=== PATIENT | male | born 1950 | race Caucasian/White ===

== ENCOUNTER 2023-04-04 16:35 | Outpatient (OUT) | payer MEDICARE, SELFPAY ==
[2023-04-04 17:08] LABS: Basophils Percent Auto 0.4 % (0.2-2.0); Eosinophils Absolute Auto 0.2 10^3/uL (0.0-0.7); Eosinophils Percent Auto 3.1 % (0.9-7.0); Hematocrit 41.6 % (42.0-54.0); Hemoglobin 14.2 g/dL (14.0-18.0); Immature Granulocytes Abs Auto 0.01 10^3/uL (0.00-0.03); Immature Granulocytes Pct Auto 0.2 % (0.0-0.5); Lymphocytes Absolute Auto 1.3 10^3/uL (1.2-3.8); Lymphocytes Percent Auto 24.2 % (20.5-60.0); Mean Corpuscular HGB Conc 34.1 g/dL (29.9-35.2); Mean Corpuscular Hemoglobin 29.8 pg (25.9-34.0); Mean Corpuscular Volume 87.4 fL (80.0-94.0); Mean Platelet Volume 9.8 fL (9.5-13.5); Monocytes Absolute Auto 0.6 10^3/uL (0.3-0.8); Monocytes Percent Auto 10.4 % (1.7-12.0); Neutrophils Absolute Auto 3.4 10^3/uL (1.4-6.5); Neutrophils Percent Auto 61.7 % (43.0-75.0); Platelet Count 173 10^3/uL (150-450); Red Blood Count 4.76 10^6/uL (4.70-6.10); Red Cell Distribution Width 13.2 % (11.0-15.0); White Blood Count 5.5 10^3/uL (4.0-11.0)
[2023-04-07 17:07] LABS: Immunoglobulin A, Qn, Serum 120 mg/dL (61-437); Immunoglobulin E, Total 83 IU/mL (6-495); Immunoglobulin G, Qn, Serum 867 mg/dL (603-1613); Immunoglobulin M, Qn, Serum 27 mg/dL (15-143)
== END 2023-04-04 16:36 | disposition home or self-care (01) ==
LOC: LAB 16:38
PROVIDERS: PCP Nurse Practitioner
DX: J32.0 Chronic maxillary sinusitis (principal); J30.1 Allergic rhinitis due to pollen; J30.89 Other allergic rhinitis; D80.1 Nonfamilial hypogammaglobulinemia
CPT/HCPCS: 36415; 82784; 82785; 85025; 86317

== ENCOUNTER 2023-11-27 09:07 | Outpatient (OUT) | payer MEDICARE, SELFPAY ==
--- NOTE | 2023-11-27 09:36 | XR_ITS ---
[address] [address] Patient Name: SERGEI NUNEZ MRN: [id number] date: 1950 Sex: M Assigned Patient Location: LAB Current Patient Location: LAB Accession/Order Number: [id number] Exam Date: 11/27/2023 09:41 Report Date: 11/27/2023 10:20 At the request of: AMANDA BIRD Procedure: XR abdomen 1V EXAMINATION: XR abdomen 1V HISTORY: Kidney Stone COMPARISON: 09/09/2022 CT FINDINGS: KIDNEY/URETER - RIGHT: No visible renal or ureteral calcifications. KIDNEY/URETER - LEFT: No visible renal or ureteral calcifications. PELVIS: No visible ureteral calcifications. Any visible calcifications favor phleboliths. BOWEL: No abnormal dilation or deviation. BONES: No acute abnormality. OTHER: Negative. No abnormal gaseous collections. XR/XR abdomen 1V IMPRESSION: No definite urinary tract calculi Electronically authenticated by: JUAN PABLO CHENG Date: 11/27/2023 10:20
[2023-11-28 04:11] LABS: Prostate Specific Ag 3.3 ng/mL (0.0-4.0)
== END 2023-11-27 09:08 | disposition home or self-care (01) ==
LOC: LAB 09:10
PROVIDERS: PCP Nurse Practitioner; Visit Provider Urology
DX: N20.0 Calculus of kidney (principal); R97.20 Elevated prostate specific antigen [PSA]
CPT/HCPCS: 36415; 74018; 84153; 84154

== ENCOUNTER 2024-07-15 16:15 | Outpatient (OUT) | payer MEDICARE, SELFPAY ==
[2024-07-15 16:38] LABS: Bilirubin Urine MODERATE (NEGATIVE); Blood Urine NEGATIVE (NEGATIVE); Clarity Urine CLEAR (CLEAR); Color Urine DK. YELLOW (YELLOW); Glucose Urine UA NEGATIVE (NEGATIVE); Ketones Urine 15 mg/dL (NEGATIVE); Leukocyte Esterase Urine NEGATIVE (NEGATIVE); Nitrite Urine NEGATIVE (NEGATIVE); Protein Urine TRACE mg/dL (NEG/TRACE); Specific Gravity Urine >=1.030 (1.005-1.025); pH Urine 5.5 (5.0-9.0)
[2024-07-15 16:39] LABS: Urine Microscopic Indicated NO
== END 2024-07-15 16:16 | disposition home or self-care (01) ==
PROVIDERS: PCP Nurse Practitioner; Visit Provider Urology
DX: R39.9 Unspecified symptoms and signs involving the genitourinary system (principal)
CPT/HCPCS: 81003

== ENCOUNTER 2024-07-24 12:03 | Outpatient (OUT) | payer MEDICARE, SELFPAY ==
--- OUTSIDE RECORDS SUMMARY | 2024-07-24 12:26 | XMS_ITS | CCD ---
Author Organization [facility] CliniSyin Care Team Providers Care Traffic Rate Computer Name Role Phone Simba Grey Unavailable MD Simba Grey Attending Provider EDITH Talbot Primary Care Provider NATHAN TALBOT Primary Care Physician Juana Handley Unavailable EDITH Handley Attending Provider [phone] MARGE, DR PATEL Admitting Unavailable BIRD, DR PATEL Attending Unavailable ERIN, NATHAN Primary Care Unavailable BIRD, DR PATEL Consulting Unavailable WEST, DR JUAN PABLO Harley Consulting Unavailable BIRD, DR PATEL Admitting Unavailable BIRD, DR PATEL Attending Unavailable TALBOT, NATHAN Primary Care Unavailable BIRD, DR PATEL Consulting Unavailable BIRD, DR PATEL Admitting Unavailable BIRD, DR PATEL Attending Unavailable TALBOT, NATHAN Primary Care Unavailable BIRD, DR PATEL Consulting Unavailable ADILENE TALBOTE Primary Care Unavailable PAY, DR WHITMORE Admitting Unavailable PAY, DR WHITMORE Attending Unavailable PAY, DR WHITMORE Consulting Unavailable SHANTEL, ZAIN RUIZ Consulting Unavailable LUCIA VERDUGO Consulting Unavailable Simba Grey Admitting UnavailSimba Luna Attending Unavailvane e Nathan Talbot Primary Care Unavailable Juana Handley Admitting Unavailable Juana Handley Attending Unavailable Nathan Talbot Primary Care Unavailable Nathan Stein Primary Care Provid er MOJGAN DEVRIES Referring Unavailable NATHAN TALBOT Primary Care Unavailable LUCIA GARCIA Attending Unavailable MOJGAN DEVRIES Referring Unavailable NATHAN TALBOT Primary Care Unavailable KHUSHBU GILL Attending Unavailable KHUSHBU GILL Referring Unavailable TALBOT, NATHAN J Primary Care Unavailable Talbot DEMOND Nathan Unavailable Unallocated MD, Noms Provider Primary Care Provi shameka TALBOT, NATHAN J Attending Unavailable TALBOT, NATHAN J Referring Unavailable TALBOT, NATHAN J Primary Care Unavailable MAIKKHUSHBU Attending Unavailable TALBOT, NATHAN J Referring Unavailable TALBOT, NATHAN J Primary Care Unavailable TALBOT, NATHAN J Attending Unavailable TALBOT, NATHAN J Referring Unavailable TALBOT, NATHAN J Primary Care Unavailable TALBOT, NATHAN J Attending Unavailable TALBOT, NATHAN J Referring Unavailable TALBOT, NATHAN J Primary Care Unavailable TALBOT, NATHAN J Attending Unavailable TALBOT, NATHAN J Referring Unavailable TALBOT, NATHAN J Primary Care Unavailable OMEGA LUIS Attending Unavailable TALBOT, NATHAN J Referring Unavailable TALBOT, NATHAN J Primary Care Unavailable OMEGA LUIS Attending Unavailable TALBOT, NATHAN J Referring Unavailable TALBOT, NATHAN J Primary Care Unavailable MOJGAN DEVRIES Attending Unavailable TALBOT, NATAHN J Referring Unavailable TALBOT, NATHAN J Primary Care Unavailable TALBOT, NATHAN J Attending Unavailable TALBOT, NATHAN J Referring Unavailable TALBOT, NATHAN J Primary Care Unavailable TALBOT, NATHAN J Referring Unavailable TALBOT, NATHAN J Primary Care Unavailable Amanda BIRD Attending Unavailable TALBOT, NATHAN Primary Care Unavailable TALBOT, NATHAN Primary Care Unavailable Amanda BIRD Attending Unavailable TALBOT, NATHAN Primary Care Unavailable Amanad BIRD Attending Unavailable HAMZAH LAZO Attending Unavailable HAMZAH LAZO Attending Unavailable HAMZAH LAZO Attending Unavailable HAMZAH LAZO Attending Unavailable HAMZAH LAZO Attending Unavailable Allergies Allergy Classification Reported Allergen(s) Allergy Type Date of Onset Reaction(s) Facility (20 sources) moxifloxacin; Translations: [moxifloxacin] Drug Allergy 7 Vomiting (disorder), GI Disturbance, GI intolerance [facility] (1 source) moxifloxacin Drug Allergy 3 [facility] Repository (1 source) Amoxicillin / Clavulanate Drug Allergy diarrhea [address] Other (18 sources) Naproxen; Translations: [NAPROXEN] Drug Allergy 7 GI Disturbance, GI intolerance [facility] (5 sources) Perflutren; Translations: [PERFLUTREN LIPID MICROSPHERES] Drug Allergy 4 Other (See Comments) [facility] Medications Current Medications Medication Drug Class(es) Dates Sig (Normalized) Sig (Original) amLODIPine 5 mg oral tablet (16 sources) Dihydropyridine Calcium Channel Johnathan Start: 12-01-2022 take 1 tablet by mouth once daily in the morning amLODIPine (NORVASC) 5 mg tablet Indications: 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 (CMS-HCC) take 1 tablet by mouth every morning 90 tablet 3 12/13/2023 Active amoxicillin 875 mg / clavulanate 125 mg oral tablet (2 sources) Penicillin-class Antibacterial Start: 08-02-2023 End: 08-12-2023 take 1 tablet by mouth once in the morning amoxicillin-pot clavulanate (AUGMENTIN) 875-125 mg per tablet Indications: Acute right otitis media , Acute non-recurrent pansinusitis Take 1 tablet by mouth in the morning and 1 tablet before bedtime. Do all this for 10 days. 20 tablet 0 08/02/2023 08/12/2023 Active aspirin 81 mg delayed release oral tablet (20 sources) Platelet Aggregation Inhibitor, Nonsteroidal Anti-inflammatory Drug Start: 01-27-2023 take 1 mg by mouth once daily aspirin 81 mg Oral EC Tab mg tab(s), Oral, Daily, Refills(s) 0 Start Date: 01/27/23 Status: Ordered Start: 11-07-2017 End: 03-23-2022 take 1 tablet by mouth once daily Aspirin (Aspir-81) 81 mg Tablet,Delayed Release (Dr/Ec) Discontinued 81 MG PO Daily November 07, 2017 12:00am March 23, 2022 12:57pm take 1 tablet by [place] [facility] once daily Aspirin 81 81 MG 1 tablet Orally Once a day Active atorvastatin 80 mg oral tablet (20 sources) HMG-CoA Reductase Inhibitor Start: 07-15-2024 take 1 tablet by mouth once daily in the morning atorvastatin (LIPITOR) 80 mg tablet Indications: Hyperlipidemia, unspecified hyperlipidemia type TAKE 1 TABLET BY MOUTH EVERY MORNING 90 tablet 07/15/2024 Active Start: 07-27-2023 End: 07-15-2024 take 1 tablet by mouth in the morning atorvastatin (Lipitor) 80 MG tablet Take 1 tablet by mouth in the morning. 07/27/2023 Active Start: 06-24-2019 atorvastatin O ral, Daily, Refills(s) 0 Start Date: 06/24/19 Status: Ordered Start: 11-07-2017 take 80 mg by mouth once daily Atorvastatin Active 80 MG PO Daily November 07, 2017 12:00am Atorvastatin Myles cium Active azelastine hydrochloride 0.137 mg/actuat metered dose nasal spray (11 sources) Histamine-1 Receptor Antagonist Start: 03-30-2023 take 1 spray(s) nasal route in the morning azelastine (ASTELIN) 137 mcg (0.1 %) nasal spray Administer 1 spray into each nostril in the morning and 1 spray before bedtime. 03/30/2023 Active azithromycin 250 mg oral tablet (1 source) Macrolide Antimicrobial Start: 10-16-2023 End: 10-20-2023 azithromycin (ZITHROMAX) 250 mg tablet Indications: Acute non-recurrent pansinusitis Take 2 tablets the first day, then 1 tablet daily for 4 days. 6 tablet 0 10/16/2023 10/20/2023 Active carvedilol 12.5 mg oral tablet (20 sources) alpha-Adrenergic Johnathan, beta-Adrenergic Johnathan Start: 05-01-2024 take 1 tablet by mouth in the morning, then take 1 tablet by mouth at bedtime carvediloL (COREG) 12.5 mg tablet Indications: Atherosclerosis of [place] coronary artery of [place] heart without angina pectoris Take 1 tablet (12.5 mg total) by mouth in the morning and 1 tablet (12.5 mg total) before bedtime. 180 tablet 1 05/01/2024 Active Start: 06-28-2023 take 1 tablet by [facility] [facility] every twelve hours carvedilol (Coreg) 12.5 MG tablet Take 1 tablet by mouth every 12 (twelve) hours 06/28/2023 Active Start: 06-28-2023 take 1 tablet by [place] [facility] every twelve hours carvediloL (COREG) 12.5 mg tablet Indications: Atherosclerosis of [place] coronary artery of [place] heart without angina pectoris take 1 tablet by mouth every 12 hours 180 tablet 2 06/28/2023 Active Start: 06-24-2019 carvedilol Ora l, Refills(s) 0 Start Date: 06/24/19 Status: Ordered Start: 11-07-2017 take 12.5 mg by mout h twice daily Carvedilol Active 12.5 MG PO Twice daily November 07, 2017 12:00am Carvedilol Activ e cetirizine hydrochloride 10 mg oral tablet (20 sources) Histamine-1 Receptor Antagonist Start: 03-23-2022 take 1 tablet by mouth once daily Cetirizine (Zyrtec) 10 mg Tablet Active 10 MG PO Daily March 23, 2022 12:00am Start: 06-24-2019 Zyrtec Daily, Refills(s) 0 Start Date: 06/24/19 Status: Ordered take 1 capsule by mo uth in the morning Cetirizine HCl 10 MG capsule Take 10 mg by mouth in the morning. Active chlorhexidine gluconate 1.2 mg/ml mouthwash (4 sources) chlorhexidine (P eridex) 0.12 % solution as directed Mouth/Throat Active famotidine 20 mg oral tablet (17 sources) Histamine-2 Receptor Antagonist Start: 03-20-2023 famotidine (Pepcid) 20 MG tablet Daily 03/20/2023 Active Start: 06-24-2019 Pepcid Refills (s) 0 Start Date: 06/24/19 Status: Ordered Pepcid Active Fiber Adult Gummies 2 GM (2 sources) Fiber Adult Nathaniel ies 2 GM as directed Orally Active FLUoxetine 10 mg oral capsule (11 sources) Serotonin Reuptake Inhibitor Start: 02-14-2024 take 1 capsule by mouth in the morning FLUoxetine (PROzac) 10 mg capsule Indications: Situational depression Take 1 capsule (10 mg total) by mouth in the morning. 90 capsule 1 02/14/2024 Active Start: 05-10-2023 take 1 capsule by mo uth in the morning FLUoxetine (PROzac) 10 mg capsule Indications: Situational depression Take 1 capsule (10 mg total) by mouth in the morning. 90 capsule 1 05/10/2023 Active fluticasone propionate 0.05 mg/actuat metered dose nasal spray (20 sources) Corticosteroid Start: 05-10-2022 take 2 spray(s) nasal route once daily fluticasone propionate (FLONASE) 50 mcg/actuation nasal spray Indications: Allergic rhinitis, unspecified seasonality, unspecified trigger instill 2 sprays into each nostril once daily if needed 16 g 11 05/10/2022 Active Start: 06-24-2019 Flonase Nasal, Daily, Refill(s) 0 Start Date: 06/24/19 Status: Ordered Start: 11-07-2017 Fluticasone Pr opionate Active 1 SPRAY INTRANASAL Daily November 07, 2017 12:00am fluticasone (Prasanth nase Allergy Relief) 50 MCG/ACT nasal spray Nasal Active Flonase 50mcg 1 spray each nostirl QD Active lisinopril 10 mg oral tablet (20 sources) Angiotensin Converting Enzyme Inhibitor Start: 12-21-2022 take 1 tablet by mouth twice daily at bedtime lisinopril 10 MG tablet TAKE 1 TABLET BY MOUTH TWICE A DAY IN THE MORNING AND BEFORE BEDTIME 12/21/2022 Active Start: 06-24-2019 take 5 mg by mouth once daily lisinopril 5 mg, Oral, Daily, Refills(s) 0 Start Date: 06/24/19 Status: Ordered Start: 11-07-2017 take 10 mg by mouth once daily Lisinopril Active 10 MG PO Daily November 07, 2017 12:00am Lisinopril Activ e mesalamine 1000 mg rectal suppository (2 sources) Aminosalicylate Start: 02-15-2023 Canasa 1000 MG 1 suppository at bedtime Rectal Once a day for 10 days PLEASE CHECK ALLERGIES Feb, Active Mesalamine 1000 MG unwrap and _insert 1 suppository rectally at bedtime for 10 days for 10 Active methylPREDNISolone 4 mg oral tablet (13 sources) Corticosteroid Start: 05-27-2022 Medrol 4 MG as directed Orally as directed for 6 days May, Active Start: 08-06-2016 Depo-Medrol 40 mg Jul, 40 mg Nitro 0.4 mg Tab (5 sources) Start: 06-24-2019 Nitro 0.4 mg T ab = 1 tab(s), SubLingual, q5min, PRN Chest pain, # 25 tab(s), Refills(s) 3 Start Date: 06/24/19 Status: Ordered nitroglycerin 0.4 mg sublingual tablet (17 sources) Nitrate Vasodilator Start: 09-22-2023 End: 09-22-2023 nitroglycerin (NITROSTAT) 0.[address] 1 tablet (0.4 mg total) under the tongue every 5 (five) minutes as needed for chest pain. 25 tablet 5 09/22/2023 Active Start: 03-20-2023 take 1 tablet under the tongue every twenty-four hours as needed nitroglycerin (Nitrostat) 0.[address] 0.4 mg under the tongue Daily as needed 03/20/2023 Active Start: 06-24-2019 Nitro 0.4 mg T ab = 1 tab(s), SubLingual, q5min, PRN Chest pain, # 25 tab(s), Refills(s) 3 Start Date: 06/24/19 Status: Ordered Effient (15 sources) P2Y12 Platelet Inhibitor Start: 06-24-2019 Delancey nt Oral, Daily, Refills(s) 0 Start Date: 06/24/19 Status: Ordered Start: 11-07-2017 take 1 tablet by [facility] once daily Prasugrel (Effient) 10 mg Tablet Active 10 MG PO Daily November 07, 2017 12:00am Effient Active tamsulosin hydrochloride 0.4 mg oral capsule (20 sources) alpha-Adrenergic Johnathan Start: 07-10-2023 take 1 capsule by mouth twice daily tamsulosin 0.4 mg Cap 0.4 mg = 1 cap(s), Oral, BID, # 180 cap(s), Refills(s) 3, Pharmacy: [facility] #[id number], 192, cm, 01/27/23 10:46:00 EDT, Height/Length Dosing, 104, kg, 01/27/23 10:46:00 EDT, Weight Dosing Start Date: 07/10/23 Status: Ordered Start: 07-12-2022 take 1 capsule by mo [facility] twice daily tamsulosin 0.4 mg Cap 0.4 mg = 1 cap(s), Oral, BID, # 180 cap(s), Refills(s) 3, Pharmacy: [facility] #[id number], 192, cm, 05/16/22 11:06:00 EDT, Height/Length Dosing, 106, kg, 05/16/22 11:06:00 EDT, Weight Dosing Start Date: 07/12/22 Status: Ordered Start: 07-09-2021 End: 07-04-2022 take 1 capsule by mouth twice daily Flomax 0.4 mg Cap 0.4 mg = 1 cap(s), Oral, BID, X 90 day(s), # 180 cap(s), Refills(s) 3, Pharmacy: [address], 192, cm, 05/03/21 13:47:00 EDT, Height/Length Dosing, 106, kg, 05/03/21 13:47:00 EDT, Weight Dosing Start Date: 07/09/21 Stop Date: 07/04/22 Status: Ordered Start: 11-07-2017 take 0.4 mg by mouth once myke y Tamsulosin Active 0.4 MG PO Daily November 07, 2017 12:00am take 1 capsule by [facility] every twenty-four hours in the morning tamsulosin (Flomax) 0.4 MG 24 hr capsule Take 0.4 mg by mouth in the morning and 0.4 mg in the evening. Active Flomax 0.4mg 1 a fter evening meal Active valACYclovir 1000 mg oral tablet (8 sources) Herpesvirus Nucleoside Analog DNA Polymerase Inhibitor, Herpes Simplex Virus Nucleoside Analog DNA Polymerase Inhibitor, Herpes Zoster Virus Nucleoside Analog DNA Polymerase Inhibitor Start: 08-10-2023 take 1 tablet by mouth three times daily valACYclovir (VALTREX) 1000 mg tablet Indications: Herpes zoster without complication Take 1 tablet (1,000 mg total) by mouth 3 (three) times a day. 21 tablet 0 08/10/2023 Active Completed/Discontinued Medications Medication Drug Class(es) Dates Sig (Normalized) Sig (Original) dicyclomine hydrochloride 20 mg oral tablet (9 sources) Anticholinergic Start: 03-02-2022 take 1 tablet by mouth four times daily as needed Dicyclomine HCl 20 MG 1 tablet Orally Four times a day prn only for 30 day(s) Feb, Not-Taking/PRN docusate sodium 50 mg oral capsule (2 sources) Start: 11-07-2017 End: 03-23-2022 take 1 tablet by mouth once daily Docusate Sodium (Stool Softener) 50 mg Capsule Discontinued 1 TAB PO Daily November 07, 2017 12:00am March 23, 2022 12:57pm Nitro Sublingual 0.4 (9 sources) Nitro Sublingual 0.4 Not-Taking/PRN Nitro Sublingual 0.4 Not-Taking Nitro Sublingual 0.4 Active Psyllium Seed (With Dextrose) (Fiber) Powder (2 sources) Start: 11-07-2017 End: 03-23-2022 take 2 tablets by mouth once daily Psyllium Seed (With Dextrose) (Fiber) Powder Discontinued 2 TAB PO Daily November 07, 2017 12:00am March 23, 2022 12:58pm Triamcinolone (9 sources) Corticosteroid Start: 02-01-2020 Kenalog -40 mg Jan, 40 mg Problems Active Problems Problem Classification Problem Date Documented Da te Episodic/Chronic Abdominal pain (11 sources) Right sided abdominal pain; Translations: [Unspecified abdominal pain] Onset: 03-02-2022 Resolved: 03-02-2022 Episodic Acute myocardial infarction (6 sources) Myocardial infarction 03-01-2019 Chronic Adjustment disorders (1 source) Adjustment disorder with depressed mood; Translations: [Adjustment disorder with depressed mood] Onset: 02-14-2024 Chronic Anxiety disorders (11 sources) Anxiety; Translations: [Other specified anxiety disorders] Onset: 05-10-2023 05-10-2023 Chronic Calculus of urinary tract (19 sources) History of calculus of kidney; Translations: [Personal history of urinary calculi] Onset: 05-16-2022 Episodic Chronic obstructive pulmonary disease and bronchiectasis (13 sources) Bronchiectasis; Translations: [Bronchiectasis, uncomplicated] Onset: 05-18-2023 05-18-2023 Chronic Coronary atherosclerosis and other heart disease (20 sources) Coronary arteriosclerosis; Translations: [Ischemic myocardial dysfunction] Onset: 10-03-2014 03-01-2019 Chronic Disorders of lipid metabolism (12 sources) Hyperlipidemia; Translations: [Hyperlipidemia, unspecified] 12-01-2022 Chronic Diverticulosis and diverticulitis (3 sources) Diverticular disease of colon; Translations: [Diverticulosis of large intestine without perforation or abscess without bleeding] Chronic Esophageal disorders (20 sources) Orellana's esophagus; Translations: [Orellana's esophagus without dysplasia] Onset: 07-11-2013 11-08-2017 Chronic Essential hypertension (7 sources) Hypertensive disorder Onset: 02-14-2024 03-01-2019 Chronic Genitourinary symptoms and ill-defined conditions (6 sources) Post-micturition incontinence 12-23-2019 Chronic Hemorrhoids (1 source) Other hemorrhoids Episodic Hyperplasia of prostate (20 sources) Benign prostatic hypertrophy with outflow obstruction; Translations: [Benign prostatic hyperplasia with lower urinary tract symptoms] Onset: 11-03-2021 Chronic Hypertension with complications and secondary hypertension (12 sources) Benign hypertensive heart disease with congestive cardiac failure; Translations: [Hypertensive heart disease with heart failure] Onset: 07-15-2015 12-01-2022 Chronic Immunizations and screening for infectious disease (1 source) Contact with and (suspected) exposure to unspecified communicable disease Episodic Mycoses (2 sources) Pain in toe; Translations: [Tinea unguium] 05-09-2024 Episodic Other aftercare (1 source) Other long filler cigar roller machine (current) drug therapy; Translations: [OTH [facility] CURRENT DRUG THERAPY] Onset: 09-13-2022 Episodic Other aftercare (1 source) [facility] (current) use of aspirin; Translations: [[facility] CURRENT USE OF ASPIRIN] Onset: 09-13-2022 Episodic Other aftercare (1 source) Patient encounter status; Translations: [Other [facility] (current) drug therapy] 07-15-2024 Episodic Other and unspecified benign neoplasm (9 sources) History of polyp of colon; Translations: [Personal history of colonic polyps] Episodic Other and unspecified benign neoplasm (2 sources) Personal history of colonic polyps Onset: 03-02-2022 Resolved: 03-02-2022 Episodic Other diseases of veins and lymphatics (2 sources) Vascular insufficiency; Translations: [Venous insufficiency (chronic) (peripheral)] 05-09-2024 Episodic Other male genital disorders (11 sources) Male erectile dysfunction, unspecified; Translations: [Erectile dysfunction] Onset: 11-03-2021 Chronic Other male genital disorders (6 sources) H/O: male genital disorder 03-01-2019 Episodic Other male genital disorders (6 sources) Retrograde ejaculation 12-23-2019 Episodic Other non-traumatic joint disorders (1 source) Pain in right knee Episodic Other nutritional; endocrine; and metabolic disorders (6 sources) H/O: endocrine disorder 03-01-2019 Episodic Other screening for suspected conditions (not mental disorders or infectious disease) (12 sources) CT of chest abnormal; Translations: [Abnormal findings on diagnostic imaging of other specified body structures] Onset: 01-30-2023 01-30-2023 Chronic Other screening for suspected conditions (not mental disorders or infectious disease) (19 sources) History of adenomatous polyp of colon; Translations: [Encounter for screening for malignant neoplasm of colon] Onset: 05-09-2022 11-08-2017 Episodic Other upper respiratory disease (6 sources) Seasonal allergy 03-01-2019 Chronic Other upper respiratory disease (12 sources) Allergic rhinitis due to pollen; Translations: [Allergic rhinitis due to pollen] Onset: 12-20-2017 04-29-2019 Chronic Other upper respiratory disease (11 sources) Allergic rhinitis; Translations: [Allergic rhinitis, unspecified] Onset: 03-25-2020 03-25-2020 Chronic Residual codes; unclassified (12 sources) Obstructive sleep apnea syndrome; Translations: [Obstructive sleep apnea (adult) (pediatric)] 10-24-2022 Chronic Residual codes; unclassified (1 source) Obstructive sleep apnea (adult) (pediatric); Translations: [Obstructive sleep apnea (adult) (pediatric)] Onset: 07-21-2021 Chronic Residual codes; unclassified (1 source) Sleep apnea Onset: 10-12-2023 Chronic Residual codes; unclassified (1 source) Localized edema; Translations: [Localized edema] 09-19-2023 Episodic Sprains and strains (1 source) Sprain of unspecified site of right knee, initial encounter Episodic Thyroid disorders (11 sources) Multinodular goiter; Translations: [Nontoxic multinodular goiter] Onset: 01-30-2023 01-30-2023 Chronic Unclassified (6 sources) Drug therapy finding 12-23-2019 Unclassified (3 sources) LOW BACK PAIN, UNSPECIFIED; Translations: [LOW BACK PAIN, UNSPECIFIED] Onset: 09-13-2022 Unclassified (1 source) Hemorrhage of anus and rectum; Translations: [Hemorrhage of anus and rectum] Onset: 03-20-2023 Unclassified (1 source) Pain in right knee; Translations: [Pain in right knee] Onset: 05-27-2022 Unclassified (1 source) Sinus Problem Onset: 10-16-2023 Unclassified (1 source) sinus Onset: 08-02-2023 Past or Other Problems Problem Classification Problem Date Documented Da te Episodic/Chronic Coronary atherosclerosis and other heart disease (12 sources) Bare metal stent in anterior descending branch of left coronary artery; Translations: [Presence of coronary angioplasty implant and graft] Onset: 07-15-2015 12-01-2022 Episodic Genitourinary symptoms and ill-defined conditions (20 sources) Isolated proteinuria; Translations: [Urgent desire to urinate] Onset: 11-15-2018 03-01-2019 Episodic Mood disorders (11 sources) Mood disorders Onset: 08-02-2023 Resolved: 06-06-2024 08-02-2023 Nausea and vomiting (3 sources) Nausea; Translations: [Nausea with vomiting, unspecified] Onset: 11-14-2023 Episodic Noninfectious gastroenteritis (1 source) Noninfective gastroenteritis and colitis, unspecified; Translations: [Noninfective gastroenteritis and colitis, unspecified] Onset: 11-14-2023 Episodic Other gastrointestinal disorders (2 sources) Other fecal abnormalities; Translations: [Other fecal abnormalities] Onset: 03-02-2022 Resolved: 03-02-2022 Episodic Other lower respiratory disease (11 sources) Nodule of lung; Translations: [Solitary pulmonary nodule] Onset: 05-18-2023 Resolved: 10-12-2023 05-18-2023 Episodic Other lower respiratory disease (1 source) Solitary pulmonary nodule; Translations: [Solitary pulmonary nodule] Onset: 05-18-2023 Episodic Other lower respiratory disease (1 source) Cough Onset: 10-10-2023 Episodic Other male genital disorders (11 sources) Adult hydrocele; Translations: [Hydrocele, unspecified] Onset: 05-07-2020 05-07-2020 Episodic Other upper respiratory disease (1 source) Disease of upper respiratory tract, unspecified; Translations: [Disease of upper respiratory tract, unspecified] Onset: 01-02-2024 Episodic Other upper respiratory disease (1 source) Pain in throat Onset: 11-14-2023 Episodic Other upper respiratory infections (5 sources) Acute pansinusitis; Translations: [Acute pansinusitis, unspecified] Onset: 08-02-2023 08-02-2023 Episodic Otitis media and related conditions (2 sources) Acute right otitis media; Translations: [Otitis media, unspecified, right ear] Onset: 08-02-2023 08-02-2023 Episodic Residual codes; unclassified (1 source) Other general symptoms and signs; Translations: [Other general symptoms and signs] Onset: 11-14-2023 Episodic Residual codes; unclassified (1 source) Localized edema; Translations: [Localized edema] Onset: 09-19-2023 Episodic Unclassified (1 source) LOW BACK PAIN, UNSPECIFIED; Translations: [LOW BACK PAIN, UNSPECIFIED] Onset: 09-09-2022 Unclassified (1 source) Cough R05.9 Unclassified (11 sources) Onset: 08-02-2023 Resolved: 02-14-2024 08-02-2023 Viral infection (2 sources) Herpes zoster without complication; Translations: [Zoster without complications] Onset: 08-10-2023 08-10-2023 Episodic Viral infection (1 source) COVID-19 Results Test Name Value Interpretation Reference Range Facility Patient Education 12-04-19 Patient Education Urology Benign Prostatic Hyperplasia Benign prostatic hyperplasia (BPH) is an enlarged prostate gland that is caused by the normal aging process. The prostate may get bigger as a man gets older. The condition is not caused by cancer. The prostate is a walnut-sized gland that is involved in the production of semen. It is located in front of the rectum and below the bladder. The bladder stores urine. The urethra carries stored urine out of the body. An enlarged prostate can press on the urethra. This can make it harder to pass urine. The buildup of urine in the bladder can cause infection. Back pressure and infection may progress to bladder damage and kidney (renal) failure. What are the causes? This condition is part of the normal aging process. However, not all men develop problems from this condition. If the prostate enlarges away from the urethra, urine flow will not be blocked. If it enlarges toward the urethra and compresses it, there will be problems passing urine. What increases the risk? This condition is more likely to develop in men older than 50 years. What are the signs or symptoms? Symptoms of this condition include: ? Getting up often during the night to urinate. ? Needing to urinate frequently during the day. ? Difficulty starting urine flow. ? Decrease in size and strength of your urine stream. ? Leaking (dribbling) after urinating. ? Inability to pass urine. This needs immediate treatment. ? Inability to completely empty your bladder. ? Pain when you pass urine. This is more common if there is also an infection. ? Urinary tract infection (UTI). How is this diagnosed? This condition is diagnosed based on your medical history, a physical exam, and your symptoms. Tests will also be done, such as: ? A post-void bladder scan. This measures any amount of urine that may remain in your bladder after you finish urinating. ? A digital rectal exam. In a rectal exam, your health care provider checks your prostate by putting a lubricated, gloved finger into your rectum to feel the back of your prostate gland. This exam detects the size of your gland and any abnormal lumps or growths. ? An exam of your urine (urinalysis). ? A prostate specific antigen (PSA) screening. This is a blood test used to screen for prostate cancer. ? An ultrasound. This test uses sound waves to electronically produce a picture of your prostate gland. Your health care provider may refer you to a specialist in kidney and prostate diseases (urologist). How is this treated? Once symptoms begin, your health care provider will monitor your condition (active surveillance or watchful waiting). Treatment for this condition will depend on the severity of your condition. Treatment may include: ? Observation and yearly exams. This may be the only treatment needed if your condition and symptoms are mild. ? Medicines to relieve your symptoms, including: ? Medicines to shrink the prostate. ? Medicines to relax the muscle of the prostate. ? Surgery in severe cases. Surgery may include: ? Prostatectomy. In this procedure, the prostate tissue is removed completely through an open incision or with a laparoscope or robotics. ? Transurethral resection of the prostate (TURP). In this procedure, a tool is inserted through the opening at the tip of the penis (urethra). It is used to cut away tissue of the inner core of the prostate. The pieces are removed through the same opening of the penis. This removes the blockage. ? Transurethral incision (TUIP). In this procedure, small cuts are made in the prostate. This lessens the prostate's pressure on the urethra. ? Transurethral microwave thermotherapy (TUMT). This procedure uses microwaves to create heat. The heat destroys and removes a small amount of prostate tissue. ? Transurethral needle ablation (TUNA). This procedure uses radio frequencies to destroy and remove a small amount of prostate tissue. ? Interstitial laser coagulation (ILC). This procedure uses a laser to destroy and remove a small amount of prostate tissue. ? Transurethral electrovaporization (TUVP). This procedure uses electrodes to destroy and remove a small amount of prostate tissue. ? Prostatic urethral lift. This procedure inserts an implant to push the lobes of the prostate away from the urethra. Follow these instructions at home: ? Take cjrj-ltd-[id number] and prescription medicines only as told by your health care provider. ? Monitor your symptoms for any changes. Contact your health care provider with any changes. ? Avoid drinking large amounts of liquid before going to bed or out in public. ? Avoid or reduce how much caffeine or alcohol you drink. ? Give yourself time when you urinate. ? Keep all follow-up visits. This is important. Contact a health care provider if: ? You have unexplained back pain. ? Your symptoms do not get better with treatment. ? You develop side effects from the medicine (more content not included)... Normal [facility] Urology Office/Clinic Noteon 12-04-2023 Urology Office/Clinic Note Chief Complaint F/U with KUB and PSA F&T HPI Staff 1yr KUB & PSA DX: Impotence, BPH, Elevated PSA & Kidney Stone Last seen in our office 01/27/23 by PRW to learn 4P injection *Flomax 0.4 mg BID therapy KUB 11/27/23 @ [facility] 11/27/23 PSA 11/27/23- 3.3 & 30.3 is with him today- Flomax 0.4 mg Still taking, very happy with this Dysuria: _denies Incomplete bladder emptying: denies Hematuria: denies visible blood Frequency: every couple hours Urgency: _denies Nocturia: at least 3x nightly Stream: _denies hesitation, normal stream Leaking: _occasionally Post void dripping: occasionally Wearing pads/ Depends: denies Urge incontinence: denies Stress incontinence: denies Incontinence without Sensory Awareness: _denies Abdominal pain: denies Flank pain: denies Sexual complaints: _denies History of Present Illness Tests reviewed: reviewed UA, KUB, PSA I have reviewed the previous health record information and history for this patient from Dr. Bird. I have reviewed and verified the staff HPI to be accurate for this encounter. Review of Systems PHQ Score Initial Depression Screen Score: 0 SCORE ROS - Provider Constitutional: denies weight loss, denies hot flashes. Eyes: denies eye problems. Gastrointestinal: denies nausea, denies vomiting. Cardiovascular: denies chest pain or angina. Integumentary: no dryness Musculoskeletal: denies musculoskeletal symptoms. ENMT: denies otolaryngeal symptoms. Respiratory: no shortness of breath. Heme/Lymph: denies easy bleeding tendency, denies easy bruising tendency. Psychiatric: no confusion, no anxiety. Genitourinary: See HPI. Physical Exam Vitals & Measurements T: 36.0 ?C(Temporal Artery) HR: 84(Peripheral) BP: 110/76 HT: 76 in HT: 192 cm WT: 104 kg WT: 228.8 lb BMI: 28.21 General Appearance: alert, no distress, well nourished, well developed male. Genitourinary: normal scrotum, normal testes, normal urethra, normal epididymis, normal vas deferens/spermatic cord. Flank Pain: none. Bladder: nonpalpable. Prostate: normal prostate, estimated weight 45 gms, no hard nodule observed. Assessment/Plan 1. Elevated PSA (R97.20: Elevated prostate specific antigen [PSA]) PSA: 04/26/21 - 3.69 11/08/21 - 3.91 05/09/22 - 2.79 11/14/22 - 2.20 11/27/23 - 3.30 & 30.3% KATEY: 45g, benign PSA has increased from prior but has been up almost 4 in the past. Will continue to monitor. -PSA in 1 year 2. BPH with urinary obstruction (N40.1: Benign prostatic hyperplasia with lower urinary tract symptoms) UA today negative for blood and infection. Taking Flomax 0.4 mg bid. Good stream. Feels he empties. Only bothersome sx is nocturia. -Cont Tamsulosin bid -Limit fluids prior to bedtime 3. Nocturia (R35.1: Nocturia) Getting up 3-5x/night (2x). States this is most bothersome. However admits to fluid intake up until bedtime. Recommended pt to start fluid intake earlier in the day and limit fluids at 6pm. Has SURINDER, wears c-pap nightly. States c-pap recently did get adjusted. Discussed he may not be receiving enough pressure to be as effective. -Cont Tamsulosin bid -Adjust c-pap -Limit fluids prior to bedtime 4. Kidney stone (N20.0: Calculus of kidney) Stone analysis 04/26/21 - 100% Ca Ox [place]. KUB 07/15/22 [facility] - No urinary tract calculi. CT AP wo con 09/09/22 [facility] - Subcentimeter left renal calculi. No ureteral calculi. KUB 11/27/23 [facility] - No visible urinary tract calculi. Reviewed imaging. States he has been drinking lemonade. No recent stone episode. 5. Impotence (N52.9: Male erectile dysfunction, unspecified) has difficulty getting and maintaining an erection. Has taken a nitro product within the past year, will not prescribe oral med due to this. Taught ICI 01/27/23. States he has not been using this much due to getting surgery and being worried about given injection to pt. Follow-up With When Contact Information MARGE VARNER, Amanda Alvares, [facility] [address], [place] [address] [phone] Additional Instructions: 1 yr w/ PSA Patient Education Benign Prostatic Hyperplasia I, Amna Sarmiento, personally scribed for Dr. Bird on 12/04/2023 13:11:38. . Documentation recorded by the juanitaibAmna escalona, accurately reflects the services(s) I performed and decisions made by me. Authenticated by Dr. Bird on 12/04/2023 13:13:58. Problem List/Past Medical History Ongoing Anticoagulated Barretts esophagus BPH with urinary obstruction Coronary artery disease Elevated PSA Enlarged prostate with urinary obstruction H/O chronic prostatitis H/O hypogonadism History of kidney stones Hypertension Impotence Isolated proteinuria Kidney stone Myocardial infarct Nocturia Post-void dribbling Retrograde ejaculation Seasonal allergies Urinary urgency Historical No qualifying data Procedure/Surgical History Transrectal biopsy of (more content not included)... Normal [facility] Comment on above: Result Comment: Elec tronically Signed By: Amanda BIRD MD\.br\Date and Time Signed: 12/04/23 13:14 EDT\.br\Electronically Co-Signed By: Amna Sarmiento\.br\Date and Time Co-Signed: 12/04/23 13:11 EDT Lab Reportson 11-28-2023 Lab Reports [id number] 0TIFF Normal [facility] RAD - MISCon 11-28-2023 RAD - MISC [id number] 0TIFF Normal [facility] POCT Influenza A/Influenza B /SARS-COV-2 Ver[facility] 10-10-2023 External Poct Influenza A Antigen Negative [facility] External Poct Influenza B Antigen Negative [facility] SARS-CoV-2 (COVID-19) Ag IA.rapid Ql (Resp) Negative [facility] POCT rapid strep AOrdered By : Rhoda Leung on 10-10-2023 S. pyogenes Ag IA Ql (Unsp spec) Negative Negative [facility] CT CHEST WO CONTon CT CHEST WO CONT CT CHEST WO CONT CLINICAL INFORMATION: Abnormal CT of the chest; Pulmonary nodule Patient states follow-up of pulmonary nodule. TECHNIQUE: CT Chest without intravenous contrast. All CT scans at this facility use dose modulation, iterative reconstruction, and/or weight based dosing when appropriate to reduce radiation dose to as low as reasonably achievable. COMPARISON: 01/25/2023 FINDINGS: Lower neck: Enlarged right lobe thyroid, with nodule that may measure up to 27 mm noted at the inferior aspect. Cardiovascular and mediastinum: No mediastinal mass or adenopathy. Coronary artery stents. Low attenuation consistent with fat at the thinned apex of the lateral ventricle, possible prior infarct.. No pericardial effusion. Lungs and pleura: Multiple nodules that were previously present have largely resolved. Maintenance Equipment Operator images include series 2, image 84 of 139, where a 3 mm nodule remains at the site of a previous 16 mm spiculated mass/nodule. Similar areas of nodules replaced with small scars are noted on series 2 image 35 of 139, in the left upper lobe, and series 2 image 47 of 139, in the posterior right upper lobe adjacent to fissure. Both of the latter 2 areas are marked with [place]. There remains a left lower lobe calcified nodule, seen on series 2 image 90 of 139. Bilaterally, there is posterior/basal basilar pleural-parenchymal scarring, which appears relatively stable. There is no pleural effusion or pneumothorax. Upper abdomen: Limited noncontrast images of the upper abdomen show previous cholecystectomy, without other significant findings. Soft tissues and bones: Bone windowed images show no concerning lesions. Evaluation of extrathoracic soft tissue structures reveals no soft tissue masses. IMPRESSION: * Chest CT showing significant interval improvement or complete resolution of multiple previously noted nodular densities involving both lungs. In some areas the previously present nodules were replaced with scarring, well and at least one area there remains a tiny nodule (left lower lobe). If patient is high risk for lung carcinoma, recommend yearly screening. * Enlarged right lobe of the thyroid containing at least one nodule. Need for further assessment should be determined clinically. Finalized by Jessee Del Valle MD on 09/28/2023 3:03 PM Normal [facility] COVID + FLU Quick Testingon 07-16-2023 SARS-CoV-2 (COVID-19) RNA NANETTE+probe Ql (Unsp spec) Positive [address] Other COVID + FLU Quick Testing Negative [address] Other [facility] 03-20-2023 L -- ---- Specimen: [id number] Received: 03/20/23 Status: ALEIDA Derick Num: [id number] Spec Type: Surgical Subm Dr: Simba Grey MD Tissues: A Colon Biopsy (TRANSVERSE POLYP) Procedures: HE/2, Gross/Micro L4 ---- Age/ Patient Sex Location Account Attending Physician ---- Eliazar Nunez 72/[facility] [id number] Simba Grey MD ---- SPEC NUM: [id number] RECD: 03/20/23 STATUS: ALEIDA LAN NUM: [id number] HERNANDEZ: 03/20/[address] [facility] [address]: Simba Grey MD ENTERED: 03/20/[address] [facility] DR: CYNTHIA TYPE: Surgical DEPT: S ORDERED: HE/2, Gross/Micro L4 ORDERED: HE/2, Gross/Micro L4 Pathological Diagnosis Colon, transverse, polyp, biopsy: - Fragments of hyperplastic polyp(s) Clinical Information Rectal bleeding Gross Description Received in formalin labeled with the patient's name, date of and transverse colon polyp is one vaughn tissue measuring 0.5 x 0.4 x 0.2 cm admixed with fecal material. Entirely submitted in one cassette labeled A1. Microscopic Description Two H E slides reviewed. The microscopic examination confirms the diagnosis. CPT Codes 54948 ---- ---- Specimen: [id number] Received: 03/20/23 Status: ALEIDA Lan Num: [id number] Spec Type: Surgical Subm Dr: Simba Grey MD Tissues: A Colon Biopsy (TRANSVERSE POLYP) Procedures: HE/2, Gross/Micro L4 ---- Patient: Eliazar Nunez [id number] (Continued) ---- Signed (signature on file) Nando Glaser MD 03/22/23 1135 [facility] CBC AUTO DIFFon 09-09-2022 BASO # 0.0 103/ul Normal 0.0-0.1 [facility] Comment on above: Performed By: #### C BC #### [facility] [address] [address] [address] Tyrone Salazar Basophils/100 WBC (Bld) 0.4 % Normal 0.2-2.0 [facility] Comment on above: Performed By: #### C BC #### [facility] [address] [address] [address] Tyrone Salazar EO # 0.2 103/ul Normal 0.0-0.7 [facility] Comment on above: Performed By: #### C BC #### [facility] [address] [place] [address] Dr. Tyrone Salazar Eosinophils/100 WBC (Bld) 2.8 % Normal 0.9-7.0 [facility] Comment on above: Performed By: #### C BC #### [facility] [address] [place] [address] Dr. Tyrone Salazar Erythrocyte distribution width (RBC) [Ratio] 13.1 % Normal 11.0-15.0 [facility] Comment on above: Performed By: #### C BC #### [facility] [address] [place] [address] Dr. Tyrone Salazar Hematocrit (Bld) [Volume fraction] 45.6 % Normal 42.0-54.0 [facility] Comment on above: Performed By: #### C BC #### [facility] [address] [place] [address] Dr. Tyrone Salazar Hemoglobin (Bld) [Mass/Vol] 15.5 g/dL Normal 14.0-18.0 [facility] Comment on above: Performed By: #### C BC #### [facility] [address] [place] [address] Dr. Tyrone Salazar IG # 0.02 10e3/ul Normal 0.00-0.03 [facility] Comment on above: Performed By: #### C BC #### [facility] [address] [place] [address] Dr. Tyrone Salazar IG % 0.4 % Normal 0.0-0.5 [facility] Comment on above: Performed By: #### C BC #### [facility] [address] [place] [address] Dr. Tyrone Salazar LYMPH # 1.3 103/ul Normal 1.2-3.8 [facility] Comment on above: Performed By: #### C BC #### [facility] [address] [place] [address] Dr. Tyrone Salazar Lymphocytes/100 WBC (Bld) 23.5 % Normal 20.5-60.0 [facility] Comment on above: Performed By: #### C BC #### [facility] [address] [place] [address] Dr. Tyrone Salazar MANUAL DIFF REQ NO Normal [facility] Comment on above: Performed By: #### C BC #### [facility] [address] [place] [address] Dr. Tyrone Salazar MCH (RBC) [Entitic mass] 29.8 pg Normal 25.9-34.0 [facility] Comment on above: Performed By: #### C BC #### [facility] [address] [place] [address] Dr. Tyrone Salazar MCHC (RBC) [Mass/Vol] 34.0 g/dL Normal 29.9-35.2 [facility] Comment on above: Performed By: #### C BC #### [facility] [address] [place] [address] Dr. Tyrone Salazar MCV (RBC) [Entitic vol] 87.5 fL Normal 80.0-94.0 [facility] Comment on above: Performed By: #### C BC #### [facility] [address] [place] [address] Dr. Tyrone aSlazar MONO # 0.6 103/ul Normal 0.3-0.8 [facility] Comment on above: Performed By: #### C BC #### [facility] [address] [place] [address] Dr. Tyrone Salazar Monocytes/100 WBC (Bld) 10.2 % Normal 1.7-12.0 [facility] Comment on above: Performed By: #### C BC #### [facility] [address] [place] [address] Dr. Tyrone Salazar NEUT # 3.4 103/ul Normal 1.4-6.5 [facility] Comment on above: Performed By: #### C BC #### [facility] [address] [place] [address] Dr. Tyrone Salazar Neutrophils/100 WBC (Bld) 62.2 % Normal 43.0-75.0 [facility] Comment on above: Performed By: #### C BC #### [facility] [address] [place] [address] Dr. Tyrone Salazar Platelet mean volume (Bld) [Entitic vol] 9.8 fL Normal 9.5-13.5 [facility] Comment on above: Performed By: #### C BC #### [facility] [address] [place] [address] Dr. Tyrone Salazar PLT 166 103/ul Normal 150-450 [facility] Comment on above: Performed By: #### C BC #### [facility] [address] [place] [address] Dr. Tyrone Salazar RBC 5.21 106/ul Normal 4.70-6.10 [facility] Comment on above: Performed By: #### C BC #### [facility] [address] [place] [address] Dr. Tyrone Salazar WBC 5.4 103/ul Normal 4.0-11.0 [facility] Comment on above: Performed By: #### C BC #### [facility] [address] [place] [address] ABD/PELVIS WO CONon 09-09 CT ABD/PELVIS WO CON EXAMINATION: CT ABD/PELVIS WO CON, 09/09/2022 4:48 PM EST HISTORY: Right flank and back pain. COMPARISON: 08/21/2021. 01/03/2011. TECHNIQUE: CT scan of the abdomen and pelvis was performed without IV contrast. CT dose reduction technique was used, including Automated Exposure Control. FINDINGS: Minimal bibasilar atelectasis and pulmonary scarring. Pulmonary granulomatous calcifications. The pleural spaces are clear. Fat within the left ventricular apical myocardial wall is again identified, likely sequela of old prior myocardial infarction. Prior cholecystectomy. Allowing for the lack of intravenous contrast, the liver, spleen, pancreas and the adrenal glands are unremarkable. A 2 mm nonobstructing calculus within the superior left kidney and additional 2 mm nonobstructing calculus within the inferior left kidney. Parapelvic left renal sinus cysts. No ureteral calculi. No enlarged lymph nodes within the abdomen or the pelvis. 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 Normal appendix. Diverticulosis without radiographic evidence of diverticulitis. Prostatic enlargement. Small bilateral fat-containing inguinal hernias. IMPRESSION: 1. Subcentimeter nonobstructing left renal calculi. No ureteral calculi. Parapelvic left renal sinus cysts. 2. Prostatic enlargement. Small bilateral fat-containing inguinal hernias. 3. Diverticulosis without radiographic evidence of diverticulitis. Normal appendix. 4. 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 5. Evidence of old prior left ventricular myocardial infarction. Electronically authenticated by: LUCIA VERDUGO Date: 2022-09-09 18:22 Normal [facility] URINE PROFILEon 3 Bilirubin Ql (U) Negative Normal NEGATIVE [facility] Comment on above: Performed By: #### E RUR #### [facility] [address] [place] [address] Dr. Tyrone Salazar Clarity (U) CLEAR Normal CLEAR [facility] Comment on above: Performed By: #### E RUR #### [facility] [address] [place] [address] Dr. Tyrone Salazar Color (U) YELLOW Normal YELLOW [facility] Comment on above: Performed By: #### E RUR #### [facility] [address] [place] [address] Dr. Tyrone SIERRA A micrscopic examination will be performed if indicated. Normal [facility] Comment on above: Performed By: #### E RUR #### [facility] [address] [place] [address] Dr. Tyrone Salazar Glucose Ql (U) Negative Normal NEGATIVE [facility] Comment on above: Performed By: #### E RUR #### [facility] [address] [place] [address] Dr. Tyrone Salazar Hemoglobin Ql (U) Negative Normal NEGATIVE [facility] Comment on above: Performed By: #### E RUR #### [facility] [address] [place] [address] Dr. Tyrone Salazar Ketones Ql (U) Negative Normal NEGATIVE [facility] Comment on above: Performed By: #### E RUR #### [facility] [address] [place] [address] Dr. Tyrone Salazar LEUKOCYTES Negative Normal NEGATIVE [facility] Comment on above: Performed By: #### E RUR #### [facility] [address] [place] [address] Dr. Tyrone Salazar Nitrite Ql (U) Negative Normal NEGATIVE [facility] Comment on above: Performed By: #### E RUR #### [facility] [address] [place] [address] Dr. Tyrone Salazar pH (U) 6.0 [pH] Normal 5-9 [facility] Comment on above: Performed By: #### E RUR #### [facility] [address] [place] [address] Dr. Tyrone Salazar SPEC GRAVITY 1.025 Normal 1.005-<=1.0 25 [facility] Comment on above: Performed By: #### E RUR #### [facility] [address] [place] [address] Dr. Tyrone Salazar UA PROTEIN Negative Normal NEGATIVE/ TRACE [facility] Comment on above: Performed By: #### E RUR #### [facility] [address] [place] [address] Dr. Tyrone Salazar UR MICRO IND NOT INDICATED Normal [facility] Comment on above: Performed By: #### E RUR #### [facility] [address] [place] [address] Dr. Tyrone Salazar Urobilinogen Qn (U) 0.2 {Tra'U}/dL Normal 0.2 - 1. 0 [facility] Comment on above: Performed By: #### E RUR #### [facility] [address] [place] [address] Dr. Tyrone Salazar PROF 14(COMP METB)on 023 Albumin [Mass/Vol] 3.7 g/dL Normal 3.4-5.0 [place] Comment on above: Performed By: #### C MP #### [facility] [facility] [address] [place] [address] Dr. Tyrone Salazar Albumin/Globulin [Mass ratio] 1.2 {ratio} Normal [facility] Comment on above: Performed By: #### C MP #### [facility] [address] [place] [address] Dr. Tyrone Salazar ALP [Catalytic activity/Vol] 130 U/L Critically high 46-116 [facility] Comment on above: Performed By: #### C MP #### [facility] [address] [place] [address] Dr. Tyrone Salazar ALT [Catalytic activity/Vol] 35 U/L Normal 16-63 [facility] Comment on above: Performed By: #### C MP #### [facility] [address] [place] [address] Dr. Tyrone Salazar Anion gap [Moles/Vol] 8.1 mmol/L Normal [facility] Comment on above: Performed By: #### C MP #### [facility] [address] [place] [address] Dr. Tyrone Salazar AST [Catalytic activity/Vol] 24 U/L Normal 15-37 [facility] Comment on above: Performed By: #### C MP #### [facility] [address] [place] [address] Dr. Tyrone Salazar Bilirubin [Mass/Vol] 2.0 mg/dL Critically high 0.2-1.0 [facility] Comment on above: Performed By: #### C MP #### [facility] [address] [place] [address] Dr. Tyrone Salazar Calcium [Mass/Vol] 8.5 mg/dL Normal 8.5-10.1 [facility] Comment on above: Performed By: #### C MP #### [facility] [address] [place] [address] Dr. Tyrone Salazar Chloride [Moles/Vol] 105 mmol/L Normal 98-107 [facility] Comment on above: Performed By: #### C MP #### [facility] [address] [address] [address] Tyrone Salazar CO2 [Moles/Vol] 31.7 mmol/L Normal 21.0-32.0 [facility] Comment on above: Performed By: #### C MP #### [facility] [address] [address] [address] Tyrone Salazar Creatinine [Mass/Vol] 0.79 mg/dL Normal 0.70-1.30 [facility] Comment on above: Performed By: #### C MP #### [facility] [address] [place] [address] Dr. Tyrone Salazar EGFR-AF PORTUGUESE >60 Normal >=[address] [facility] Comment on above: Performed By: #### C MP #### [facility] [address] [place] [address] Dr. Tyrone Salazar EGFR-NON AF PORTUGUESE >60 Normal >=60 [facility] Comment on above: Performed By: #### C MP #### [facility] [address] [address] [address] Tyrone Salazar Globulin (S) [Mass/Vol] 3.0 g/dL Normal [facility] Comment on above: Performed By: #### C MP #### [facility] [address] [place] [address] Dr. Tyrone Salazar Glucose [Mass/Vol] 98 mg/dL Normal 74-106 [facility] Comment on above: Performed By: #### C MP #### [facility] [address] [place] [address] Dr. Tyrone Salazar Potassium [Moles/Vol] 3.8 mmol/L Normal 3.5-5.1 [facility] Comment on above: Performed By: #### C MP #### [facility] [address] [address] [address] Tyrone Salazar Protein [Mass/Vol] 6.7 g/dL Normal 6.4-8.2 [facility] Comment on above: Performed By: #### C MP #### [facility] [address] [address] [address] Tyrone Salazar Sodium [Moles/Vol] 141 mmol/L Normal 136-145 [place] Comment on above: Performed By: #### C MP #### [facility] [address] [address] [address] Tyrone Salazar Urea nitrogen [Mass/Vol] 16.0 mg/dL Normal 7.0-18.0 [facility] Comment on above: Performed By: #### C MP #### [facility] [address] [address] [address] Tyrone Salazar Urea nitrogen/Creatinine [Mass ratio] 20.3 mg/mg Normal [facility] Comment on above: Performed By: #### C MP #### [facility] [address] [address] [address] Tyrone Salazar XR KUB 1 VIEWon 07-15-2022 XR KUB 1 VIEW EXAMINATION: XR KUB 1 VIEW HISTORY: Kidney stone COMPARISON: No relevant comparison available. FINDINGS: KIDNEY/URETER - RIGHT: No visible renal or ureteral calcifications. KIDNEY/URETER - LEFT: No visible renal or ureteral calcifications. PELVIS: No visible ureteral calcifications. Any visible calcifications favor phleboliths. BOWEL: No abnormal dilation or deviation. BONES: No acute abnormality. OTHER: Negative. No abnormal gaseous collections. IMPRESSION: No definite urinary tract calculi Electronically authenticated by: JUAN PABLO CHENG Date: 2022-07-15 14:41 Normal [facility] XR knee RT 4V*on 05-27-2022 XR knee RT 4V* [facility] [place] [address] [place] [address] XRay Report Signed Patient: Eliazar Nunez MR#: [id number] : 1950 Acct:[id number] Age/Sex: 71 / M ADM Date: 05/27/22 Loc: XDUCLY Room: Type: [facility] Attending Dr: Juana SHARMA Copies to: EDITH Piper Ordering Provider: EDITH Piper Date of Service: 05/27/22 XR/XR knee RT 4V*: Acute pain of right knee RIGHT KNEE - 4 views COMPARISON: Right tib-fib 07/12/2017 CLINICAL DATA: Right knee pain over the patella for the past few days, without injury. AP, lateral and both oblique views were obtained. There is no fracture or dislocation. There is no disproportionate joint space narrowing or prominent hypertrophy. There is a trace amount joint fluid. There is no focal soft tissue swelling. XR/XR knee RT 4V* IMPRESSION: NO ACUTE BONY FINDINGS. Impression dictated by: Jennifer Morgan M.D.05/27/2022 4:25 PM Dictation Location: [place] [address] Transcribed By: [facility] 05/27/221624 Dictated By: Jennifer Morgan MD 05/27/221623 Signed By: 05/27/221624 [facility] XR knee RT 4V* [facility] [employer] Other XR knee RT 4V* [facility] [employer] Other XR knee RT 4V* [address] [place] [address] [employer] Other XR knee RT 4V* [place] [address] No rt [employer] Other XR knee RT 4V* XRay Report [employer] Other XR knee RT 4V* Signed [employer] Other XR knee RT 4V* Patient: Lucho Nunez am MR#: [id number] [address] Other XR knee RT 4V* 751 [employer] Other XR knee RT 4V* : 1950 Acct:[id number] [address] Other XR knee RT 4V* Age/Sex: 71 / M ADM Date: 05/27/[address] Other XR knee RT 4V* Loc: XDUCLY Room: Type: REG CLI [address] Other XR knee RT 4V* Attending Dr: Juana SHARMA [address] Other XR knee RT 4V* Copies to: EDITH Piper [address] Other XR knee RT 4V* Ordering Provider: EDITH Piper [address] Other XR knee RT 4V* Date of Service: 05/27/[address] Other XR knee RT 4V* XR/XR knee RT 4V*: Acute pain of right knee [address] Other XR knee RT 4V* RIGHT KNEE - [address] Other XR knee RT 4V* COMPARISON: Right tib-fib 07/12/[address] Other XR knee RT 4V* CLINICAL DATA: Right knee pain over the patella for the past few days, without injury. [address] Other XR knee RT 4V* AP, lateral and both oblique views were obtained. There is no fracture or dislocation. There is [address] Other XR knee RT 4V* no disproportionate joint space narrowing or prominent hypertrophy. There is a trace amount joint [address] Other XR knee RT 4V* fluid. There is no focal soft tissue swelling. [address] Other XR knee RT 4V* XR/XR knee RT 4V* [address] Other XR knee RT 4V* IMPRESSION: [facility] [employer] Other XR knee RT 4V* NO ACUTE BONY FINDINGS. [address] Other XR knee RT 4V* Impression dictated by: Jennifer Morgan M.D.05/27/2022 4:[address] Other XR knee RT 4V* Dictation Location: RADIO--[address] Other XR knee RT 4V* Transcribed By: PWS 05/27/[address] Other XR knee RT 4V* Dictated By: Jennifer Morgan MD 05/27/[address] Other XR knee RT 4V* Signed By: [employer] Other XR knee RT 4V* 05/27/22 [address] [employer] Other Albumin [Mass/volume] in Ser um or PlasmaOrdered By: Simba Grey on 03-21-2022 Albumin [Mass/Vol] 3.4 g/dL 3.2-5.5 [facility] Basophils Auto (Bld) [#/Vol] Ordered By: Simba Grey on 03-21-2022 Basophils (Bld) [#/Vol] 0.0 10*3/uL 0.0-0.2 [facility] Basophils/100 WBC Auto (Bld) Ordered By: Simba Grey on 03-21-2022 Basophils/100 WBC (Bld) 0.5 % . [facility] Blood hemoglobin measurement (mass/volume)Ordered By: Simba Grey on 03-21-2022 Hemoglobin (Bld) [Mass/Vol] 14.7 g/dL 13.0-17.0 [facility] Blood leukocytes automated c ount (number/volume)Ordered By: Simba Grey on 03-21-2022 WBC (Bld) [#/Vol] 4.9 10*3/uL 4.5-11.0 [facility] C reactive protein [Mass/vol ume] in Serum or PlasmaOrdered By: Simba Grey on 03-21-2022 CRP [Mass/Vol] 1.4 mg/dL 0.0-1.0 [facility] COVID-19 SOFIAOrdered By: Celia Grey on 03-21-2022 SARS-CoV+SARS-CoV-2 (COVID-19) Ag IA.rapid Ql (Resp) Negative Negative [facility] Comment on above: This is a duplicate Suze SARS Antigen (CHASTITY) result to be used for statistical tracking purpose only. Clostridioides difficile tox in B tcdB gene [Presence] in Stool by NANETTE with probe deteOrdered By: Simba Grey on 03-21-2022 C. difficile toxin B tcdB gene NANETTE+probe Ql (Stl) Negative Negative [facility] Comment on above: Testing performed by RT-PCR Creatinine and Glomerular fi ltration rate.predicted panel (S/P/Bld)Ordered By: Simba Grey on 03-21-2022 Creatinine [Mass/Vol] 0.93 mg/dL 0.64-1.[address] [facility] Eosinophils Auto (Bld) [#/Vo l]Ordered By: Simba Grey on 03-21-2022 Eosinophils (Bld) [#/Vol] 0.1 10*3/uL 0.0-0.45 [facility] Eosinophils/100 WBC Auto (Bl d)Ordered By: Simba Grey on 03-21-2022 Eosinophils/100 WBC (Bld) 2.8 % . [facility] Erythrocyte distribution wid th Auto (RBC) [Ratio]Ordered By: Simba Grey on 03-21-2022 Erythrocyte distribution width (RBC) [Ratio] 14.3 % 12.0-14.8 [facility] Erythrocyte sedimentation ra te by Photometric methodOrdered By: iSmba Grey on 03-21-2022 ESR Photometric method (Bld) [Velocity] 3 mm/hr 0-19 [facility] Estimated glomerular filtrat ion rate (GFR) non- AmericanOrdered By: Simba Grey on 03-21-2022 GFR/1.73 sq M.predicted among non-blacks MDRD (S/P/Bld) [Vol rate/Area] > 60 mL/Min [facility] Globulin Calc (S) [Mass/Vol] Ordered By: Simba Grey on 03-21-2022 Globulin (S) [Mass/Vol] 2.4 g/dL [facility] Hematocrit Auto (Bld) [Volum e fraction]Ordered By: Simba Grey on 03-21-2022 Hematocrit (Bld) [Volume fraction] 43.2 % 38.8-50.0 [facility] Laboratory - Hematology and Cell countsOrdered By: Simba Grey on 03-21-2022 Nucleated RBC/100 WBC (Bld) [Ratio] 0.1 % 0-0.5 [facility] Lymphocytes Auto (Bld) [#/Vo l]Ordered By: Simba Grey on 03-21-2022 Lymphocytes (Bld) [#/Vol] 1.1 10*3/uL 1.00-4.8 [facility] Lymphocytes/100 WBC Auto (Bl d)Ordered By: Simba Grey on 03-21-2022 Lymphocytes/100 WBC (Bld) 22.1 % . [facility] MCH Auto (RBC) [Entitic mass ]Ordered By: Simba Grey on 03-21-2022 MCH (RBC) [Entitic mass] 29.5 pg 27.5-35.2 [facility] MCHC Auto (RBC) [Mass/Vol]Or dered By: Simba Grey on 03-21-2022 MCHC (RBC) [Mass/Vol] 34.0 g/dL 32.5-35.[address] [facility] MCV Auto (RBC) [Entitic vol] Ordered By: Simba Grey on 03-21-2022 MCV (RBC) [Entitic vol] 86.7 fL 83.5-101 [facility] Monocytes Auto (Bld) [#/Vol] Ordered By: Simba Grey on 03-21-2022 Monocytes (Bld) [#/Vol] 0.5 10*3/uL 0.0-0.8 [facility] Monocytes/100 WBC Auto (Bld) Ordered By: Simba Grey on 03-21-2022 Monocytes/100 WBC (Bld) 10.3 % . [facility] Neutrophils Auto (Bld) [#/Vo l]Ordered By: Simba Grey on 03-21-2022 Neutrophils (Bld) [#/Vol] 3.2 10*3/uL 1.8-7.7 [facility] Neutrophils/100 WBC Auto (Bl d)Ordered By: Simba Grey on 03-21-2022 Neutrophils/100 WBC (Bld) 64.3 % . [facility] No Panel InformationOrdered By: Simba Grey on 03-21-2022 Estimated GFR () > 60 mL/Min [facility] Comment on above: GFR estimated refere nce range: According to KDOQI guidelines, <60 ml/min/1.73m2 is sufficient to diagnose a patient with chronic kidney disease. Pharmacy Creatinine Clearance (Chem N/A [facility] SARS Antigen (LFIA) [facility] Platelet mean volume Auto (B ld) [Entitic vol]Ordered By: Simba Grey on 03-21-2022 Platelet mean volume (Bld) [Entitic vol] 8.4 fL 6.6-10.1 [facility] Platelets Auto (Bld) [#/Vol] Ordered By: Simba Grey on 03-21-2022 Platelets (Bld) [#/Vol] 156 10*3/uL 150-450 [facility] Protein [Mass/volume] in Ser um or PlasmaOrdered By: iSmba Grey on 03-21-2022 Protein [Mass/Vol] 5.8 g/dL 6.1-7.9 [facility] RBC Auto (Bld) [#/Vol]Ordere d By: Simba Grey on 03-21-2022 RBC (Bld) [#/Vol] 4.98 10*6/uL 3.90-5.60 [facility] Serum or plasma alanine brown otransferase measurement without P-5'-P (enzymatic activiOrdered By: Simba Grey on 03-21-2022 ALT No additional P-5'-P [Catalytic activity/Vol] 21 U/L 10-60 [facility] Serum or plasma albumin/glob ulin mass ratioOrdered By: Simba Grey on 03-21-2022 Albumin/Globulin [Mass ratio] 1.4 {ratio} [facility] Serum or plasma alkaline adriane sphatase measurement (enzymatic activity/volume)Ordered By: Simba Grey on 03-21-2022 ALP [Catalytic activity/Vol] 110 U/L 32-92 [facility] Serum or plasma amylase colby urement (enzymatic activity/volume)Ordered By: Simba Grey on 03-21-2022 Amylase [Catalytic activity/Vol] 69 U/L 28-100 [facility] Serum or plasma aspartate am inotransferase measurement (enzymatic activity/volume)Ordered By: Simba Grey on 03-21-2022 AST [Catalytic activity/Vol] 21 U/L 10-42 [facility] Serum or plasma calcium colby urement (mass/volume)Ordered By: Simba Grey on 03-21-2022 Calcium [Mass/Vol] 8.8 mg/dL 8.2-10.2 [facility] Serum or plasma chloride alicia surement (moles/volume)Ordered By: Simba Grey on 03-21-2022 Chloride [Moles/Vol] 103 mmol/L 95-114 [facility] Serum or plasma glucose colby urement (mass/volume)Ordered By: Simba Grey on 03-21-2022 Glucose [Mass/Vol] 118 mg/dL 70-100 [facility] Comment on above: ADA recommended refe rence range Random Glucose Reference Range is dependent on time and content of last meal. Glucose of more than 200 mg/dL in a nonstressed, ambulatory subject supports the diagnosis of Diabetes Mellitus. ADA recommended refe rence rangeRandom Glucose Reference Range is dependent on time and content of last meal. Glucose of more than 200 mg/dL in a nonstressed, ambulatory subject supports the diagnosis of Diabetes Mellitus. Serum or plasma potassium me asurement (moles/volume)Ordered By: Simba Grey on 03-21-2022 Potassium [Moles/Vol] 4.1 mmol/L 3.5-5.[address] [facility] Serum or plasma sodium measu rement (moles/volume)Ordered By: Simba Grey on 03-21-2022 Sodium [Moles/Vol] 137 mmol/L 136-146 [facility] Serum or plasma total biliru bin measurement (mass/volume)Ordered By: Simba Grey on 03-21-2022 Bilirubin [Mass/Vol] 1.7 mg/dL 0.3-1.2 [facility] Comment on above: Samples from patient s who have taken Naproxen have shown spurious elevation in Total Bilirubin levels. A metabolite of Naproxen, O-desmethylnaproxen, has been shown to interfere with the Ethan-Vicki method for measuring Total Bilirubin. Serum or plasma total carbon dioxide measurement (moles/volume)Ordered By: Simba Grey on 03-21-2022 CO2 [Moles/Vol] 28.9 mmol/L 22.0-30.0 [facility] Serum or plasma urea nitroge n measurement (mass/volume)Ordered By: Simba Grey on 03-21-2022 Urea nitrogen [Mass/Vol] 16 mg/dL 04-29 [facility] Coding Summaryon 09-15-2021 Coding Summary HTMLBase 64 BynzzibuSCf6xMd+PGhlYW Q+PK1WTOZjY10gbYKvyH2B I3gUCO9JOMSTCIGVMX8DUK 0bdAR8QBryH0WbbdVy RtseyTLiLI41IMd9CSR5mH adWMcriX8ewZFvE9w5SjZv II82fA98CQcqSSNhUxY7Ix ZpbjsgbWFy K2fhWbTavXWiAet+PHRhYm xlIHdpZHRoPScxMDAlJyBz aKwfOE9qDe4kNFJaMIKmvH xhcHNlOiBj o6snEMLxXMztYP6qhCihM6 MnvMA8LUJqf4l7Rh34sZT+ RSVsCOK5eJmjZQqxm803St Nyr2xaLBY8 yUMiNKebWSN8Z54kl8U8AG WfIEVfUDP8nPS1bX3vvBpr vcaiO2IhwYIyHdA4MUI5sO TvkC2bgLaf kuqpqJ0kOqa+J55NFU4XVB BGQP1FMpn0R6QrYakrzJF+ XM85INSsFE20rMTdsNHpv4 azoYb9VlPu IXXnQBQ6nKfsVLzzq1MhIP EbA84yjFRgh1A0QHDjrJhf oHDgNwUciEO2xV8xUJfihe erk5hzxupf Cltjv4fpvl19hG42N61gXD fiYESnQXM8OCLxUNQtaRtx ce6orL0lOn7+OBeht9bjj8 pvkNm3ZzFq DDIkxzQcqSpmSLK0l9UwUu 81M2MbtQpdq3BdZiu5ge81 sTDhf9S3gVC1QIkmYGRxrF 1oCEuyXpR2 QRAfRrNliI95vJRcTVupWt 8vtDvbyRntFK9xOHFavngg LZNlsC3nZWBxtZDpsQteHB 4wNTBpbjtm e585MpEuOKA0URZhqTMwT7 BriR3xUgYiEKRmWKOiC4Dw mNZeMFezZ550GXsnXlG1PR QypeQsX9Mw WNCwqBqwNrV8p4T3Mv4Rt5 NglrznEVF8SYdrGFSyPmD2 UmLaOfB8K1NcNqo0NFWigX dhDB2tX8Bb OBRianbmwhlrfNM8WTUsMU ZjxB19oRAnAYdnJm9ce7O9 g126DDSpCSFxcS50Sf9haH ogMTBwdCBU iG6tpeciw0tyabnnUyBaEJ XbXEs1CNk4PJRwrLgsNwBr BSN3LnC8GRM9jLBplD8mqN ixsnvtjF4w Oyc+N65wsJ4pUGO4RPK0xl maICQuclChGK68GF36Z9Vc PjwvdGFibGU+PGRpdiBzdH qcBW2lHnWm h9hwn8LgPNzwZ9YxGKXcCV xcLsj8AVHcZKM6fPF9uM5n NKGvOJxjv6Z6bMB5R5Qydu Ssbm1fz5qx JZRtGSrpB64knMOgt7E2VI KpjWP8WLYqyFovCsUfqF87 Oyc+LTKebGefv9JfLvqjw8 qah6wryNz8 ZeUfEQObiaNurMxqCSB3k6 XrQw15T01dUCmtTBQhLGAx AQEvWRNiuRqxxh6leY4eIp 8+PGNvbCB3 sKL1aE3eHBMtBmG5OGodL6 45JxMlaIUkQophl2vpq2ye dCw1NvGfFPLwnqBfrMyeEK W4s1RzEg06 Q03nULzdKOVyVTQrGBXeEU InhYleww6uoD9yWw5+PC9j x9whti74kX50fZS+PHRkIH K7uHohGWok SXIgxN3iBRmbDiI7YBSjEo IdbP23qAOoVUabCd7bjUdy zCetQO9jYEOjgjixk344Tf Nuj2miXWVg cIJyANzjGWE0A24rj0I9PQ LgZYZqQUY0eSE7qB1tbXrf bjogbGVmdDsgdmVydGljYW ypHHmjM649 IHRvcDsnPlBhdGllbnQgTm DoCZj4W8OrRtt0MIRbfBar BS0qeEFyZHurHs9ifAudaI ziMF9vEISy xxlcl776AuQeo6akUGVkqI LvGXhiRVY4J20og3E5ZXMq BZJaBKT2gUY1tJ5owEqlsm ogbGVmdDsg gdSehGpkIEwbFWomN262VJ RvcDsnPkJpcnRoIERhdGU6 NY73YR52rRXrg9R7qIW9M6 BhZGRpbmct ovvakEN6LWSaLXNvzJ63Vq 1taUvsMr5mWHYtYJF1EMMo vTCnQ6GglC7zUjXdKVTwGH DaO9HqjAAu FYklW101SUegIeX3HRCxej XeD9TgLAGjoDcxDrC1z9H4 Oq3LI1W8MJ82WK50kAExx8 M8qZB0G5Gn LOLevrxwucmujKD7BXZpSK AibK22Sq5osGrzXl7nKBKx DEL9RLRmlDTzE0YmcB3oYb AjMDAwMDAw B8WxcKAxCAhuX137WXjpSy D5DPQnxtZyG4OwYXIxwZhq XbB8q4V1Be2OQYf5JX23FX 24wHUlt1V1 yWO8J4UiPPGznlxvcajvaD M1EMQkIWJhdY30Nn2ugNvk Ea6eBZJeHHD8RBCzaKUeI5 EswW1eSaOa ZIMaBBRmQ2RtvYLpQQfqQ2 52HOgqAlY4NTOjawCwM8Gk EBMgcRimBkM8e6G5Cy5DKT IwSJ23TVO3 hAB8FW30HQ65F9VwJwzxoT FibGU+PHRhYmxlIHdpZHRo AAifPDQzRhHasPibST1sQi 9yZGVyLWNv vYykaDRvUgAci7kwJEXrRI qxZG3bkKycK9LqtXS1MHRi c8m1Lk65Y56zM2BdjWD+PG LghPY8gQB4 lY2mYqVlIjN9CIjcZ137Gn HquAEoXasjo2cdu3daoMy8 JpL4QEFhcrOjqDqmAUU6i4 UnJw89R35b IHdpZHRoPSIxNSUiIHZhbG agvx5loR9wVv5+PGNvbCB3 xWA5nL0fKhRuWxM9TBjwA3 49InRvcCIv Huhwf9kmq9szrJl2UwNhJH CdklLumYvfPMY7u4ZmSp28 D9PskUpzw2AhBsx7dg18oI Cti6O1sUQ3 M9FgTUFpiqjupKKazYmpBS 0oAGHsgvnsPSRtiU6aSAQr P4w1ZdHrYiJ7STfzO6Feyt U0HUKyvNTd RJjvMXY6X58hq3A2VXAvIG QdTEQ3oTL0iE5wqBxczkwd bGVmdDsgdmVydGljYWwtYW weT010GTSk iPopXLJdqZ1wYEFbrZKwbQ oqUX2jXPEmarxpBpqJRN4L MFLWYJwFQCLUAUB4Q4TrNa o9BFKfvJzz IB3otJWoOWwrHi5txPlyzR pnWE3jCJNikrsaTKRmoM9p BLMhzKReyPiiDQ9lIASzzf cum757QlTs RKB2WNRdoCPvK6MqwV0nQt XnRTKlJYEuB0DzeVEaIVwp Q997BOnvLdE3HUJumoTiQ9 FsLWFsaWdu WjG5q7H7Oy6tZX2sII3zCE AxDW98TJ87gAMwr4R3xIN2 Y0HePSIkhwacxizslYZ8EY CqWFQktM27 yRHySWmjRr0kp1J6j614UN OkQENqxX40On5mtBgzURKh wCQBzX1dshefs8zgisbiYd AwMDAwMDt0 BLv7VKFmpTfdHvRvHAQ3Yx K3ZHL6yGMhsU7tlQnorpiz aN1uGst+XqMwWBZjssC9U0 ZnOqt3VLGj xCbtEZ7uwWJeDWpbHr3jkS awoZsaEV1aQEPbyexnFJIn rL1eCRRrrUJndZldWQ5kPV Zmyozmq201 FqFvBXI9PEXovUKhH9TjtH 2kLdHsLSWhRQJhF1FvmVKg ZBktF698ZHaqYlZ6SPGnro EfH1UrTZCb jYpiAgF9b7O1Xw0KCTxJKF 19GR08xBBik6I1vPV3K7Aa MBJmrvtamneuiLQ7KDCeZW MzdQ10qEXw NPzqIh3lj5Z8o854XHNfTA FcfA29Uw3dtZcyWCYilSCT oD6drgcxr1zdipunMuYnZO IlIFz1DHg4 TFRdmQwnAkEkHIT0PhF8VR U5lXWqjX8foFhctkeorQ5x Oyc+Z2Y4Z8HiXdipxLZ+PC 59RHZbDL67 yGAveHOiv5swcPb1MhVwIQ JtCUY9cGzkYUoad5CdBVZe K42caPNpb9V5DPNqnFwknN NlOyBlbXB0 sM4bOBnmcrvse0jrugboJn rrb9jdtd53xW79I24vHTiz ZHRoPSIzMCUiIHZhbGlnbj 8klX5bDl4+ GGLlwAU0mXM6mQ3fLmYeFg Z9ZUzgM067XvHziRDbVjhu n1qvh9ntgBw5GeAxRVYwjl FsaWduPSJ0 z1CsFe60L25jYGznTOTuEY HdURMdOKIbzJjett2ltS8b Ii8+QQ9yg2fyii43wK25lL I+PHRkIHN0 iDgbIOkkIQCzzN1nFJbvRa M5FHLePrUmeF14cWRuCXqu Ir8jqGlpvSncFB7kKGCfcd tfx232OjCk r0qoOXRqmZHmMYrlEKZ7Q6 3uu5F0ADKzFKJkSTC4yUF4 mZ9ztXgsieylzEAlpMmwmy VydGljYWwt NWflH196CQMhiQwdKvQrmB UdI1opsfOFKN1cKsiedHI+ OVFhLAQ7dFpzLAryASHwfW 5vTZKhJ0b6 WjWjRbY3DLftK7HystI9AJ FnpHUhCDRcqXDXiW3fnriu l0emvkopWhQhRDSuCJk8FL d4EIApaGyn WmHbRWL1WkX0UKD0xHUzfY 2lmHhntychzT5dFfi+RklO OjwvdGQ+CBFdCMI2gLlcJV ynQNObrT7h WUGkA1q5ApOkZsG3YThgH3 ZdbgQ1PHBocKNyTHBbaRLI mQ1vehfnn0jhoehaAkUbQX CgOUr0ISi4 RNXlvKwySdYvBBY8GxZ3YN A1sBWenX7lpNvredqxoO5v Oyc+TVJOOjwvdGQ+PHRkIH L3jGigRCfa EQTfzN1jJPIhV3p5HiYaRp W8AAwsJ0TsyxI6IAAtgTOe YUIaxASNlC1xdbogs4ngzx ogIzAwMDAw LCn2UHk4JZVljJqkEqSiFJ Z0VzE1OTX6nGLysP6ooAwm nzxdzS3vJtg+CEN4FDS6VI 47AF54E7Ry PjwvdGFibGU+PHRhYmxlIH dpZHRoPScxMDAlJyBzdHls TJ2dCr6mULDiYXEvoGmytA SrFuVxr0vz YXB (more content not included)... Normal [facility] Provider Orderson 09-15-2021 Provider Orders [id number]#1.0 0OTGTIFF Normal [facility] .Auto Diff 109-14-2021 Auto [place] % 11 % Normal 12 [facility] Comment on above: Performed By: #### 1 [id number], [id number] #### [facility] (DEFAULT) [address] [place] [address] Baso Abs# 0.0 x10 Normal 0.0-0.2 [facility] Comment on above: Performed By: #### 1 [id number], [id number] #### [facility] (DEFAULT) [address] [place] [address] Basophils/100 WBC (Bld) 0.4 % Normal 0.2-2.0 [facility] Comment on above: Performed By: #### 1 [id number], [id number] #### [facility] (DEFAULT) [address] [place] [address] Eos Abs# 0.2 x10 Normal 0.0-0.4 [facility] Comment on above: Performed By: #### 1 [id number] #### [facility] (DEFAULT) [address] [place] [address] Eosinophils/100 WBC (Bld) 3.6 % Normal 0.9-4.0 [facility] Comment on above: Performed By: #### 1 [id number], [id number] #### [facility] (DEFAULT) [address] [place] [address] Lymph Abs# 1.4 x10 Normal 1.3-2.9 [facility] Comment on above: Performed By: #### 1 [id number], [id number] #### [facility] (DEFAULT) [address] [place] [address] 06051 Lymphocytes/100 WBC (Bld) 29 % Normal 14-48 [facility] Comment on above: Performed By: #### 1 [id number], [id number] #### [facility] (DEFAULT) [address] [place] [address] [place] Abs# 0.5 x10 Normal 0.0-0.8 [facility] Comment on above: Performed By: #### 1 [id number], [id number] #### [facility] (DEFAULT) [address] [place] [address] Neut Abs# 2.8 x10 Normal 1.5-9.2 [facility] Comment on above: Performed By: #### 1 [id number], [id number] #### [facility] (DEFAULT) [address] [place] [address] Neutrophils/100 WBC (Bld) 56 % Normal 44-88 [facility] Comment on above: Performed By: #### 1 [id number], [id number] #### [facility] (DEFAULT) [address] [place] [address] CBC w/ Auto Diffon 2 Erythrocyte distribution width (RBC) [Ratio] 13.8 % Normal 11.5-15.0 [facility] Comment on above: Performed By: #### 1 [id number], [id number] #### [facility] (DEFAULT) [address] [place] [address] Hematocrit (Bld) [Volume fraction] 44.5 % Normal 34.8-51.9 [facility] Comment on above: Performed By: #### 1 [id number], [id number] #### [facility] (DEFAULT) [address] [place] [address] Hemoglobin (Bld) [Mass/Vol] 14.6 g/dL Normal 11.8-17.7 [facility] Comment on above: Performed By: #### 1 [id number], [id number] #### [facility] (DEFAULT) [address] [place] [address] Instr WBC 5.0 x10 Invalid Interpretation Code [facility] Comment on above: Performed By: #### 1 [id number] #### [facility] (DEFAULT) [address] [place] [address] Man Diff? Auto Normal [facility] Comment on above: Performed By: #### 1 [id number] #### [facility] (DEFAULT) [address] [place] [address] MCH (RBC) [Entitic mass] 29 pg Normal 24-34 [facility] Comment on above: Performed By: #### 1 [id number] #### [facility] (DEFAULT) [address] [place] [address] MCHC (RBC) [Mass/Vol] 33 g/dL Normal 26-37 [facility] Comment on above: Performed By: #### 1 [id number] #### [facility] (DEFAULT) [address] [place] [address] MCV (RBC) [Entitic vol] 88 fL Normal 81-100 [facility] Comment on above: Performed By: #### 1 [id number], [id number] #### [facility] (DEFAULT) [address] [place] [address] Platelet 171 x10 Normal 138-427 [facility] Comment on above: Performed By: #### 1 [id number] #### [facility] (DEFAULT) [address] [place] [id number] Platelet mean volume (Bld) [Entitic vol] 9.7 fL Normal 6.3-10.2 [facility] Comment on above: Performed By: #### 1 [id number], [id number] #### [facility] (DEFAULT) [address] [place] [address] RBC 5.04 x10 Normal 3.70-5.30 [facility] Comment on above: Performed By: #### 1 [id number] #### [facility] (DEFAULT) [address] [place] [address] WBC 5.0 x10 Normal 3.5-10.5 [facility] Comment on above: Performed By: #### 1 [id number] #### [facility] (DEFAULT) [address] [place] [address] Vital Signs Date Time Vital Sign Value Performing Clinician Facility 07-18-2024 13:46-0500 Body height 190.5 cm Hamzah Lazo DPM Work Phone: [facility] 07-18-2024 13:46-0500 Body mass index (BMI) [Ratio] 29.37 kg/m2 Hamzah Lazo DPM Work Phone: [facility] 07-18-2024 13:46-0500 Body weight 106.59 kg aHmzah Lazo DPM Work Phone: [facility] 07-18-2024 13:46-0500 Respiratory rate 16 /min Hamzah Lazo DPM Work Phone: [facility] 06-06-2024 10:30-0400 Body height 190.5 cm Nathan Talbot APRN-PC MAINTENANCE TECHNICIAN Work Phone: [facility] 06-06-2024 10:30-0400 Body mass index (BMI) [Ratio] 29.12 kg/m2 Nathan Talbot THERMOCOUPLE TESTER-PC MAINTENANCE TECHNICIAN Work Phone: [facility] 06-06-2024 10:30-0400 Body weight 105.69 kg Nathan Talbot THERMOCOUPLE TESTER-PC MAINTENANCE TECHNICIAN Work Phone: [facility] 06-06-2024 10:30-0400 Diastolic blood pressure 62 mm[Hg] Nathan Talbot THERMOCOUPLE TESTER-PC MAINTENANCE TECHNICIAN Work Phone: [facility] 06-06-2024 10:30-0400 Systolic blood pressure 110 mm[Hg] Nathan Talbot THERMOCOUPLE TESTER-PC MAINTENANCE TECHNICIAN Work Phone: [facility] 05-09-2024 16:30-0400 Body height 190.5 cm Hamzah Lazo DPM Work Phone: [facility] 05-09-2024 16:30-0400 Body mass index (BMI) [Ratio] 29.37 kg/m2 Hamzah Lazo DPM Work Phone: [facility] 05-09-2024 16:30-0400 Body weight 106.59 kg Hamzah Lazo DPM Work Phone: [facility] 05-09-2024 16:30-0400 Diastolic blood pressure 80 mm[Hg] Hamzah Lazo DPM Work Phone: [facility] 05-09-2024 16:30-0400 Heart rate 75 /min Hamzah Lazo DPM Work Phone: [facility] 05-09-2024 16:30-0400 Respiratory rate 18 /min Hamzah Lazo DPM Work Phone: [facility] 05-09-2024 16:30-0400 Systolic blood pressure 128 mm[Hg] Hamzah Lazo DPM Work Phone: [facility] 12-04-2023 11:50-0400 Blood Pressure Location Amanda BIRD [facility] 12-04-2023 11:50-0400 Body temperature 96.8 [degF] Amanda BIRD [facility] 12-04-2023 11:50-0400 Diastolic blood pressure 76 mm[Hg] Amanda BIRD [facility] 12-04-2023 11:50-0400 Heart rate 84 /min Amanda BIRD [facility] 12-04-2023 11:50-0400 Systolic blood pressure 110 mm[Hg] Amanda BIRD [facility] 10-16-2023 14:30-0400 Body height 190.5 cm Nahtan Talbot THERMOCOUPLE TESTER-PC MAINTENANCE TECHNICIAN Work Phone: [facility] 10-16-2023 14:30-0400 Body mass index (BMI) [Ratio] 30 kg/m2 Nathan Talbot THERMOCOUPLE TESTER-PC MAINTENANCE TECHNICIAN Work Phone: [facility] 10-16-2023 14:30-0400 Body temperature 97.7 [degF] Nathan Thomasillo THERMOCOUPLE TESTER-PC MAINTENANCE TECHNICIAN Work Phone: [facility] 10-16-2023 14:30-0400 Body weight 108.86 kg Nathan Talbot THERMOCOUPLE TESTER-PC MAINTENANCE TECHNICIAN Work Phone: [facility] 10-16-2023 14:30-0400 Diastolic blood pressure 60 mm[Hg] Nathan Talbot THERMOCOUPLE TESTER-PC MAINTENANCE TECHNICIAN Work Phone: [facility] 10-16-2023 14:30-0400 Heart rate 52 /min Nathan Talbot THERMOCOUPLE TESTER-PC MAINTENANCE TECHNICIAN Work Phone: [facility] 10-16-2023 14:30-0400 SaO2% (BldA) [Mass fraction] 96 % Nathan Talbot THERMOCOUPLE TESTER-PC MAINTENANCE TECHNICIAN Work Phone: [facility] 10-16-2023 14:30-0400 Systolic blood pressure 110 mm[Hg] Nathan Talbot THERMOCOUPLE TESTER-PC MAINTENANCE TECHNICIAN Work Phone: [facility] 10-12-2023 09:22-0500 Body height 190.5 cm Khushbu Gill DO Work Phone: [facility] 10-12-2023 09:22-0500 Body mass index (BMI) [Ratio] 29.69 kg/m2 Khushbu Gill DO Work Phone: [facility] [employer] 10-12-2023 09:22-0500 Body weight 107.73 kg Khushbu Gill DO Work Phone: [facility] 10-12-2023 09:22-0500 Diastolic blood pressure 59 mm[Hg] Khushbu Gill DO Work Phone: [facility] 10-12-2023 09:22-0500 Heart rate 50 /min Khushbu Gill DO Work Phone: [facility] 10-12-2023 09:22-0500 SaO2% (BldA) [Mass fraction] 95 % Khushbu Gill DO Work Phone: [facility] 10-12-2023 09:22-0500 Systolic blood pressure 110 mm[Hg] Khushbu Gill DO Work Phone: [facility] 10-10-2023 14:46-0500 Body height 190.5 cm Nathan Talbot THERMOCOUPLE TESTER-PC MAINTENANCE TECHNICIAN Work Phone: [facility] 10-10-2023 14:46-0500 Body mass index (BMI) [Ratio] 30 kg/m2 Nathan Talbot THERMOCOUPLE TESTER-PC MAINTENANCE TECHNICIAN Work Phone: [facility] 10-10-2023 14:46-0500 Body temperature 98.01 [degF] Nathan Talbot THERMOCOUPLE TESTER-PC MAINTENANCE TECHNICIAN Work Phone: [facility] 10-10-2023 14:46-0500 Body weight 108.86 kg Nathan Talbot THERMOCOUPLE TESTER-PC MAINTENANCE TECHNICIAN Work Phone: [facility] 10-10-2023 14:46-0500 Diastolic blood pressure 56 mm[Hg] Nathan Talbot THERMOCOUPLE TESTER-PC MAINTENANCE TECHNICIAN Work Phone: [facility] 10-10-2023 14:46-0500 Heart rate 53 /min Nathan Talbot THERMOCOUPLE TESTER-PC MAINTENANCE TECHNICIAN Work Phone: [facility] 10-10-2023 14:46-0500 SaO2% (BldA) [Mass fraction] 97 % Nathan Talbot APRN-PC MAINTENANCE TECHNICIAN Work Phone: [facility] 10-10-2023 14:46-0500 Systolic blood pressure 112 mm[Hg] Nathan Talbot APRN-PC MAINTENANCE TECHNICIAN Work Phone: [facility] 09-19-2023 11:32-0500 Body height 190.5 cm Mojgan Devries THERMOCOUPLE TESTER-WATER TREATMENT PLANT OPERATOR Work Phone: [facility] 09-19-2023 11:32-0500 Body mass index (BMI) [Ratio] 30.12 kg/m2 Mojgan Devries APRN-WATER TREATMENT PLANT OPERATOR Work Phone: [facility] 09-19-2023 11:32-0500 Body temperature 97.2 [degF] Mojgan Devries APRN-WATER TREATMENT PLANT OPERATOR Work Phone: [facility] 09-19-2023 11:32-0500 Body weight 109.32 kg Mojgan Devries APRN-WATER TREATMENT PLANT OPERATOR Work Phone: [facility] 09-19-2023 11:32-0500 Diastolic blood pressure 50 mm[Hg] Mojgan Devries APRN-WATER TREATMENT PLANT OPERATOR Work Phone: [facility] 09-19-2023 11:32-0500 Heart rate 51 /min Mojgan Devries APRN-WATER TREATMENT PLANT OPERATOR Work Phone: [facility] 09-19-2023 11:32-0500 SaO2% (BldA) [Mass fraction] 97 % Mojgan Devries APRN-WATER TREATMENT PLANT OPERATOR Work Phone: [facility] 09-19-2023 11:32-0500 Systolic blood pressure 110 mm[Hg] Mojgan Devries APRN-WATER TREATMENT PLANT OPERATOR Work Phone: [facility] 08-10-2023 16:45-0500 Body height 190.5 cm Omega Furlong DO Work Phone: [facility] 08-10-2023 16:45-0500 Body mass index (BMI) [Ratio] 29.54 kg/m2 Omega Furlong DO Work Phone: [facility] 08-10-2023 16:45-0500 Body temperature 97.7 [degF] Omega Furlong DO Work Phone: [facility] 08-10-2023 16:45-0500 Body weight 107.19 kg Omega Furlong DO Work Phone: [facility] [employer] 08-10-2023 16:45-0500 Diastolic blood pressure 60 mm[Hg] Omega Furlong DO Work Phone: [facility] 08-10-2023 16:45-0500 Heart rate 62 /min Omega Branchlong DO Work Phone: [facility] 08-10-2023 16:45-0500 SaO2% (BldA) [Mass fraction] 100 % Omega Branchlong DO Work Phone: [facility] [employer] 08-10-2023 16:45-0500 Systolic blood pressure 118 mm[Hg] Omega Branchlong DO Work Phone: [facility] 08-02-2023 16:46-0500 Body height 190.5 cm Nathan Talbotmaria fernanda DE LA O-PC MAINTENANCE TECHNICIAN Work Phone: [facility] 08-02-2023 16:46-0500 Body mass index (BMI) [Ratio] 29.85 kg/m2 Nathanchela Talbot APRN-PC MAINTENANCE TECHNICIAN Work Phone: [facility] 08-02-2023 16:46-0500 Body temperature 97.3 [degF] Nathan Talbot APRN-PC MAINTENANCE TECHNICIAN Work Phone: [facility] 08-02-2023 16:46-0500 Body weight 108.32 kg Nathan SEPULVEDA Work Phone: [employer] 08-02-2023 16:46-0500 Diastolic blood pressure 58 mm[Hg] Nathan Talbot APRN-THEA Work Phone: [employer] 08-02-2023 16:46-0500 Heart rate 58 /min Nathan Talbot APRN-THEA Work Phone: [employer] 08-02-2023 16:46-0500 SaO2% (BldA) [Mass fraction] 97 % Nathan Talbot APRN-THEA Work Phone: [employer] 08-02-2023 16:46-0500 Systolic blood pressure 110 mm[Hg] Nathan Talbot APRN-THEA Work Phone: [employer] 07-16-2023 13:00-0500 Body height 185.42 cm Juana Emmanuelle Other [address] Other 07-16-2023 13:00-0500 Body mass index (BMI) [Ratio] 31.24 kg/m2 Juana Handley Other [address] Other 07-16-2023 13:00-0500 Body temperature 98.4 [degF] Juana Handley Other [address] Other 07-16-2023 13:00-0500 Body weight 107.41 kg Juana Emmanuelle Other [address] Other 07-16-2023 13:00-0500 Diastolic blood pressure 60 mm[Hg] Juana Handley Other [address] Other 07-16-2023 13:00-0500 SaO2% (BldA) [Mass fraction] 96 % Juana Handley Other [address] Other 07-16-2023 13:00-0500 Systolic blood pressure 117 mm[Hg] Juana Handley Other [address] Other 05-10-2023 09:30-0400 Body height 185.42 cm Simba Grey Other [address] Other 05-10-2023 09:30-0400 Body mass index (BMI) [Ratio] 30.61 kg/m2 Simba Grey Other [address] Other 05-10-2023 09:30-0400 Body weight 105.24 kg Simba Grey Other [address] Other 05-10-2023 09:30-0400 Diastolic blood pressure 65 mm[Hg] Simba Grey Other [address] Other 05-10-2023 09:30-0400 Systolic blood pressure 104 mm[Hg] Simba Grey Other [address] Other 01-27-2023 10:44-0400 Blood Pressure Location Amanda BIRD [facility] 01-27-2023 10:44-0400 Diastolic blood pressure 68 mm[Hg] Amanda BIRD [facility] 01-27-2023 10:44-0400 Heart rate 72 /min Amanda BIRD [facility] 01-27-2023 10:44-0400 Respiratory rate 16 /min Amanda BIRD [facility] 01-27-2023 10:44-0400 Systolic blood pressure 116 mm[Hg] Amanda BIRD [facility] 11-14-2022 11:00-0400 Blood Pressure Location Amanda BIRD [facility] 11-14-2022 11:00-0400 Diastolic blood pressure 69 mm[Hg] Amanda BIRD [facility] 11-14-2022 11:00-0400 Heart rate 58 /min Amanda BIRD [facility] 11-14-2022 11:00-0400 Respiratory rate 16 /min Amanda BIRD [facility] 11-14-2022 11:00-0400 Systolic blood pressure 129 mm[Hg] Amanda BIRD [facility] 05-27-2022 16:35-0400 Body height 185.42 cm Juana Handley Other [address] Other 05-27-2022 16:35-0400 Body mass index (BMI) [Ratio] 31.42 kg/m2 Juana Handley Other [address] Other 05-27-2022 16:35-0400 Body temperature 98.1 [degF] Juana Handley Other [address] Other 05-27-2022 16:35-0400 Body weight 108.05 kg Juana Handley Other [address] Other 05-27-2022 16:35-0400 Diastolic blood pressure 68 mm[Hg] Juana Handley Other [facility] [employer] Other 05-27-2022 16:35-0400 Respiratory rate 18 /min Juana Handley Other [address] Other 05-27-2022 16:35-0400 SaO2% (BldA) [Mass fraction] 96 % Juana Handley Other [facility] [employer] Other 05-27-2022 16:35-0400 Systolic blood pressure 119 mm[Hg] Juana Handley Other [facility] [employer] Other 05-16-2022 11:05-0400 Blood Pressure Location Amanda BIRD [facility] 05-16-2022 11:05-0400 Diastolic blood pressure 73 mm[Hg] Amanda BIRD [facility] 05-16-2022 11:05-0400 Heart rate 52 /min Aamnda BIRD [facility] 05-16-2022 11:05-0400 Respiratory rate 16 /min Amanda BIRD [facility] 05-16-2022 11:05-0400 Systolic blood pressure 127 mm[Hg] Amanda BIRD [facility] 03-23-2022 15:26-0400 Diastolic blood pressure 71 mm[Hg] MD Simba Grey Work Phone: [facility] 03-23-2022 15:26-0400 Heart rate 55 /min MD Simba Grey Work Phone: [facility] 03-23-2022 15:26-0400 Respiratory rate 16 /min MD Simba Grey Work Phone: [facility] 03-23-2022 15:26-0400 SaO2% (BldA) [Mass fraction] 98 % MD Simba Grey Work Phone: [facility] 03-23-2022 15:26-0400 Systolic blood pressure 142 mm[Hg] MD Simba Grey Work Phone: [facility] 03-23-2022 13:01-0400 Body height 190.5 cm MD Simba Grey Work Phone: [facility] 03-23-2022 13:01-0400 Body temperature 97.5 [degF] MD Simba Grey Work Phone: [facility] 03-23-2022 13:01-0400 Body weight 102.05 kg MD Simba Grey Work Phone: [facility] 03-02-2022 11:45-0400 Body height 185.42 cm Simba Grey Other [facility] [employer] Other 03-02-2022 11:45-0400 Body mass index (BMI) [Ratio] 30.34 kg/m2 Simba Grey Other [address] Other 03-02-2022 11:45-0400 Body weight 104.33 kg Simba Grey Other [address] Other Encounters Encounter Date Encounter Type Care Provider Facility Start: 01-06-2025 ambulatory NATHAN TALBOT Facili ty:[facility] Start: 07-29-2024 ambulatory Amanda BIRD Facili ty:[facility] Start: 07-18-2024 End: 07-18-2024 Bamboo flowsheet Hamzah Lazo DPM Work Phone: [facility] Start: 07-18-2024 End: 07-18-2024 Bamboo flowsheet Hamzah Lazo DPM Work Phone: [facility] Start: 07-18-2024 End: 07-18-2024 ambulatory HAMZAH LAZO Not Available Start: 07-18-2024 End: 07-18-2024 Patient encounter procedure Hamzah Lazo DPM Work Phone: [facility] Comment on above: Pain due to onychomy cosis of toenails of both feet (Primary Dx); Venous insufficiency Start: 07-14-2024 End: 07-15-2024 Refill Henri Rica Carrasquillo THERMOCOUPLE TESTER-PC MAINTENANCE TECHNICIAN Work Phone: [facility] Comment on above: Med Refill Start: 06-06-2024 End: 06-06-2024 ambulatory [facility] Start: 06-06-2024 End: 06-06-2024 Patient encounter procedure [facility] THERMOCOUPLE TESTER-PC MAINTENANCE TECHNICIAN Work Phone: [facility] - Family Medicine Comment on above: Medicare annual well ness visit, subsequent (Primary Dx) Start: 05-09-2024 End: 05-09-2024 Patient encounter procedure Hamzah Lazo DPM Work Phone: [facility] Comment on above: Pain due to onychomy cosis of toenails of both feet (Primary Dx); Venous insufficiency Start: 05-09-2024 End: 05-09-2024 ambulatory HAMZAH LAZO Not Available Start: 05-09-2024 End: 05-09-2024 Bamboo flowsheet Hamzah Lazo DPM Work Phone: [facility] Start: 05-09-2024 End: 05-09-2024 Bamboo flowsheet Hamzah Lazo DPM Work Phone: [facility] Start: 02-22-2024 End: 02-22-2024 ambulatory HAMZAH LAZO Not Available Start: 02-14-2024 End: 02-14-2024 ambulatory [facility] Start: 01-02-2024 End: 01-02-2024 ambulatory OMEGA LUIS [facility] Start: 12-07-2023 End: 12-07-2023 ambulatory HAMZAH LAZO Not Available Start: 12-04-2023 End: 12-04-2023 ambulatory [facility] Facility:[facility] Start: 12-04-2023 End: 12-04-2023 Patient encounter procedure Amanda Alvares MARGE [facility] Start: 11-20-2023 End: 11-20-2023 ambulatory LUCIA [facility] Start: 11-14-2023 End: 11-14-2023 ambulatory [facility] Start: 10-25-2023 Telephone encounter [facility] Start: 10-17-2023 End: 10-18-2023 ambulatory MOJGAN CHEEK [facility] Start: 10-16-2023 End: 10-16-2023 Office outpatient visit 15 minutes Nathan Talbot THERMOCOUPLE TESTER-PC MAINTENANCE TECHNICIAN Work Phone: [facility] - [facility] Comment on above: Acute non-recurrent pansinusitis (Primary Dx) Start: 10-16-2023 End: 10-16-2023 ambulatory [facility] Start: 10-12-2023 End: 10-12-2023 Office outpatient visit 10 minutes Khushbu Gill DO Work Phone: [facility] Comment on above: Obstructive sleep ap medina (Primary Dx); Bronchiectasis without complication ([facility] Start: 10-12-2023 End: 10-12-2023 ambulatory KHUSHBU GILL [facility] Start: 10-10-2023 End: 10-10-2023 Office outpatient visit 15 minutes Nathan Talbot THERMOCOUPLE TESTER-PC MAINTENANCE TECHNICIAN Work Phone: [facility] - [facility] Comment on above: Allergic rhinitis du e to pollen, unspecified seasonality (Primary Dx); Sore throat Start: 10-10-2023 End: 10-10-2023 ambulatory [facility] Start: 09-28-2023 End: 09-28-2023 ambulatory HAMZAH LAZO Not Available Start: 09-28-2023 End: 09-29-2023 ambulatory KHUSHBU GILL [facility] Start: 09-22-2023 Refill Juana Nguyen RN [facility] Comment on above: Med Refill Start: 09-20-2023 Telephone encounter Leopoldo Montaño MD Work Phone: [facility] Start: 09-19-2023 End: 09-19-2023 ambulatory MOJGAN CHEEK [facility] Start: 09-19-2023 End: 09-19-2023 Office outpatient visit 25 minutes Radha [facility] THERMOCOUPLE TESTER-WATER TREATMENT PLANT OPERATOR Work Phone: [facility] - [facility] Medicine Comment on above: Localized edema (Inga mojgan Dx); Ischemic myocardial dysfunction Start: 08-10-2023 End: 08-10-2023 ambulatory [facility] Start: 08-10-2023 End: 08-10-2023 Office outpatient visit 15 minutes [facility] DO Work Phone: [facility] - [facility] Comment on above: Herpes zoster withou t complication (Primary Dx) Start: 08-02-2023 End: 08-02-2023 [facility] THERMOCOUPLE TESTER-PC MAINTENANCE TECHNICIAN Work Phone: [facility] - [facility] Comment on above: Acute right otitis m edia (Primary Dx); Acute non-recurrent pansinusitis Start: 08-02-2023 End: 08-02-2023 ambulatory [facility] Start: 07-16-2023 End: 07-16-2023 ambulatory Juana Handley Other [address] Other Start: 07-16-2023 Office outpatient vi sit 15 minutes Juana Handley [facility] Start: 05-10-2023 End: 05-10-2023 ambulatory Simba Grey Other [address] Other Start: 05-10-2023 Office outpatient vi sit 15 minutes Simba Grey [facility] Start: 03-20-2023 End: 03-20-2023 ambulatory Simba Grey Facility:[facility] Start: 03-06-2023 End: 03-06-2023 ambulatory Simba Grey Other [address] Other Start: 03-06-2023 Telephone encounter Simba angel [facility] Start: 02-15-2023 End: 02-15-2023 ambulatory Simba Grey Other [address] Other Start: 02-15-2023 Telephone encounter Simba angel [facility] Start: 01-27-2023 End: 01-27-2023 Patient encounter procedure Amanda BIRD [facility] Start: 11-14-2022 End: 11-14-2022 Patient encounter procedure Amanda BIRD [facility] Start: 10-05-2022 End: 11-08-2022 Pre-admission assessment Stephanie Singleton [facility] Start: 09-09-2022 End: 09-09-2022 ambulatory NATAHN TALBOT Facility:[facility] Start: 07-15-2022 End: 07-16-[address] AMANDA BIRD Facility:[facility] Start: 05-27-2022 End: 05-27-2022 Patient encounter procedure PAPERBOARD BOXES ESTIMATOR-Ronald Talbot Work Phone: [facility] Start: 05-27-2022 End: 05-27-2022 ambulatory EDITH Talbot Work Phone: [address] Other Start: 05-27-2022 Office outpatient vi sit 15 minutes Juana Handley [facility] Start: 05-16-2022 End: 05-16-2022 Patient encounter procedure Amanda BIRD [facility] Start: 05-09-2022 End: 05-10-[address] AMANDA BIRD Facility:[facility] Start: 04-20-2022 End: 04-20-2022 ambulatory Simba Grey Other [address] Other Start: 04-20-2022 Telephone encounter Simba angel [facility] Start: 03-23-2022 End: 03-23-2022 Admission to same day surgery center MD Simba Grey Work Phone: [facility] Start: 03-21-2022 End: 03-21-2022 Patient encounter procedure MD Simba Grey Work Phone: [facility] Start: 03-14-2022 End: 03-14-2022 ambulatory Simba Grey Other [address] Other Start: 03-14-2022 Telephone encounter Simba angel [facility] Start: 03-02-2022 End: 03-02-2022 ambulatory Simba Grey Other [address] Other Start: 03-02-2022 Office outpatient vi sit 25 minutes Simba Grey [facility] Start: 03-01-2022 End: 03-01-2022 ambulatory Simba Grey Other [address] Other Start: 03-01-2022 Telephone encounter Simba Alvarado ck [facility] Start: 10-28-2021 End: 10-29-[address] AMANDA BIRD Facility: Start: 03-25-2020 Patient encounter procedure Nathan Talbot THERMOCOUPLE TESTER-PC MAINTENANCE TECHNICIAN [facility] Procedures Date Procedure Procedure Detail Performing Clinician Start: 06-06-2024 Adult depression scr eening assessment Nathan Talbot THERMOCOUPLE TESTER-PC MAINTENANCE TECHNICIAN Work Phone: Start: 11-20-2023 Follow-up visit Follow-up LUCIA GARCIA Start: 10-16-2023 Adult depression scr eening assessment Nathan Talbot APRN-PC MAINTENANCE TECHNICIAN Work Phone: Start: 10-12-2023 Follow-up visit Follow-up KHUSHBU GILL Start: 10-10-2023 POCT INFLUENZA A/INF LUENZA B/SARS-COV-2 VERITOR Nathan Talbot THERMOCOUPLE TESTER-PC MAINTENANCE TECHNICIAN Work Phone: Start: 10-10-2023 Iaadiadoo streptococ cus group a Nathan Talbot THERMOCOUPLE TESTER-PC MAINTENANCE TECHNICIAN Work Phone: Start: 10-10-2023 Adult depression scr eening assessment Nathan Talbot THERMOCOUPLE TESTER-PC MAINTENANCE TECHNICIAN Work Phone: Start: 09-19-2023 Adult depression scr eening assessment Mojgan Devries THERMOCOUPLE TESTER-WATER TREATMENT PLANT OPERATOR Work Phone: Start: 08-10-2023 Adult depression scr eening assessment Omega Branchtigre DO Work Phone: Start: 08-02-2023 Adult depression scr eening assessment Nathan Thomasillo THERMOCOUPLE TESTER-PC MAINTENANCE TECHNICIAN Work Phone: Start: 05-27-2022 X-ray of right knee PAPERBOARD BOXES ESTIMATOR- C Nathan Thomasillo Work Phone: Start: 05-09-[address] GUILLE BIRD Comment on above: Performed By: #### P SAD #### [facility] [address] [address] [address] Tyrone Salazar Start: 03-23-2022 End: 03-23-2022 Colonoscopy PAPERBOARD BOXES ESTIMATOR-C Nathan pedro Work Phone: Start: 03-23-2022 Diagnostic endoscopi c examination on colon MD Simba Grey Work Phone: Start: 10-28-[address] GUILLE BIRD Comment on above: Performed By: #### P SAD #### [facility] [address] [address] [address] Tyrone Salazar Start: 04-03-2007 Transrectal biopsy o f prostate using ultrasound guidance Amanda BIRD Blepharoplasty Amanda RICO S Colonoscopy Amanda BIRD Colonoscopy Amanda BIRD Placement of stent i n cardiac conduit Amanda BIRD Procedure on eye Amanda ZAVALETA SARS Antigen (LFIA) MD Philomena Grey Work Phone: Stool culture for bacteria Ayaka Grey Work Phone: Tonsillectomy Amanda BIRD varicocelectomy Amanda CARPENTER RS Plan of Treatment Date Care Activity Detail Author Start: 03-23-2027 Screening for malignant neoplasm of colon Colonoscopy [facility] Start: 06-12-2025 End: 06-12-2025 Patient encounter procedure 06/12/2025 9:20 AM EST [facility] [address] [place] [phone] [facility] Start: 06-06-2025 Adult BMI Screening Adult BMI Screening [facility] Start: 06-06-2025 Depression Screening Depression Screening [facility] Start: 06-06-2025 Fall Risk Screening Fall Risk Screening [facility] Start: 06-06-2025 Medicare Annual Wellness (AWV) Medicare Annual Wellness (AWV) [facility] Start: 06-06-2025 Medicare Annual Wellness Visit Medicare Annual Wellness Visit [facility] Start: 02-13-2025 Adult BMI Follow Up Plan Adult BMI Follow Up Plan [facility] Start: 02-13-2025 Tobacco Screening Tobacco Screening [facility] Start: 10-15-2024 Adult BMI Follow Up Plan Adult BMI Follow Up Plan [facility] Start: 10-15-2024 Adult BMI Screening Adult BMI Screening [facility] Start: 10-15-2024 Depression Screening Depression Screening [facility] Start: 10-15-2024 Fall Risk Screening Fall Risk Screening [facility] Start: 10-15-2024 Tobacco Screening Tobacco Screening [facility] Start: 10-09-2024 Adult BMI Follow Up Plan Adult BMI Follow Up Plan [facility] Start: 10-09-2024 Adult BMI Screening Adult BMI Screening [facility] Start: 10-09-2024 Depression Screening Depression Screening [facility] Start: 10-09-2024 Fall Risk Screening Fall Risk Screening [facility] Start: 10-09-2024 Tobacco Screening Tobacco Screening [facility] Start: 09-26-2024 End: 09-26-2024 Patient encounter procedure 09/26/2024 4:20 PM EST Procedure Visit [facility] [address] [facility] [address] [place] [phone] Hamzah Lazo, DPAyaka [address] [facility] [address] [place] [address] [facility] Start: 09-19-2024 Adult BMI Screening Adult BMI Screening [facility] Start: 09-19-2024 Depression Screening Depression Screening [facility] Start: 09-19-2024 Fall Risk Screening Fall Risk Screening [facility] Start: 09-19-2024 Tobacco Screening Tobacco Screening [facility] Start: 08-14-2024 End: 08-14-2024 Patient encounter procedure 08/14/2024 9:30 AM EST Office Visit [facility] [address] [facility] [place] [address] Cynthia Johnson, AUD [address] [facility] [place] [address] [facility] Start: 08-10-2024 Adult BMI Screening Adult BMI Screening [facility] Start: 08-10-2024 Depression Screening Depression Screening [facility] Start: 08-10-2024 Fall Risk Screening Fall Risk Screening [facility] Start: 08-10-2024 Tobacco Screening Tobacco Screening [facility] Start: 08-02-2024 Adult BMI Follow Up Plan Adult BMI Follow Up Plan [facility] Start: 08-02-2024 Adult BMI Screening Adult BMI Screening [facility] Start: 08-02-2024 Depression Screening Depression Screening [facility] Start: 08-02-2024 Fall Risk Screening Fall Risk Screening [facility] Start: 08-02-2024 Tobacco Screening Tobacco Screening [facility] Start: 07-18-2024 End: 07-18-2024 Patient encounter procedure 07/18/2024 4:30 PM EST Procedure Visit [facility] [address] [facility] [address] [place] [phone] Hamzah Lazo DPM [address] [address] [facility] Start: 07-18-2024 Adult BMI Follow Up Plan Adult BMI Follow Up Plan [facility] Start: 05-09-2024 End: 05-09-2024 Patient encounter procedure 05/09/2024 4:30 PM EDT Procedure Visit [facility] [address] [facility] [address] [place] [phone] Hamzah Lazo DPM [address] [address] Onychomycosis (Primary Dx); Toe pain, bilateral; Venous insufficiency [facility] Comment on above: Onychomycosis (Primary Dx); Toe pain, bilateral; Venous insufficiency Start: 04-07-2024 Influenza vaccination Influenza Vaccine (#1) [facility] Start: 04-03-2024 Medicare Annual Wellness Visit Medicare Annual Wellness Visit [facility] Start: 11-09-2023 End: 11-09-2023 Patient encounter procedure 11/09/2023 1:00 PM EDT Office Visit [facility] Internal Medicine - Family Medicine [address] [place] [phone] Nathan Talbot, THERMOCOUPLE TESTER-PC MAINTENANCE TECHNICIAN [address] [place] [address] [facility] Internal Medicine - Family Medicine Start: 10-26-2023 End: 10-26-2023 Patient encounter procedure 10/26/2023 1:00 PM EDT Office Visit [facility] Cardiology [address] [place] [phone] Leopoldo Montaño MD [address] [place] [phone] Corbin Castro MD [address] [place] [address] [facility] Start: 10-24-2023 End: 10-24-2023 Patient encounter procedure 10/24/2023 3:00 PM EDT Appointment [facility] - Cardiovascular [address] [place] [address] [facility] Start: 10-17-2023 End: 10-17-2023 Patient encounter procedure 10/17/2023 2:30 PM EDT Appointment [facility] CardioVascular [address] [place] [phone] [facility] Start: 10-12-2023 End: 10-12-2023 Patient encounter procedure 10/12/2023 9:30 AM EST Office Visit [facility] [address] [place] [address] Khushbu Gill, DO [address] [address] [facility] Start: 09-28-2023 End: 09-28-2023 Patient encounter procedure 09/28/2023 10:00 AM EST Appointment [facility] - CT Imaging [address] [place] [phone] Khushbu Gill, DO [address] [address] [facility] Start: 09-19-2023 End: 09-19-2024 Echo complete W/O contrast Echo complete W/O contrast Echocardiography Routine Ischemic myocardial dysfunction Expected: 09/19/2023, Expires: 09/19/2024 [facility] Work Phone: Comment on above: Expected: 09/19/2023, Expires: Start: 08-21-2023 End: 08-21-2023 Patient encounter procedure 08/21/2023 8:30 AM EST Appointment [facility] [address] [place] [address] Khushbu Gill, DO [address] [address] [facility] Start: 03-23-2022 [facility] Start: 05-15-2019 Administration of varicella zoster vaccine Zoster (Shingles) Vaccine (3 of 3) [facility] Start: 1970 DTaP,Tdap and Td Vaccines (1 - Tdap) DTaP,Tdap and Td Vaccines (1 - Tdap) [facility] Start: 1950 Screening for malignant neoplasm of colon [facility] End: 07-15-2025 Basic metabolic 2000 panel - Serum or Plasma Basic Metabolic Panel Lab Routine Medication management 1 Occurrences starting 07/15/2024 until 07/15/2025 [facility] Work Phone: Comment on above: 1 Occurrences starting 07/15/2024 until 07/15/2025 End: 07-15-2025 Lipid panel Lipid panel Lab Routine Medication management 1 Occurrences starting 07/15/2024 until 07/15/2025 [facility] Comment on above: 1 Occurrences starting 07/15/2024 until 07/15/2025 Patient Education Colon Polyps [facility] Work Phone: Immunizations Immunization Date Immunization Notes Care Provider Mikael al 05-15-2024 influenza, high dose seasonal, preservative-free Nathan Talbot THERMOCOUPLE TESTER-PC MAINTENANCE TECHNICIAN Work Phone: [facility] 04-09-2024 tuberculin skin test ; purified protein derivative solution, intradermal Nathan Talbot THERMOCOUPLE TESTER-PC MAINTENANCE TECHNICIAN Work Phone: [facility] 05-26-2023 RSV, recombinant, protein subunit RSVpreF, adjuvant reconstituted, 0.5 mL, PF Nathan Talbot THERMOCOUPLE TESTER-PC MAINTENANCE TECHNICIAN Work Phone: [facility] 05-10-2023 Influenza Vaccine, Quadrivalent, Adjuvanted Nathan Talbot THERMOCOUPLE TESTER-PC MAINTENANCE TECHNICIAN Work Phone: [facility] 05-10-2023 influenza virus vacc ine, unspecified formulation Hamzah Lazo DPM Work Phone: [facility] 07-13-2022 Covid-19, Mrna, Lnp- s, Bivalent, Pf, 30mcg/0.3 ml Nathan Talbot THERMOCOUPLE TESTER-PC MAINTENANCE TECHNICIAN Work Phone: [facility] 06-09-2022 Influenza, High-dose , Quadrivalent Nathan Talbot THERMOCOUPLE TESTER-PC MAINTENANCE TECHNICIAN Work Phone: [facility] 02-22-2022 COVID-19 mRNA, Combren stevenson (Pfizer) MD Simba Grey Work Phone: [facility] 02-22-2022 Covid-19, Mrna, Lnp- s, Pf, 30 Mcg/0.3 Ml Dose, Matt-sucrose Nathan Talbot THERMOCOUPLE TESTER-PC MAINTENANCE TECHNICIAN Work Phone: [facility] 06-12-2021 Influenza Vaccine, Quadrivalent, Adjuvanted Nathan Talbot THERMOCOUPLE TESTER-PC MAINTENANCE TECHNICIAN Work Phone: [facility] 06-12-2021 Influenza, High-dose , Quadrivalent Nathan Talbot THERMOCOUPLE TESTER-PC MAINTENANCE TECHNICIAN Work Phone: [facility] 05-12-2021 COVID-19 mRNA, Combren stevenson (Pfizer) MD Simba Grey Work Phone: [facility] 10-09-2020 COVID-19 mRNA, Ashly stevenson (Pfizer) MD Simba Grey Work Phone: [facility] 10-05-2020 SARS-CoV-2 (COVID-19 ) mRNA BNT-162b2 vax Amanda BIRD [facility] 09-18-2020 COVID-19 mRNA, Comir elva (Pfizer) MD Simba Grey Work Phone: [facility] 06-03-2020 Influenza Vaccine, Quadrivalent, Adjuvanted Nathan Talbot THERMOCOUPLE TESTER-PC MAINTENANCE TECHNICIAN Work Phone: [facility] 06-04-2019 Seasonal trivalent influenza vaccine, adjuvanted, preservative free Nathan Talbot THERMOCOUPLE TESTER-PC MAINTENANCE TECHNICIAN Work Phone: [facility] 03-20-2019 zoster vaccine recombinant Nathan Talbot THERMOCOUPLE TESTER-PC MAINTENANCE TECHNICIAN Work Phone: [facility] 03-20-2019 zoster vaccine, live Nathan Talbot THERMOCOUPLE TESTER-PC MAINTENANCE TECHNICIAN Work Phone: [facility] 03-20-2019 zoster vaccine, unspecified formulation Nathan Talbot THERMOCOUPLE TESTER-PC MAINTENANCE TECHNICIAN Work Phone: [facility] 11-02-2018 zoster vaccine recombinant Nathan Talbot THERMOCOUPLE TESTER-PC MAINTENANCE TECHNICIAN Work Phone: [facility] 11-02-2018 zoster vaccine, live Nathan Talbot THERMOCOUPLE TESTER-PC MAINTENANCE TECHNICIAN Work Phone: [facility] 05-13-2018 influenza virus vacc ine, unspecified formulation Nathan Talbot THERMOCOUPLE TESTER-PC MAINTENANCE TECHNICIAN Work Phone: [facility] 05-13-2018 pneumococcal polysaccharide vaccine, 23 valent Nathan Talbot THERMOCOUPLE TESTER-PC MAINTENANCE TECHNICIAN Work Phone: [facility] 05-13-2018 Seasonal trivalent influenza vaccine, adjuvanted, preservative free Nathan Talbot THERMOCOUPLE TESTER-PC MAINTENANCE TECHNICIAN Work Phone: [facility] 04-24-2017 influenza virus vacc ine, unspecified formulation Nathan Talbot THERMOCOUPLE TESTER-PC MAINTENANCE TECHNICIAN Work Phone: [facility] 04-24-2017 influenza, high dose seasonal, preservative-free Nathan Talbot THERMOCOUPLE TESTER-PC MAINTENANCE TECHNICIAN Work Phone: [facility] 06-02-2016 influenza virus vacc ine, unspecified formulation Nathan Talbot THERMOCOUPLE TESTER-PC MAINTENANCE TECHNICIAN Work Phone: [facility] 06-02-2016 influenza, injectabl e, quadrivalent, preservative free Nathan Talbot THERMOCOUPLE TESTER-PC MAINTENANCE TECHNICIAN Work Phone: [facility] 07-06-2015 influenza, seasonal, injectable, preservative free Nathan Talbot THERMOCOUPLE TESTER-PC MAINTENANCE TECHNICIAN Work Phone: [facility] 07-06-2015 pneumococcal conjuga te vaccine, 13 valent Nathan Talbot THERMOCOUPLE TESTER-PC MAINTENANCE TECHNICIAN Work Phone: [facility] 08-25-2014 influenza, seasonal, injectable, preservative free Nathan Talbot THERMOCOUPLE TESTER-PC MAINTENANCE TECHNICIAN Work Phone: [facility] 06-11-2007 influenza virus vacc ine, whole virus Nathan Talbot THERMOCOUPLE TESTER-PC MAINTENANCE TECHNICIAN Work Phone: [facility] Payers Date Payer Category Payer Medicaid [employer] MED[employer]ARE A DVANTAGE [id number] 2022 Self-pay [id number] 2021 Medicare [id number] 2021 Medicare HMO [employer] MED[employer]ARE [id number] 1959 Medicare [id number] 2.16.840.1.908691.19 1951 Unknown [id number] 2.16.840.1.034812.3.579.2.593 1951 Unknown [id number] 2.16.840.1.739541.3.579.2.593 1951 Unknown [id number] 2.16.840.1.055915.3.579.2.593 1951 Unknown [id number] 2.16.840.1.883649.3.579.2.593 1951 Unknown [id number] 2.16.840.1.316784.3.579.2.128 1951 Unknown [id number] 2.16.840.1.686003.3.579.2.128 1951 Unknown [id number] 2.16.840.1.027711.3.579.2.1285 1951 Unknown [id number] 2.16.840.1.831524.3.579.2.1285 1951 Unknown [id number] 2.16.840.1.414415.3.579.2.1285 1951 Unknown [id number] 2.16.840.1.733539.3.579.2.1285 1951 Unknown [id number] 2.16.840.1.503111.3.579.2.1285 1951 Unknown [id number] 2.16.840.1.642515.3.579.2.1285 1951 Unknown [id number] 2.16.840.1.553069.3.579.2.1285 1951 Unknown [id number] 2.16.840.1.562771.3.579.2.1285 1951 Unknown [id number] 2.16.840.1.655142.3.579.2.1285 1951 Unknown [id number] 2.16.840.1.399857.3.579.2.1285 1951 Unknown [id number] 2.16.840.1.637645.3.579.2.1285 1951 Unknown [id number] 2.16.840.1.480752.3.579.2.727 1951 Unknown [id number] 2.16.840.1.795960.3.579.2.727 1951 Unknown [id number] 2.16.840.1.081032.3.579.2.727 1951 Unknown [id number] 2.16.840.1.249068.3.579.2.1259 1951 Unknown [id number] 2.16.840.1.972193.3.579.2.1259 1951 Unknown [id number] 2.16.840.1.803914.3.579.2.1259 1951 Unknown [id number] 2.16.840.1.334287.3.579.2.1259 1951 Unknown [id number] 2.16.840.1.856959.3.579.2.1259 Unknown [id number] Unknown [id number] 2.16.840.1.040972.3.579.2.531 Unknown [id number] 2.16.840.1.136362.3.579.2.531 Social History Date Type Detail Facility Unknown if ever smoked [address] Other Start: 08-02-2021 End: 05-09-2024 Sex Assigned At [address] Other Start: 03-23-2022 End: 09-28-2023 Tobacco smoking status NHIS Never smoked tobacco (finding) [facility] Start: 1950 Sex Assigned At Male [facility] Start: 12-08-2021 End: 09-28-2023 Tobacco use and exposure Smokeless tobacco non-user [facility] Start: 08-02-2023 End: 02-14-2024 Alcohol intake Current drinker of alcohol (finding) [facility] Start: 08-02-2021 End: 05-09-2024 History of Social function [facility] Do you belong to any clubs or organizations such as confucianism groups, unions, fraternal or athletic groups, or school groups? Yes [facility] Are you now , , , , never or living with a partner? [facility] How often to you hav e a drink containing alcohol? 2-4 times a month [facility] How many standard dr inks containing alcohol do you have on a typical day? 1 or 2 [facility] How often do you hav e 6 or more drinks on 1 occasion? Never [facility] How hard is it for y ou to pay for the very basics like food, housing, medical care, and heating Hard [facility] Adolescent depressio n screening assessment 0 [facility] Do you feel stress - tense, restless, nervous, or anxious, or unable to sleep at night because your mind is troubled all the time - these days [OSQ] Rather much [facility] Start: 08-02-2021 Education 18 [facility] Start: 09-07-2020 Alcohol Comment occasional [facility] Start: 1950 Sex Assigned At Not on file [facility] Start: 02-22-2024 End: 07-18-2024 Alcoholic beverage intake Lifetime non-drinker (finding) [facility] Has the [employer], or [employer] threatened to shut off services in your home in past 12Mo No [facility] Do you feel stress - tense, restless, nervous, or anxious, or unable to sleep at night because your mind is troubled all the time - these days [OSQ] Not at all [facility] Start: 03-12-2015 Sex Male (finding) [facility] Goals Date Patient Goal Desired Activity /State Functional Status Date Assessment Result Facility 12-04-2023 Functional Status N/A [facility] 01-27-2023 Functional Status N/A [facility] 11-14-2022 Functional Status N/A [facility] 05-16-2022 Functional Status N/A [facility] Clinical Notes 03-02-2022 to 07-14-2024 Telephone Encounter - Rae Holman RN - 07/14/2024 7:13 PM ESTTelephone Encounter - Rae Holman RN - 07/14/2024 7:13 PM Mariia Talbot APRN-PC MAINTENANCE TECHNICIAN - 06/06/2024 10:20 AM EDT Note Date & Type Note Facility 07-14-2024 Miscellaneous Notes OV 11/20/2023 Lipid panel 05/18/2023 Letter to be sent to patient's home. All labs ordered for med management. documented in this encounter [facility] 07-14-2024 Telephone encounter Note OV 11/20/2023 Lipid panel 05/18/2023 Letter to be sent to patient's home. All labs [facility] med management. [email or web address] 06-06-2024 History of Present illness Narrative Subjective SUBJECTIVE: Patient ID: Eliazar Nunez is a 73 y.o. male who presents for a Medicare Annual Wellness exam. HPI The following portions of the patient's history were reviewed and updated as appropriate: allergies, current medications, past family history, past medical history, past social history, past surgical history and problem list. 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 : Lifestyle Assessment Do you smoke or use smokeless tobacco?: No If you smoke or use smokeless tobacco, are you ready to quit?: NA Are you exposed to secondhand smoke?: No On average, how many drinks of alcohol do you consume in a week?: None Do you exercise for 30 or more minutes on average at least 3 days a week?: Always Do you have any tooth, denture, or oral problems?: No Do you snore or has anyone told you that you snore?: (!) Yes Do you try to eat a balanced diet?: Yes Do you experience leakage of urine, also known as urinary incontinence?: Never Do you have difficulty performing any of these activities? (check all that apply): None Do you have difficulty performing any of these activities? (check all that apply): None Fall Risk Fall Risk Assessment Completed?: Yes Have you fallen in the past year?: No Are you worried about falling?: No Do you feel unsteady when standing or walking?: No Risk Stratification: Low Risk Depression Screening Little interest or pleasure in doing things: Not at all Feeling down, depressed, or hopeless: Not at all Trouble falling or staying asleep, or sleeping too much: Not at all Feeling tired or having little energy: Not at all Poor appetite or overeating: Not at all Feeling bad about yourself - or that you are a failure or have let yourself or your family down: Not at all Trouble concentrating on things, such as reading the newspaper or watching television: Not at all Moving or speaking so slowly that other people could have noticed. Or the opposite - being so fidgety or restless that you have been moving around a lot more than usual: Not at all Thoughts that you would be better off , or of hurting yourself in some way: Not at all PEG Scale Safety Assessment Do you have throw rugs on the floor?: No Do you feel safe at your home?: Yes Do you feel unsteady when walking?: No Are you having difficulty with driving?: No Do you have trouble seeing?: No What assistive device do you use? (check all that apply): None Hearing Assessment Do you strain or struggle to hear/understand conversations?: (!) Yes Do you have trouble hearing the television or radio when others do not?: (!) Yes Does your family ever voice concerns about your hearing?: (!) Yes Do you wear hearing aid/s?: No Personal Health During the past 4 weeks, how would you rate your overall health?: Good Do you understand how to take all of your medications?: Yes How confident are you that you can control and manage most of your health problems?: Very confident In the past 12 months, how many times have you been hospitalized?: None End of Life Planning Do you have a living will?: (!) No Do you have a durable power of senior trial attorney?: (!) No Cognitive Screening Do you have trouble remembering or recalling facts or events?: No Do family members or caregivers report that you have difficulty remembering things?: No Clock Drawing Test: REVIEW OF SYSTEMS: Review of Systems Objective PHYSICAL EXAMINATION: Vitals: 06/06/24 1030 BP: 110/62 BP Site: Left Arm Weight: 105.7 kg (233 lb) Height: 190.5 cm (6' 3 ) Physical Exam Assessment/Plan ASSESSMENT/PLAN Eliazar was seen today for maw. Diagnoses and all orders for this visit: Medicare annual wellness visit, subsequent Return in about 1 year (around 06/06/2025). COCO Braun 06/06/24 1237 documented in this encounter [facility] 05-09-2024 History of Present illness Narrative Patient: Eliazar Nunez : 1950 PCP: No primary care provider on file. SUBJECTIVE This is a 73 y.o. male that presents today with a CC of elongated, thick nails. Pt states nails have been elongated and thick for many years and cause pain with ambulation in shoegear. Pt has tried previous treatment with minimal relief. Pt presents today for nail care and treatment. Patient has positive history of venous stasis bilateral lower extremities. Allergies: Allergies Allergen Reactions Moxifloxacin GI intolerance Naproxen GI intolerance Past Medical History: Past Medical History: Diagnosis Date Allergic rhinitis Orellana esophagus BPH with urinary obstruction CAD (coronary artery disease) ([facility]) CHF (congestive heart failure) ([facility]) COVID-19 07/2021 History of heart attack ([facility]) 09/10/2014 HLD (hyperlipidemia) ([facility]) HTN (hypertension) ([facility]) Hx of fall 01/2018 Kidney stones [place] (myocardial infarction) ([facility]) SURINDER (obstructive sleep apnea) Shingles Sleep apnea Medications: Current Outpatient Medications: amLODIPine (Norvasc) 5 MG tablet, Take 5 mg by mouth in the morning., Disp: , Rfl: aspirin 81 MG EC tablet, Take 81 mg by mouth in the morning., Disp: , Rfl: atorvastatin (Lipitor) 80 MG tablet, Take 1 tablet by mouth in the morning., Disp: , Rfl: carvedilol (Coreg) 12.5 MG tablet, Take 1 tablet by mouth every 12 (twelve) hours, Disp: , Rfl: Cetirizine HCl 10 MG capsule, Take 10 mg by mouth in the morning., Disp: , Rfl: chlorhexidine (Peridex) 0.12 % solution, as directed Mouth/Throat, Disp: , Rfl: famotidine (Pepcid) 20 MG tablet, Daily, Disp: , Rfl: fluticasone (Flonase Allergy Relief) 50 MCG/ACT nasal spray, Nasal, Disp: , Rfl: lisinopril 10 MG tablet, TAKE 1 TABLET BY MOUTH TWICE A DAY IN THE MORNING AND BEFORE BEDTIME, Disp: , Rfl: nitroglycerin (Nitrostat) 0.4 MG SL tablet, Place 0.4 mg under the tongue Daily as needed, Disp: , Rfl: tamsulosin (Flomax) 0.4 MG 24 hr capsule, Take 0.4 mg by mouth in the morning and 0.4 mg in the evening., Disp: , Rfl: Social History: Social History Socioeconomic History Marital status: Spouse name: Not on file Number of children: Not on file Years of education: Not on file Highest education level: Not on file Occupational History Not on file Tobacco Use Smoking status: Never Smokeless tobacco: Never Vaping Use Vaping status: Never Used Substance and Sexual Activity Alcohol use: Never Drug use: Never Sexual activity: Defer Other Topics Concern Not on file Social History Narrative Not on file Social Determinants of Health Financial Resource Strain: High Risk (07/18/2023) Received from [employer], [facility] Overall Financial Resource Strain (CARDIA) Difficulty of Paying Living Expenses: Hard Food Insecurity: No Food Insecurity (02/14/2024) Received from [employer] [facility] [employer] Hunger Screening Within the past 12 months we worried whether our food would run out before we got money to buy more.: Never True Within the past 12 months the food we bought just didn't last and we didn't have money to get more.: Never True Transportation Needs: No Transportation Needs (07/18/2023) Received from [facility], [facility] PRAPARE - Transportation Lack of Transportation (Medical): No Lack of Transportation (Non-Medical): No Physical Activity: Sufficiently Active (08/02/2021) [facility] Vital Sign Days of Exercise per Week: 5 days Minutes of Exercise per Session: 40 min Stress: Stress Concern Present (08/02/2021) Received from [employer] [place] [facility] [employer] [facility] - Occupational Stress Questionnaire Feeling of Stress : Rather much Social Connections: Socially Integrated (08/02/2021) [facility] Social Connection and Isolation Panel [NHANES] Frequency of Communication with Friends and Family: More than three times a week Frequency of Social Gatherings with Friends and Family: More than three times a week Attends Yazidi Services: More than 4 times per year Active Member of Clubs or Organizations: Yes Attends Club or Organization Meetings: More than 4 times per year Marital Status: Intimate Partner Violence: Not on file Housing Stability: Low Risk (07/18/2023) [facility] Instability Are you worried or concerned that in the next two months you may not have stable housing that you own, rent or stay in as a part of a household?: No ROS: General: denies fever, chills, fatigue, malaise OBJECTIVE LE EXAM: DERM: Elongated thick yellow crumbly nails digits 1 through 10. Positive hair growth b/l feet. Plus one pitting edema to bilateral ankles VASC: Positive palpable pedal pulses bilaterally NEURO: Gross sensation intact to bilateral feet ORTHO: Positive pain on palpation to nails 1 through 10 ASSESSMENT 1. Onychomycosis 2. Toe pain, bilateral 3. Venous insufficiency PLAN Discussed proper foot care with patient today. Debride nails in length and thickness digits 1 through 10 Hamzah Lazo DPM documented in this encounter [facility] 12-04-2023 Hospital Discharge instructions Patient Education 12/04/2023 12:58:16 Benign Prostatic Hyperplasia Benign Prostatic Hyperplasia Benign prostatic hyperplasia (BPH) is an enlarged prostate gland that is caused by the normal aging process. The prostate may get bigger as a man gets older. The condition is not caused by cancer. The prostate is a walnut-sized gland that is involved in the production of semen. It is located in front of the rectum and below the bladder. The bladder stores urine. The urethra carries stored urine out of the body. An enlarged prostate can press on the urethra. This can make it harder to pass urine. The buildup of urine in the bladder can cause infection. Back pressure and infection may progress to bladder damage and kidney (renal) failure. What are the causes? This condition is part of the normal aging process. However, not all men develop problems from this condition. If the prostate enlarges away from the urethra, urine flow will not be blocked. If it enlarges toward the urethra and compresses it, there will be problems passing urine. What increases the risk? This condition is more likely to develop in men older than 50 years. What are the signs or symptoms? Symptoms of this condition include: Getting up often during the night to urinate. Needing to urinate frequently during the day. Difficulty starting urine flow. Decrease in size and strength of your urine stream. Leaking (dribbling) after urinating. Inability to pass urine. This needs immediate treatment. Inability to completely empty your bladder. Pain when you pass urine. This is more common if there is also an infection. Urinary tract infection (UTI). How is this diagnosed? This condition is diagnosed based on your medical history, a physical exam, and your symptoms. Tests will also be done, such as: A post-void bladder scan. This measures any amount of urine that may remain in your bladder after you finish urinating. A digital rectal exam. In a rectal exam, your health care provider checks your prostate by putting a lubricated, gloved finger into your rectum to feel the back of your prostate gland. This exam detects the size of your gland and any abnormal lumps or growths. An exam of your urine (urinalysis). A prostate specific antigen (PSA) screening. This is a blood test used to screen for prostate cancer. An ultrasound. This test uses sound waves to electronically produce a picture of your prostate gland. Your health care provider may refer you to a specialist in kidney and prostate diseases (urologist). How is this treated? Once symptoms begin, your health care provider will monitor your condition (active surveillance or watchful waiting). Treatment for this condition will depend on the severity of your condition. Treatment may include: Observation and yearly exams. This may be the only treatment needed if your condition and symptoms are mild. Medicines to relieve your symptoms, including: ?Medicines to shrink the prostate. ?Medicines to relax the muscle of the prostate. Surgery in severe cases. Surgery may include: ?Prostatectomy. In this procedure, the prostate tissue is removed completely through an open incision or with a laparoscope or robotics. ?Transurethral resection of the prostate (TURP). In this procedure, a tool is inserted through the opening at the tip of the penis (urethra). It is used to cut away tissue of the inner core of the prostate. The pieces are removed through the same opening of the penis. This removes the blockage. ?Transurethral incision (TUIP). In this procedure, small cuts are made in the prostate. This lessens the prostate's pressure on the urethra. ?Transurethral microwave thermotherapy (TUMT). This procedure uses microwaves to create heat. The heat destroys and removes a small amount of prostate tissue. ?Transurethral needle ablation (TUNA). This procedure uses radio frequencies to destroy and remove a small amount of prostate tissue. ?Interstitial laser coagulation (ILC). This procedure uses a laser to destroy and remove a small amount of prostate tissue. ?Transurethral electrovaporization (TUVP). This procedure uses electrodes to destroy and remove a small amount of prostate tissue. ?Prostatic urethral lift. This procedure inserts an implant to push the lobes of the prostate away from the urethra. Follow these instructions at home: Take [id number]-[id number] and prescription medicines only as told by your health care provider. Monitor your symptoms for any changes. Contact your health care provider with any changes. Avoid drinking large amounts of liquid before going to bed or out in public. Avoid or reduce how much caffeine or alcohol you drink. Give yourself time when you urinate. Keep all follow-up visits. This is important. Contact a health care provider if: You have unexplained back pain. Your symptoms do not get better with treatment. You develop side effects from the medicine you are taking. Your urine becomes very dark or has a bad smell. Your lower abdomen becomes distended and you have trouble passing urine. Get help right away if: You have a fever or chills. You suddenly cannot urinate. You feel light-headed or very dizzy, or you faint. There are large amounts of blood or clots in your urine. Your urinary problems become hard to manage. You develop moderate to severe low back or flank pain. The flank is the side of your body between the ribs and the hip. These symptoms may be an emergency. Get help right away. Call 911. Do not wait to see if the symptoms will go away. Do not drive yourself to the hospital. Summary Benign prostatic hyperplasia (BPH) is an enlarged prostate that is caused by the normal aging process. It is not caused by cancer. An enlarged prostate can press on the urethra. This can make it hard to pass urine. This condition is more likely to develop in men older than 50 years. Get help right away if you suddenly cannot urinate. This information is not intended to replace advice given to you by your health care provider. Make sure you discuss any questions you have with your health care provider. Document Revised: 02/09/2022 Document Reviewed: 02/09/2022 [employer] Patient Education 2022 [employer]. Follow Up Care 09/06/2023 13:17:16 With:MARGE VARNER, Amanda Alvares, URL Address: [facility] [address] , [place] [address] [phone] When: Unknown Comments:1 yr w/ BERT [facility] 10-25-2023 Miscellaneous Notes Left message for patient to remind them to bring their most current medication list with them to their appointment. documented in this encounter [facility] 10-25-2023 Telephone encounter Note Left message for patient to remind them to bring their most current medication list with them to their appointment. [facility] 10-16-2023 History of Present illness Narrative Images from the original note were not included. [address] [place] [id number] SUBJECTIVE: Patient ID: Eliazar Nunez is a 73 y.o. male. Chief Complaint Patient presents with Sinus Problem Stuffy, no fever or sore throat. Sinus Problem This is a new problem. The current episode started 1 to 4 weeks ago. The problem is unchanged. There has been no fever. His pain is at a severity of 5/10. The pain is moderate. Associated symptoms include congestion, coughing, headaches, a hoarse voice, sinus pressure and a sore throat. Pertinent negatives include no chills or shortness of breath. Past treatments include nasal decongestants. The following portions of the patient's history were reviewed and updated as appropriate: allergies, current medications, past family history, past medical history, past social history, past surgical history and problem list. 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 BPH (benign prostatic hyperplasia) Episodic lightheadedness 08/22/2017 Gastritis 11/15/2018 Pepcid ( pt on asa for CAD) Heart attack ([facility]) 09/10/2014 maker Hyperlipidemia Medication controlled Hypertension Hypertensive heart disease with heart failure ([facility]) Ischemic cardiomyopathy Kidney stones Obstructive sleep apnea BiPAP setting at 2 Presence of coronary angioplasty implant and graft Prostatitis Puckering of macula, left eye Tinea corporis 10/02/2017 Immunization History Administered Date(s) Administered COVID-19, mRNA, LNP-S, PF, 30mcg/0.3mL Dose 09/18/2020, 10/09/2020, 05/12/2021 Covid-19, Mrna, Lnp-s, Bivalent, Pf, 30mcg/0.3 ml 07/13/2022 Covid-19, Mrna, Lnp-s, Pf, 30 Mcg/0.3 Ml Dose, Matt-sucrose 02/22/2022 Covid-19,mrna, Lnp-s, Pf, 50mcg/0.5ml 12+ 07/10/2023 Influenza (IM) Preservative Free 08/25/2014, 07/06/2015 Influenza High Dose Preservative Free IM 04/24/2017 Influenza Vaccine, Quadrivalent, Adjuvanted 06/03/2020, 06/12/2021, 05/10/2023 Influenza Whole 06/11/2007 Influenza, High-dose, Quadrivalent 06/12/2021, 06/09/2022 Influenza, Injectable, quadrivalent (PF) 06/02/2016 Influenza, Trivalent, Adjuvanted 05/13/2018, 06/04/2019 Influenza, Unspecified 06/02/2016, 04/24/2017, 05/13/2018 Pneumococcal Conjugate 13-Valent 07/06/2015 Pneumococcal Polysaccharide 05/13/2018 RSV, recombinant, protein subunit RSVpreF, adjuvant reconstituted, 0.5 mL, PF 05/26/2023 Zoster Live 11/02/2018, 03/20/2019 Zoster Vaccine Recombinant 11/02/2018, 03/20/2019 REVIEW OF SYSTEMS: Review of Systems Constitutional: Negative for chills, fatigue and fever. HENT: Positive for congestion, hoarse voice, sinus pressure and sore throat. Negative for hearing loss and trouble swallowing. Eyes: Negative for pain and visual disturbance. Respiratory: Positive for cough. Negative for chest tightness and shortness of breath. Cardiovascular: Negative for chest pain, palpitations and leg swelling. Gastrointestinal: Negative for blood in stool. Endocrine: Negative for polydipsia, polyphagia and polyuria. Genitourinary: Negative for difficulty urinating, dysuria, flank pain, hematuria, scrotal swelling and testicular pain. Musculoskeletal: Negative. Skin: Negative. Allergic/Immunologic: Negative. Neurological: Positive for headaches. Negative for seizures and syncope. Hematological: Does not bruise/bleed easily. Psychiatric/Behavioral: Negative. PHYSICAL EXAMINATION: Vitals: 10/16/23 1430 BP: 110/60 BP Site: Left Arm BP Postition: Sitting Pulse: 52 Temp: 36.5 C (97.7 F) TempSrc: Oral SpO2: 96% Weight: 108.9 kg (240 lb) Height: 190.5 cm (6' 3 ) Patient noted to have elevated BMI and the following intervention(s) were applied: encouragement to exercise. Physical Exam Vitals and nursing note reviewed. Constitutional: General: He is not in acute distress. Appearance: He is well-developed. HENT: Head: Normocephalic and atraumatic. Right Ear: Tympanic membrane and external ear normal. Left Ear: Tympanic membrane and external ear normal. Nose: Nose normal. Mouth/Throat: Mouth: Mucous membranes are moist. Pharynx: No oropharyngeal exudate. Eyes: General: No scleral icterus. Right eye: No discharge. Left eye: No discharge. Conjunctiva/sclera: Conjunctivae normal. Pupils: Pupils are equal, round, and reactive to light. Neck: Vascular: No JVD. Cardiovascular: Rate and Rhythm: Normal rate and regular rhythm. Heart sounds: Normal heart sounds. No murmur heard. No friction rub. No gallop. Pulmonary: Effort: Pulmonary effort is normal. No respiratory distress. Breath sounds: Normal breath sounds. Chest: Chest wall: No tenderness. Abdominal: General: Bowel sounds are normal. There is no distension. Palpations: Abdomen is soft. There is no mass. Tenderness: There is no abdominal tenderness. There is no guarding or rebound. Hernia: No hernia is present. Musculoskeletal: General: No tenderness. Normal range of motion. Cervical back: Normal range of motion and neck supple. Lymphadenopathy: Cervical: No cervical adenopathy. Skin: General: Skin is warm and dry. Capillary Refill: Capillary refill takes less than 2 seconds. Findings: No rash. Neurological: Mental Status: He is alert and oriented to person, place, and time. Deep Tendon Reflexes: Reflexes are normal and symmetric. Psychiatric: Mood and Affect: Mood normal. Behavior: Behavior normal. Thought Content: Thought content normal. Judgment: Judgment normal. ASSESSMENT/PLAN: Eliazar was seen today for sinus problem. Diagnoses and all orders for this visit: Acute non-recurrent pansinusitis - azithromycin (ZITHROMAX) 250 mg tablet; Take 2 tablets the first day, then 1 tablet daily for 4 days. Cool mist humidification for congestion, warm salt water gargles as needed for sore throat. 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 ALL QUESTIONS ANSWERED Total time spent was 25 minutes: Preparing to see the patient (e.g., review of tests) Obtaining and/or reviewing separately obtained history Performing a medically appropriate examination and/or evaluation Counseling and educating the patient/family/caregiver Ordering medications, tests, or procedures Follow-up: Next scheduled Sooner if no improvement COCO Braun 10/16/23 1602 documented in this encounter [facility] 10-12-2023 History of Present illness Narrative Images from the original note were not included. Images from the original note were not included. [facility] Progress Note Patient - Eliazar Nunez Age - 73 y.o. - 1950 ASSESSMENT Pulmonary nodular opacities bilaterally likely infectious etiology. Resolved History of frequent URI Allergic rhinitis SURINDER on BIPAP therapy Thyroid nodule, known with previous biopsy PLAN Will refill BiPAP supplies as needed. Ongoing excellent adherence advised Discussed results of repeat CT scan of the chest and resolution of nodular opacities. No further imaging indicated Ongoing follow-up with his other physicians for thyroid lesion. Patient states he has another ultrasound scheduled for the summer [facility] Return to clinic in 1 year or earlier if needed SUBJECTIVE Mr. Nunez presents for follow-up of his pulmonary nodular opacities and obstructive sleep apnea. He is here after follow-up repeat CT scan of the chest. He has had a cold in the last several days. Reports that he saw PCP and had swab which was negative for influenza and has had negative COVID swab. Overall he feels that he is improving. He has no complaints or concerns today. No shortness of breath, cough, wheeze. No other respiratory illnesses since last office visit. 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 He has no issues with his current PAP device. He is sleeping well on it every night. Since switching to the nasal pillow mask both he and his feel that he is getting better quality of sleep and waking up feeling refreshed. Download is reviewed today in office and demonstrates excellent adherence and well controlled AHI less than 3. VITALS BP 110/59 Pulse 50 Ht 190.5 cm (6' 3 ) Wt 107.7 kg (237 lb 8 oz) SpO2 95% BMI 29.69 kg/m Exam General: Alert, oriented, no acute distress, nontoxic Chest: Clear to auscultation bilaterally without any crackles, wheezes, rhonchi. Normal AP diameter. CV: Regular rate regular rhythm Extremities: No edema, erythema, distal cyanosis, clubbing Integumentary: Warm and dry. No rash or lesion Neuro: No lateralizing deficits. No tremors Meds Medications Reviewed. Lab Results PFT Results Radiology CT chest 09/28/2023 CLINICAL INFORMATION: Abnormal CT of the chest; Pulmonary nodule Patient states follow-up of pulmonary nodule. TECHNIQUE: CT Chest without intravenous contrast. All CT scans at this facility use dose modulation, iterative reconstruction, and/or weight based dosing when appropriate to reduce radiation dose to as low as reasonably achievable. COMPARISON: 01/25/2023 FINDINGS: Lower neck: Enlarged right lobe thyroid, with nodule that may measure up to 27 mm noted at the inferior aspect. Cardiovascular and mediastinum: No mediastinal mass or adenopathy. Coronary artery stents. Low attenuation consistent with fat at the thinned apex of the lateral ventricle, possible prior infarct.. No pericardial effusion. Lungs and pleura: Multiple nodules that were previously present have largely resolved. Maintenance Equipment Operator images include series 2, image 84 of 139, where a 3 mm nodule remains at the site of a previous 16 mm spiculated mass/nodule. Similar areas of nodules replaced with small scars are noted on series 2 image 35 of 139, in the left upper lobe, and series 2 image 47 of 139, in the posterior right upper lobe adjacent to fissure. Both of the latter 2 areas are marked with [place]. There remains a left lower lobe calcified nodule, seen on series 2 image 90 of 139. Bilaterally, there is posterior/basal basilar pleural-parenchymal scarring, which appears relatively stable. There is no pleural effusion or pneumothorax. Upper abdomen: Limited noncontrast images of the upper abdomen show previous cholecystectomy, without other significant findings. Soft tissues and bones: Bone windowed images show no concerning lesions. Evaluation of extrathoracic soft tissue structures reveals no soft tissue masses. IMPRESSION: * Chest CT showing significant interval improvement or complete resolution of multiple previously noted nodular densities involving both lungs. In some areas the previously present nodules were replaced with scarring, well and at least one area there remains a tiny nodule (left lower lobe). If patient is high risk for lung carcinoma, recommend yearly screening. * Enlarged right lobe of the thyroid containing at least one nodule. Need for further assessment should be determined clinically. Dr. Khushbu Gill DO. [facility] Office: [phone] documented in this encounter [facility] 10-10-2023 History of Present illness Narrative Images from the original note were not included. [address] [place] [id number] SUBJECTIVE: Patient ID: Eliazar Nunez is a 73 y.o. male. Chief Complaint Patient presents with Cough Sore throat.fever 1 week States he has been experiencing runny nose, low grade fever of 100 oral once last night, and sore throat. 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 States 11 children was absent from one class, one day this week. He is concerned he may have strep? Did home COVID -19 testing, which was negative. States he was seen by crystalizer operator this past year, is allergic to grasses. URI This is a new problem. The current episode started in the past 7 days. The problem has been waxing and waning. Maximum temperature: 100 oral last night. Associated symptoms include congestion, coughing, rhinorrhea, a sore throat and swollen glands. Pertinent negatives include no chest pain, dysuria or headaches. Treatments tried: Zyrtec, Flonase, Astelin. The treatment provided mild relief. The following portions of the patient's history were reviewed and updated as appropriate: allergies, current medications, past family history, past medical history, past social history, past surgical history and problem list. 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 BPH (benign prostatic hyperplasia) Episodic lightheadedness 08/22/2017 Gastritis 11/15/2018 Pepcid ( pt on asa for CAD) Heart attack ([facility]) 09/10/2014 maker Hyperlipidemia Medication controlled Hypertension Hypertensive heart disease with heart failure ([facility]) Ischemic cardiomyopathy Kidney stones Obstructive sleep apnea BiPAP setting at 2 Presence of coronary angioplasty implant and graft Prostatitis Puckering of macula, left eye Tinea corporis 10/02/2017 Immunization History Administered Date(s) Administered COVID-19, mRNA, LNP-S, PF, 30mcg/0.3mL Dose 09/18/2020, 10/09/2020, 05/12/2021 Covid-19, Mrna, Lnp-s, Bivalent, Pf, 30mcg/0.3 ml 07/13/2022 Covid-19, Mrna, Lnp-s, Pf, 30 Mcg/0.3 Ml Dose, Matt-sucrose 02/22/2022 Covid-19,mrna, Lnp-s, Pf, 50mcg/0.5ml 12+ 07/10/2023 Influenza (IM) Preservative Free 08/25/2014, 07/06/2015 Influenza High Dose Preservative Free IM 04/24/2017 Influenza Vaccine, Quadrivalent, Adjuvanted 06/03/2020, 06/12/2021, 05/10/2023 Influenza Whole 06/11/2007 Influenza, High-dose, Quadrivalent 06/12/2021, 06/09/2022 Influenza, Injectable, quadrivalent (PF) 06/02/2016 Influenza, Trivalent, Adjuvanted 05/13/2018, 06/04/2019 Influenza, Unspecified 06/02/2016, 04/24/2017, 05/13/2018 Pneumococcal Conjugate 13-Valent 07/06/2015 Pneumococcal Polysaccharide 05/13/2018 RSV, recombinant, protein subunit RSVpreF, adjuvant reconstituted, 0.5 mL, PF 05/26/2023 Zoster Live 11/02/2018, 03/20/2019 Zoster Vaccine Recombinant 11/02/2018, 03/20/2019 REVIEW OF SYSTEMS: Review of Systems Constitutional: Negative for chills, fatigue and fever. HENT: Positive for congestion, postnasal drip, rhinorrhea and sore throat. Negative for hearing loss and trouble swallowing. Eyes: Negative for pain and visual disturbance. Respiratory: Positive for cough. Negative for chest tightness and shortness of breath. Cardiovascular: Negative for chest pain, palpitations and leg swelling. Gastrointestinal: Negative for blood in stool. Endocrine: Negative for polydipsia, polyphagia and polyuria. Genitourinary: Negative for difficulty urinating, dysuria, flank pain, hematuria, scrotal swelling and testicular pain. Musculoskeletal: Negative. Skin: Negative. Allergic/Immunologic: Negative. Neurological: Negative for seizures, syncope and headaches. Hematological: Does not bruise/bleed easily. Psychiatric/Behavioral: Negative. PHYSICAL EXAMINATION: Vitals: 10/10/23 1446 BP: 112/56 BP Site: Right Arm BP Postition: Sitting Pulse: 53 Temp: 36.7 C (98 F) TempSrc: Oral SpO2: 97% Weight: 108.9 kg (240 lb) Height: 190.5 cm (6' 3 ) Patient noted to have elevated BMI and the following intervention(s) were applied: encouragement to exercise. Physical Exam Vitals and nursing note reviewed. Constitutional: General: He is not in acute distress. Appearance: He is well-developed. HENT: Head: Normocephalic and atraumatic. Right Ear: Tympanic membrane and external ear normal. Left Ear: Tympanic membrane and external ear normal. Nose: Rhinorrhea present. Mouth/Throat: Mouth: Mucous membranes are moist. Pharynx: No oropharyngeal exudate. Comments: Mild erythema. Clear post nasal drainage. Eyes: General: No scleral icterus. Right eye: No discharge. Left eye: No discharge. Conjunctiva/sclera: Conjunctivae normal. Pupils: Pupils are equal, round, and reactive to light. Neck: Vascular: No JVD. Cardiovascular: Rate and Rhythm: Normal rate and regular rhythm. Heart sounds: Normal heart sounds. No murmur heard. No friction rub. No gallop. Pulmonary: Effort: Pulmonary effort is normal. No respiratory distress. Breath sounds: Normal breath sounds. Chest: Chest wall: No tenderness. Abdominal: General: Bowel sounds are normal. There is no distension. Palpations: Abdomen is soft. There is no mass. Tenderness: There is no abdominal tenderness. There is no guarding or rebound. Hernia: No hernia is present. Musculoskeletal: General: No tenderness. Normal range of motion. Cervical back: Normal range of motion and neck supple. Lymphadenopathy: Cervical: No cervical adenopathy. Skin: General: Skin is warm and dry. Capillary Refill: Capillary refill takes less than 2 seconds. Findings: No rash. Neurological: Mental Status: He is alert and oriented to person, place, and time. Deep Tendon Reflexes: Reflexes are normal and symmetric. Psychiatric: Mood and Affect: Mood normal. Behavior: Behavior normal. Thought Content: Thought content normal. Judgment: Judgment normal. ASSESSMENT/PLAN: Eliazar was seen today for cough. Diagnoses and all orders for this visit: Allergic rhinitis due to pollen, unspecified seasonality Sore throat - POCT rapid strep A - POCT Influenza A/Influenza B/SARS-COV-2 Veritor POCT Rapid / Influenza / COVID-19 testing is negative today Has been evaluated by crystalizer operator, Dr. Perez, [facility] March 2023. Has allergy response to grasses. Encourage him to continue Zrytec 10 mg oral daily and Astelin as directed. May need to switch from Zyrtec to [place] when grass pollen increases. He is agreeable with plan of care If symptoms worsen, I have encouraged him to call the office. ALL QUESTIONS ANSWERED Total time spent was 25 minutes: Preparing to see the patient (e.g., review of tests) Obtaining and/or reviewing separately obtained history Performing a medically appropriate examination and/or evaluation Counseling and educating the patient/family/caregiver Ordering medications, tests, or procedures Follow-up: Next scheduled Sooner if needed COC[facility] Braun 10/10/23 1536 documented in this encounter [facility] 09-20-2023 Miscellaneous Notes This is notification that we received referral from: Mojgan Devries Dx: edema, Ischemic myocardial dysfunction [I25.5] Not new l/s: MBE 11/2022 Please schedule f/u documented in this encounter [facility] 09-20-2023 Telephone encounter Note This is notification that we received referral from: Mojgan Devries Dx: edema, Ischemic myocardial dysfunction [I25.5] Not new l/s: MBE 11/2022 Please schedule f/u [facility] 09-19-2023 History of Present illness Narrative Subjective Patient ID: Eliazar Nunez is a 73 y.o. male. 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 He denies any decrease in exercise tolerance in fact on the day he teaches he often climbs two to three flights of stairs and only gets tired when he gets to the third flight The edema does subside over night He does occasional heart burn he treats with tums but otherwise has been feeling good otherwise He has not seen the ergonomic specialist in some years and has not had an echo in years The following portions of the patient's history were reviewed and updated as appropriate: allergies, current medications, past family history, past medical history, past social history, past surgical history, problem list, and medication reconciliation was completed including current medication and post discharge medication. Review of Systems Constitutional: Negative. HENT: Negative. Respiratory: Negative. Cardiovascular: Positive for leg swelling. Negative for chest pain and palpitations. Gastrointestinal: Positive for abdominal pain. Endocrine: Negative. Genitourinary: Negative. Musculoskeletal: Negative. Skin: Negative. Allergic/Immunologic: Negative. Neurological: Negative. Hematological: Negative. Psychiatric/Behavioral: Negative. Objective Physical Exam Vitals and nursing note reviewed. Exam conducted with a heel burnisher present (). HENT: Head: Normocephalic. Neck: Vascular: No carotid bruit. Cardiovascular: Rate and Rhythm: Normal rate and regular rhythm. Pulses: Normal pulses. Heart sounds: Normal heart sounds. No murmur heard. Pulmonary: Effort: Pulmonary effort is normal. Breath sounds: Normal breath sounds. Musculoskeletal: Right lower leg: Edema present. Left lower leg: Edema present. Comments: 1+ pretibial edema bilateral Lymphadenopathy: Cervical: No cervical adenopathy. Skin: Capillary Refill: Capillary refill takes less than 2 seconds. Neurological: Mental Status: He is alert. Psychiatric: Mood and Affect: Mood normal. Behavior: Behavior normal. Thought Content: Thought content normal. Judgment: Judgment normal. Assessment/Plan Eliazar was seen today for edema in legs. Diagnoses and all orders for this visit: Localized edema Ischemic myocardial dysfunction - Echo complete W/O contrast; Future - [facility] - [place], [place]; Future Will have him change his amlodipine from am to pm Reviewed his labs from May which were all good Will set up an echocardiogram for him and also set up a cardiology visit for him due to his history of failure and ischemic heart disease JONATHAN Ortiz 09/19/23 1225 documented in this encounter [facility] 08-10-2023 History of Present illness Narrative Subjective Patient ID: Eliazar Nunez is a 73 y.o. male. Brant presents for rash on the right side of his nose. It started a couple days ago. He was seen last week for right ear pain. He was put on augmentin. He is still having pain on just the right side of his face. He now has a rash and wonders if it is due to augmentin. The following portions of the patient's history were reviewed and updated as appropriate: allergies, current medications, past family history, past medical history, past social history, past surgical history, problem list, and medication reconciliation was completed including current medication and post discharge medication. Review of Systems Objective Physical Exam Vitals reviewed. HENT: Head: Normocephalic. Right Ear: Tympanic membrane, ear canal and external ear normal. Nose: Nose normal. Eyes: General: No scleral icterus. Extraocular Movements: Extraocular movements intact. Conjunctiva/sclera: Conjunctivae normal. Skin: Findings: Rash present. Rash is papular and vesicular. Comments: 5-6 red papules on right side of nose and cheek. Several are vesicular. Neurological: Mental Status: He is alert. Cranial Nerves: Cranial nerves 2-12 are intact. Gait: Gait is intact. Psychiatric: Attention and Perception: Attention normal. Mood and Affect: Mood normal. Speech: Speech normal. Behavior: Behavior normal. Behavior is cooperative. Thought Content: Thought content normal. Assessment/Plan Eliazar was seen today for rash. Diagnoses and all orders for this visit: Herpes zoster without complication - valACYclovir (VALTREX) 1000 mg tablet; Take 1 tablet (1,000 mg total) by mouth 3 (three) times a day. It appears the rash is shingles even though he has been vaccinated. He is having pain in that dermatome. It is important to treat to prevent post-herpetic neuralgia. He can finish augmentin as it doesn't appear to be due to the antibiotic. His lesions are contagious to others who have not been vaccinated against varicella so should stay home from work right now. documented in this encounter [facility] 08-02-2023 History of Present illness Narrative Images from the original note were not included. [address] [place] [id number] SUBJECTIVE: Patient ID: Eliazar Nunez is a 73 y.o. male. Chief Complaint Patient presents with sinus Covid pos 07/15 States yesterday his right ear started to hurt. Additionally, increased congestion with pain above right eyebrow and side of his face. Had COVID-19 on 07/15/23. States he recovered from COVID before ear pain started. Alleviating methods tried- using environmental studies department chair over right ear. Sinus Problem This is a new problem. The current episode started yesterday. The problem has been rapidly worsening since onset. There has been no fever. The pain is moderate. Associated symptoms include congestion, ear pain, headaches, a hoarse voice and sinus pressure. Pertinent negatives include no chills, coughing or shortness of breath. 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 The treatment provided no relief. The following portions of the patient's history were reviewed and updated as appropriate: allergies, current medications, past family history, past medical history, past social history, past surgical history and problem list. 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 BPH (benign prostatic hyperplasia) Episodic lightheadedness 08/22/2017 Gastritis 11/15/2018 Pepcid ( pt on asa for CAD) Heart attack ([facility]) 09/10/2014 maker Hyperlipidemia Medication controlled Hypertension Hypertensive heart disease with heart failure ([facility]) Ischemic cardiomyopathy Kidney stones Obstructive sleep apnea BiPAP setting at 2 Presence of coronary angioplasty implant and graft Prostatitis Puckering of macula, left eye Tinea corporis 10/02/2017 Immunization History Administered Date(s) Administered COVID-19, mRNA, LNP-S, PF, 30mcg/0.3mL Dose 09/18/2020, 10/09/2020, 05/12/2021 Covid-19, Mrna, Lnp-s, Bivalent, Pf, 30mcg/0.3 ml 07/13/2022 Covid-19, Mrna, Lnp-s, Pf, 30 Mcg/0.3 Ml Dose, Matt-sucrose 02/22/2022 Covid-19,mrna, Lnp-s, Pf, 50mcg/0.5ml 12+ 07/10/2023 Influenza (IM) Preservative Free 08/25/2014, 07/06/2015 Influenza High Dose Preservative Free IM 04/24/2017 Influenza Vaccine, Quadrivalent, Adjuvanted 06/03/2020, 06/12/2021, 05/10/2023 Influenza Whole 06/11/2007 Influenza, High-dose, Quadrivalent 06/12/2021, 06/09/2022 Influenza, Injectable, quadrivalent (PF) 06/02/2016 Influenza, Trivalent, Adjuvanted 05/13/2018, 06/04/2019 Influenza, Unspecified 06/02/2016, 04/24/2017, 05/13/2018 Pneumococcal Conjugate 13-Valent 07/06/2015 Pneumococcal Polysaccharide 05/13/2018 RSV, recombinant, protein subunit RSVpreF, adjuvant reconstituted, 0.5 mL, PF 05/26/2023 Zoster Live 11/02/2018, 03/20/2019 Zoster Vaccine Recombinant 11/02/2018, 03/20/2019 REVIEW OF SYSTEMS: Review of Systems Constitutional: Negative for chills, fatigue and fever. HENT: Positive for congestion, ear pain, hoarse voice, postnasal drip, sinus pressure and voice change. Negative for hearing loss and trouble swallowing. Eyes: Negative for pain and visual disturbance. Respiratory: Negative for cough, chest tightness and shortness of breath. Cardiovascular: Negative for chest pain, palpitations and leg swelling. Gastrointestinal: Negative for blood in stool. Endocrine: Negative for polydipsia, polyphagia and polyuria. Genitourinary: Negative for difficulty urinating, dysuria, flank pain, hematuria, scrotal swelling and testicular pain. Musculoskeletal: Negative. Skin: Negative. Allergic/Immunologic: Negative. Neurological: Positive for headaches. Negative for seizures and syncope. Hematological: Does not bruise/bleed easily. Psychiatric/Behavioral: Negative. PHYSICAL EXAMINATION: Vitals: 08/02/23 1646 BP: 110/58 BP Site: Left Arm BP Postition: Sitting Pulse: 58 Temp: 36.3 C (97.3 F) TempSrc: Temporal SpO2: 97% Weight: 108.3 kg (238 lb 12.8 oz) Height: 190.5 cm (6' 3 ) Patient noted to have elevated BMI and the following intervention(s) were applied: encouragement to exercise. Physical Exam Vitals and nursing note reviewed. Constitutional: General: He is not in acute distress. Appearance: He is well-developed. HENT: Head: Normocephalic and atraumatic. Right Ear: External ear normal. Tenderness present. Tympanic membrane is erythematous and bulging. Left Ear: Tympanic membrane and external ear normal. Nose: Nasal tenderness and congestion present. Right Turbinates: Swollen. Left Turbinates: Swollen. Right Sinus: Maxillary sinus tenderness and frontal sinus tenderness present. Mouth/Throat: Mouth: Mucous membranes are moist. Pharynx: No oropharyngeal exudate. Comments: Erythema. Post nasal drainage. Eyes: General: No scleral icterus. Right eye: No discharge. Left eye: No discharge. Conjunctiva/sclera: Conjunctivae normal. Pupils: Pupils are equal, round, and reactive to light. Neck: Vascular: No JVD. Cardiovascular: Rate and Rhythm: Normal rate and regular rhythm. Heart sounds: Normal heart sounds. No murmur heard. No friction rub. No gallop. Pulmonary: Effort: Pulmonary effort is normal. No respiratory distress. Breath sounds: Normal breath sounds. Chest: Chest wall: No tenderness. Abdominal: General: Bowel sounds are normal. There is no distension. Palpations: Abdomen is soft. There is no mass. Tenderness: There is no abdominal tenderness. There is no guarding or rebound. Hernia: No hernia is present. Musculoskeletal: General: No tenderness. Normal range of motion. Cervical back: Normal range of motion and neck supple. Lymphadenopathy: Cervical: No cervical adenopathy. Skin: General: Skin is warm and dry. Capillary Refill: Capillary refill takes less than 2 seconds. Findings: No rash. Neurological: Mental Status: He is alert and oriented to person, place, and time. Deep Tendon Reflexes: Reflexes are normal and symmetric. Psychiatric: Mood and Affect: Mood normal. Behavior: Behavior normal. Thought Content: Thought content normal. Judgment: Judgment normal. ASSESSMENT/PLAN: Eliazar was seen today for sinus. Diagnoses and all orders for this visit: Acute right otitis media - amoxicillin-pot clavulanate (AUGMENTIN) 875-125 mg per tablet; Take 1 tablet by mouth in the morning and 1 tablet before bedtime. Do all this for 10 days. Acute non-recurrent pansinusitis - amoxicillin-pot clavulanate (AUGMENTIN) 875-125 mg per tablet; Take 1 tablet by mouth in the morning and 1 tablet before bedtime. Do all this for 10 days. Cool mist humidification for congestion, warm salt water gargles as needed for sore throat. 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 Start Augmentin as directed. ALL QUESTIONS ANSWERED Total time spent was 25 minutes: Preparing to see the patient (e.g., review of tests) Obtaining and/or reviewing separately obtained history Performing a medically appropriate examination and/or evaluation Counseling and educating the patient/family/caregiver Ordering medications, tests, or procedures Follow-up: Next scheduled Sooner if no improvement COCO Braun 08/02/23 1709 documented in this encounter [facility] 07-16-2023 Evaluation note Encounter Date Diagnosis Assessment Notes Jul, Communicable disease contact (ICD-10 - Z20.9) Jul, COVID-19 (ICD-10 - U07.1) Discharge Instructions for COVID-19 (Suspected or Confirmed ) material was printed Drink plenty fluids, get plenty of rest. Continue home medications as prescribed. Take Tylenol or Motrin as needed for aches pains or fevers. Follow-up with your family physician if no improvement in 2 to 3 days. You must quarantine for 5 days after the onset of your symptoms of COVID. Jul, Cough (ICD-10 - R05.9) [facility] Other 10-04-2023 Evaluation note* Encounter Date Diagnosis Assessment Notes Treatment Notes Treatment Clinical Notes May, Sigmoid diverticulosis (ICD-10 - K57.30) May, Internal hemorrhoids (ICD-10 - K64.8) PATIENT DENIES ANY BLEEDING AT THIS TIME. PATIENT TO CONTINUE ON THE FIBER GUMMIES. PATIENT ADVISED TO USE WET WIPES TO CLEAN AFTER BOWEL MOVEMENTS. May, History of colon polyps (ICD-10 - Z86.010) REPEAT COLONOSCOPY IN [address] [facility] Other 06-23-2023 Hospital Discharge instructions Patient Education 01/27/2023 11:25:31 Benign Prostatic Hyperplasia Benign Prostatic Hyperplasia Benign prostatic hyperplasia (BPH) is an enlarged prostate gland that is caused by the normal agingprocess. The prostate may get bigger as a man gets older. The condition is not caused by cancer. The prostate is a walnut-sized gland that is involved in the production of semen. It is located in front of the rectum and below the bladder. The bladder stores urine. The urethra carries stored urine ou t of the body. An enlarged prostate can press on the urethra. This can make it harder to pass urine. The buildup of urine in the bladder can cause infection. Back pressure and infection may progress to bladder damage and kidney (renal) failure. What are the causes? This condition is part of the normal aging process. However, not all men develop problems from thiscondition. If the prostate enlarges away from the urethra, urine flow will not be blocked. If it enlarges toward the urethra and compresses it, there will be problems passing urine. What increases the risk? This condition is more likely to develop in men older than 50 years. What are the signs or symptoms? Symptoms of this condition include: Getting up often during the night to urinate. Needing to urinate frequently during the day. Difficulty starting urine flow. Decrease in size and strength of your urine stream. Leaking (dribbling) after urinating. Inability to pass urine. This needs immediate treatment. Inability to completely empty your bladder. Pain when you pass urine. This is more common if there is also an infection. Urinary tract infection (UTI). How is this diagnosed? This condition is diagnosed based on your medical history, a physical exam, and your symptoms. Tests will also be done, such as: A post-void bladder scan. This measures any amount of urine that may remain in your bladder after you finish urinating. A digital rectal exam. In a rectal exam, your health care provider checks your prostate by putting a lubricated, gloved finger into your rectum to feel the back of your prostate gland. This exam detects the size of your gland and any abnormal lumps or growths. An exam of your urine (urinalysis). A prostate specific antigen (PSA) screening. This is a blood test used to screen for prostate cancer. An ultrasound. This test uses sound waves to electronically produce a picture of your prostate gland. Your health care provider may refer you to a specialist in kidney and prostate diseases (urologist). How is this treated? Once symptoms begin, your health care provider will monitor your condition (active surveillance or watchful waiting). Treatment for this condition will depend on the severity of your condition. Treatment may include: Observation and yearly exams. This may be the only treatment needed if your condition and symptoms are mild. Medicines to relieve your symptoms, including: ?Medicines to shrink the prostate. ?Medicines to relax the muscle of the prostate. Surgery in severe cases. Surgery may include: ?Prostatectomy. In this procedure, the prostate tissue is removed completely through an open incision or with a laparoscope or robotics. ?Transurethral resection of the prostate (TURP). In this procedure, a tool is inserted through the opening at the tip of the penis (urethra). It is used to cut away tissue of the inner core of the prostate. The pieces are removed through the same opening of the penis. This removes the blockage. ?Transurethral incision (TUIP). In this procedure, small cuts are made in the prostate. This lessens the prostate's pressure on the urethra. ?Transurethral microwave thermotherapy (TUMT). This procedure uses microwaves to create heat. The heat destroys and removes a small amount of prostate tissue. ?Transurethral needle ablation (TUNA). This procedure uses radio frequencies to destroy and remove a small amount of prostate tissue. ?Interstitial laser coagulation (ILC). This procedure uses a laser to destroy and remove a small amount of prostate tissue. ?Transurethral electrovaporization (TUVP). This procedure uses electrodes to destroy and remove a small amount of prostate tissue. ?Prostatic urethral lift. This procedure inserts an implant to push the lobes of the prostate away from the urethra. Follow these instructions at home: Take inrg-nfa-rcmzfud and prescription medicines only as told by your health care provider. Monitor your symptoms for any changes. Contact your health care provider with any changes. Avoid drinking large amounts of liquid before going to bed or out in public. Avoid or reduce how much caffeine or alcohol you drink. Give yourself time when you urinate. Keep all follow-up visits. This is important. Contact a health care provider if: You have unexplained back pain. Your symptoms do not get better with treatment. You develop side effects from the medicine you are taking. Your urine becomes very dark or has a bad smell. Your lower abdomen becomes distended and you have trouble passing urine. Get help right away if: You have a fever or chills. You suddenly cannot urinate. You feel light-headed or very dizzy, or you faint. There are large amounts of blood or clots in your urine. Your urinary problems become hard to manage. You develop moderate to severe low back or flank pain. The flank is the side of your body between the ribs and the hip. These symptoms may be an emergency. Get help right away. Call 911. Do not wait to see if the symptoms will go away. Do not drive yourself to the hospital. Summary Benign prostatic hyperplasia (BPH) is an enlarged prostate that is caused by the normal aging process. It is not caused by cancer. An enlarged prostate can press on the urethra. This can make it hard to pass urine. This condition is more likely to develop in men older than 50 years. Get help right away if you suddenly cannot urinate. This information is not intended to replace advice given to you by your health care provider. Make sure you discuss any questions you have with your health care provider. Document Revised: 02/09/2022 Document Reviewed: 02/09/2022 [employer] Patient Education 2022 [employer]. Follow Up Care 01/26/2023 15:51:37 With:MARGE VARNER, Amanda Alvares, URL Address: [facility] [address], [place] [address]- [phone] When: Unknown Comments:pt on schedule [facility] Hospital Discharge instructions Patient Education 11/14/2022 11:59:43 Erectile Dysfunction Erectile Dysfunction Erectile dysfunction (ED) is the inability to get or keep an erection in order to have sexual intercourse. Erectile dysfunction may include: Inability to get an erection. Lack of enough hardness of the erection to allow penetration. Loss of the erection before sex is finished. What are the causes? This condition may be caused by: Certain medicines, such as: ?Pain relievers. ?Antihistamines. ?Antidepressants. ?Blood pressure medicines. ?Water pills (diuretics). ?Ulcer medicines. ?Muscle relaxants. ?Drugs. Excessive drinking. Psychological causes, such as: ?Anxiety. ?Depression. ?Sadness. ?Exhaustion. ?Performance fear. ?Stress. Physical causes, such as: ?Artery problems. This may include diabetes, smoking, liver disease, or atherosclerosis. ?High blood pressure. ?Hormonal problems, such as low testosterone. ?Obesity. ?Nerve problems. This may include back or pelvic injuries, diabetes mellitus, multiple sclerosis, or Parkinson disease. What are the signs or symptoms? Symptoms of this condition include: Inability to get an erection. Lack of enough hardness of the erection to allow penetration. Loss of the erection before sex is finished. Normal erections at some times, but with frequent unsatisfactory episodes. Low sexual satisfaction in either partner due to erection problems. A curved penis occurring with erection. The curve may cause pain or the penis may be too curved to allow for intercourse. Never having nighttime erections. How is this diagnosed? This condition is often diagnosed by: Performing a physical exam to find other diseases or specific problems with the penis. Asking you detailed questions about the problem. Performing blood tests to check for diabetes mellitus or to measure hormone levels. Performing other tests to check for underlying health conditions. Performing an ultrasound exam to check for scarring. Performing a test to check blood flow to the penis. Doing a sleep study at home to measure nighttime erections. How is this treated? This condition may be treated by: Medicine taken by mouth to help you achieve an erection (oral medicine). Hormone replacement therapy to replace low testosterone levels. Medicine that is injected into the penis. Your health care provider may instruct you how to give yourself these injections at home. Vacuum pump. This is a pump with a ring on it. The pump and ring are placed on the penis and used to create pressure that helps the penis become erect. Penile implant surgery. In this procedure, you may receive: ?An inflatable implant. This consists of cylinders, a pump, and a reservoir. The cylinders can be inflated with a fluid that helps to create an erection, and they can be deflated after intercourse. ?A semi-rigid implant. This consists of two silicone rubber rods. The rods provide some rigidity. They are also flexible, so the penis can both curve downward in its normal position and become straight for sexual intercourse. Blood vessel surgery, to improve blood flow to the penis. During this procedure, a blood vessel from a different part of the body is placed into the penis to allow blood to flow around (bypass) damaged or blocked blood vessels. Lifestyle changes, such as exercising more, losing weight, and quitting smoking. Follow these instructions at home: Medicines Take ygqk-qil-itypkno and prescription medicines only as told by your health care provider. Do not increase the dosage without first discussing it with your health care provider. If you are using self-injections, perform injections as directed by your health care provider. Makesure to avoid any veins that are on the surface of the penis. After giving an injection, apply pressure to the injection site for 5 minutes. General instructions Exercise regularly, as directed by your health care provider. Work with your health care provider to lose weight, if needed. Do not use any products that contain nicotine or tobacco, such as cigarettes and e-cigarettes. If you need help quitting, ask your health care provider. Before using a vacuum pump, read the instructions that come with the pump and discuss any questionswith your health care provider. Keep all follow-up visits as told by your health care provider. This is important. Contact a health care provider if: You feel nauseous. You vomit. Get help right away if: You are taking oral or injectable medicines and you have an erection that lasts longer than 4 hours. If your health care provider is unavailable, go to the nearest emergency room for evaluation. An erection that lasts much longer than 4 hours can result in permanent damage to your penis. You have severe pain in your groin or abdomen. You develop redness or severe swelling of your penis. You have redness spreading up into your groin or lower abdomen. You are unable to urinate. You experience chest pain or a rapid heart beat (palpitations) after taking oral medicines. Summary Erectile dysfunction (ED) is the inability to get or keep an erection during sexual intercourse. This problem can usually be treated successfully. This condition is diagnosed based on a physical exam, your symptoms, and tests to determine the cause. Treatment varies depending on the cause, and may include medicines, hormone therapy, surgery, orvacuum pump. You may need follow-up visits to make sure that you are using your medicines or devices correctly. Get help right away if you are taking or injecting medicines and you have an erection that lasts longer than 4 hours. This information is not intended to replace advice given to you by your health care provider. Make sure you discuss any questions you have with your health care provider. Document Released: 07/21/2001 Document Revised: 07/06/2018 Document Reviewed: 08/09/2017 [employer] Patient Education 2020 [employer]. Follow Up Care 05/16/2022 12:07:44 With:MARGE VARNER, Amanda Alvares, URL Address: [facility] [address], [place] [address]- When: Unknown [facility] 10-21-2022 Evaluation note* Encounter Date Diagnosis Assessment Notes Treatment Notes Treatment Clinical Notes May, Acute pain of right knee (ICD-10 - M25.561) Knee sprain material was printed Wear the John wrap for comfort and compression. Take the Medrol Dosepak as prescribed until gone. Take Tylenol as needed for pain. Ice and elevate your knee 2-3 times a day. Follow-up with your orthopedic surgeon for further evaluation, call tomorrow for an appointment to be seen as soon as possible. May, Sprain of right knee, unspecified ligament, initial encounter (ICD-10 - S83.91XA) [facility] Other 10-10-2022 Hospital Discharge instructions Patient Education 05/16/2022 11:49:57 Prostate Cancer Screening Prostate Cancer Screening The prostate is a walnut-sized gland that is located below the bladder and in front of the rectum in males. The function of the prostate (prostate gland) is to add fluid to semen during ejaculation. Prostate cancer is the second most common type of cancer in men. A screening test for cancer is a test that is done before cancer symptoms start. Screening can helpto identify cancer at an early stage, when the cancer can be treated more easily. The recommended prostate cancer screening test is a blood test called the prostate-specific antigen (PSA) test. PSA is a protein that is made in the prostate. As you age, your prostate naturally produces more PSA. Abnormally high PSA levels may be caused by: Prostate cancer. An enlarged prostate that is not caused by cancer (benign prostatic hyperplasia, BPH). This condition is very common in older men. A prostate gland infection (prostatitis). Medicines to assist with hair growth, such as finasteride. Depending on the PSA results, you may need more tests, such as: A physical exam to check the size of your prostate gland. Blood and imaging tests. A procedure to remove tissue samples from your prostate gland for testing (biopsy). Who should have screening? Screening recommendations vary based on age. If you are younger than age 40, screening is not recommended. If you are age 40 54 and you have no risk factors, screening is not recommended. If you are younger than age 55, ask your health care provider if you need screening if you have oneof these risk factors: ?Being of -[place] descent. ?Having a family history of prostate cancer. If you are age 55 69, talk with your health care provider about your need for screening and how often screening should be done. If you are older than age 70, screening is not recommended. This is because the risks that screening can cause are greater than the benefits that it may provide (risks outweigh the benefits). If you are at high risk for prostate cancer, your health care provider may recommend that you have screenings more often or start screening at a younger age. You may be at high risk if you: Are older than age 55. Are -[place]. Have a father, brother, or uncle who has been diagnosed with prostate cancer. The risk may be higher if your family member's cancer occurred at an early age. What are the benefits of screening? There is a small chance that screening may lower your risk of dying from prostate cancer. The chance is small because prostate cancer is typically a slow-growing cancer, and most men with prostate cancer from a different cause. What are the risks of screening? The main risk of prostate cancer screening is diagnosing and treating prostate cancer that would never have caused any symptoms or problems (overdiagnosis and overtreatment). PSA screening cannot tell you if your PSA is high due to cancer or a different cause. A prostate biopsy is the only procedure to diagnose prostate cancer. Even the results of a biopsy may not tell you if your cancer needs moe treated. Slow-growing prostate cancer may not need any treatment other than monitoring, so diagnosing and treating it may cause unnecessary stress or other side effects. A prostate biopsy may also cause: Infection or fever. A false negative. This is a result that shows that you do not have prostate cancer when you actually do have prostate cancer. Questions to ask your health care provider When should I start prostate cancer screening? What is my risk for prostate cancer? How often do I need screening? What type of screening tests do I need? How do I get my test results? What do my results mean? Do I need treatment? Contact a health care provider if: You have difficulty urinating. You have pain when you urinate or ejaculate. You have blood in your urine or semen. You have pain in your back or in the area of your prostate. You have trouble getting or maintaining an erection (erectile dysfunction, ED). Summary Prostate cancer is a common type of cancer in men. The prostate (prostate gland) is located below the bladder and in front of the rectum. This gland adds fluid to semen during ejaculation. Prostate cancer screening may identify cancer at an early stage, when the cancer can be treated more easily. The prostate-specific antigen (PSA) test is the recommended screening test for prostate cancer. Discuss the risks and benefits of prostate cancer screening with your health care provider. If you are age 70 or older, screening is likely to lead to more risks than benefits (risks outweigh the benefits). This information is not intended to replace advice given to you by your health care provider. Make sure you discuss any questions you have with your health care provider. Document Released: 05/04/2018 Document Revised: 07/06/2018 Document Reviewed: 05/04/2018 [employer] Patient Education 2019 [employer] Follow Up Care 11/08/2021 12:06:59 With:MARGE VARNER, Amanda Alvares, URL Address: [facility] [address], [place] [address]- [phone] When:11/14/2022 [facility]* Encounter Date Diagnosis Assessment Notes Treatment Notes Treatment Clinical Notes Feb, Right sided abdominal pain (ICD-10 - R10.9) Feb, Loose stools (ICD-10 - R19.5) PT GIVEN LOW FODMAP DIET HANDOUT PT TO START [employer] [facility] DAILY Feb, History of colon polyps (ICD-10 - Z86.010) [place] [employer] Other Evaluation + Plan note Future Appointments Appointment Date:11/14/2022 10:45:00 AM Scheduled Provider:Amanda BIRD MD Location:[facility] Appointment Type:URO Office Visit Diagnostic Tests Pending * PSA Total 05/16/22 [facility] evaluation + Plan note Future Appointments Appointment Date:11/14/2022 10:45:00 AM Scheduled Provider:Amanda BIRD MD Location:[facility] Appointment Type:[facility]O [facility] Future Appointments Appointment Date:12/26/2022 03:00:00 PM Scheduled Provider:Amanda BIRD MD Location:[facility] Appointment Type:URO Office Visit [facility] evaluation + Plan note Future Appointments Appointment Date:01/06/2025 09:45:00 AM Scheduled Provider:Amanda [facility]IRD MD [facility] Type:[facility]O Office Visit Diagnostic Tests Pending * PSA Total 12/04/23 [facility] evaluation noteNo InformationNort [employer] Other Evaluation note* Diagnosis Onset Date Resolution Status Encounter for colonoscopy du e to history of adenomatous colonic polyps acute [facility] Work Phone: Evaluation note* Diagnosis Acute right otitis media- Primary Acute non-recurrent pansinusitis [facility] Diagnosis Herpes zoster without complication- Primary [facility]* Diagnosis Localized edema- Primary Edema Ischemic myocardial dysfunction documented in this encounter [facility]* Diagnosis Allergic rhinitis due to pollen, unspecified seasonality- Primary Sore throat Acute pharyngitis documented in this encounter [facility]* Diagnosis Obstructive sleep apnea- Primary Obstructive sleep apnea (adult) (pediatric) Bronchiectasis without complication ([facility]) documented in this encounter [facility]* Diagnosis Acute non-recurrent pansinusitis- Primary documented in this encounter [facility]* Diagnosis Pain due to onychomycosis of toenails of both feet- Primary Venous insufficiency Unspecified venous (peripheral) insufficiency [facility]* Diagnosis Medicare annual wellness visit, subsequent- Primary documented in this encounter [facility]* Diagnosis Medication management- Primary Hyperlipidemia, unspecified hyperlipidemia type documented in this encounter [facility]* Diagnosis Pain due to onychomycosis of toenails of both feet- Primary Venous insufficiency Unspecified venous (peripheral) insufficiency [facility] - [facility]orted* Type Description Date Medical History sleep apnea Medical History chronic sinusitis Medical History Esophageal reflux Medical History BPH Medical History hypertension Surgical History colonoscopy Surgical History tonsillectomy Surgical History heart stent Hospitalization History vein stripping Hospitalization History heart attack [facility] Other History general Narrative - Reported* Type Description Date Medical History sleep apnea Medical History chronic sinusitis Medical History Esophageal reflux Medical History BPH Medical History hypertension Surgical History colonoscopy Surgical History tonsillectomy Surgical History heart stent Surgical History gall bladder 2019 Hospitalization History vein stripping Hospitalization History heart attack [facility] Other History of Present illness Narrative* Hamzah Lazo DPM - 07/18/2024 4:30 PM EST Patient: Eliazar Nunez : 1950 PCP: [facility] Provider MD Oscar SUBJECTIVE This is a 74 y.o. male that presents today with a CC of elongated, thick nails. Pt states nails have been elongated and thick for many years and cause pain with ambulation in shoegear. Pt has tried previous treatment with minimal relief. Pt presents today for nail care and treatment. Patient has positive history of venous stasis bilateral lower extremities. Allergies: Allergies Allergen Reactions Moxifloxacin GI intolerance Naproxen GI intolerance Past Medical History: Past Medical History: Diagnosis Date Allergic rhinitis Orellana esophagus BPH with urinary obstruction CAD (coronary artery disease) ([facility]) CHF (congestive heart failure) ([facility]) COVID-19 07/2021 History of heart attack ([facility]) 09/10/2014 HLD (hyperlipidemia) ([facility]) HTN (hypertension) ([facility]) Hx of fall 01/2018 Kidney stones [place] (myocardial infarction) ([facility]) SURINDER (obstructive sleep apnea) Shingles Sleep apnea Medications: Current Outpatient Medications: amLODIPine (Norvasc) 5 MG tablet, Take 5 mg by mouth in the morning., Disp: , Rfl: aspirin 81 MG EC tablet, Take 81 mg by mouth in the morning., Disp: , Rfl: atorvastatin (Lipitor) 80 MG tablet, Take 1 tablet by mouth in the morning., Disp: , Rfl: carvedilol (Coreg) 12.5 MG tablet, Take 1 tablet by mouth every 12 (twelve) hours, Disp: , Rfl: Cetirizine HCl 10 MG capsule, Take 10 mg by mouth in the morning., Disp: , Rfl: chlorhexidine (Peridex) 0.12 % solution, as directed Mouth/Throat, Disp: , Rfl: famotidine (Pepcid) 20 MG tablet, Daily, Disp: , Rfl: fluticasone (Flonase Allergy Relief) 50 MCG/ACT nasal spray, Nasal, Disp: , Rfl: lisinopril 10 MG tablet, TAKE 1 TABLET BY MOUTH TWICE A DAY IN THE MORNING AND BEFORE BEDTIME, Disp: , Rfl: nitroglycerin (Nitrostat) 0.4 MG SL tablet, Place 0.4 mg under the tongue Daily as needed, Disp: , Rfl: tamsulosin (Flomax) 0.4 MG 24 hr capsule, Take 0.4 mg by mouth in the morning and 0.4 mg in the evening., Disp: , Rfl: Social History: Social History Socioeconomic History Marital status: Spouse name: Not on file Number of children: Not on file Years of education: Not on file Highest education level: Not on file Occupational History Not on file Tobacco Use Smoking status: Never Smokeless tobacco: Never Vaping Use Vaping status: Never Used Substance and Sexual Activity Alcohol use: Never Drug use: Never Sexual activity: Defer Other Topics Concern Not on file Social History Narrative Not on file Social Drivers of Health Financial Resource Strain: High Risk (06/06/2024) Received from [employer] Overall Financial Resource Strain (CARDIA) Difficulty of Paying Living Expenses: Hard Food Insecurity: No Food Insecurity (06/06/2024) Received from [facility] Hunger Screening Within the past 12 months we worried whether our food would run out before we got money to buy more.: Never True Within the past 12 months the food we bought just didn't last and we didn't have money to get more.: Never True Transportation Needs: No Transportation Needs (07/18/2023) Received from [facility], [facility] PRAPARE - Transportation Lack of Transportation (Medical): No Lack of Transportation (Non-Medical): No Physical Activity: Sufficiently Active (08/02/2021) Received from [facility], [facility] Exercise Vital Sign Days of Exercise per Week: 5 days Minutes of Exercise per Session: 40 min Stress: No Stress Concern Present (06/06/2024) Received from [facility] [employer] [place] [employer] - Occupational Stress Questionnaire Feeling of Stress : Not at all Social Connections: Socially Integrated (08/02/2021) Received from [facility], [facility] Social Connection and Isolation Panel [NHANES] Frequency of Communication with Friends and Family: More than three times a week Frequency of Social Gatherings with Friends and Family: More than three times a week Attends Yazidi Services: More than 4 times per year Active Member of Clubs or Organizations: Yes Attends Club or Organization Meetings: More than 4 times per year Marital Status: Intimate Partner Violence: Not on file Housing Stability: Low Risk (07/18/2023) [facility] Are you worried or concerned that in the next two months you may not have stable housing that you own, rent or stay in as a part of a household?: No ROS: General: denies fever, chills, fatigue, malaise OBJECTIVE LE EXAM: DERM: Elongated thick yellow crumbly nails digits 1 through 10. Positive hair growth b/l feet. Plusone pitting edema to bilateral ankles VASC: Positive palpable pedal pulses bilaterally NEURO: Gross sensation intact to bilateral feet ORTHO: Positive pain on palpation to nails 1 through 10 ASSESSMENT 1. Pain due to onychomycosis of toenails of both feet 2. Venous insufficiency PLAN Discussed proper foot care with patient today. Debride nails in length and thickness digits 1 through 10 Hamzah Lazo DPM documented [facility] Narrative No data available for this section [facility] Hospital Discharge instructions No data available for this section [facility] Attachments The following attachments cannot be sent through Care Everywhere. * Sinusitis in adults (Sudanese) * Ear Infection ED (Sudanese) [facility] SystemInstructionsNot on file documented in this encounterFire[facility] SystemInstructionsNot on file documented in this encounterFirelands [facility] SystemInstructionsNot on file documented in this encounterFirelands [facility] SystemInstructions* Attachments The following attachments cannot be sent through Care Everywhere. * Sore throat in adults (Sudanese) documented in [facility]Fire[facility] SystemInstructionsNot on file documented in this encounterFire[facility] SystemInstructions* Attachments The following attachments cannot be sent through Care Everywhere. * Sinusitis Discharge Instructions, Adult (Sudanese) documented in this encounterFirelands [facility] SystemInstructionsNot on file documented in this encounterFirelands [facility] SystemInstructionsNot on file documented in this encounterFirelands Regional Medical Center SystemProgress note No data available for this section [facility] reason for referral (narrative)* Consultation (Routine) - Pending Review Specialty Diagnoses / Procedures Referred By Fam vivar Referred To Contact Cardiology Diagnoses Ischemic myocardial dysfunction Mojgan Devries APRN-FNP [address] [place] [address] [facility] [address] [place] [address] Referral ID Status Reason Start Date Expiration Date Visits Requested Visits Authorized [id number] Pending Review Specialty Services Required 09/19/2023 09/18/2024 1 1 * Cardiology (Routine) - Pending Review Specialty Diagnoses / Procedures Referred By Fam vivar Referred To Contact Diagnoses Ischemic myocardial dysfunction Procedures Echo complete W/O contrast Mojgan Devries APRN-FNP [address] [place] [address] Referral ID Status Reason Start Date Expiration Date V isits Requested Visits Authorized [id number] Pending Review 09/19/2023 09/18/2024 1 1 [facility] Summary Purpose Family History No Family History Records Found Relationship Condition Age at Onset Recorded Date/T stepan Not Specified Dementia Unknown Malignant neoplasm Unknown Cerebrovascular accident (CVA) Unknown Advance Directives No Advanced Directives Records Found Advance Directive Response Recorded Date/ Time Advance Directives No July 12:59pm Chief Complaint and Reason for Visit Chief Complaint Right Sided Abdomina l Pain, Loose Stools, Hx of Co Right Sided Abdominal Pain, Loose Stools, Hx of Co Reason for Visit Encounter for colono scopy due to history of adenomatous colonic polyps Additional Source Comments (unrecognized sect ion and content) No Status Records FoundNo Status Records FoundNo Status Records FoundNo Status Records FoundNo Status Records FoundNo Status Records FoundNo Status Records FoundNo Status Records Found INFORMATION SOURCE (unrecogn ized section and content) DATE CREATED AUTHOR 09/16/2021 [facility] DATE CREATED AUTHOR AUTHOR'S ORGANIZ ATION 09/13/2022 [facility] DATE CREATED AUTHOR AUTHOR'S ORGANIZ ATION 03/23/2023 [facility] DATE CREATED AUTHOR AUTHOR'S ORGANIZ ATION 10/18/2023 [facility] DATE CREATED AUTHOR AUTHOR'S ORGANIZ ATION 11/20/20[facility] DATE CREATED AUTHOR AUTHOR'S ORGANIZ ATION 06/08/2024 [facility] DATE CREATED AUTHOR AUTHOR'S ORGANIZ ATION 07/20/2024 [facility] DATE CREATED AUTHOR AUTHOR'S ORGANIZ ATION 07/21/2024 [facility] EPIC REASON FOR VISIT (unrecogniz ed section and content) Reason Comments sinus Covid pos 07/15 Reason Comments rash 08/07/2023- nose,fac e Reason Comments edema in legs Reason Onset Date Comments Med Refill 09/22/2023 Reason Comments Cough Sore throat.fever 1 week Reason Comments Follow-up CT: 09/28/2023 Sleep Apnea DME: [facility] Reason Comments Sinus Problem Stuffy, no fever or sore throat. Reason Comments Toenail Care Non dm nail care Reason Comments maw Reason Comments Med Refill Care Teams (unrecognized sec tion and content) Team Status: Inactive Member Role Status Dates Simba Grey MD Attending Provider Active Nathan Talbot NP-Ronald Primary Care Provider Active Team Status: Active Member Role Status Dates Nathan Talbot NP-Ronald Primary Care Provider Active Team Status: Inactive Member Role Status Dates Nathan Talbot NP-Ronald Primary Care Provider Active EDITH Lindquist Attending Provider Active [employer] Relationship Specialty Start Date End Date Nathan Talbot APRN-THEA [address] [place] [address] PCP - General Family Medicine 06/24/19 [employer] Relationship Specialty Start Date End Date Nathan Talbot APRN-THEA [address] [place] [address] PCP - General Family Medicine 06/24/19 [employer] Relationship Specialty Start Date End Date Nathan Talbot [facility] [address] [place] [address] PCP - General Family Medicine 06/24/19 [employer] Relationship Specialty Start Date End Date Nathan Talbot [facility] [address] [place] [address] PCP - General Family Medicine 06/24/19 [employer] Relationship Specialty Start Date End Date Nathan Talbot [facility] [address] [place] [address] PCP - General Family Medicine 06/24/19 [employer] Relationship Specialty Start Date End Date Nathan Talbot [facility] [address] [place] [address] PCP - General Family Medicine 06/24/19 [employer] Relationship Specialty Start Date End Date Nathan Talbot [facility] [address], [place] [address] PCP - General Family Medicine 06/24/19 [employer] Relationship Specialty Start Date End Date Unallocated, Noms MD [facility] [address] [place] [address] PCP - General Family Medicine 05/09/24 Nathan Talbot CRNP [address] [place] [address] Referring Physician Nurse Practitioner 09/28/23 [employer] Relationship Specialty Start Date End Date Unallocated, Roseann Kim MD [address] [place] [address] PCP - General Family Medicine 05/09/24 Nathan Talbot CRNP [address] [place] [address] Referring Physician Nurse Practitioner 09/28/23 [employer] Relationship Specialty Start Date End Date Nathan Talbot [facility] [address] [place] [address] PCP - General Family Medicine 06/24/19 [employer] Relationship Specialty Start Date End Date [facility] [address] [place] [address] PCP - General Family Medicine 06/24/19 [employer] Relationship Specialty Start Date End Date Unallocated, Roseann Kim MD [address] [facility] [place] [address] PCP - General Family Medicine 05/09/24 Nathan Talbot CRNP [address] [place] [address] Referring Physician Nurse Practitioner 09/28/23 FOR RECORDS PERTAINING TO PATIENTS WHO ARE OR HAVE BEEN ENROLLED IN A CHEMICAL DEPENDENCY/SUBSTANCEABUSE PROGRAM, SOME INFORMATION MAY BE OMITTED. This clinical summary was aggregated from multiple sources. Caution should be exercised in using it in the provision of clinical care. This summary normalizes information from multiple sources, and as a consequence, information in this document may materially change the coding, format and clinical context of patient data. In addition, data may be omitted in some cases. CLINICAL DECISIONS SHOULD BE BASED ON THE PRIMARY CLINICAL RECORDS. [facility] provides no warranty or guarantee of the accuracy or completeness of information in this document.
[2024-07-24 12:46] LABS: Anion Gap 10.3; BUN Creatinine Ratio 23.1; Calcium 8.6 mg/dL (8.5-10.1); Carbon Dioxide 31.7 mmol/L (21.0-32.0); Chloride 106 mmol/L (98-107); Chol HDL Ratio 2.3; Cholesterol 113 mg/dL (<=200); Estimated GFR (African America >60 (>=60 mL/min/1.73m^2); Estimated GFR (Non-African Ame >60 (>=60 mL/min/1.73m^2); Glucose 115 mg/dL (74-106); HDL Cholesterol 49 mg/dL (40-60); LDL Cholesterol Calculated 54.6 mg/dL; Sodium 144 mmol/L (136-145); Triglycerides 47 mg/dL (<=150); VLDL CHOLESTEROL 9.4 mg/dL
== END 2024-07-24 12:04 | disposition home or self-care (01) ==
LOC: LAB 12:04
PROVIDERS: PCP Nurse Practitioner
DX: Z79.899 Other long term (current) drug therapy (principal)
CPT/HCPCS: 36415; 80048; 80061

== ENCOUNTER 2024-08-27 14:34 | Outpatient (OUT) | payer MEDICARE, SELFPAY ==
[2024-08-27 14:57] LABS: Basophils Percent Auto 0.3 % (0.2-2.0); Eosinophils Absolute Auto 0.2 10^3/uL (0.0-0.7); Eosinophils Percent Auto 3.1 % (0.9-7.0); Hematocrit 42.3 % (42.0-54.0); Immature Granulocytes Abs Auto 0.01 10^3/uL (0.00-0.03); Immature Granulocytes Pct Auto 0.2 % (0.0-0.5); Lymphocytes Absolute Auto 1.4 10^3/uL (1.2-3.8); Lymphocytes Percent Auto 23.9 % (20.5-60.0); Mean Corpuscular HGB Conc 33.1 g/dL (29.9-35.2); Mean Corpuscular Hemoglobin 29.7 pg (25.9-34.0); Mean Corpuscular Volume 89.6 fL (80.0-94.0); Mean Platelet Volume 9.9 fL (9.5-13.5); Monocytes Absolute Auto 0.6 10^3/uL (0.3-0.8); Monocytes Percent Auto 9.5 % (1.7-12.0); Neutrophils Absolute Auto 3.6 10^3/uL (1.4-6.5); Platelet Count 190 10^3/uL (150-450); Red Blood Count 4.72 10^6/uL (4.70-6.10); Red Cell Distribution Width 13.2 % (11.0-15.0); White Blood Count 5.8 10^3/uL (4.0-11.0)
[2024-08-27 15:22] LABS: INR 1.12; Prothrombin Time 11.7 sec (9.0-11.6)
[2024-08-27 15:38] LABS: Alanine Aminotransferase 29 U/L (16-63); Albumin Globulin Ratio 1.1; Albumin Level 3.3 g/dL (3.4-5.0); Alkaline Phosphatase 113 U/L (46-116); Anion Gap 12.2; Aspartate Amino Transferase 20 U/L (15-37); BUN Creatinine Ratio 20.8; Bilirubin Total 1.6 mg/dL (0.2-1.0); Calcium 8.3 mg/dL (8.5-10.1); Carbon Dioxide 30.8 mmol/L (21.0-32.0); Chloride 105 mmol/L (98-107); Estimated GFR (African America >60 (>=60 mL/min/1.73m^2); Estimated GFR (Non-African Ame >60 (>=60 mL/min/1.73m^2); Globulin 2.9 g/dL; Glucose 109 mg/dL (74-106); Sodium 144 mmol/L (136-145); Total Protein 6.2 g/dL (6.4-8.2)
== END 2024-08-27 14:35 | disposition home or self-care (01) ==
LOC: LAB 14:35
PROVIDERS: PCP Nurse Practitioner; Visit Provider Internal Medicine
DX: K62.5 Hemorrhage of anus and rectum (principal)
CPT/HCPCS: 36415; 80053; 85025; 85610

== ENCOUNTER 2025-01-02 06:46 | Outpatient (OUT) | payer MEDICARE, SELFPAY ==
--- OUTSIDE RECORDS SUMMARY | 2025-01-02 06:51 | XMS_ITS | CCD ---
Author Organization [facility] Care Team Providers Care Inspector Timers Name Role Phone Simba Grey Unavailable MD Simba Grey Attending Provider EDITH Talbot Primary Care Provider NATHAN TALBOT Primary Care Physician Juana Handley Unavailable EDITH Handley Attending Provider [phone] MARGE, DR PATEL Admitting Unavailable BIRD, DR [...] Care Unavailable BIRD, DR PATEL Consulting Unavailable TALBOT, NATHAN Primary Care Unavailable PAY, DR WHITMORE Admitting Unavailable PAY, DR WHITMORE Attending Unavailable PAY, DR WHITMORE Consulting Unavailable SHANTEL, ZAIN RUIZ Consulting Unavailable LUCIA VERDUGO Consulting Unavailable Simba Grey Admitting UnavailSimba Luna Attending UnavailNathan Topete Primary Care Unavailable Juana Handley Admitting Unavailable Juana Handley Attending Unavailable Nathan Talbot Primary Care Unavailable MOJGAN DEVRIES Referring Unavailable NATHAN TALBOT Primary Care Unavailable Nathan Mariano Unavailable Unallocated , Noms Provider Primary Care Provi shameka Antione EMERGENCY MEDICINE PHYSICIAN-Nathan SIDHU Primary Care Provid er Amanda BIRD Attending Unavailable TALBOT, NATHAN Primary Care Unavailable Amanda BIRD Attending Unavailable TALBOT, NATHAN Primary Care Unavailable Amanda BIRD Attending Unavailable TALBOT, NATHAN Primary Care Unavailable Amanda BIRD Attending Unavailable TALBOT, NATHAN Primary Care Unavailable TALBOT, NATHAN J Attending Unavailable TALBOT, NATHAN J Referring Unavailable TALBOT, NATHAN J Primary Care Unavailable OMEGA LUIS Attending Unavailable TALBOT, NATHAN J Referring Unavailable ATLBOT, NATHAN J Primary Care Unavailable TALBOT, NATHAN J Attending Unavailable TALBOT, NATHAN J Referring Unavailable TALBOT, NATHAN J Primary Care Unavailable TALBOT, NATHAN J Referring Unavailable TALBOT, NATHAN J Primary Care Unavailable KHUSHBU GILL Attending Unavailable TALBOT, NATHAN J Referring Unavailable TALBOT, NATHAN J Primary Care Unavailable Talbot DRAFTER CASTINGS, Nathan Unavailable Talbot EMERGENCY MEDICINE PHYSICIAN-CONTAINER SHOP WELDER, Nathan J Primary Care Provid er KHUSHBU GILL Attending Unavailable KHUSHBU GILL Referring Unavailable TALBOT, NATHAN J Primary Care Unavailable TALBOT, NATHAN J Primary Care Unavailable LEOPOLDO MONTAÑO Attending Unavailable TALBOT, NATHAN J Referring Unavailable TALBOT, NATHAN J Primary Care Unavailable HAMZAH LAZO Attending Unavailable KIM MCKEON Attending Unavailable HAMZAH LAZO Attending Unavailable KIM MCKEON Attending Unavailable SIMEON SAGASTUME Attending Unavailable SARMAD MARCUS Referring Unavailable HAMZAH LAZO Attending Unavailable HAMZAH LAZO Attending Unavailable HAMZAH LAZO Attending Unavailable CYNTHIA JOHNSON Attending Unavailable Allergies Allergy Classification Reported Allergen(s) Allergy Type Date of Onset Reaction(s) Facility (20 sources) moxifloxacin; Translations: [moxifloxacin] Drug Allergy 11-10-19 17 Vomiting (disorder), GI intolerance, GI Disturbance [facility] (1 source) moxifloxacin Drug Allergy 03-20-20 23 [facility] Repository (1 source) Amoxicillin / Clavulanate Drug Allergy diarrhea [facility] Other (20 sources) Naproxen; Translations: [NAPROXEN] Drug Allergy 11-10-19 17 GI intolerance, [facility] Perflutren; Translations: [PERFLUTREN LIPID MICROSPHERES] Drug Allergy 10-18-19 24 Other (See Comments) [facility] (6 sources) Amoxicillin Drug Allergy 08-27-19 25 Diarrhea [facility] (6 sources) Clavulanate Drug Allergy 08-27-19 Diarrhea [facility] (4 sources) Perflutren Lipid Microspheres Propensity to adverse reactions 10-18-19 24 Unknown [facility] Medications Current Medications Medication Drug Class(es) Dates Sig (Normalized) Sig (Original) amLODIPine 5 mg oral tablet (20 sources) Dihydropyridine Calcium Channel Johnathan Start: 12-17-2024 take 1 tablet by mouth in the morning amLODIPine (NORVASC) 5 mg tablet Indications: 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 (CMS-HCC) Take 1 tablet (5 mg total) by mouth in the morning. 90 tablet 2 12/17/2024 Active Start: 12-01-2022 End: 12-16-2024 take 1 tablet by mouth in the morning amLODIPine (NORVASC) 5 mg tablet Indications: 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 (CMS-HCC) Take 1 tablet (5 mg total) by mouth in the morning. 90 tablet 2 09/16/2024 12/16/2024 Discontinued (Reorder) amoxicillin 875 mg oral tablet (2 sources) Penicillin-class Antibacterial Start: 01-11-2024 End: 01-18-2024 take 1 tablet by mouth in the morning, then take 1 tablet by mouth at bedtime amoxicillin (AMOXIL) 875 mg tablet Take 1 tablet (875 mg total) by mouth in the morning and 1 tablet (875 mg total) before bedtime. Do all this for 7 days. 14 tablet 01/11/2024 01/18/2024 Active amoxicillin 875 mg / clavulanate 125 [...] days. 20 tablet 0 08/02/2023 08/12/2023 Active ascorbic acid 1000 mg oral tablet (4 sources) Vitamin C take 1 tablet by mouth in the morning ascorbic acid, vitamin C, (VITAMIN C) 1000 mg tablet Take 1 tablet (1,000 mg total) by mouth in the morning. Active aspirin 81 mg delayed release oral tablet (20 sources) Platelet Aggregation Inhibitor, Nonsteroidal Anti-inflammatory Drug Start: 11-25-2024 take 1 tablet by mouth once daily Aspirin 81 mg tablet,delayed release (DR/EC) Active 81 MG PO Daily November 25, 2024 12:00am Start: 01-27-2023 End: 07-20-2024 take 1 tablet by mouth once daily Aspirin 81 mg Tablet,Delayed Release (Dr/Ec) Discontinued 81 MG PO Daily March 20, 2023 12:00am July 20, 2024 3:26pm Start: 11-07-2017 End: 03-23-2022 take 1 tablet by mouth once daily Aspirin (Aspir-81) 81 mg Tablet,Delayed Release (Dr/Ec) Discontinued 81 MG PO Daily November 06, 2017 11:00pm March 23, 2022 11:57am take 1 tablet by [place] [facility] once daily Aspirin 81 81 MG 1 tablet Orally Once a day Active atorvastatin 80 mg oral tablet (20 sources) HMG-CoA Reductase Inhibitor Start: 06-24-2019 atorvastatin Oral, Daily, Refills(s) 0 Start Date: 06/24/19 Status: Ordered Start: 11-07-2017 End: 10-11-2024 take 1 tablet by mouth in the morning atorvastatin (Lipitor) 80 MG tablet Take 1 tablet by mouth in the morning. 07/27/2023 Active Atorvastatin Myles cium Active azelastine hydrochloride 0.137 mg/actuat metered dose nasal spray (20 sources) Histamine-1 Receptor Antagonist Start: 03-30-2023 take 1 spray(s) nasal route in the morning azelastine (ASTELIN) 137 mcg (0.1 %) nasal spray Administer 1 spray into each nostril in the morning and 1 spray before bedtime. 03/30/2023 Active Azelastine 137 mcg (0.1 %) spray,non-aerosol (2 sources) Start: 07-20-2024 Azelastine 137 mcg (0.1 %) spray,non-aeroso l Active INTRANASAL July 20, 2024 1:00am Start: 07-20-2024 Azelastine 137 mcg (0.1 %) spray,non-aerosol Active INTRANASAL July 20, 2024 12:00am azithromycin 250 mg oral tablet (1 source) Macrolide Antimicrobial Start: 10-16-2023 End: 10-20-2023 azithromycin (ZITHROMAX) 250 mg tablet Indications: Acute non-recurrent pansinusitis Take 2 tablets the first day, then 1 tablet daily for 4 days. 6 tablet 0 10/16/2023 10/20/2023 Active carvedilol 12.5 mg oral tablet (20 sources) alpha-Adrenergic Johnathan, beta-Adrenergic Johnathan Start: 06-28-2023 take 1 tablet by mouth every twelve hours carvedilol (Coreg) 12.5 MG tablet Take 1 tablet by mouth every 12 (twelve) hours 06/28/2023 Active Start: 06-28-2023 End: 12-13-2024 take 1 tablet by mouth in the morning, then take 1 tablet by mouth at bedtime carvediloL (COREG) 12.5 mg tablet Indications: Atherosclerosis of [place] coronary artery of [place] heart without angina pectoris Take 1 tablet (12.5 mg total) by mouth in the morning and 1 tablet (12.5 mg total) before bedtime. 180 tablet 3 12/13/2024 Active Start: 06-24-2019 carvedilol Ora l, Refills(s) 0 Start Date: 06/24/19 Status: Ordered Start: 11-07-2017 [facility] Carvedilol 12.5 mg tablet Active 12.5 MG PO Twice daily November 07, 2017 12:00am Carvedilol Activ e cetirizine hydrochloride 10 mg oral tablet (20 sources) Histamine-1 Receptor Antagonist Start: 03-23-2022 take 1 tablet by mouth once daily Cetirizine (Zyrtec) 10 mg Tablet Active 10 MG PO Daily March 23, 2022 12:00am Start: 06-24-2019 Zyrtec Daily, Refills(s) 0 Start Date: 06/24/19 Status: Ordered take 1 capsule by [facility] in the morning Cetirizine HCl 10 MG capsule Take 10 mg by mouth in the morning. Active chlorhexidine gluconate 1.2 mg/ml mouthwash (18 sources) chlorhexidine (P eridex) 0.12 % solution as directed Mouth/Throat Active take 15 mL by mouth in the morni ng chlorhexidine (PERIDEX) 0.12 % solution Apply 15 mL to the mouth or throat in the morning. Active dutasteride 0.5 mg oral capsule (3 sources) 5-alpha Reductase Inhibitor Start: 08-27-2024 Dutasteride 0.5 mg capsule Active MG PO August 27, 2024 1:00am Start: 07-29-2024 take 1 capsule by [facility] once daily dutasteride 0.5 mg Cap 0.5 mg = 1 cap(s), Oral, Daily, # 30 cap(s), Refills(s) 11, Pharmacy: [facility] [id number], 192, cm, 07/29/24 13:00:00 EST, Height/Length Dosing, 108.5, kg, 07/29/24 13:00:00 EST, Weight Dosing Start Date: 07/29/24 Status: Ordered famotidine 20 mg oral tablet (20 sources) Histamine-2 Receptor Antagonist Start: 03-20-2023 End: 02-14-2024 famotidine (Pepcid) 20 MG tablet Daily 03/20/2023 Active Start: 06-24-2019 Pepcid Refills (s) 0 Start Date: 06/24/19 Status: Ordered Pepcid Active Fiber Adult Gummies 2 GM (2 sources) Fiber Adult Nathaniel ies 2 GM as directed Orally Active FLUoxetine 10 mg oral capsule (20 sources) Serotonin Reuptake Inhibitor Start: 05-10-20 End: 08-26-19 take 1 capsule by mouth in the morning FLUoxetine (PROzac) 10 mg capsule Indications: Situational depression Take 1 capsule (10 mg total) by mouth in the morning. 90 capsule 1 08/26/2024 Active fluticasone propionate 0.05 mg/actuat metered dose nasal spray (20 sources) Corticosteroid Start: 08-19-19 take 2 spray(s) nasal route in the morning fluticasone propionate (FLONASE) 50 mcg/actuation nasal spray Indications: Allergic rhinitis, unspecified seasonality, unspecified trigger Administer 2 sprays into each nostril in the morning. 16 g 11 08/19/2024 Active Start: 05-10-2022 End: 08-19-2024 take 2 spray(s) nasal route once daily fluticasone propionate (FLONASE) 50 mcg/actuation nasal spray Indications: Allergic rhinitis, unspecified seasonality, unspecified trigger instill 2 sprays into each nostril once daily if needed 16 g 11 05/10/2022 08/19/2024 Discontinued (Reorder) Start: 06-24-2019 Flonase Nasal, Daily, Refill(s) 0 Start Date: 06/24/19 Status: Ordered Start: 11-07-2017 Fluticasone Pr opionate 50 mcg/actuation spray,suspension Active 1 SPRAY INTRANASAL Daily November 07, 2017 12:00am fluticasone (Prasanth nase Allergy Relief) 50 MCG/ACT nasal spray Nasal Active Flonase 50mcg 1 spray each nostirl QD Active lisinopril 10 mg oral tablet (20 sources) Angiotensin Converting Enzyme Inhibitor Start: 12-21-2022 End: 04-05-2024 take 1 tablet by mouth twice daily at bedtime lisinopril 10 MG tablet TAKE 1 TABLET BY MOUTH TWICE A DAY IN THE MORNING AND BEFORE BEDTIME 12/21/2022 Active Start: 06-24-2019 take 5 mg by mouth once daily lisinopril 5 mg, Oral, Daily, Refills(s) 0 Start Date: 06/24/19 Status: Ordered Start: 11-07-2017 End: 12-17-2024 take 1 tablet by mouth once daily in the morning lisinopriL (PRINIVIL,ZESTRIL) 10 mg tablet TAKE 1 TABLET BY MOUTH EVERY MORNING 90 tablet 2 12/17/2024 Active Lisinopril Activ e mesalamine 1000 mg rectal [...] Jul, 40 mg Nitro 0.4 mg Tab (6 sources) Start: 06-24-2019 Nitro 0.4 mg Tab = 1 tab(s), SubLingual, q5min, PRN Chest pain, # 25 tab(s), Refills(s) 3 Start Date: 06/24/19 Status: Ordered nitroglycerin 0.4 mg sublingual tablet (20 sources) Nitrate Vasodilator Start: 03-20-2023 take 1 tablet under the tongue every twenty-four hours as needed nitroglycerin (Nitrostat) 0.[address] 0.4 mg under the tongue Daily as needed 03/20/2023 Active Start: 03-20-2023 End: 09-22-2023 nitroglycerin (NITROSTAT) 0. [address] 1 tablet (0.4 mg total) under the tongue every 5 (five) minutes as needed for chest pain. 25 tablet 5 09/22/2023 Active Start: 06-24-2019 Nitro 0.4 mg T ab = 1 tab(s), SubLingual, q5min, PRN Chest pain, # 25 tab(s), Refills(s) 3 Start Date: 06/24/19 Status: Ordered omeprazole 40 mg delayed release oral capsule (2 sources) Proton Pump Inhibitor Start: 08-27-2024 take 1 capsule by mouth once daily Omeprazole 40 mg capsule,delayed release(DR/EC) Active 40 MG PO Daily August 27, 2024 1:00am Effient (18 sources) [id number] Platelet Inhibitor Start: 06-24-2019 Effient Oral, Daily, Refills(s) 0 Start Date: 06/24/19 Status: Ordered Start: 11-07-2017 End: 03-20-2023 take 1 tablet by mouth once daily Prasugrel Hcl (Effient) 10 mg Tablet Discontinued 10 MG PO Daily November 07, 2017 12:00am March 20, 2023 12:31pm Effient Active psyllium seed, with sugar, (FIBER ORAL) (4 sources) psyllium seed, w ith sugar, (FIBER ORAL) Take by mouth in the morning and before bedtime. Active tamsulosin hydrochloride 0.4 mg oral capsule (20 sources) alpha-Adrenergic Johnathan Start: 06-10-2024 take 1 capsule by mouth twice daily tamsulosin 0.4 mg Cap 0.4 mg = 1 cap(s), Oral, BID, # 180 cap(s), Refills(s) 3, Pharmacy: [facility] [id number], 192, cm, 12/04/23 11:52:00 EDT, Height/Length Dosing, 104, kg, 12/04/23 11:52:00 EDT, Weight Dosing Start Date: 06/10/24 Status: Ordered Start: 07-10-2023 take 1 capsule by [facility] twice daily tamsulosin 0.4 mg Cap 0.4 mg = 1 cap(s), Oral, BID, # 180 cap(s), Refills(s) 3, [facility]: [id number], 192, cm, 01/27/23 10:46:00 EDT, Height/Length Dosing, 104, kg, 01/27/23 10:46:00 EDT, Weight Dosing Start Date: 07/10/23 Status: Ordered Start: 07-12-2022 take 1 capsule by [facility] twice daily tamsulosin 0.4 mg Cap 0.4 mg = 1 cap(s), Oral, BID, # 180 cap(s), Refills(s) 3, [facility][id number], 192, cm, 05/16/22 11:06:00 EDT, Height/Length Dosing, 106, kg, 05/16/22 11:06:00 EDT, Weight Dosing Start Date: 07/12/22 Status: Ordered Start: 07-09-2021 End: 07-04-2022 take 1 capsule by mouth twice daily Flomax 0.4 mg Cap 0.4 mg = 1 cap(s), Oral, BID, X 90 day(s), # 180 cap(s), Refills(s) 3, [facility] [facility], 192, cm, 05/03/21 13:47:00 EDT, Height/Length Dosing, 106, kg, 05/03/21 13:47:00 EDT, Weight Dosing Start Date: 07/09/21 Stop Date: 07/04/22 Status: Ordered Start: 11-07-2017 take 1 capsule by [facility] once daily Tamsulosin 0.4 mg capsule,extended release 24hr Active 0.4 MG PO Daily November 07, 2017 12:00am take 1 capsule by [facility] every twenty-four hours in the morning tamsulosin (Flomax) 0.4 MG 24 hr capsule Take 0.4 mg by mouth in the morning and 0.4 mg in the evening. Active Flomax 0.4mg 1 a fter evening meal Active Completed/Discontinued Medications Medication Drug Class(es) Dates Sig (Normalized) Sig (Original) codeine phosphate 2 mg/ml / guaiFENesin 20 mg/ml oral solution (6 sources) Opioid Agonist Start: 01-02-2024 End: 02-14-2024 take 5 mL by mouth four times daily as needed for cough codeine-guaiFENesi n (guaiFENesin AC) 10-100 mg/5 mL liquid Indications: Upper respiratory disease Take 5 mL by mouth 4 (four) times a day as needed for cough. 120 mL 01/02/2024 02/14/2024 Discontinued (Therapy completed) dicyclomine hydrochloride 20 mg oral tablet (9 sources) Anticholinergic Start: 03-02-2022 take 1 tablet by mouth four times daily as needed Dicyclomine HCl 20 MG 1 tablet Orally Four times a day prn only for 30 day(s) Feb, Not-Taking/PRN docusate sodium 50 mg oral capsule (4 sources) Start: 11-07-2017 End: 03-23-2022 take 1 tablet by mouth once daily Docusate Sodium (Stool Softener) 50 mg Capsule Discontinued 1 TAB PO Daily November 07, 2017 12:00am March 23, 2022 12:57pm loperamide hydrochloride 2 mg oral capsule (14 sources) Opioid Agonist Start: 11-14-2023 End: 02-14-2024 take 1 capsule by mouth four times daily as needed for diarrhea loperamide (IMODIUM) 2 mg capsule Indications: Loose stools Take 1 capsule (2 mg total) by mouth 4 (four) times a day as needed for diarrhea. 12 capsule 11/14/2023 02/14/2024 Discontinued (Therapy completed) Nitro Sublingual 0.4 (9 sources) Nitro Sublingual 0.4 Not-Taking/PRN Nitro Sublingual 0.4 Not-Taking Nitro Sublingual 0.4 Active ondansetron 4 mg disintegrating oral tablet (14 sources) Serotonin-3 Receptor Antagonist Start: 11-14-2023 End: 02-14-2024 ondansetron ODT (ZOFRAN ODT) 4 mg disintegrating tablet Indications: Nausea and vomiting, unspecified vomiting type Dissolve 1 tablet (4 mg total) on tongue every 8 (eight) hours as needed for nausea or vomiting. 20 tablet 11/14/2023 02/14/2024 Discontinued (Therapy completed) oxybutynin chloride 5 mg oral tablet (3 sources) Cholinergic Muscarinic Antagonist Start: 08-27-2024 End: 11-25-2024 take 1 tablet by mouth once daily Oxybutynin Chloride 5 mg tablet Discontinued 5 MG PO Daily August 27, 2024 1:00am November 25, 2024 10:49am Start: 07-29-2024 take 1 tablet by [place] [facility] at bedtime oxybutynin 5 mg Tab 5 mg = 1 tab(s), Oral, Bedtime, Stop taking after 2-3 months if not having any symptom improvement, # 30 tab(s), Refills(s) 11, Pharmacy: [facility] [id number], 192, cm, 07/29/24 13:00:00 EST, Height/Length Dosing, 108.5, kg, 07/29/24 13:00:00 EST, Weight Dosing Start Date: 07/29/24 Status: Ordered predniSONE 20 mg oral tablet (4 sources) Start: 07-20-2024 End: 11-25-2024 take 1 tablet by mouth twice daily Prednisone 20 mg tablet Discontinued 20 MG PO Twice daily 05 11July 20, 2024 1:00am November 25, 2024 10:49am Start: 01-02-2024 End: 01-07-2024 take 1 tablet by mouth three times daily predniSONE (DELTASONE) 20 mg tablet Indications: Pharyngitis, unspecified etiology Take 1 tablet (20 mg total) by mouth 3 (three) times a day for 5 days. 15 tablet 01/02/2024 01/07/2024 Active Psyllium Seed (With Dextrose) (Fiber) Powder (4 sources) Start: 11-07-2017 End: 03-23-2022 take 2 tablets by mouth once daily Psyllium Seed (With Dextrose) (Fiber) Powder Discontinued 2 TAB PO Daily November 06, 2017 11:00pm March 23, 2022 11:58am Start: 11-07-2017 End: 03-23-2022 take 2 tablets by mouth once daily Psyllium Seed (With Dextrose) (Fiber) Powder Discontinued 2 TAB PO Daily November 07, 2017 12:00am March 23, 2022 12:58pm Triamcinolone (9 sources) Corticosteroid Start: 02-01-2020 Kenalog -40 mg Jan, 40 mg valACYclovir 1000 mg oral tablet (20 sources) Herpesvirus Nucleoside Analog DNA Polymerase Inhibitor, Herpes Simplex Virus Nucleoside Analog DNA Polymerase Inhibitor, Herpes Zoster Virus Nucleoside Analog DNA Polymerase Inhibitor Start: 08-10-2023 End: 02-14-2024 take 1 tablet by mouth three times daily valACYclovir (VALTREX) 1000 mg tablet Indications: Herpes zoster without complication Take 1 tablet (1,000 mg total) by mouth 3 (three) times a day. 21 tablet 08/10/2023 02/14/2024 Discontinued (Therapy completed) Problems Active Problems Problem Classification Problem Date Documented Da te Episodic/Chronic Abdominal pain (11 sources) Right sided abdominal pain; Translations: [Unspecified abdominal pain] Onset: 03-02-2022 Resolved: 03-02-2022 Episodic Acute myocardial infarction (7 sources) Myocardial infarction 03-01-2019 Chronic Adjustment disorders (5 sources) Reactive depression (situational); Translations: [Adjustment disorder with depressed mood] Onset: 02-14-2024 08-20-2024 Chronic Anxiety disorders (20 sources) Anxiety; Translations: [Other specified anxiety disorders] Onset: 05-10-2023 05-10-2023 Chronic Calculus of urinary tract (20 sources) History of calculus of kidney; Translations: [Personal history of urinary calculi] Onset: 05-16-2022 Episodic Chronic obstructive pulmonary disease and bronchiectasis (20 sources) Bronchiectasis; Translations: [Bronchiectasis, uncomplicated] Onset: 05-18-2023 05-18-2023 Chronic Chronic obstructive pulmonary disease and bronchiectasis (3 sources) Bronchitis; Translations: [Bronchitis, not specified as acute or chronic] 07-20-2024 Episodic Coronary atherosclerosis and other heart disease (20 sources) Coronary arteriosclerosis; Translations: [Ischemic cardiomyopathy] Onset: 10-03-2014 03-01-2019 Chronic Disorders of lipid metabolism (20 sources) Hyperlipidemia; Translations: [Hyperlipidemia, unspecified] 12-01-2022 Chronic Disorders of teeth and jaw (2 sources) Other specified disorders of teeth and supporting structures; Translations: [Toothache] Onset: 11-05-2024 Episodic Diverticulosis and diverticulitis (6 sources) Diverticular disease of colon; Translations: [Diverticulosis of large intestine without perforation or abscess without bleeding] Chronic Esophageal disorders (20 sources) Orellana's esophagus; Translations: [Orellana's esophagus without dysplasia] Onset: 07-11-2013 11-08-2017 Chronic Comment on above: Problem List clean-u p per request of Phys. EHR Cmte Essential hypertension (8 sources) Hypertensive disorder Onset: 02-14-2024 03-01-2019 Chronic Gastrointestinal hemorrhage (4 sources) Rectal hemorrhage; Translations: [Hemorrhage of anus and rectum] 07-19-2023 Episodic Comment on above: Problem List clean-u p per request of Phys. EHR Cmte Genitourinary symptoms and ill-defined conditions (7 sources) Post-micturition incontinence 12-23-2019 Chronic Hemorrhoids (10 sources) Other hemorrhoids; Translations: [Bleeding hemorrhoids] Onset: 10-31-2024 Episodic Hyperplasia of prostate (20 sources) Benign prostatic hypertrophy with outflow obstruction; Translations: [Benign prostatic hyperplasia with lower urinary tract symptoms] Onset: 11-03-2021 Chronic Hypertension with complications and secondary hypertension (20 sources) Benign hypertensive heart disease with congestive cardiac failure; Translations: [Hypertensive heart disease with heart failure] Onset: 07-15-2015 12-01-2022 Chronic Immunizations and screening for infectious disease (1 source) Contact with and (suspected) exposure to unspecified communicable disease Episodic Mycoses (4 sources) Pain in toe; Translations: [Tinea unguium] 05-09-2024 Episodic Other aftercare (1 source) Other termination clerk (current) drug therapy; Translations: [OTH CLAY ARTISAN CURRENT DRUG THERAPY] Onset: 09-13-2022 Episodic Other aftercare (1 source) long-term (current) use of aspirin; Translations: [CLAY ARTISAN CURRENT USE OF ASPIRIN] Onset: 09-13-2022 Episodic Other aftercare (1 source) Patient encounter status; Translations: [Other termination clerk (current) drug therapy] 07-15-2024 Episodic Other and unspecified benign neoplasm (12 sources) History of polyp of colon; Translations: [Personal history of colonic polyps] 08-27-2024 Episodic Other and unspecified benign neoplasm (2 sources) Personal history of colonic polyps Onset: 03-02-2022 Resolved: 03-02-2022 Episodic Other diseases of veins and lymphatics (4 sources) Vascular insufficiency; Translations: [Venous insufficiency (chronic) (peripheral)] 05-09-2024 Episodic Other ear and sense organ disorders (1 source) Sensorineural hearing loss, bilateral; Translations: [Sensorineural hearing loss, bilateral] 10-10-2024 Chronic Other ear and sense organ disorders (2 sources) Excessive cerumen in ear canal ; Translations: [Impacted cerumen, bilateral] 08-14-2024 Episodic Other lower respiratory disease (1 source) Dyspnea on exertion; Translations: [Other forms of dyspnea] 10-17-2024 Episodic Other lower respiratory disease (2 sources) Other forms of dyspnea; Translations: [Other forms of dyspnea] Onset: 10-17-2024 Episodic Other male genital disorders (13 sources) Male erectile dysfunction, unspecified; Translations: [Erectile dysfunction] Onset: 11-03-2021 Chronic Other male genital disorders (7 sources) H/O: male genital disorder 03-01-2019 Episodic Other male genital disorders (7 sources) Retrograde ejaculation 12-23-2019 Episodic Other non-traumatic joint disorders (1 source) Pain in right knee Episodic Other nutritional; endocrine; and metabolic disorders (7 sources) H/O: endocrine disorder 03-01-2019 Episodic Other screening for suspected conditions (not mental disorders or infectious disease) (20 sources) CT of chest abnormal; Translations: [Abnormal findings on diagnostic imaging of other specified body structures] Onset: 01-30-2023 01-30-2023 Chronic Other screening for suspected conditions (not mental disorders or infectious disease) (20 sources) History of adenomatous polyp of colon; Translations: [Encounter for screening for malignant neoplasm of colon] Onset: 05-09-2022 11-08-2017 Episodic Comment on above: Problem List clean-u p per request of Phys. EHR Cmte Other upper respiratory disease (7 sources) Seasonal allergy 03-01-2019 Chronic Other upper respiratory disease (20 sources) Allergic rhinitis; Translations: [Allergic rhinitis, unspecified] Onset: 03-25-2020 08-19-2024 Chronic Other upper respiratory disease (20 sources) Allergic rhinitis due to pollen; Translations: [Allergic rhinitis due to pollen] Onset: 12-20-2017 04-29-2019 Chronic Other upper respiratory disease (1 source) Allergic rhinitis due to pollen; Translations: [Allergic rhinitis due to pollen] Onset: 04-29-2019 Chronic Residual codes; unclassified (20 sources) Obstructive sleep apnea syndrome; Translations: [Obstructive sleep apnea (adult) (pediatric)] 10-24-2022 Chronic Residual codes; unclassified (2 sources) Obstructive sleep apnea (adult) (pediatric); Translations: [Obstructive sleep apnea (adult) (pediatric)] Onset: 07-21-2021 Chronic Sprains and strains (1 source) Sprain of unspecified site of right knee, initial encounter Episodic Thyroid disorders (20 sources) Multinodular goiter; Translations: [Nontoxic multinodular goiter] Onset: 01-30-2023 01-30-2023 Chronic Unclassified (7 sources) Drug therapy finding 12-23-2019 Unclassified (3 sources) LOW BACK PAIN, UNSPECIFIED; Translations: [LOW BACK PAIN, UNSPECIFIED] Onset: 09-13-2022 Unclassified (1 source) Hemorrhage of anus and rectum; Translations: [Hemorrhage of anus and rectum] Onset: 03-20-2023 Unclassified (1 source) Pain in right knee; Translations: [Pain in right knee] Onset: 05-27-2022 Unclassified (1 source) maw Onset: 06-06-2024 Unclassified (1 source) Alejandro Pain Onset: 11-05-2024 Past or Other Problems Problem Classification Problem Date Documented Da te Episodic/Chronic Coronary atherosclerosis and other heart disease (20 sources) Bare metal stent in anterior descending branch of left coronary artery; Translations: [Presence of coronary angioplasty implant and graft] Onset: 07-15-2015 12-01-2022 Episodic Genitourinary symptoms and ill-defined conditions (20 sources) Isolated proteinuria; Translations: [Urgent desire to urinate] Onset: 11-15-2018 03-01-2019 Episodic Mood disorders (20 sources) Mood disorders Onset: 02-14-2024 Resolved: 06-06-2024 06-06-2024 Nausea and vomiting (4 sources) Nausea and vomiting; Translations: [Nausea with vomiting, unspecified] Onset: 11-14-2023 11-14-2023 Episodic Noninfectious gastroenteritis (2 sources) Gastroenteritis; Translations: [Noninfective gastroenteritis and colitis, unspecified] Onset: 11-14-2023 11-14-2023 Episodic Other gastrointestinal disorders (2 sources) Other fecal abnormalities; Translations: [Other fecal abnormalities] Onset: 03-02-2022 Resolved: 03-02-2022 Episodic Other gastrointestinal disorders (1 source) Loose stool; Translations: [Other fecal abnormalities] 11-14-2023 Episodic Other lower respiratory disease (20 sources) Nodule of lung; Translations: [Solitary pulmonary nodule] Onset: 05-18-2023 Resolved: 10-12-2023 10-12-2023 Episodic Other lower respiratory disease (2 sources) Cough; Translations: [Cough] Onset: 01-02-2024 07-20-2024 Episodic Other male genital disorders (20 sources) Adult hydrocele; Translations: [Hydrocele, unspecified] Onset: 05-07-2020 05-07-2020 Episodic Other upper respiratory disease (1 source) Disorder of upper respiratory system; Translations: [Disease of upper respiratory tract, unspecified] 01-02-2024 Episodic Other upper respiratory disease (1 source) Disease of upper respiratory tract, unspecified; Translations: [Disease of upper respiratory tract, unspecified] Onset: 01-02-2024 Episodic Other upper respiratory disease (1 source) Pain in throat Onset: 11-14-2023 Episodic Other upper respiratory infections (6 sources) Acute pharyngitis, unspecified; Translations: [Acute pharyngitis] Onset: 01-02-2024 07-20-2024 Episodic Otitis media and related conditions (1 source) Acute right otitis media; Translations: [Otitis media, unspecified, right ear] 08-02-2023 Episodic Residual codes; unclassified (1 source) Localized edema; Translations: [Localized edema] 09-19-2023 Episodic Residual codes; unclassified (1 source) Viral syndrome; Translations: [Other general symptoms and signs] 11-14-2023 Episodic Residual codes; unclassified (1 source) Other general symptoms and signs; Translations: [Other general symptoms and signs] Onset: 11-14-2023 Episodic Unclassified (1 source) LOW BACK PAIN, UNSPECIFIED; Translations: [LOW BACK PAIN, UNSPECIFIED] Onset: 09-09-2022 Unclassified (1 source) Cough R05.9 Unclassified (20 sources) Onset: 11-14-2023 Resolved: 02-14-2024 02-14-2024 Viral infection (1 source) Herpes zoster without complication; Translations: [Zoster without complications] 08-10-2023 Episodic Viral infection (1 source) COVID-19 Results Test Name Value Interpretation Reference Range Facility POCT EKGon 11-25-2024 [facility] XR CHEST 2 VWSon 10-17-2024 XR CHEST 2 VWS XR CHEST 2 VWS Indication: Shortness breath. TECHNIQUE: Frontal and lateral views of the chest are obtained compared to multiple prior exams most recent dated 01/13/2023. FINDINGS: Heart size upper limits of normal to mildly enlarged similar to prior exam. Hyperaeration noted on lateral view with flattening hemidiaphragms. Focal consolidation, pleural effusion, or pneumothorax is not seen. IMPRESSION: 1. Hyperaeration with no acute pulmonary process seen Finalized by Dinorah Zhu MD on 10/17/2024 1:46 PM Normal [facility] Auditory function testson Bilateral Mild slopi ng to severe sensorineural hearing loss above 500 Hz [facility] Urology Office/Clinic Noteon 07-29-2024 Urology Office/Clinic Note Urology Office/Clinic Note Chief Complaint nocturia HPI Staff Pt is here for frequency and burning with urination, which has improved. More concerned with nocturia. Has tried taking Flomax earlier in the night, but it has not helped Dx: elevated PSA, BPH with urinary obstruction, nocturia and impotence Flomax BID Dysuria: has improved, not really any more Incomplete bladder emptying: not alwats Hematuria: denies Frequency: every couple hours Urgency: yes, this has gotten worse Nocturia: at least 3-4x per night Stream: good stream, Flomax works well for him Leaking: denies Post void dripping: little bit Wearing pads/ Depends: denies Urge incontinence: denies Stress incontinence: denies Incontinence without Sensory Awareness: denies Abdominal pain: denies Flank pain: denies Sexual complaints: denies History of Present Illness Tests reviewed: reviewed UA, PVR I have reviewed the previous health record [...] HPI. Physical Exam Vitals & Measurements T: 37 ???C(Oral) HR: 60(Peripheral) RR: 18 BP: 116/70 HT: 76 in HT: 192 cm WT: 108.5 kg WT: 239.201 lb BMI: 29.43 General Appearance: alert, no distress, well nourished, well developed male. 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 1. Nocturia (R35.1: Nocturia) Still most bothersome sx. Getting up 3-4x/night, unchanged from prior. Has SURINDER, wears c-pap nightly. Discussed pathophysiology of BPH and possible contribution to sxs. Discussed starting an alpha-reductase inhibitor to further improve sxs. Possible SEs discussed. Pt wishes to try this. Educated pt peak efficacy is at 6-8 mos. Also discussed trialing a bladder medication to help improve nocturia and frequency. Possible SEs discussed. Pt also wishes to try this. -Start Dutasteride 0.5mg qd. Rx sent to [facility]. -Start Oxybutynin 5mg qhs. D/c if no improvement after 2-3 mos. Rx sent to [facility]. -Cont Tamsulosin bid -Adjust c-pap -Limit fluids prior to bedtime 2. BPH with urinary obstruction (N40.1: Benign prostatic hyperplasia with lower urinary tract symptoms) Pt called our office 07/15/24 c/o frequency, burning, and feeling of incomplete emptying. UA was negative for blood and infection. UA today negative for blood and infection. Feels pain with urination has improved. However urgency has worsened. PVR 40mL. Taking Flomax 0.4 mg bid. Voiding q3-4hrs during the day. Good stream. -Cont Flomax bid. Call for refills. -Start Dutasteride per #1 3. Elevated PSA (R97.20: Elevated prostate specific antigen [PSA]) PSA: 04/26/21 - 3.69 11/08/21 - 3.91 05/09/22 - 2.79 11/14/22 - 2.20 11/27/23 - 3.30 & 30.3% KATEY 12/04/23: ~45g, benign -Already has 1 yr f/u scheduled w/ PSA (pt will have been on Dutasteride x6 mos) 4. Kidney stone (N20.0: Calculus of kidney) Stone analysis 04/26/21 - 100% Ca Ox [facility]. KUB 07/15/22 [facility] - No urinary tract calculi. CT AP wo con 09/09/22 [facility] - Subcentimeter left renal calculi. No ureteral calculi. KUB 11/27/23 [facility] - No visible urinary tract calculi. 5. Impotence (N52.9: Male erectile dysfunction, unspecified) Has difficulty getting and maintaining an erection. Has taken a nitro product within the past year, will not prescribe oral med due to this. Taught ICI 01/27/23. Not very sexually active. Follow-up With When Contact Information MARGE VARNER, Amanda Alvares, [facility] [address], [place] [address] [phone] Additional Instructions: already has f/u 01/06/25 w/ PSA Patient Education Urinary Frequency, Adult I, Amna Sarmiento, personally scribed for Dr. Bird on 07/29/2024 14:20:20. . Documentation recorded by the scribAmna escalona, accurately reflects the services(s) I performed and decisions made by me. Authenticated by Dr. Bird on 07/29/2024 14:22:57. Problem List/Past Medical History Ongoing Anticoagulated Barretts esophagus BPH with urinary obstruction Coronary artery disease Elevated PSA Enlarged prostate with urinary obstruction H/O chronic prostatitis H/O hypogonadism History of kidney stones Hypertension Impotence Isolated proteinuria Kidney stone Myocardial infarct Nocturia Post-void dribbling Retrograde ejaculation Seasonal allergie (more content not included)... Normal [facility] Comment on above: Result Comment: Elec tronically Signed By: Amanad BIRD MD\.br\Date and Time Signed: 07/29/24 14:23 EST\.br\Electronically Co-Signed By: Amna Sarmiento\.br\Date and Time Co-Signed: 07/29/24 14:20 EST COVID Cepheidon 07-20-2024 SARS-CoV-2 (COVID-19) RNA NANETTE+probe Ql (Unsp spec) COVID Cepheid [facility] - Microbiology an d Antimicrobial susceptibilityon 07-20-2024 SARS-CoV-2 (COVID-19) RNA NANETTE+probe Ql (Unsp spec) Negative [facility] No Panel Informationon 07-20 POC Influenza A (PCR) Negative [facility] POC Influenza B (PCR) Negative [facility] No Panel InformationOrdered By: Lynette Varela on 07-20-2024 Quick Strep (POC) [facility] POCT rapid strep Aon 024 S. pyogenes Ag IA Ql (Unsp spec) Negative Negative [facility] Patient Educationon 12-04-19 Patient Education Urology Benign Prostatic Hyperplasia [...] Follow these instructions at home: ? Take wici-fov-sjgzhrq and prescription medicines only as told by [...] the medicine (more content not included)... Normal [facility] Urology Office/Clinic Noteon 12-04-2023 Urology Office/Clinic Note Chief Complaint F/U with KUB and PSA F&T HPI Staff 1yr KUB & PSA DX: Impotence, BPH, Elevated PSA & Kidney Stone Last seen in our office 01/27/23 by PRW to learn 4P injection *Flomax 0.4 mg BID therapy K[facility] 11/27/23 @ [facility] 11/27/23 PSA 11/27/23- 3.3 & 30.3 is [...] Stone analysis 04/26/21 - 100% Ca Ox Burt. KUB 07/15/22 [facility] - No urinary tract [...] Amanda Alvares, [facility] [address] , [place] [address]- [phone] Additional Instructions: 1 yr w/ PSA Patient Education Benign Prostatic Hyperplasia IAmna, personally scribed for Dr. Bird on 12/04/2023 [...] biopsy of (more content not included)... Normal [facility] Comment on above: Result Comment: Elec tronically Signed By: Amanda BIRD MD\.br\Date and Time Signed: 12/04/23 13:14 EDT\.br\Electronically Co-Signed By: Amna Sarmiento\.br\Date and Time Co-Signed: 12/04/23 13:11 EDT Lab Reportson 11-28-2023 Lab Reports [id number] 0TIFF Normal [facility] RAD - MISCon 11-28-2023 RAD - MISC [id number] 0TIFF Normal [facility] POCT EKGOrdered By: Yasmine Joseph on 11-20-2023 [facility] POCT Influenza A/Influenza B /SARS-COV-2 Veritoron 11-14-2023 External Poct Influenza A Antigen Negative [facility] External Poct Influenza B Antigen Negative [facility] SARS-CoV-2 (COVID-19) Ag IA.rapid Ql (Resp) Negative [facility] POCT Influenza A/Influenza B /SARS-COV-2 Veritoron 10-10-2023 External Poct Influenza A Antigen Negative [facility] External Poct Influenza B Antigen Negative [facility] SARS-CoV-2 (COVID-19) Ag IA.rapid Ql (Resp) Negative [facility] POCT rapid strep AOrdered By : Rhoda Leung on 10-10-2023 S. pyogenes Ag IA Ql (Unsp spec) Negative Negative [facility] COVID + FLU Quick Testingon 07-16-2023 SARS-CoV-2 (COVID-19) RNA NANETTE+probe Ql (Unsp spec) Positive [facility] Other COVID + FLU Quick Testing Negative [facility] Other Edwin 03-20-2023 L -- ---- Specimen: [id number] Received: 03/20/23 Status: ALEIDA Lan Num: [id number] Spec Type: Surgical Subm Dr: Simba Grey MD Tissues: A Colon Biopsy (TRANSVERSE POLYP) Procedures: Joan ALLEN/Roberto Lomas ---- Age/ Patient Sex Location Account Attending Physician ---- Eliazar Nunez/Ayaka [id number] Simba Grey MD ---- SPEC NUM: [id number] RECD: 03/20/23 STATUS: ALEIDA LAN NUM: [id number] HERNANDEZ: 03/20/23- DR: Simba Grey MD ENTERED: 03/20/23 [facility] DR: SPEC TYPE: Surgical DEPT: S REC BY: [id number] ORDERED: HE/2, Gross/Micro L4 ORDERED: HE/2, Gross/Micro [...] microscopic examination confirms the diagnosis. CPT Codes 76114 ---- ---- Specimen: [id number] Received: 03/20/23 Status: ALEIDA Lan Num: [id number] Spec Type: Surgical Subm Dr: Simba Grey MD Tissues: A Colon Biopsy (TRANSVERSE POLYP) Procedures: HE/2, Gross/Micro L4 ---- Patient: Eliazar Nunez [id number] (Continued) ---- Signed (signature on file) Nando Glaser MD 03/22/23 1135 [facility] CBC AUTO DIFFon 09-09-2022 BASO # 0.0 103/ul Normal 0.0-0.1 [facility] Comment on above: Performed By: #### C BC #### [facility] [address] [place] [address] Dr. Tyrone Salazar Basophils/100 WBC (Bld) 0.4 % Normal 0.2-2.0 [facility] Comment on above: Performed By: #### C BC #### [facility] [address] [place] [address] Dr. Tyrone Salazar EO # 0.2 103/ul Normal 0.0-0.7 [facility] Comment on above: Performed By: #### C BC #### [facility] [address] [place] [address] Dr. Tyrone Salazar Eosinophils/100 WBC (Bld) 2.8 % Normal 0.9-7.0 [facility] Comment on above: Performed By: #### C BC #### [facility] [address] [place] [address] Dr. Tyrone Salazar Erythrocyte distribution width (RBC) [Ratio] 13.1 % Normal 11.0-15.0 [facility] Comment on above: Performed By: #### C BC #### [facility] [address] [place] [address] Dr. Tyrone Salazar Hematocrit (Bld) [Volume fraction] 45.6 % Normal 42.0-54.0 [facility] Comment on above: Performed By: #### C BC #### [facility] [address] [address] [address] Tyrone Salazar Hemoglobin (Bld) [Mass/Vol] 15.5 g/dL Normal 14.0-18.0 [facility] Comment on above: Performed By: #### C BC #### [facility] [address] [address] [address] Tyrone Salazar IG # 0.02 10e3/ul Normal 0.00-0.03 [facility] Comment on above: Performed By: #### C BC #### [facility] [address] [place] [address] Dr. Tyrone Salazar IG % 0.4 % Normal 0.0-0.5 [facility] Comment on above: Performed By: #### C BC #### [facility] [address] [place] [address] Dr. Tyrone Salazar LYMPH # 1.3 103/ul Normal 1.2-3.8 [facility] Comment on above: Performed By: #### C BC #### [facility] [address] [place] [address] Dr. Tyrone Salazar Lymphocytes/100 WBC (Bld) 23.5 % Normal 20.5-60.0 [facility] Comment on above: Performed By: #### C BC #### [facility] [address] [place] [address] Dr. Tyrone Salazar MANUAL DIFF REQ NO Normal [facility] Comment on above: Performed By: #### C BC #### [facility] [address] [place] [address] Dr. Tyrone Salazar MCH (RBC) [Entitic mass] 29.8 pg Normal 25.9-34.0 [facility] Comment on above: Performed By: #### C BC #### [facility] [address] [place] [address] Dr. Tyrone Salazar MCHC (RBC) [Mass/Vol] 34.0 g/dL Normal 29.9-35.2 [facility] Comment on above: Performed By: #### C BC #### [facility] [address] [address] [address] Tyrone Salazar MCV (RBC) [Entitic vol] 87.5 fL Normal 80.0-94.0 [facility] Comment on above: Performed By: #### C BC #### [facility] [address] [address] [address] Tyrone Salazar MONO # 0.6 103/ul Normal 0.3-0.8 [facility] Comment on above: Performed By: #### C BC #### [facility] [address] [place] [address] Dr. Tyrone Salazar Monocytes/100 WBC (Bld) 10.2 % Normal 1.7-12.0 [facility] Comment on above: Performed By: #### C BC #### [facility] [address] [place] [address] Dr. Tyrone Salazar NEUT # 3.4 103/ul Normal 1.4-6.5 [facility] Comment on above: Performed By: #### C BC #### [facility] [address] [place] [address] Dr. Tyrone Salazar Neutrophils/100 WBC (Bld) 62.2 % Normal 43.0-75.0 [facility] Comment on above: Performed By: #### C BC #### [facility] [address] [place] [address] Dr. Tyrone Salazar Platelet mean volume (Bld) [Entitic vol] 9.8 fL Normal 9.5-13.5 [facility] Comment on above: Performed By: #### C BC #### [facility] [address] [place] [address] Dr. Tyrone Salazar PLT 166 103/ul Normal 150-450 [facility] Comment on above: Performed By: #### C BC #### [facility] [address] [place] [address] Dr. Tyrone Salazar RBC 5.21 106/ul Normal 4.70-6.10 [facility] Comment on above: Performed By: #### C BC #### [facility] [address] [place], [place] [address] Dr. Tyrone Salazar WBC 5.4 103/ul Normal 4.0-11.0 [facility] Comment on above: Performed By: #### C #### [facility] [address] [place], [place] [address] [address] ABD/PELVIS WO CONon [...] LUCIA VERDUGO Date: 2022-09-09 18:22 Normal [facility] URINE PROFILEon 3 Bilirubin Ql (U) Negative Normal NEGATIVE [facility] Comment on above: Performed By: #### E RUR #### [facility] [address] [place] [address] Dr. Tyrone Salazar Clarity (U) CLEAR Normal CLEAR [facility] Comment on above: Performed By: #### E RUR #### [facility] [address] [place] [address] Dr. Tyrone Salazar Color (U) YELLOW Normal YELLOW [facility] Comment on above: Performed By: #### E RUR #### [facility] [address] [place] [address] Dr. Tyrone SIERRA A micrscopic examination will be performed if indicated. Normal [facility] Comment on above: Performed By: #### E RUR #### [facility] [address] [place] [address] Dr. Tyrone Salazar Glucose Ql (U) Negative Normal NEGATIVE [facility] Comment on above: Performed By: #### E RUR #### [facility] [address] [place] [address] Dr. Tyrone Salazar Hemoglobin Ql (U) Negative Normal NEGATIVE [facility] Comment on above: Performed By: #### E RUR #### [facility] [address] [place] [address] Dr. Tyrone Salazar Ketones Ql (U) Negative Normal NEGATIVE [facility] Comment on above: Performed By: #### E RUR #### [facility] [address] [place] [address] Dr. Tyrone Salazar LEUKOCYTES Negative Normal NEGATIVE [facility] Comment on above: Performed By: #### E RUR #### [facility] [address] [place] [address] Dr. Tyrone Salazar Nitrite Ql (U) Negative Normal NEGATIVE [facility] Comment on above: Performed By: #### E RUR #### [facility] [address] [place] [address] Dr. Tyrone Salazar pH (U) 6.0 [pH] Normal 5-9 [facility] Comment on above: Performed By: #### E RUR #### [facility] [address] [place] [address] Dr. Tyrone Salazar SPEC GRAVITY 1.025 Normal 1.005-<=1.0 25 [facility] Comment on above: Performed By: #### E RUR #### [facility] [address] [place] [address] Dr. Tyrone Salazar UA PROTEIN Negative Normal NEGATIVE/ TRACE [facility] Comment on above: Performed By: #### E RUR #### [facility] [address] [place] [address] Dr. Tyrone Salazar UR MICRO IND NOT INDICATED Normal [facility] Comment on above: Performed By: #### E RUR #### [facility] [address] [place] [address] Dr. Tyrone Salazar Urobilinogen Qn (U) 0.2 {Tra'U}/dL Normal 0.2 - 1. 0 [facility] Comment on above: Performed By: #### E RUR #### [facility] [address] [place] [address] Dr. Tyrone Salazar PROF 14(COMP METB)on 023 Albumin [Mass/Vol] 3.7 g/dL Normal 3.4-5.0 [facility] Comment on above: Performed By: #### C MP #### [facility] [address] [place] [address] Dr. Tyrone Salazar Albumin/Globulin [Mass ratio] 1.2 {ratio} Normal [facility] Comment on above: Performed By: #### C MP #### [facility] [address] [place] [address] Dr. Tyrone Salazar ALP [Catalytic activity/Vol] 130 U/L Critically high 46-116 [facility] Comment on above: Performed By: #### C MP #### [facility] [address] [place] [address] Dr. Tyrone Salazar ALT [Catalytic activity/Vol] 35 U/L Normal 16-63 [facility] Comment on above: Performed By: #### C MP #### [facility] [address] [place] [address] Dr. Tyrone Salazar Anion gap [Moles/Vol] 8.1 mmol/L Normal [facility] Comment on above: Performed By: #### C MP #### [facility] [address] [place] [address] Dr. Tyrone Salazar AST [Catalytic activity/Vol] 24 U/L Normal 15-37 [facility] Comment on above: Performed By: #### C MP #### [facility] [address] [place] [address] Dr. Tyrone Salazar Bilirubin [Mass/Vol] 2.0 mg/dL Critically high 0.2-1.0 [facility] Comment on above: Performed By: #### C MP #### [facility] [address] [place] [address] Dr. Tyrone Salazar Calcium [Mass/Vol] 8.5 mg/dL Normal 8.5-10.1 [facility] Comment on above: Performed By: #### C MP #### [facility] [address] [place] [address] Dr. Tyrone Salazar Chloride [Moles/Vol] 105 mmol/L Normal 98-107 [facility] Comment on above: Performed By: #### C MP #### [facility] [address] [place] [address] Dr. Tyrone Salazar CO2 [Moles/Vol] 31.7 mmol/L Normal 21.0-32.[address] [facility] Comment on above: Performed By: #### C MP #### [facility] [address] [place] [address] Dr. Tyrone Salazar Creatinine [Mass/Vol] 0.79 mg/dL Normal 0.70-1.30 [facility] Comment on above: Performed By: #### C MP #### [facility] [address] [place] [address] Dr. Tyrone Salazar EGFR-AF SALVADOREAN >60 Normal >=[address] [facility] Comment on above: Performed By: #### C MP #### [facility] [address] [place] [address] Dr. Tyrone Salazar EGFR-NON AF SALVADOREAN >60 Normal >=60 [facility] Comment on above: Performed By: #### C MP #### [facility] [address] [address] [address] Tyrone Salazar Globulin (S) [Mass/Vol] 3.0 g/dL Normal [facility] Comment on above: Performed By: #### C MP #### [facility] [address] [address] [address] Tyrone Salazar Glucose [Mass/Vol] 98 mg/dL Normal 74-106 [facility] Comment on above: Performed By: #### C MP #### [facility] [address] [address] [address] Tyrone Salazar Potassium [Moles/Vol] 3.8 mmol/L Normal 3.5-5.1 [facility] Comment on above: Performed By: #### C MP #### [facility] [address] [place] [address] Dr. Tyrone Salazar Protein [Mass/Vol] 6.7 g/dL Normal 6.4-8.2 [facility] Comment on above: Performed By: #### C MP #### [facility] [address] [place] [address] Dr. Tyrone Salazar Sodium [Moles/Vol] 141 mmol/L Normal 136-145 [facility] Comment on above: Performed By: #### C MP #### [facility] [address] [place] [address] Dr. Tyrone Salazar Urea nitrogen [Mass/Vol] 16.0 mg/dL Normal 7.0-18.0 [facility] Comment on above: Performed By: #### C MP #### [facility] [address] [place] [address] Dr. Tyrone Salazar Urea nitrogen/Creatinine [Mass ratio] 20.3 mg/mg Normal [facility] Comment on above: Performed By: #### C MP #### [facility] [address] [place] [address] Dr. Tyrone Salazar XR KUB 1 VIEWon [...] JUAN PABLO CHENG Date: 2022-07-15 14:41 Normal [facility] XR knee RT 4V*on 05-27-2022 XR knee RT 4V* [facility] Main [address] [address] XRay Report Signed Patient: Eliazar Nunez MR#: [id number] : 1950 Acct:[id number] Age/Sex: 71 / M ADM Date: 05/27/22 Loc: XDUCLY Room: Type: [facility] Attending Dr: Juana SHARMA Copies [...] Jennifer Morgan M.D.05/27/2022 4:25 PM Dictation Location: [place] [address] Transcribed By: [facility] 05/27/221624 Dictated By: Jennifer Morgan MD 05/27/221623 Signed By: 05/27/221624 Normal [facility] XR knee RT 4V* [facility] [employer] Other XR knee RT 4V* [facility] Main [facility] [employer] Other XR knee RT 4V* [address] [facility] [employer] Other XR knee RT 4V* [place] [address] No rt [employer] Other XR knee RT 4V* XRay Report [employer] Other XR knee RT 4V* Signed [employer] Other XR knee RT 4V* Patient: Lucho Nunez am MR#: [id number] [place] [employer] Other XR knee RT 4V* 751 [employer] Other XR knee RT 4V* : 1950 Acct:[id number] [employer] Other XR knee RT 4V* Age/Sex: 71 / M ADM Date: 05/27/22 [employer] Other XR knee RT 4V* Loc: XDUCLY Room: Type: [facility] [employer] Other XR knee RT 4V* Attending Dr: Juana SHARMA [employer] Other XR knee RT 4V* Copies to: EDITH Piper [employer] Other XR knee RT 4V* Ordering Provider: EDITH Piper [employer] Other XR knee RT 4V* Date of Service: 05/27/22 [employer] Other XR knee RT 4V* XR/XR knee RT 4V*: Acute pain of right knee [facility] Other XR knee RT 4V* RIGHT KNEE - 4 views [employer] Other XR knee RT 4V* COMPARISON: Right tib-fib 07/12/2017 [employer] Other XR knee RT 4V* CLINICAL DATA: Right knee pain over the patella for the past few days, without injury. [employer] Other XR knee RT 4V* AP, lateral and both oblique views were obtained. There is no fracture or dislocation. There is [employer] Other XR knee RT 4V* no disproportionate joint space narrowing or prominent hypertrophy. There is a trace amount joint [employer] Other XR knee RT 4V* fluid. There is no focal soft tissue swelling. [employer] Other XR knee RT 4V* XR/XR knee RT 4V* [employer] Other XR knee RT 4V* IMPRESSION: [employer] Other XR knee RT 4V* NO ACUTE BONY FINDINGS. [employer] Other XR knee RT 4V* Impression dictated by: Jennifer Morgan M.D.05/27/2022 4:25 PM [employer] Other XR knee RT 4V* Dictation Location: [place] [address] [employer] Other XR knee RT 4V* Transcribed By: [facility] 05/27/22 [facility]5 [employer] Other XR knee RT 4V* Dictated By: Jennifer Morgan MD 05/27/22 1623 [employer] Other XR knee RT 4V* Signed By: [employer] Other XR knee RT 4V* 05/27/22 1626 [employer] [facility] Other Albumin [Mass/volume] in Ser um or PlasmaOrdered By: Simba Grey on 03-21-2022 Albumin [Mass/Vol] 3.4 g/dL 3.2-5.5 [facility] Basophils Auto (Bld) [#/Vol] Ordered By: Simba Grey on 03-21-2022 Basophils (Bld) [#/Vol] 0.0 10*3/uL 0.0-0.2 [facility] Basophils/100 WBC Auto (Bld) Ordered By: Simba Grey on 03-21-2022 Basophils/100 WBC (Bld) 0.5 % . [facility] Blood hemoglobin measurement (mass/volume)Ordered By: Simba Grey on 03-21-2022 Hemoglobin (Bld) [Mass/Vol] 14.7 g/dL 13.0-17.0 [facility] Blood leukocytes automated c ount (number/volume)Ordered By: Simba Grey on 03-21-2022 WBC (Bld) [#/Vol] 4.9 10*3/uL 4.5-11.0 [facility] C reactive protein [Mass/vol ume] in Serum or PlasmaOrdered By: Simba Grey on 03-21-2022 CRP [Mass/Vol] 1.4 mg/dL 0.0-1.0 [facility] COVID-19 SOFIAOrdered By: Celia Grey on 03-21-2022 SARS-CoV+SARS-CoV-2 (COVID-19) Ag IA.rapid Ql (Resp) Negative Negative [facility] Comment on above: This is a duplicate Suze SARS Antigen (CHASTITY) result to be used for statistical tracking purpose only. Clostridioides difficile tox in B tcdB gene [Presence] in Stool by NANETTE with probe deteOrdered By: Simba Grey on 03-21-2022 C. difficile toxin B tcdB gene NANETTE+probe Ql (Stl) Negative Negative [facility] Comment on above: Testing performed by RT-PCR Creatinine and Glomerular fi ltration rate.predicted panel (S/P/Bld)Ordered By: Simba Grey on 03-21-2022 Creatinine [Mass/Vol] 0.93 mg/dL 0.64-1.27 [facility] Eosinophils Auto (Bld) [#/Vo l]Ordered By: Simba Grey on 03-21-2022 Eosinophils (Bld) [#/Vol] 0.1 10*3/uL 0.0-0.45 [facility] Eosinophils/100 WBC Auto (Bl d)Ordered By: Simba Grey on 03-21-2022 Eosinophils/100 WBC (Bld) 2.8 % . [facility] Erythrocyte distribution wid th Auto (RBC) [Ratio]Ordered By: Simba Grey on 03-21-2022 Erythrocyte distribution width (RBC) [Ratio] 14.3 % 12.0-14.8 [facility] Erythrocyte sedimentation ra te by Photometric methodOrdered By: Simba Grey on 03-21-2022 ESR Photometric method (Bld) [Velocity] 3 mm/hr 0-19 [facility] Estimated glomerular filtrat ion rate (GFR) non- AmericanOrdered By: Simba Grey on 03-21-2022 GFR/1.73 sq M.predicted among non-blacks MDRD (S/P/Bld) [Vol rate/Area] > 60 mL/Min [facility] Globulin Calc (S) [Mass/Vol] Ordered By: Simba Grey on 03-21-2022 Globulin (S) [Mass/Vol] 2.4 g/dL [facility] Hematocrit Auto (Bld) [Volum e fraction]Ordered By: Simba Grey on 03-21-2022 Hematocrit (Bld) [Volume fraction] 43.2 % 38.8-50.0 [facility] Laboratory - Hematology and Cell countsOrdered By: Simba Grey on 03-21-2022 Nucleated RBC/100 WBC (Bld) [Ratio] 0.1 % 0-0.5 [facility] Lymphocytes Auto (Bld) [#/Vo l]Ordered By: Simba Grey on 03-21-2022 Lymphocytes (Bld) [#/Vol] 1.1 10*3/uL 1.00-4.8 [facility] Lymphocytes/100 WBC Auto (Bl d)Ordered By: Simba Grey on 03-21-2022 Lymphocytes/100 WBC (Bld) 22.1 % . [facility] MCH Auto (RBC) [Entitic mass ]Ordered By: Simba Grey on 03-21-2022 MCH (RBC) [Entitic mass] 29.5 pg 27.5-35.2 [facility] MCHC Auto (RBC) [Mass/Vol]Or dered By: Simba Grey on 03-21-2022 MCHC (RBC) [Mass/Vol] 34.0 g/dL 32.5-35.6 [facility] MCV Auto (RBC) [Entitic vol] Ordered By: Simba Grey on 03-21-2022 MCV (RBC) [Entitic vol] 86.7 fL 83.5-101 [facility] Monocytes Auto (Bld) [#/Vol] Ordered By: Simba Grey on 03-21-2022 Monocytes (Bld) [#/Vol] 0.5 10*3/uL 0.0-0.8 [facility] Monocytes/100 WBC Auto (Bld) Ordered By: Simba Grey on 03-21-2022 Monocytes/100 WBC (Bld) 10.3 % . [facility] Neutrophils Auto (Bld) [#/Vo l]Ordered By: Simba Grey on 03-21-2022 Neutrophils (Bld) [#/Vol] 3.2 10*3/uL 1.8-7.7 [facility] Neutrophils/100 WBC Auto (Bl d)Ordered By: Simba Grey on 03-21-2022 Neutrophils/100 WBC (Bld) 64.3 % . [facility] No Panel InformationOrdered By: Simba Grey on 03-21-2022 Estimated GFR () > 60 mL/Min [facility] Comment on above: GFR estimated refere nce range: According to KDOQI guidelines, <60 ml/min/1.73m2 is sufficient to diagnose a patient with chronic kidney disease. Pharmacy Creatinine Clearance (Chem N/A [facility] SARS Antigen (LFIA) [facility] Platelet mean volume Auto (B ld) [Entitic vol]Ordered By: Simba Grey on 03-21-2022 Platelet mean volume (Bld) [Entitic vol] 8.4 fL 6.6-10.1 [facility] Platelets Auto (Bld) [#/Vol] Ordered By: Simba Grey on 03-21-2022 Platelets (Bld) [#/Vol] 156 10*3/uL 150-450 [facility] Protein [Mass/volume] in Ser um or PlasmaOrdered By: Simba Grey on 03-21-2022 Protein [Mass/Vol] 5.8 g/dL 6.1-7.9 [facility] RBC Auto (Bld) [#/Vol]Ordere d By: Simba Grey on 03-21-2022 RBC (Bld) [#/Vol] 4.98 10*6/uL 3.90-5.60 [facility] Serum or plasma alanine brown otransferase measurement without P-5'-P (enzymatic activiOrdered By: Simba Grey on 03-21-2022 ALT No additional P-5'-P [Catalytic activity/Vol] 21 U/L 10-60 [facility] Serum or plasma albumin/glob ulin mass ratioOrdered By: Simba Grey on 03-21-2022 Albumin/Globulin [Mass ratio] 1.4 {ratio} [facility] Serum or plasma alkaline adriane sphatase measurement (enzymatic activity/volume)Ordered By: Simba Grey on 03-21-2022 ALP [Catalytic activity/Vol] 110 U/L 32-92 [facility] Serum or plasma amylase colby urement (enzymatic activity/volume)Ordered By: Simba Grey on 03-21-2022 Amylase [Catalytic activity/Vol] 69 U/L 28-100 [facility] Serum or plasma aspartate am inotransferase measurement (enzymatic activity/volume)Ordered By: Simba Grey on 03-21-2022 AST [Catalytic activity/Vol] 21 U/L 10-42 [facility] Serum or plasma calcium colby urement (mass/volume)Ordered By: Simba Grey on 03-21-2022 Calcium [Mass/Vol] 8.8 mg/dL 8.2-10.2 [facility] Serum or plasma chloride alicia surement (moles/volume)Ordered By: Simba Grey on 03-21-2022 Chloride [Moles/Vol] 103 mmol/L 95-114 [facility] Serum or plasma glucose colby urement (mass/volume)Ordered By: Simba Grey on 03-21-2022 Glucose [Mass/Vol] 118 mg/dL 70-100 [facility] Comment on above: ADA recommended refe rence [...] on 03-21-2022 Potassium [Moles/Vol] 4.1 mmol/L 3.5-5.1 [facility] Serum or plasma sodium measu rement (moles/volume)Ordered By: Simba Grey on 03-21-2022 Sodium [Moles/Vol] 137 mmol/L 136-146 [facility] Serum or plasma total biliru bin measurement (mass/volume)Ordered By: Simba Grey on 03-21-2022 Bilirubin [Mass/Vol] 1.7 mg/dL 0.3-1.2 [facility] Comment on above: Samples from patient s who have taken Naproxen have shown spurious elevation in Total Bilirubin levels. A metabolite of Naproxen, O-desmethylnaproxen, has been shown to interfere with the Ethan-Vicki method for measuring Total Bilirubin. Serum or plasma total carbon dioxide measurement (moles/volume)Ordered By: Simba Grey on 03-21-2022 CO2 [Moles/Vol] 28.9 mmol/L 22.0-30.0 [facility] Serum or plasma urea nitroge n measurement (mass/volume)Ordered By: Simba Grey on 03-21-2022 Urea nitrogen [Mass/Vol] 16 mg/dL 9-23 [facility] Coding Summaryon 09-15-2021 Coding Summary HTMLBase 64 LbdnovxuQLu9yMc+PGhlYW Q+IZ7AZYKcK12kaBZlhU5I J3dNCE0BCBQWXCJLZI0QEN 7ckVP5LQptQ6RsakDr XbsdlQRaBY19HKc1VCQ1eW lrIAdiiD4rzPLvQ3s8TsKb BT36yF77MHhuLUWyGpF7Py ZpbjsgbWFy Q6yjRnFetPQhSja+PHRhYm xlIHdpZHRoPScxMDAlJyBz bDuyTD5vUk8eSNZlTQYcmK xhcHNlOiBj j0uvETDdCLnnPH1ytTslW7 EdeFK7IYJak9u1Ml14jEU+ PBKfLIL2uLhhUWvkv891Qk Rhw1lpRUB4 rUQjFZscYVS5Y18sk4P0DP YlIVOnLNN0wZC3mN9tsWhs isbxF7XuoWOvBfV8CXB8uC FpuA9qcJyz ytealW1vZsd+X95FIW7CTR ZUIK2NCtz4G4PjWqubuNL+ ZO98GFBhIT31qMHaxCRak8 ljvNx1CeVg FPBoTLN5hIeiQOqkb5JhZU FbP20cvKOug9I6HHHfqSpd rIXbKkWqdFE4vU0uFIcabo hms7iqqzjr Ocimh8viaz65rN27W02cEB mpRSHkZTU5JUArANHzsFnd ee0hdC3tCj3+ZZibi6aid9 tjuIm9ZdHm RSJymdKofHrkKCQ6i7MuDi 64N9VbkCykq3RuUzp9ts87 uVVle0G7sQH3HGejCZLztN 5rMXrdQbW0 WRRwIdOexV64gEKpRXlzSu 4eiLhqkPrjQL4kCQUoivrf MQUhcA2hTJYxlFPzqHbbNZ 4wNTBpbjtm b541QoIbFNB5WAFgrOWuL7 KswS9hNdUeXFQdUCYiJ1Yq tKFwGZlkV713XUgrRyM8MR KtbcRmL4Ox VBFclXydCkN3h4Q8Oa2Cb7 CqzvaxNYI0XVweEQCwXjJ7 RvHpOwW6C2CzPlq9JILwsH hwRZ8gI5An HZKsnxobodbzxDK6NBLiLV LmeF86vPXgSJepCm7oa9F2 f091ZWNsBPHooH02Pr8gpP ogMTBwdCBU xI4tkfkin6oqchhiMuYwHD EcTDy7KFt0CERdoDazVdZq ODP4RpS6ZJK2hPSehG5ccV khlylwxG5z Oyc+M20vrV3sMVV7MHB3ij rvXDZkseFbUE43CY75C3Rg PjwvdGFibGU+PGRpdiBzdH jyPO3dQyHu y4dce6SfYXacL3NtOJCmSA trNhy4OFZvVJX7rGJ6dD5g UHDsTMkzd1O7pZL0B3Lyor Yhpv2zv4dr AVVxWNozB58mrFFih7C7UY XggUS2TPXwsLqwGbXmnH99 Oyc+NCKpgXrtx2HfXdrhf3 zys4woiTm8 ZuXxUJVyicRkkErgNRU7l0 KbHe89E52jAGoxCMYvMXSe CBAnENZikYbnii1maI6eZs 8+PGNvbCB3 yFK3zK6gQFFqRoD3PDfzC7 56AtEnqRKyEciwl0efq8mc eWb3FdTgOTOxovWujLyrSJ I9p1IdFz77 P00rPGhrGGMaLKVkKTWiLX NcsBkwgp8cmF9xWo9+PC9j c3ykmr45zA41mDL+PHRkIH K1pOivMOkn YZXnxN8tTZbgCzC4CWYnNl OgmU09xOJsZFecLr1raSoh dXueNP0yIXOfwszxy580Er Vrl6fnLCEd rIMaLKerWFK5T08bx0U8IH XaTGArDJH6eHD3lZ7gqQhn bjogbGVmdDsgdmVydGljYW toQVfgY009 IHRvcDsnPlBhdGllbnQgTm KbDZy5L0UfCqa6YXYyjZfy MV5gkCFlIOhqEa8qaOvhzE enGL3eVITc hocxo070HfNtv3rpHKKicW PfAUxjQJZ8J57fj9W5DZIg SBVaNFV9gSE2hN4lzRzhvs ogbGVmdDsg gvEafBuoOClxKDyeV627TS RvcDsnPkJpcnRoIERhdGU6 KY18IH22yAUhn7A2bTQ3A1 BhZGRpbmct dwzvfFO1PYXzCQDbgD51Pc 1irEjcTy2uZNAwGCA0FCEb bPIoI5SemL7jDpQuRFWtRZ OfY9AddHYj VEsnD780CIkbQbZ1JSSlzx TdB2KzGNLodRxlZoP2h7K1 Iz4KF6S4MF56XW26hXZac7 S3oQH9C7Yy NRTmrjjzkjxiqTN8DCOnGA VmqR65Cy1ztYlrNw2yABEo NRH7BTNieFWaF0RahX6eMc AjMDAwMDAw N6LyrMXiYCkiG544OCjsDx C8NCEzldGuX8DsYXBkxKdf KgO3n8V0Aw6ITXi7PV21RC 26nJTlo5Q4 iQO1B8FpGNTxzwqjbgyswD S8UZWxMBUnbP81Uh8hnWqx Wg3pZYEuYNR4RAVfnGXwS2 DpqS0kLmFh ZRBoIEDqF7EpvGEfJHmuX7 29JTmuOqW8AOBtryDaL9Qt GYZztFtrOcK1r7M4Jh9ZRA JpGY88OGH2 mYV2NG70GM68X7HhPodgoO FibGU+PHRhYmxlIHdpZHRo WEgzEIWbInUjhQqeOD4rQt 9yZGVyLWNv lJmpxTHpFbHps9ipOAFiLR gsIG8nsEpfG6LstJZ4OVCz a9y8Hg26F07nO4WpqHV+PG PkqOU7oQM2 lS9hYmSdLkI1WBpgE891Mf WluDJtNbbxo6tie6iprLv1 PvU3YEUbqzAkdInuMLA9z6 DbNm37L02y IHdpZHRoPSIxNSUiIHZhbG mvef4owK1dNn7+PGNvbCB3 gIQ6sM8aHoQbXnU6ZSizU9 49InRvcCIv Aaihv9skn3obcOh3YiOaXC ToxeReiKysRRE2k6QoOb12 S1CdqYmcs0VfZsf6vr64bS Mlp7X8dRW4 X0XpCLVyswaaiVMzsQxqPY 5mIRYuejedFNSadF0aGKYp D9j5McQlIfF3JPhgP1Bjvi V0UDVxwJMz NNscRFR9W16bu6X7SOGzSJ RyJEP9yOH5bF2utPsfvmdx bGVmdDsgdmVydGljYWwtYW ztE434IRVz bPcbOQOxzS4iVCYpwSAfaO amZH8dJDCgvznpHwcACS6Y XYSHHVaJBEGYLSG8L0ZiXn r7MTZajVtk LQ3brQMuUBcqBn2ipMxlcQ dfBC9oYWOlcmbhRILlpG9s KCJqkWGeiEtlWA3uJPJbhh cdw307LdKp PCM0OHWodNNtZ8IvlG7mMi KiRNLnNUDjJ9GkzLVbHNuq F862GJzfHnT8MYVbsmSpB2 FsLWFsaWdu FjX7m7I5Ny3hNV7zPM7kOC UoNL30ZI61yTUzc5S6rHQ7 J1XkHIQkhxxzbtvteDW4OE IuRSDihC57 rIIhDOykDp5ms9O8r555NR WxUEPcaV41Nm0ixYblXEJn sYCWlU8tatnru9oolhvhWm AwMDAwMDt0 SQi0DECfrMnkMpFfAMJ5Pk P1FHG8xUMqyV1nlDothpju dW3hCjo+WsHhHPNqacE7M1 AvNvw9VXCv bKjvJJ6kgOLxWHvaIz8ffM hveWtzQH4iROGmsogxZPOd jV8aKZCmpHOvvPsbWW0yYG Awoxvzn898 SmUpDPB3HTIhyJQxN1EjkJ 4qYqStHVOfJLIkF6UtwLBm EPxmV341HSfwTvT0SVNhxd WwY5IoFXJa fRivJgD9n8B2Dp0CBYnLRH 56BA40tPSeb6Y6fDS3F1Wb QDUauuyysupveLX6UILcQM CtjV29oTXy GAjyYv8go9S0i444BECzGE CzcH46Jg4diIhkJFUcvAZH mV8bfgrjh6affqsaLgSyAN LaJHd3CTb7 KFBodUogOuNjIJQ0GsH5XY M0dAMflE7hyUonbgwavZ2m Oyc+W3Y4J2VwOmkbePV+PC 67FBWoMV76 fUXvhUQoz4qljDr7MoXhVQ FsISW1jRohZRohv5IaMZTp Y97riXKxy2G7SQXbrEqmxM NlOyBlbXB0 wP7xXVnwaksgp5mkzrbcIb uof2howi52pG74Q06tCFxj ZHRoPSIzMCUiIHZhbGlnbj 5tbU9fGc7+ DBYudEP6xEF2fC7hTtSoYs W9HStlX080XxZayAMhRjmt k2hth4eifMl6FmIwRZRffg FsaWduPSJ0 h4MeFo68Q44cZXkhHXSnZL QkMHLbDKAhbIpxso8pyA8l Ii8+PJ1yf5ivux00vU52hF I+PHRkIHN0 sKzcIQzuEXLacL3pARibCr L6UPFbHjEnkC50rBKeVNqg Ga1dtVqopVbnEO1vCREgyp xhk121CqSq x5yjXXMumGFfWKjtMYX8F6 4he9I7TGPmMAGfOIH2oQC8 sP6ikYuhkdhxhXKvnJcmib VydGljYWwt IGunY705SPSozEbxPtFdcA UdC3gzpmAXYP9zLacqyQF+ RLJiIUJ6cXstALjoZJJkzP 6pAOGfR4f4 IgQyBeH0NZfmC8KotdS5XB QgyAAfOCDfcMSWcF7lwdoc m0wcvpqqZmEwMOHtZKz5TY a8OGUnlBvm NnLlPOH4NrF1JZQ0rXDxfO 8jaAhumxvnzP7bYqf+RklO OjwvdGQ+RXMyDEY6uZywBD lzRRImrV3u ZNQhE0f9JiTvWpG6BLujU4 PqvzT1PFSqfBQeYKHsdPGL nW6uyhwek5ikgqbaTsClPC JjOKu1LNv5 CIVmuFhlVdBbFNR0JnQ4PL N7hGSlhB8pmWvpyrlneG9e Oyc+TVJOOjwvdGQ+PHRkIH F5lVfoCWhk QOExcZ1nGZYdQ8j0HlHpGq P9MIshY4YpbsG4WHSkjQYl MVOxxAAGtY3bxrbdt8ajbw ogIzAwMDAw NFs2PGd8ATUepSykTxBxCA X6WxH1VZI6iFFcoA9eqNgv veyguX5nNut+NGJ6RZO0NM 26SO24N6Xz PjwvdGFibGU+PHRhYmxlIH dpZHRoPScxMDAlJyBzdHls RV8jNd2vQNZrNVRlbNoyvI PmZbIde0lm YXB (more content not included)... [facility] Provider Orderson 09-15-2021 Provider Orders [id number]#[id number] [id number] Normal [facility] .Auto Diff 1on 09-14-2021 Auto Burt % 11 % Normal 1-12 [facility] Comment on above: Performed By: #### 1 [id number] #### [facility] (DEFAULT) [address] [place] [id number] Baso Abs# 0.0 x10 Normal 0.0-0.2 [facility] Comment on above: Performed By: #### 1 [id number] #### [facility] (DEFAULT) [address] [place] [id number] Basophils/100 WBC (Bld) 0.4 % Normal 0.2-2.0 [facility] Comment on above: Performed By: #### 1 [id number] #### [facility] (DEFAULT) [address] [place] [address] 51800 Eos Abs# 0.2 x10 Normal 0.0-0.4 [facility] Comment on above: Performed By: #### 1 [id number], [id number] #### [facility] (DEFAULT) [address] [place] [address] 49438 Eosinophils/100 WBC (Bld) 3.6 % Normal 0.9-4.0 [facility] Comment on above: Performed By: #### 1 [id number], [id number] #### [facility] (DEFAULT) [address] [place] [address] 58547 Lymph Abs# 1.4 x10 Normal 1.3-2.9 [facility] Comment on above: Performed By: #### 1 [id number], [id number] #### [facility] (DEFAULT) [address] [place] [address] 24295 Lymphocytes/100 WBC (Bld) 29 % Normal 14-48 [facility] Comment on above: Performed By: #### 1 [id number], [id number] #### [facility] (DEFAULT) [address] [place] [address] 96584 Burt Abs# 0.5 x10 Normal 0.0-0.8 [facility] Comment on above: Performed By: #### 1 [id number], [id number] #### [facility] (DEFAULT) [address] [place] [address] Neut Abs# 2.8 x10 Normal 1.5-9.2 [facility] Comment on above: Performed By: #### 1 [id number], [id number] #### [facility] (DEFAULT) [address] [place] [address] Neutrophils/100 WBC (Bld) 56 % Normal 44-88 [facility] Comment on above: Performed By: #### 1 [id number], [id number] #### [facility] (DEFAULT) [address] [place] [address] CBC w/ Auto Diffon 2 Erythrocyte distribution width (RBC) [Ratio] 13.8 % Normal 11.5-15.0 [facility] Comment on above: Performed By: #### 1 [id number], [id number] #### [facility] (DEFAULT) [address] [place] [address] Hematocrit (Bld) [Volume fraction] 44.5 % Normal 34.8-51.9 [facility] Comment on above: Performed By: #### 1 [id number], [id number] #### [facility] (DEFAULT) [address] [place] [address] Hemoglobin (Bld) [Mass/Vol] 14.6 g/dL Normal 11.8-17.7 [facility] Comment on above: Performed By: #### 1 [id number], [id number] #### [facility] (DEFAULT) [address] [place] [address] Instr WBC 5.0 x10 Invalid Interpretation Code [facility] Comment on above: Performed By: #### 1 [id number], [id number] #### [facility] (DEFAULT) [address] [place] [address] Man Diff? Auto Normal [facility] Comment on above: Performed By: #### 1 [id number], [id number] #### [facility] (DEFAULT) [address] [place] [address] 85053 MCH (RBC) [Entitic mass] 29 pg Normal 24-34 [facility] Comment on above: Performed By: #### 1 [id number], [id number] #### [facility] (DEFAULT) [address] [place] [address] 17106 MCHC (RBC) [Mass/Vol] 33 g/dL Normal 26-37 [facility] Comment on above: Performed By: #### 1 [id number], [id number] #### [facility] (DEFAULT) [address] [place] [address] 63457 MCV (RBC) [Entitic vol] 88 fL Normal 81-100 [facility] Comment on above: Performed By: #### 1 [id number], [id number] #### [facility] (DEFAULT) [address] [place] [address] 72107 Platelet 171 x10 Normal 138-427 [facility] Comment on above: Performed By: #### 1 [id number], [id number] #### [facility] (DEFAULT) [address] [place] [address] 89037 Platelet mean volume (Bld) [Entitic vol] 9.7 fL Normal 6.3-10.2 [facility] Comment on above: Performed By: #### 1 [id number], [id number] #### [facility] (DEFAULT) [address] [place] [address] 67709 RBC 5.04 x10 Normal 3.70-5.30 [facility] Comment on above: Performed By: #### 1 [id number], [id number] #### [facility] (DEFAULT) [address] [place] [address] 75168 WBC 5.0 x10 Normal 3.5-10.5 [facility] Comment on above: Performed By: #### 1 [id number], [id number] #### [facility] (DEFAULT) [address] [place] [address] 87043 Vital Signs Date Time Vital Sign Value Performing Clinician Facility 12-20-2024 16:12-0400 Body height 190.5 cm Hamzah Lazo DPM Work Phone: [facility] 12-20-2024 16:12-0400 Body mass index (BMI) [Ratio] 29.37 kg/m2 Hamzah Lazo DPM Work Phone: [facility] 12-20-2024 16:12-0400 Body weight 106.59 kg Hamzah Lazo DPM Work Phone: [facility] 12-20-2024 16:12-0400 Respiratory rate 18 /min Hamzah Lazo DPM Work Phone: [facility] 11-25-2024 10:44-0400 Body height 193.04 cm [facility] 11-25-2024 10:44-0400 Body mass index (BMI) [Ratio] 27.7 kg/m2 [facility] 11-25-2024 10:44-0400 Body weight 103.41 kg [facility] 11-25-2024 10:44-0400 Diastolic blood pressure 64 mm[Hg] [facility] 11-25-2024 10:44-0400 Heart rate 49 /min [facility] [facility]24 10:44-0400 Systolic blood pressure 109 mm[Hg] [facility] 11-25-2024 09:31-0400 Body height 190.5 cm Leopoldo Montaño MD Work Phone: [facility] 11-25-2024 09:31-0400 Body mass index (BMI) [Ratio] 28.97 kg/m2 Leopoldo Montaño MD Work Phone: [facility] 11-25-2024 09:31-0400 Body weight 105.14 kg Leopoldo Montaño MD Work Phone: [facility] 11-25-2024 09:31-0400 Diastolic blood pressure 68 mm[Hg] Leopoldo Montaño MD Work Phone: [facility] 11-25-2024 09:31-0400 Heart rate 50 /min Leopoldo Montaño MD Work Phone: [facility] 11-25-2024 09:31-0400 SaO2% (BldA) [Mass fraction] 90 % Leopoldo Montaño MD Work Phone: [facility] 11-25-2024 09:31-0400 Systolic blood pressure 106 mm[Hg] Leopoldo Montaño MD Work Phone: [facility] 10-31-2024 13:52-0400 Body height 190.5 cm Simeon Sagastume DO Work Phone: [facility] 10-31-2024 13:52-0400 Body mass index (BMI) [Ratio] 29.37 kg/m2 Simeon Sagastume DO Work Phone: [facility] 10-31-2024 13:52-0400 Body weight 106.59 kg Simeon Sagastume DO Work Phone: [facility] 10-31-2024 13:52-0400 Diastolic blood pressure 66 mm[Hg] Simeon Sagastume DO Work Phone: [facility] 10-31-2024 13:52-0400 Systolic blood pressure 120 mm[Hg] Simeon Sagastume DO Work Phone: [facility] 10-17-2024 09:48-0400 Body height 190.5 cm Khushbu Gill DO Work Phone: [facility] 10-17-2024 09:48-0400 Body mass index (BMI) [Ratio] 29.11 kg/m2 Khushbu Gill DO Work Phone: [facility] 10-17-2024 09:48-0400 Body weight 105.64 kg Khushbu Gill DO Work Phone: [facility] 10-17-2024 09:48-0400 Diastolic blood pressure 53 mm[Hg] Khushbu Gill DO Work Phone: [facility] 10-17-2024 09:48-0400 Heart rate 53 /min Khushbu Gill DO Work Phone: [facility] 10-17-2024 09:48-0400 SaO2% (BldA) [Mass fraction] 97 % Khushbu Gill DO Work Phone: [facility] 10-17-2024 09:48-0400 Systolic blood pressure 107 mm[Hg] Khushbu Gill DO Work Phone: [facility] 09-26-2024 16:20-0500 Body height 190.5 cm Hamzah Lazo DPM Work Phone: [facility] 09-26-2024 16:20-0500 Body mass index (BMI) [Ratio] 29.37 kg/m2 Hamzah Lazo DPM Work Phone: [facility] 09-26-2024 16:20-0500 Body weight 106.59 kg Hamzah Lazo DPM Work Phone: [facility] 09-26-2024 16:20-0500 Respiratory rate 18 /min Hamzah Lazo DPM Work Phone: [facility] 08-27-2024 11:09-0500 Body height 193.04 cm [facility] 08-27-2024 11:09-0500 Body mass index (BMI) [Ratio] 29 kg/m2 [facility] 08-27-2024 11:09-0500 Body weight 108.1 kg [facility] 07-29-2024 12:56-0500 Blood Pressure Location Amanda BIRD [facility] 07-29-2024 12:56-0500 Body temperature 98.6 [degF] Amanda BIRD [facility] 07-29-2024 12:56-0500 Diastolic blood pressure 70 mm[Hg] Amanda BIRD [facility] 07-29-2024 12:56-0500 Heart rate 60 /min Amanda BIRD [facility] 07-29-2024 12:56-0500 Respiratory rate 18 /min Amanda BIRD [facility] 07-29-2024 12:56-0500 Systolic blood pressure 116 mm[Hg] Amanda BIRD [facility] 07-20-2024 14:36-0500 Body height 193.04 cm [facility] 07-20-2024 14:36-0500 Body mass index (BMI) [Ratio] 29 kg/m2 [facility] 07-20-2024 14:36-0500 Body temperature 97.4 [degF] [facility] 07-20-2024 14:36-0500 Body weight 108.01 kg [facility] 07-20-2024 14:36-0500 Diastolic blood pressure 57 mm[Hg] [facility] 07-20-2024 14:36-0500 Heart rate 56 /min [facility] 07-20-2024 14:36-0500 Respiratory rate 16 /min [facility] 07-20-2024 14:36-0500 SaO2% (BldA) [Mass fraction] 97 % [facility] 07-20-2024 14:36-0500 Systolic blood pressure 117 mm[Hg] [facility] 07-18-2024 13:46-0500 Body height 190.5 cm Hamzah Lazo DPM Work Phone: [facility] 07-18-2024 13:46-0500 Body mass index (BMI) [Ratio] 29.37 kg/m2 Hamzah Lazo DPM Work Phone: [facility] 07-18-2024 13:46-0500 Body weight 106.59 kg Hamzah Lazo DPM Work Phone: [facility] 07-18-2024 13:46-0500 Respiratory rate 16 /min Hamzah Lazo DPM Work Phone: [facility] 06-06-2024 10:30-0400 Body height 190.5 cm [facility] Work Phone: [facility] 06-06-2024 10:30-0400 Body mass index (BMI) [Ratio] 29.12 kg/m2 Nathan Talbot EMERGENCY MEDICINE PHYSICIAN-CONTAINER [employer]OP [employer]DER Work Phone: [facility] 06-06-2024 10:30-0400 Body weight 105.69 kg Nathan Talbot EMERGENCY MEDICINE PHYSICIAN-CONTAINER [employer]DER Work Phone: [facility] 06-06-2024 10:30-0400 Diastolic blood pressure 62 mm[Hg] Nathan Talbot EMERGENCY MEDICINE PHYSICIAN-CONTAINER [employer]DER Work Phone: [facility] 06-06-2024 10:30-0400 Systolic blood pressure 110 mm[Hg] Nathan Talbot EMERGENCY MEDICINE PHYSICIAN-CONTAINER [employer]ELDER Work Phone: [facility] 05-09-2024 16:30-0400 Body height 190.5 cm Hamzah Lazo DPM Work Phone: [facility] 05-09-2024 16:30-0400 Body mass index (BMI) [Ratio] 29.37 kg/m2 Hamzah Lazo DPM Work Phone: [facility] 05-09-2024 16:30-0400 Body weight 106.59 kg Hamzah Lazo DPM Work Phone: [facility] 05-09-2024 16:30-0400 Diastolic blood pressure 80 mm[Hg] Hamzah Lazo DPM Work Phone: [facility] 05-09-2024 16:30-0400 Heart rate 75 /min Hamzah Lazo DPM Work Phone: [facility] 05-09-2024 16:30-0400 Respiratory rate 18 /min Hamzah Lazo DPM Work Phone: [facility] 05-09-2024 16:30-0400 Systolic blood pressure 128 mm[Hg] Hamzah Lazo DPM Work Phone: [facility] 02-14-2024 16:02-0400 Body height 190.5 cm Nathan Talbot EMERGENCY MEDICINE PHYSICIAN-CONTAINER [employer]DER Work Phone: [facility] 02-14-2024 16:02-0400 Body mass index (BMI) [Ratio] 29.27 kg/m2 Nathan SEPULVEDA Work Phone: [facility] 02-14-2024 16:02-0400 Body temperature 97.59 [degF] Nathan SEPULVEDA Work Phone: [facility] [email or web address] 02-14-2024 16:02-0400 Body weight 106.23 kg Nathan SEPULVEDA Work Phone: [facility] [employer] 02-14-2024 16:02-0400 Diastolic blood pressure 60 mm[Hg] Nathan SEPULVEDA Work Phone: [facility] [employer] 02-14-2024 16:02-0400 Heart rate 54 /min Nathan SEPULVEDA Work Phone: [facility] [employer] 02-14-2024 16:02-0400 Respiratory rate 18 /min Nathan SEPULVEDA Work Phone: [facility] [employer] 02-14-2024 16:02-0400 SaO2% (BldA) [Mass fraction] 97 % Nathan SEPULVEDA Work Phone: [facility] [employer] 02-14-2024 16:02-0400 Systolic blood pressure 112 mm[Hg] Nathan SEPULVEDA Work Phone: [facility] 01-02-2024 15:55-0400 Body height 190.5 cm [facility] 01-02-2024 15:55-0400 Body mass index (BMI) [Ratio] 29.31 kg/m2 Omega Branchlong DO Work Phone: [facility] [employer] 01-02-2024 15:55-0400 Body temperature 97.3 [degF] Omega Branchlong DO Work Phone: [facility] 01-02-2024 15:55-0400 Body weight 106.37 kg Omega Furlong DO Work Phone: [facility] 01-02-2024 15:55-0400 Diastolic blood pressure 56 mm[Hg] Omega Furlong DO Work Phone: [facility] 01-02-2024 15:55-0400 Heart rate 58 /min Omega Furlong DO Work Phone: [facility] 01-02-2024 15:55-0400 Respiratory rate 18 /min Omega Furlong DO Work Phone: [facility] 01-02-2024 15:55-0400 SaO2% (BldA) [Mass fraction] 95 % Omega Furlong DO Work Phone: [facility] 01-02-2024 15:55-0400 Systolic blood pressure 98 mm[Hg] Omega Furlong DO Work Phone: [facility] 12-04-2023 11:50-0400 Blood Pressure Location Amanda BIRD [facility] 12-04-2023 11:50-0400 Body temperature 96.8 [degF] Amandadacia BIRD [facility] 12-04-2023 11:50-0400 Diastolic blood pressure 76 mm[Hg] Amanda BIRD [facility] 12-04-2023 11:50-0400 Heart rate 84 /min Amanda BIRD [facility] 12-04-2023 11:50-0400 Systolic blood pressure 110 mm[Hg] Amanda BIRD [facility] 11-20-2023 08:50-0400 Body height 190.5 cm Lucia Butler MD Work Phone: [facility] 11-20-2023 08:50-0400 Body mass index (BMI) [Ratio] 29.47 kg/m2 Lucia Butler MD Work Phone: [facility] 11-20-2023 08:50-0400 Body weight 106.96 kg Lucia Butler MD Work Phone: [facility] 11-20-2023 08:50-0400 Diastolic blood pressure 68 mm[Hg] Lucia Butler MD Work Phone: [facility] 11-20-2023 08:50-0400 Heart rate 56 /min Lucia Butler MD Work Phone: [facility] 11-20-2023 08:50-0400 SaO2% (BldA) [Mass fraction] 96 % Lucia Butler MD Work Phone: [facility] 11-20-2023 08:50-0400 Systolic blood pressure 114 mm[Hg] Lucia Butler MD Work Phone: [facility] 11-14-2023 14:40-0400 Body height 190.5 cm Nathan Talbot EMERGENCY MEDICINE PHYSICIAN-CONTAINER [employer]DER Work Phone: [facility] 11-14-2023 14:40-0400 Body mass index (BMI) [Ratio] 29.22 kg/m2 Nathan Talbot APRN-CONTAINER [employer] Work Phone: [facility] 11-14-2023 14:40-0400 Body temperature 99.5 [degF] Nathan Talbot EMERGENCY MEDICINE PHYSICIAN-CONTAINER [employer]DER Work Phone: [facility] 11-14-2023 14:40-0400 Body weight 106.05 kg Nathan Talbot APRN-CONTAINER [employer] Work Phone: [facility] 11-14-2023 14:40-0400 Diastolic blood pressure 50 mm[Hg] Nathan Talbot APRN-CONTAINER [employer] Work Phone: [facility] 11-14-2023 14:40-0400 Heart rate 71 /min Nathan Talbot APRN-CONTAINER [employer] Work Phone: [facility] 11-14-2023 14:40-0400 Respiratory rate 18 /min Nathan Talbot APRN-CONTAINER [employer] Work Phone: [facility] 11-14-2023 14:40-0400 SaO2% (BldA) [Mass fraction] 93 % Nathan Talbot APRN-CONTAINER [employer] Work Phone: [facility] 11-14-2023 14:40-0400 Systolic blood pressure 90 mm[Hg] Nathan Talbot APRN-CONTAINER [employer] Work Phone: [facility] 10-16-2023 14:30-0400 Body height 190.5 cm Nathan Talbot APRN-CONTAINER [employer] Work Phone: [facility] 10-16-2023 14:30-0400 Body mass index (BMI) [Ratio] 30 kg/m2 Nathan Talbot APRN-CONTAINER [employer] Work Phone: [facility] 10-16-2023 14:30-0400 Body temperature 97.7 [degF] Nathan Talbot APRN-CONTAINER [employer] Work Phone: [facility] 10-16-2023 14:30-0400 Body weight 108.86 kg Nathan Talbot APRN-CONTAINER [employer] Work Phone: [facility] 10-16-2023 14:30-0400 Diastolic blood pressure 60 mm[Hg] Nathan Talbot APRN-CONTAINER [employer] Work Phone: [facility] 10-16-2023 14:30-0400 Heart rate 52 /min Nathan Talbot APRN-CONTAINER [employer] Work Phone: [facility] 10-16-2023 14:30-0400 SaO2% (BldA) [Mass fraction] 96 % Nathan Talbot APRN-THEA Work Phone: [facility] 10-16-2023 14:30-0400 Systolic blood pressure 110 mm[Hg] Nathan Talbot APRN-CONTAINER [employer] Work Phone: [facility] 10-12-2023 09:22-0500 Body height 190.5 cm Khushbu Gill DO Work Phone: [facility] 10-12-2023 09:22-0500 Body mass index (BMI) [Ratio] 29.69 kg/m2 Khushbu Gill DO Work Phone: [facility] 10-12-2023 09:22-0500 Body weight 107.73 kg Khushbu Gill DO Work Phone: [facility] 10-12-2023 09:22-0500 Diastolic blood pressure 59 mm[Hg] Khushbu Gill DO Work Phone: [facility] 10-12-2023 09:22-0500 Heart rate 50 /min Khushbu Gill DO Work Phone: [facility] [email or web address] 10-12-2023 09:22-0500 SaO2% (BldA) [Mass fraction] 95 % Khushbu Gill DO Work Phone: [facility] 10-12-2023 09:22-0500 Systolic blood pressure 110 mm[Hg] Khushbu Gill DO Work Phone: [facility] 10-10-2023 14:46-0500 Body height 190.5 cm Nathan Talbot APRN-CONTAINER [employer] Work Phone: [facility] 10-10-2023 14:46-0500 Body mass index (BMI) [Ratio] 30 kg/m2 Nathan Talbot APRN-CONTAINER [employer] Work Phone: [facility] 10-10-2023 14:46-0500 Body temperature 98.01 [degF] Nathan Talbot APRN-CONTAINER [employer] Work Phone: [facility] 10-10-2023 14:46-0500 Body weight 108.86 kg Nathan Talbot APRN-CONTAINER [employer] Work Phone: [facility] 10-10-2023 14:46-0500 Diastolic blood pressure 56 mm[Hg] Nathan Talbot APRN-CONTAINER [employer] Work Phone: [facility] 10-10-2023 14:46-0500 Heart rate 53 /min Nathan Talbot APRN-CONTAINER [employer] Work Phone: [facility] 10-10-2023 14:46-0500 SaO2% (BldA) [Mass fraction] 97 % Nathan Talbot APRN-CONTAINER [employer] Work Phone: [facility] 10-10-2023 14:46-0500 Systolic blood pressure 112 mm[Hg] Nathan Talbot APRN-CONTAINER [employer] Work Phone: [facility] 09-19-2023 11:32-0500 Body height 190.5 cm Mojgan Devries EMERGENCY MEDICINE PHYSICIAN-TUBER MACHINE OPERATOR HELPER Work Phone: [facility] 09-19-2023 11:32-0500 Body mass index (BMI) [Ratio] 30.12 kg/m2 Mojgan Devries EMERGENCY MEDICINE PHYSICIAN-TUBER MACHINE OPERATOR HELPER Work Phone: [facility] 09-19-2023 11:32-0500 Body temperature 97.2 [degF] Mojgan Devries APRN-TUBER MACHINE OPERATOR HELPER Work Phone: [facility] 09-19-2023 11:32-0500 Body weight 109.32 kg Mojgan Devries EMERGENCY MEDICINE PHYSICIAN-TUBER MACHINE OPERATOR HELPER Work Phone: [facility] 09-19-2023 11:32-0500 Diastolic blood pressure 50 mm[Hg] Mojgan Devries APRN-TUBER MACHINE OPERATOR HELPER Work Phone: [facility] 09-19-2023 11:32-0500 Heart rate 51 /min Mojgan Devries APRN-TUBER MACHINE OPERATOR HELPER Work Phone: [facility] 09-19-2023 11:32-0500 SaO2% (BldA) [Mass fraction] 97 % Mojgan Devries APRN-TUBER MACHINE OPERATOR HELPER Work Phone: [facility] 09-19-2023 11:32-0500 Systolic blood pressure 110 mm[Hg] Mojgan Devries APRN-TUBER MACHINE OPERATOR HELPER Work Phone: [facility] 08-10-2023 16:45-0500 Body height 190.5 cm Omega Furlong DO Work Phone: [facility] 08-10-2023 16:45-0500 Body mass index (BMI) [Ratio] 29.54 kg/m2 Omega Furlong DO Work Phone: [facility] 08-10-2023 16:45-0500 Body temperature 97.7 [degF] Omega Furlong DO Work Phone: [facility] 08-10-2023 16:45-0500 Body weight 107.19 kg Omega Furlong DO Work Phone: [facility] [email or web address] 08-10-2023 16:45-0500 Diastolic blood pressure 60 mm[Hg] Omega Furlong DO Work Phone: [facility] 08-10-2023 16:45-0500 Heart rate 62 /min Omega Furlong DO Work Phone: [facility] 08-10-2023 16:45-0500 SaO2% (BldA) [Mass fraction] 100 % Omega Furlong DO Work Phone: [facility] 08-10-2023 16:45-0500 Systolic blood pressure 118 mm[Hg] Omega Furlong DO Work Phone: [facility] 08-02-2023 16:46-0500 Body height 190.5 cm Nathan Talbot EMERGENCY MEDICINE PHYSICIAN-CONTAINER [employer]OP [employer]ELDER Work Phone: [facility] 08-02-2023 16:46-0500 Body mass index (BMI) [Ratio] 29.85 kg/m2 Nathan Talbot APRN-THEA Work Phone: [facility] 08-02-2023 16:46-0500 Body temperature 97.3 [degF] Nathan Talbot APRN-THEA Work Phone: [facility] 08-02-2023 16:46-0500 Body weight 108.32 kg Nathan Talbot APRN-THEA Work Phone: [facility] 08-02-2023 16:46-0500 Diastolic blood pressure 58 mm[Hg] Nathan Tal[facility] APRN-THEA [facility] 08-02-2023 16:46-0500 Heart rate 58 /min Nathan Talbot APRN-THEA [facility] 08-02-2023 16:46-0500 SaO2% (BldA) [Mass fraction] 97 % Nathan Talbot APRN-THEA Work Phone: [facility] 08-02-2023 16:46-0500 Systolic blood pressure 110 mm[Hg] Nathan Talbot APRN-THEA Work Phone: [facility] 07-16-2023 13:00-0500 Body height 185.42 cm Juana Handley Other [employer] Other 07-16-2023 13:00-0500 Body mass index (BMI) [Ratio] 31.24 kg/m2 Juana Handley Other [facility] Other 07-16-2023 13:00-0500 Body temperature 98.4 [degF] Juana Handley Other [facility] Other 07-16-2023 13:00-0500 Body weight 107.41 kg Juana Handley Other [facility] Other 07-16-2023 13:00-0500 Diastolic blood pressure 60 mm[Hg] Juana Handley Other [facility] Other 07-16-2023 13:00-0500 SaO2% (BldA) [Mass fraction] 96 % Juana Handley Other [facility] Other 07-16-2023 13:00-0500 Systolic blood pressure 117 mm[Hg] Juana Handley Other [facility] Other 05-10-2023 09:30-0400 Body height 185.42 cm Simba Grey Other [facility] Other 05-10-2023 09:30-0400 Body mass index (BMI) [Ratio] 30.61 kg/m2 Simba Grey Other [facility] Other 05-10-2023 09:30-0400 Body weight 105.24 kg Simba Grey Other [facility] Other 05-10-2023 09:30-0400 Diastolic blood pressure 65 mm[Hg] Simba Grey Other [facility] Other 05-10-2023 09:30-0400 Systolic blood pressure 104 mm[Hg] Simba Grey Other [facility] Other 01-27-2023 10:44-0400 Blood Pressure Location Amanda BIRD [facility] 01-27-2023 10:44-0400 Diastolic blood pressure 68 mm[Hg] Amanda BIRD [facility] 01-27-2023 10:44-0400 Heart rate 72 /min Amandadacia BIRD [facility] 01-27-2023 10:44-0400 Respiratory rate 16 /min Amandadacia BIRD [facility] 01-27-2023 10:44-0400 Systolic blood pressure 116 mm[Hg] Amanda BIRD [facility] 11-14-2022 11:00-0400 Blood Pressure Location Amandadacia BIRD [facility] 11-14-2022 11:00-0400 Diastolic blood pressure 69 mm[Hg] Amanda BIRD [facility] 11-14-2022 11:00-0400 Heart rate 58 /min Amandadacia BIRD [facility] 11-14-2022 11:00-0400 Respiratory rate 16 /min Amanda BIRD [facility] 11-14-2022 11:00-0400 Systolic blood pressure 129 mm[Hg] Amandadacia BIRD [facility] 05-27-2022 16:35-0400 Body height 185.42 cm Juana Handley Other [facility] Other 05-27-2022 16:35-0400 Body mass index (BMI) [Ratio] 31.42 kg/m2 Juana Handley Other [facility] Other 05-27-2022 16:35-0400 Body temperature 98.1 [degF] Juana Handley Other [facility] Other 05-27-2022 16:35-0400 Body weight 108.05 kg Juana Handley Other [facility] Other 05-27-2022 16:35-0400 Diastolic blood pressure 68 mm[Hg] Juana Handley Other [facility] Other 05-27-2022 16:35-0400 Respiratory rate 18 /min Juana Handley Other [facility] Other 05-27-2022 16:35-0400 SaO2% (BldA) [Mass fraction] 96 % Junaa Handley Other [facility] Other 05-27-2022 16:35-0400 Systolic blood pressure 119 mm[Hg] Juana Handley Other [facility] Other 05-16-2022 11:05-0400 Blood Pressure Location Amanda BIRD [facility] 05-16-2022 11:05-0400 Diastolic blood pressure 73 mm[Hg] Amanda BIRD [facility] 05-16-2022 11:05-0400 Heart rate 52 /min Amanda BIRD [facility] 05-16-2022 11:05-0400 Respiratory rate 16 /min Amanda BIRD [facility] 05-16-2022 11:05-0400 Systolic blood pressure 127 mm[Hg] Amanda BIRD [facility] 03-23-2022 15:26-0400 Diastolic blood pressure 71 mm[Hg] MD Simba Grey Work Phone: [facility] 03-23-2022 15:26-0400 Heart rate 55 /min MD Simba Grey Work Phone: [facility] 03-23-2022 15:26-0400 Respiratory rate 16 /min MD Simba Grey Work Phone: [facility] 03-23-2022 15:26-0400 SaO2% (BldA) [Mass fraction] 98 % MD Simba Grey Work Phone: [facility] 03-23-2022 15:26-0400 Systolic blood pressure 142 mm[Hg] MD Simba Grey Work Phone: [facility] 03-23-2022 13:01-0400 Body height 190.5 cm MD Simba Grey Work Phone: [facility] 03-23-2022 13:01-0400 Body temperature 97.5 [degF] MD Simba Grey Work Phone: [facility] 03-23-2022 13:01-0400 Body weight 102.05 kg MD Simba Grey Work Phone: [facility] 03-02-2022 11:45-0400 Body height 185.42 cm Simba Grey Other [facility] Other 03-02-2022 11:45-0400 Body mass index (BMI) [Ratio] 30.34 kg/m2 Simba Grey Other [facility] Other 03-02-2022 11:45-0400 Body weight 104.33 kg Simba Grey Other [facility] Other Encounters Encounter Date Encounter Type Care Provider Facility Start: 12-20-2024 End: 12-20-2024 Patient encounter procedure Hamzah Lazo DPM Work Phone: [facility] Comment on above: Pain due to onychomy cosis of toenails of both feet (Primary Dx); Venous insufficiency Start: 12-20-2024 End: 12-20-2024 ambulatory HAMZAH LAZO Not Available Start: 12-20-2024 End: 12-20-2024 Bamboo flowsheet Hamzah Lazo DPM Work Phone: [facility] Start: 12-20-2024 End: 12-20-2024 Bamboo flowsheet Hamzah Lazo DPM Work Phone: [facility] Start: 12-16-2024 End: 12-17-2024 Refill Sharron Yanez LPN [facility] Comment on above: Med Refill Start: 12-15-2024 End: 12-17-2024 Refill Henri Carrasquillo EMERGENCY MEDICINE PHYSICIAN-CONTAINER SHOP WELDER Work Phone: [facility] Comment on above: Med Refill Start: 12-13-2024 End: 12-13-2024 Refill Juana Nguyen RN [facility] Comment on above: Med Refill Start: 12-06-2024 End: 12-10-2024 Telephone encounter Kim Mckeon CCC-A Work Phone: [facility] Comment on above: Color of Hearing Aid s Start: 11-25-2024 End: 11-25-2024 ambulatory [facility] Work Phone: Start: 11-25-2024 End: 11-25-2024 Patient encounter procedure [facility] Work Phone: Start: 11-25-2024 End: 11-25-2024 Office outpatient visit 25 minutes Leopoldo Montaño MD Work Phone: [facility] Comment on above: Ischemic myocardial dysfunction (Primary Dx); Coronary artery disease of [place] artery of [place] heart with stable angina pectoris; 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 ([facility]); Presence of bare metal stent in anterior descending branch of left coronary artery; Obstructive sleep apnea Start: 11-25-2024 End: 11-25-2024 ambulatory LEOPOLDO MONTAÑO [facility] Start: 11-05-2024 End: 11-05-2024 Emergency department patient visit NATHAN TALBOT [facility] Start: 10-31-2024 End: 10-31-2024 Office outpatient new 45 minutes Simeon Sagastume DO Work Phone: [facility] Comment on above: Internal hemorrhoids (Primary Dx); Unspecified hemorrhoids Start: 10-31-2024 End: 10-31-2024 ambulatory SIMEON SAGASTUME Not Available Start: 10-21-2024 End: 10-21-2024 [facility] Start: 10-17-2024 End: 10-17-2024 Telephone encounter Celsa Vidales [facility] Start: 10-17-2024 End: 10-17-2024 Office outpatient visit 15 minutes Khushbu Marley Elston DO Work Phone: [facility] Comment on above: Obstructive sleep ap medina (Primary Dx); Chronic seasonal allergic rhinitis due to pollen; Dyspnea on exertion Start: 10-17-2024 End: 10-17-2024 ambulatory [facility] Start: 10-11-2024 End: 10-11-2024 Refill Vernell Stewart RN [facility] Comment on above: Med Refill Start: 10-10-2024 End: 10-10-2024 Clinical Support Kim Mckeon [facility] Work Phone: [facility] Comment on above: Sensorineural hearin g loss (SNHL) of both ears (Primary Dx) Start: 09-26-2024 End: 09-26-2024 Patient encounter procedure Hamzah Lazo DPM Work Phone: [facility] Comment on above: Pain due to onychomy cosis of toenails of both feet (Primary Dx); Venous insufficiency Start: 09-26-2024 End: 09-26-2024 ambulatory HAMZAH LAZO Not Available Start: 09-26-2024 End: 09-26-2024 Bamboo flowsheet Hamzahhany Lazo DPM Work Phone: [facility] Start: 09-26-2024 End: 09-26-2024 Bamboo flowsheet Hamzah Lazo DPM Work Phone: [facility] Start: 09-16-2024 End: 09-16-2024 [facility] Comment on above: Med Refill Start: 08-27-2024 End: 08-27-2024 ambulatory [facility] Work Phone: Start: 08-27-2024 End: 08-27-2024 Patient encounter procedure [facility] Work Phone: Start: 08-26-2024 End: 08-26-2024 [facility] Comment on above: Situational depressi on Start: 08-20-2024 End: 08-20-2024 Refill [facility] Comment on above: Situational depressi on Start: 08-19-2024 End: 08-19-2024 Refill [facility] Comment on above: Allergic rhinitis, u nspecified seasonality, unspecified trigger Start: 08-14-2024 End: 08-14-2024 Bamboo flowsheet Cynthia Johnson AUD Work Phone: [facility] Start: 08-14-2024 End: 08-14-2024 Bamboo flowsheet Cynthia Johnson AUD Work Phone: [facility] Start: 08-14-2024 End: 08-14-2024 Patient encounter procedure Cynthia Johnson AUD Work Phone: [facility] Comment on above: Excessive ear wax, b ilateral (Primary Dx) Start: 08-14-2024 End: 08-14-2024 ambulatory CYNTHIA Hany DELMY Not Available Start: 07-29-2024 End: 07-29-2024 ambulatory Amanda BIRD Facility:[facility] Start: 07-29-2024 End: 07-29-2024 Patient encounter procedure Amanda Alvares BIRD [facility] Start: 07-20-2024 End: 07-20-2024 Patient encounter procedure [facility] Work Phone: Start: 07-18-2024 End: 07-18-2024 Bamboo flowsheet Hamzah [...] insufficiency Start: 07-14-2024 End: 07-15-2024 Refill Henri Carrasquillo EMERGENCY MEDICINE PHYSICIAN-CONTAINER SHOP WELDER Work Phone: [facility] Comment on above: Med Refill Start: 06-06-2024 End: 06-06-2024 ambulatory [facility] Mikael TALBOT [facility] Start: 06-06-2024 End: 06-06-2024 Patient encounter procedure Nathan Talbot EMERGENCY MEDICINE PHYSICIAN-CONTAINER SHOP WELDER Work Phone: [facility] - [...] DPM Work Phone: [facility] Start: 05-01-2024 End: 05-01-2024 Refill Vernell Stewart [facility] Comment on above: Med Refill Start: 04-22-2024 End: 04-22-2024 Refill Vernell Stewart [facility] Comment on above: Med Refill Start: 04-05-2024 End: 04-05-2024 Refill Diya Ramirez [facility] Comment on above: Med Refill Start: 03-18-2024 End: 03-18-2024 Refill Diya Ramirez [facility] Comment on above: Med Refill Start: 02-22-2024 End: 02-22-2024 ambulatory HAMZAH LAZO Not Available Start: 02-14-2024 End: 02-14-2024 Office outpatient visit 15 minutes Nathan Talbot EMERGENCY MEDICINE PHYSICIAN-CONTAINER SHOP WELDER Work Phone: [facility] Comment on above: Situational depressi on (Primary Dx); 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 ([facility]); Coronary artery disease of [place] artery of [place] heart with stable angina pectoris ([facility]) Start: 02-14-2024 End: 02-14-2024 ambulatory NATHAN TALBOT [facility] Start: 01-18-2024 End: 01-18-2024 Telephone encounter Kelsey [facility]AN [facility] Start: 01-11-2024 End: 01-11-2024 Orders Only Omega Luis DO Work Phone: [facility] Start: 01-10-2024 End: 01-11-2024 Telephone encounter Gisela Loza CMA [facility] Start: 01-05-2024 End: 01-05-2024 Telephone encounter Gisela Loza CMA [facility] Start: 01-02-2024 End: 01-02-2024 ambulatory OMEGA BRANCHTARYN [facility] Start: 01-02-2024 End: 01-02-2024 Office outpatient visit 15 minutes Omega Branchnayanataryn DO Work Phone: [facility] Comment on above: Upper respiratory di sease (Primary Dx); Pharyngitis, unspecified etiology; Painless rectal bleeding Start: 12-14-2023 End: 12-15-2023 Telephone encounter Vernell Stewart [facility] Start: 12-13-2023 End: 12-13-2023 Refill Leopoldo Montaño MD Work Phone: [facility] Comment on above: Med Refill Start: 12-07-2023 End: 12-07-2023 Refill Diya Ramirez RN [facility] Comment on above: Med Refill Start: 12-04-2023 End: 12-04-2023 ambulatory Amanda BIRD Facility:[facility] Start: 12-04-2023 End: 12-04-2023 Patient encounter procedure Amanda BIRD [facility] Start: 11-29-2023 End: 11-29-2023 Refill Nathan Talbot APRN-CONTAINER SHOP WELDER Work Phone: [facility] Comment on above: Situational depressi on Start: 11-23-2023 End: 11-23-2023 Telephone encounter Nathan Talbot EMERGENCY MEDICINE PHYSICIAN-CONTAINER SHOP WELDER Work [facility] Start: 11-20-2023 End: 11-20-2023 Office outpatient visit 15 minutes Leopoldo Montaño MD Work Phone: [facility] Comment on above: Ischemic myocardial dysfunction (Primary Dx); Presence of bare metal stent in anterior descending branch of left coronary artery Start: 11-17-2023 End: 11-17-2023 Telephone encounter [facility] Start: 11-14-2023 End: 11-14-2023 Office outpatient visit 15 minutes Nathan Talbot EMERGENCY MEDICINE PHYSICIAN-CONTAINER SHOP WELDER Work Phone: [facility] Comment on above: Gastroenteritis (Inga mojgan Dx); Flu-like symptoms; Nausea and vomiting, unspecified vomiting type; Loose stools Start: 11-14-2023 End: 11-14-2023 ambulatory [facility] Start: 10-25-2023 Telephone encounter Ivet Campbell [facility] Start: 10-17-2023 End: 10-18-2023 ambulatory [facility] Start: 10-16-2023 End: 10-16-2023 Office outpatient visit 15 minutes Nathan Talbot EMERGENCY MEDICINE PHYSICIAN-CONTAINER SHOP WELDER Work Phone: [facility] Comment on above: Acute non-recurrent pansinusitis (Primary Dx) Start: 10-12-2023 End: 10-12-2023 Office outpatient visit 10 minutes Khushbu Gill DO Work Phone: [facility] Comment on above: Obstructive sleep ap medina (Primary Dx); Bronchiectasis without complication ([facility]) Start: 10-10-2023 End: 10-10-2023 Office outpatient visit 15 minutes Nathan Talbot EMERGENCY MEDICINE PHYSICIAN-CONTAINER SHOP WELDER Work Phone: [facility] Comment on above: Allergic rhinitis du e to pollen, unspecified seasonality (Primary Dx); Sore throat Start: 09-22-2023 Refill Juana Nguyen RN [facility] Comment on above: Med Refill Start: 09-20-2023 Telephone encounter Leopoldo Montaño MD Work Phone: [facility] Start: 09-19-2023 End: 09-19-2023 Office outpatient visit 25 minutes Mojgan Devries EMERGENCY MEDICINE PHYSICIAN-TUBER MACHINE OPERATOR HELPER Work Phone: [facility] Comment on above: Localized edema (Inga mojgan Dx); Ischemic myocardial dysfunction Start: 08-10-2023 End: 08-10-2023 Office outpatient visit 15 minutes Omega Branchtigre DO Work Phone: [facility] Comment on above: Herpes zoster withou t complication (Primary Dx) Start: 08-02-2023 End: 08-02-2023 Office outpatient visit 15 minutes Nathan Talbot EMERGENCY MEDICINE PHYSICIAN-CONTAINER SHOP WELDER Work Phone: [facility] Comment on above: Acute right otitis m edia (Primary Dx); Acute non-recurrent pansinusitis Start: 07-16-2023 End: 07-16-2023 ambulatory Juana Handley Other [facility] Other Start: 07-16-2023 Office outpatient vi sit 15 minutes Juana Handley [facility] Start: 05-10-2023 End: 05-10-2023 ambulatory Simba Grey Other [facility] Other Start: 05-10-2023 Office outpatient vi sit 15 minutes Simba Grey [facility] Start: 03-20-2023 End: 03-20-2023 ambulatory Simba Grey Facility:[facility] Start: 03-06-2023 End: 03-06-2023 ambulatory Simba Grey Other [facility] Other Start: 03-06-2023 Telephone encounter Simba angel [facility] Start: 02-15-2023 End: 07-12-2023 ambulatory Simba Grey Other [facility] Other Start: 02-15-2023 Telephone encounter Simba Alvarado [facility] Start: 01-27-2023 End: 01-27-2023 Patient encounter procedure Amanda BIRD [facility] Start: 11-14-2022 End: 11-14-2022 Patient encounter procedure Amanda BIRD [facility] [place] Start: 10-05-2022 End: 11-08-2022 Pre-admission assessment Stephanie Serranohany [facility] Start: 09-09-2022 End: 09-09-2022 ambulatory NATHAN TALBOT Facility:[facility] Start: 07-15-2022 End: 07-16-[address] AMANDA BIRD Facility:[facility] Start: 05-27-2022 End: 05-27-2022 Patient encounter procedure SMALL BUSINESS SALES REPRESENTATIVE-C Nathan Talbot Work Phone: [facility] Start: 05-27-2022 End: 05-27-2022 ambulatory SMALL BUSINESS SALES REPRESENTATIVE-C Nathan Talbot Work Phone: [facility] Other Start: 05-27-2022 Office outpatient vi sit 15 minutes Juana Handley [facility] Start: 05-16-2022 End: 05-16-2022 Patient encounter procedure Amanda BIRD [facility] [place] Start: 05-09-2022 End: 05-10-[address] AMANDA BIRD Facility:[facility] Start: 04-20-2022 End: 04-20-2022 ambulatory Simba Grey Other [facility] Other Start: 04-20-2022 Telephone encounter Simba angel [facility] Start: 03-23-2022 End: 03-23-2022 Admission to same day surgery center MD Simba Grey Work Phone: [facility] Start: 03-21-2022 End: 03-21-2022 Patient encounter procedure MD Simba Grey Work Phone: [facility] Start: 03-14-2022 End: 03-14-2022 ambulatory Simba Grey Other [facility] Other Start: 03-14-2022 Telephone encounter Simba angel [facility] Start: 03-02-2022 End: 03-02-2022 ambulatory Simba Grey Other [facility] Other Start: 03-02-2022 Office outpatient vi sit 25 minutes Simba Grey [facility] Start: 03-01-2022 End: 03-01-2022 ambulatory Simba Grey Other [facility] Other Start: 03-01-2022 Telephone encounter Simba angel [facility] Start: 10-28-2021 End: 10-29-[address] AMANDA BIRD Facility: Start: 03-25-2020 Patient encounter procedure Nathan Thomasmaria fernanda GARRISONN-CONTAINER SHOP WELDER Work Phone: [email or web address] Procedures Date Procedure Procedure Detail Performing Clinician Start: 11-25-2024 Ecg routine ecg w/le ast 12 lds w/i&r Leopoldo Montaño MD Work Phone: Start: 11-25-2024 Follow-up visit Follow-up LEOPOLDO MONTAÑO Start: 10-31-2024 Colonoscopy Kim Logan CCC-A Work Phone: Start: 10-17-2024 Follow-up visit Follow-up KHUSHBU GILL Start: 10-10-2024 AUDITORY FUNCTION TESTS Kim Reta Mckeon [facility] Work Phone: Start: 07-20-2024 Quick Strep (POC) Start: 06-06-2024 Adult depression scr eening assessment Nathan Talbot EMERGENCY MEDICINE PHYSICIAN-[facility] Work Phone: Start: 02-14-2024 Adult depression scr eening assessment Nathan Talbot EMERGENCY MEDICINE PHYSICIAN-[facility] Work Phone: Start: 01-02-2024 Iaadiadoo streptococ cus group a Omega Solis Furlong DO Work Phone: Start: 01-02-2024 Adult depression scr eening assessment Omega Furlong DO Work Phone: Start: 11-20-2023 Ecg routine ecg w/le ast 12 lds w/i&r Lucia Butler MD Work Phone: Start: 11-14-2023 POCT INFLUENZA A/INF LUENZA B/SARS-COV-2 VERITOR Nathan Talbot EMERGENCY MEDICINE PHYSICIAN-[facility] Work Phone: Start: 11-14-2023 Adult depression scr eening assessment Nathan Talbot EMERGENCY MEDICINE PHYSICIAN-[facility] Work Phone: Start: 10-16-2023 Adult depression scr eening assessment Nathan Talbot EMERGENCY MEDICINE PHYSICIAN-[facility] Work Phone: Start: 10-10-2023 POCT INFLUENZA A/INF LUENZA B/SARS-COV-2 VERITOR Nathan Talbot EMERGENCY MEDICINE PHYSICIAN-[facility] Work Phone: Start: 10-10-2023 Iaadiadoo streptococ cus group a Nathan Talbot EMERGENCY MEDICINE PHYSICIAN-[facility] Work Phone: Start: 10-10-2023 Adult depression scr eening assessment Nathan Talbot EMERGENCY MEDICINE PHYSICIAN-[facility] Work Phone: Start: 09-19-2023 Adult depression scr eening assessment Mojgan Devries EMERGENCY MEDICINE PHYSICIAN-TUBER MACHINE OPERATOR HELPER Work Phone: Start: 08-10-2023 Adult depression scr eening assessment Omega Branchlong DO Work Phone: Start: 08-02-2023 Adult depression scr eening assessment Nathan Talbot EMERGENCY MEDICINE PHYSICIAN-CONTAINER SHOP WELDER Work Phone: Start: 05-27-2022 X-ray of right knee SMALL BUSINESS SALES REPRESENTATIVE- C Nathan Talbot Work Phone: Start: 05-09-[address] GUILLE BIRD Comment on above: Performed By: #### P SAD #### [facility] [address] [place] [address] Dr. Tyrone Salazar Start: 03-23-2022 End: 03-23-2022 Colonoscopy SMALL BUSINESS SALES REPRESENTATIVE-C Nathan Noble o Work Phone: Start: 03-23-2022 Diagnostic endoscopi c examination on colon MD Simba Grey Work Phone: Start: 10-28-[address] GUILLE BIRD Comment on above: Performed By: #### P SAD #### [facility] [address] [place] [address] Dr. Tyrone Salazar Start: 04-03-2007 Transrectal biopsy o f prostate using ultrasound guidance Amanda BIRD Blepharoplasty Amanda RICO S Colonoscopy Amanda BIRD Colonoscopy Amanda BIRD Placement of stent i n cardiac conduit Amanda BIRD Procedure on eye Amanda ZAVALETA SARS Antigen (LFIA) MD Philomena Grey Work Phone: Stool culture for bacteria Ayaka Grey Work Phone: Tonsillectomy Amanda BIRD varicocelectomy Amanda MAYO Plan of Treatment Date Care Activity Detail Author Start: 10-31-2034 Screening for malignant neoplasm of colon [facility] Start: 03-23-2027 Screening for malignant neoplasm of colon Colonoscopy [facility] Start: 11-25-2025 Adult BMI Screening Adult BMI Screening [facility] Start: 11-25-2025 Tobacco Screening Tobacco Screening [facility] Start: 10-17-2025 Adult BMI Screening Adult BMI Screening [facility] Start: 10-17-2025 Tobacco Screening Tobacco Screening [facility] Start: 06-12-2025 End: 06-12-2025 Patient encounter procedure 06/12/2025 9:20 AM EST [facility] [address] [place] [id number] [facility] Start: 06-06-2025 Adult BMI Screening Adult BMI Screening [facility] Start: 06-06-2025 Depression Screening Depression Screening [facility] Start: 06-06-2025 Fall Risk Screening Fall Risk Screening [facility] Start: 06-06-2025 Medicare Annual Wellness (AWV) Medicare Annual Wellness (AWV) [facility] Start: 06-06-2025 Medicare Annual Wellness Visit Medicare Annual Wellness Visit [facility] Start: 04-07-2025 Influenza vaccination Influenza Vaccine [facility] Start: 02-13-2025 Adult BMI Follow Up Plan Adult BMI Follow Up Plan [facility] Start: 02-13-2025 Adult BMI Screening Adult BMI Screening [facility] Start: 02-13-2025 Depression Screening Depression Screening [facility] Start: 02-13-2025 Fall Risk Screening Fall Risk Screening [facility] Start: 02-13-2025 Tobacco Screening Tobacco Screening [facility] Start: 01-06-2025 ambulatory Ambulatory Facility:[facility] Start: 01-01-2025 Adult BMI Screening Adult BMI Screening [facility] Start: 01-01-2025 Depression Screening Depression Screening [facility] Start: 01-01-2025 Fall Risk Screening Fall Risk Screening [facility] Start: 01-01-2025 Tobacco Screening Tobacco Screening [facility] Start: 01-01-2025 End: 01-01-2025 Patient encounter procedure 01/01/2025 1:00 PM EDT Office Visit [facility] [address] [facility] [place] [id number] [facility] Start: 12-20-2024 End: 12-20-2024 Patient encounter procedure [facility] Comment on above: Pain due to onychomycosis of toenails of both feet (Primary Dx); Venous insufficiency Start: 12-05-2024 End: 12-05-2024 Patient encounter procedure 12/05/2024 4:30 PM EDT Procedure Visit [facility] [address] [facility] [address] [place] [address] Hamzah Lazo DPM [address] [facility] [address] [place] [address] [facility] Start: 11-28-2024 COVID-19 Vaccine () COVID-19 Vaccine () [facility] Start: 11-25-2024 End: 11-25-2024 Patient encounter procedure 11/25/2024 9:15 AM EDT Office Visit [facility] [address] [facility] [address] [place] [address] Leopoldo Montaño MD [address] [place] [address] [facility] Start: 11-19-2024 Adult BMI Screening Adult BMI Screening [facility] Start: 11-19-2024 Tobacco Screening Tobacco Screening [facility] Start: 11-13-2024 Adult BMI Follow Up Plan Adult BMI Follow Up Plan [facility] Start: 11-13-2024 Adult BMI Screening Adult BMI Screening [facility] Start: 11-13-2024 Depression Screening Depression Screening [facility] Start: 11-13-2024 Fall Risk Screening Fall Risk Screening [facility] Start: 11-13-2024 Tobacco Screening Tobacco Screening [facility] Start: 10-17-2024 End: 10-17-2025 XR Chest PA and Lateral X-ray chest 2 views Imaging Routine Dyspnea on exertion Expected: 10/17/2024, Expires: 10/17/2025 [facility] Work Phone: Comment on above: Expected: 10/17/2024, Expires: Start: 10-17-2024 End: 10-17-2024 [facility] Start: 10-15-2024 Adult BMI Follow Up Plan Adult BMI Follow Up Plan [facility] Start: 10-15-2024 Adult BMI Screening Adult BMI Screening [facility] Start: 10-15-2024 Depression Screening Depression Screening [facility] Start: 10-15-2024 Fall Risk Screening Fall Risk Screening [facility] Start: 10-15-2024 Tobacco Screening Tobacco Screening [facility] Start: 10-10-2024 End: 10-10-2024 Clinical Support [facility] Start: 10-09-2024 Adult BMI Follow Up Plan Adult BMI Follow Up Plan [facility] Start: 10-09-2024 Adult BMI Screening Adult BMI Screening [facility] Start: 10-09-2024 Depression Screening Depression Screening [facility] Start: 10-09-2024 Fall Risk Screening Fall Risk Screening [facility] Start: 10-09-2024 Tobacco Screening Tobacco Screening [facility] Start: 09-26-2024 End: 09-26-2024 Patient encounter procedure [facility] Comment on above: Pain due to onychomycosis of toenails of both feet (Primary Dx); Venous insufficiency Start: 09-19-2024 Adult BMI Screening Adult BMI Screening [facility] Start: 09-19-2024 Depression Screening Depression Screening [facility] Start: 09-19-2024 Fall Risk Screening Fall Risk Screening [facility] Start: 09-19-2024 Tobacco Screening Tobacco Screening [facility] Start: 08-27-2024 Patient referral [facility] Work Phone: Start: 08-14-2024 End: 08-14-2024 Patient encounter procedure [facility] Comment on above: Arrived Start: 08-10-2024 Adult BMI Screening Adult BMI Screening [facility] Start: 08-10-2024 Depression Screening Depression Screening [facility] Start: 08-10-2024 Fall Risk Screening Fall Risk Screening [facility] Start: 08-10-2024 Tobacco Screening Tobacco Screening [facility] Start: 08-02-2024 Adult BMI Follow Up Plan Adult BMI Follow Up Plan [facility] Start: 08-02-2024 Adult BMI Screening Adult BMI Screening [facility] Start: 08-02-2024 Depression Screening Depression Screening [facility] Start: 08-02-2024 Fall Risk Screening Fall Risk Screening [facility] Start: 08-02-2024 Tobacco Screening Tobacco Screening [facility] Start: 07-18-2024 End: 07-18-2024 Patient encounter procedure 07/18/2024 4:30 PM EST Procedure Visit [facility] [address] [facility] [address] [place] [address] Hamzah Lazo DPM [address] [address] [facility] Start: 07-18-2024 Adult BMI Follow Up Plan Adult BMI Follow Up Plan [facility] Start: 05-09-2024 End: 05-09-2024 Patient encounter procedure 05/09/2024 4:30 PM EDT Procedure Visit [facility] [address] [address] Hamzah Lazo DPM [address] [address] Onychomycosis (Primary Dx); Toe pain, bilateral; Venous insufficiency [facility] Comment on above: Onychomycosis (Primary Dx); Toe pain, bilateral; Venous insufficiency Start: 04-07-2024 COVID-19 Vaccine ( season) COVID-19 Vaccine () [facility] Start: 04-07-2024 Influenza vaccination [facility] Start: 04-03-2024 Medicare Annual Wellness Visit Medicare Annual Wellness Visit [facility] Start: 02-14-2024 End: 02-14-2024 Patient encounter procedure 02/14/2024 4:00 PM EDT Office Visit [facility] Internal Medicine - Family Medicine [address] [place] [phone] Nathan Talbot, EMERGENCY MEDICINE PHYSICIAN-CONTAINER [employer] [address] [place] [address] [facility] Internal Medicine - Family Medicine Start: 11-23-2023 End: 11-23-2023 Patient encounter procedure 11/23/2023 4:00 PM EDT Office Visit [facility] Internal Medicine - Family Medicine [address] [place] [phone] Nathan Talbot, EMERGENCY MEDICINE PHYSICIAN-CONTAINER [employer] [address] [place] [phone] [facility] Internal Medicine - Family Medicine Start: 11-20-2023 End: 11-20-2023 Patient encounter procedure 11/20/2023 8:45 AM EDT Office Visit [facility] Cardiology [address] [place] [phone] Leopoldo Montaño MD [address] [place] [address] Lucia Butler MD [address] [place] [phone] [facility] Start: 11-09-2023 COVID-19 Vaccine ( season) COVID-19 Vaccine ( season) [facility] Start: 11-09-2023 End: 11-09-2023 Patient encounter procedure 11/09/2023 1:00 PM EDT Office Visit [facility] Internal Medicine - Family Medicine [address] [place] [phone] Nathan Talbot, EMERGENCY MEDICINE PHYSICIAN-CONTAINER [employer] [address] [place] [phone] [facility] - Family Medicine Start: 10-26-2023 End: 10-26-2023 Patient encounter procedure 10/26/2023 1:00 PM EDT Office Visit [facility] [address] [facility] [address] [place] [phone] Leopolod Montaño MD [address] [place] [address] Corbin Castro MD [address] [place], [place] [phone] [facility] Start: 10-24-2023 End: 10-24-2023 Patient encounter procedure 10/24/2023 3:00 PM EDT Appointment [facility] [address] [place] [phone] [facility] Start: 10-17-2023 End: 10-17-2023 Patient encounter procedure 10/17/2023 2:30 PM EDT Appointment [facility] [address] [place] [phone] [facility] Start: 10-12-2023 End: 10-12-2023 Patient encounter procedure 10/12/2023 9:30 AM EST Office Visit [facility] Pul[facility]Sleep [facility] [address] [place] [phone] Khushbu Gill, [address] [address] [facility] Start: 09-28-2023 End: 09-28-2023 Patient encounter procedure 09/28/2023 10:00 AM EST Appointment [facility] [address] [place] [address] Herman Gillna Ayaka, DO [address] [address] [facility] Start: 09-19-2023 End: 09-19-2024 Echo complete W/O contrast Echo complete W/O contrast Echocardiography Routine Ischemic myocardial dysfunction Expected: 09/19/2023, Expires: 09/19/2024 [employer] Work Phone: Comment on above: Expected: 09/19/2023, Expires: Start: 08-21-2023 End: 08-21-2023 Patient encounter procedure 08/21/2023 8:30 AM EST Appointment [facility] [address] [place] [address] Khushbu Gill, DO [address] [address] [facility] [place] [facility] Start: 03-23-2022 [facility] Start: 05-15-2019 Administration of varicella zoster vaccine Zoster (Shingles) Vaccine (3 of 3) [facility] Start: 1970 DTaP,Tdap and Td Vaccines (1 - Tdap) DTaP,Tdap and Td Vaccines (1 - Tdap) [facility] Start: 1950 Screening for malignant neoplasm of colon [facility] End: 07-15-2025 Basic metabolic 2000 panel - Serum or Plasma Basic Metabolic Panel Lab Routine Medication management 1 Occurrences starting 07/15/2024 until 07/15/2025 [employer] Work Phone: Comment on above: 1 Occurrences starting 07/15/2024 until 07/15/2025 Comprehensive metabo lic 2000 panel - Serum or Plasma [facility] End: 07-15-2025 Lipid panel Lipid panel Lab Routine Medication management 1 Occurrences starting 07/15/2024 until 07/15/2025 [facility] Comment on above: 1 Occurrences starting 07/15/2024 until 07/15/2025 Patient Education Colon Polyps [facility] Work Phone: Patient referral [facility] Work Phone: [facility] Immunizations Immunization Date Immunization Notes Care Provider Fa marzena 05-15-2024 influenza virus vacc ine, unspecified formulation Amanda BIRD [facility] 05-15-2024 influenza, high dose seasonal, preservative-free Nathan Talbot EMERGENCY MEDICINE PHYSICIAN-CONTAINER [employer] Work Phone: [facility] 04-09-2024 tuberculin skin test ; purified protein derivative solution, intradermal Nathan Talbot EMERGENCY MEDICINE PHYSICIAN-CONTAINER [employer] Work Phone: [facility] 05-26-2023 RSV, recombinant, protein subunit RSVpreF, adjuvant reconstituted, 0.5 mL, PF Nathan Talbot EMERGENCY MEDICINE PHYSICIAN-CONTAINER [employer] Work Phone: [facility] 05-10-2023 Influenza Vaccine, Quadrivalent, Adjuvanted Nathan Talbot EMERGENCY MEDICINE PHYSICIAN-CONTAINER [employer] Work Phone: [facility] 05-10-2023 influenza virus vacc ine, unspecified formulation Nathan Talbot EMERGENCY MEDICINE PHYSICIAN-CONTAINER [employer] Work Phone: [facility] 07-13-2022 Covid-19, Mrna, Lnp- s, Bivalent, Pf, 30mcg/0.3 ml Nathan Talbot EMERGENCY MEDICINE PHYSICIAN-CONTAINER [employer] Work Phone: [facility] 06-09-2022 influenza virus vacc ine, unspecified formulation Amanda BIRD [facility] 06-09-2022 Influenza, High-dose , Quadrivalent Nathan Talbot EMERGENCY MEDICINE PHYSICIAN-CONTAINER [employer] Work Phone: [facility] 02-22-2022 COVID-19 mRNAAshly (Pfizer) MD Simba Grey Work Phone: [facility] 02-22-2022 Covid-19, Mrna, Lnp- s, Pf, 30 Mcg/0.3 Ml Dose, Matt-sucrose Nathan Talbot EMERGENCY MEDICINE PHYSICIAN-CONTAINER [employer] Work Phone: [facility] 02-22-2022 SARS-CoV-2 mRNA (danwkwepzwk-icxb-ggljtb e) vaccine Amanda BIRD [facility] 06-12-2021 Influenza Vaccine, Quadrivalent, Adjuvanted Nathan Talbot EMERGENCY MEDICINE PHYSICIAN-CONTAINER [employer] Work Phone: [facility] 06-12-2021 influenza virus vacc ine, unspecified formulation Amanda BIRD [facility] 06-12-2021 Influenza, High-dose , Quadrivalent Nathan Talbot EMERGENCY MEDICINE PHYSICIAN-CONTAINER [employer] Work Phone: [facility] 05-12-2021 COVID-19 mRNAAshly (Pfizer) MD Simba Grey Work Phone: [facility] 10-09-2020 COVID-19 mRNAAshly (Pfizer) MD Simba Grey Work Phone: [facility] 10-05-2020 SARS-CoV-2 (COVID-19 ) mRNA BNT-162b2 vax Amanda BIRD [facility] 09-18-2020 COVID-19 mRNAAshly (Pfizer) MD Simba Grey Work Phone: [facility] 06-03-2020 Influenza Vaccine, Quadrivalent, Adjuvanted Nathan Talbot EMERGENCY MEDICINE PHYSICIAN-CONTAINER [employer] Work Phone: [facility] 06-03-2020 influenza virus vacc ine, unspecified formulation Amanda BIRD [facility] 06-04-2019 influenza virus vacc ine, unspecified formulation Amanda BIRD [facility] 06-04-2019 Seasonal trivalent influenza vaccine, adjuvanted, preservative free Nathan Talbot EMERGENCY MEDICINE PHYSICIAN-CONTAINER [employer] Work Phone: [facility] 03-20-2019 zoster vaccine recombinant Nathan Talbot EMERGENCY MEDICINE PHYSICIAN-CONTAINER [employer] Work Phone: [facility] 03-20-2019 zoster vaccine, live Nathan Talbot EMERGENCY MEDICINE PHYSICIAN-CONTAINER [employer] Work Phone: [facility] Comment on above: Result Comment: 2023: [facility] 03-20-2019 zoster vaccine, unspecified formulation Nathan Talbot EMERGENCY MEDICINE PHYSICIAN-CONTAINER [employer] Work Phone: [facility] 11-02-2018 zoster vaccine recombinant Nathan Talbot EMERGENCY MEDICINE PHYSICIAN-CONTAINER [employer] Work Phone: [facility] 11-02-2018 zoster vaccine, live Nathan Talbot EMERGENCY MEDICINE PHYSICIAN-CONTAINER [employer] Work Phone: [facility] 05-13-2018 influenza virus vacc ine, unspecified formulation Nathan Talbot EMERGENCY MEDICINE PHYSICIAN-CONTAINER [employer] Work Phone: [facility] 05-13-2018 pneumococcal polysaccharide vaccine, 23 valent Nathan Talbot EMERGENCY MEDICINE PHYSICIAN-CONTAINER [employer] Work Phone: [facility] 05-13-2018 Seasonal trivalent influenza vaccine, adjuvanted, preservative free Nathan Talbot EMERGENCY MEDICINE PHYSICIAN-CONTAINER [employer] Work Phone: [facility] 04-24-2017 influenza virus vacc ine, unspecified formulation Nathan Talbot EMERGENCY MEDICINE PHYSICIAN-CONTAINER [employer] Work Phone: [facility] 04-24-2017 influenza, high dose seasonal, preservative-free Nathan Talbot EMERGENCY MEDICINE PHYSICIAN-CONTAINER [employer] Work Phone: [facility] 06-02-2016 influenza virus vacc ine, unspecified formulation Nathan Talbot EMERGENCY MEDICINE PHYSICIAN-CONTAINER [employer] Work Phone: [facility] 06-02-2016 influenza, injectabl e, quadrivalent, preservative free Nathan Talbot EMERGENCY MEDICINE PHYSICIAN-CONTAINER [employer] Work Phone: [facility] 07-06-2015 influenza virus vacc ine, unspecified formulation Amanda BIRD [facility] 07-06-2015 influenza, seasonal, injectable, preservative free Nathan Talbot EMERGENCY MEDICINE PHYSICIAN-CONTAINER [employer] Work Phone: [facility] 07-06-2015 pneumococcal conjuga te vaccine, 13 valent Nathan Talbot EMERGENCY MEDICINE PHYSICIAN-CONTAINER [employer] Work Phone: [facility] 08-25-2014 influenza virus vacc ine, unspecified formulation Amanda BIRD [facility] 08-25-2014 influenza, seasonal, injectable, preservative free Nathan Talbot EMERGENCY MEDICINE PHYSICIAN-CONTAINER [employer] Work Phone: [facility] 06-11-2007 influenza virus vacc ine, whole virus Nathan Talbot EMERGENCY MEDICINE PHYSICIAN-CONTAINER [employer] Work Phone: [facility] 06-11-2007 influenza, whole Amanda SHIVAM MEGHANN [facility] Payers Date Payer Category Payer Medicaid [employer] MEDICARE A DVANTAGE [id number] 2022 Self-pay [id number] 2021 Medicare [id number] 2021 Medicare HMO [employer] MEDICARE emb [id number] 1959 Medicare [id number] [id number] 1951 Unknown [id number] 2.16840.1.045732.3.579.2.593 1951 Unknown [id number] 2.16840.1.110055.3.579.2.593 1951 Unknown [id number] 2.16840.1.450646.3.579.2.593 1951 Unknown [id number] 2.16840.1.911232.3.579.2.593 1951 Unknown [id number] 2.16.840.1.078752.3.579.2.1286 1951 Unknown [id number] 2.16.840.1.145584.3.579.2.727 1951 Unknown [id number] 2.16.840.1.061321.3.579.2.727 1951 Unknown [id number] 2.16.840.1.242959.3.579.2.727 1951 Unknown [id number] 2.16.840.1.136259.3.579.2.727 1951 Unknown [id number] 2.16.840.1.074834.3.579.2.128 1951 Unknown [id number] 2.16.840.1.274396.3.579.2.1285 1951 Unknown [id number] 2.16.840.1.800315.3.579.2.128 1951 Unknown [id number] 2.16.840.1.385535.3.579.2.128 1951 Unknown [id number] 2.16.840.1.488863.3.579.2.1285 1951 Unknown [id number] 2.16.840.1.747168.3.579.2.128 1951 Unknown [id number] 2.16.840.1.850462.3.579.2.128 1951 Unknown [id number] 2.16.840.1.466479.3.579.2.128 1951 Unknown [id number] 2.16.840.1.095703.3.579.2.1259 1951 Unknown [id number] 2.16.840.1.008451.3.579.2.1259 1951 Unknown [id number] 2.16.840.1.118034.3.579.2.1259 1951 Unknown [id number] 2.16.840.1.237337.3.579.2.1259 1951 Unknown [id number] 2.16.840.1.760004.3.579.2.1259 1951 Unknown [id number] 2.16.840.1.953237.3.579.2.1259 1951 Unknown [id number] 2.16.840.1.033863.3.579.2.1259 1951 Unknown [id number] 2.16.840.1.416781.3.579.2.1259 1951 Unknown [id number] 2.16.840.1.062538.3.579.2.1259 Unknown [id number] Unknown [id number] 2.16.840.1.433426.3.579.2.531 Unknown [id number] 2.16.840.1.906909.3.579.2.531 Social History Date Type Detail Facility Unknown if ever smoked [facility] [employer] Other Start: 02-22-2024 End: 10-31-2024 Sex Assigned At [facility] Other Start: 03-23-2022 End: 09-28-2023 Tobacco smoking status NHIS Never smoked tobacco (finding) [facility] Start: 1950 Sex Assigned At Male [facility] Tobacco smoking status Never [facility] Start: 12-08-2021 End: 09-28-2023 Tobacco use and exposure Smokeless tobacco non-user [facility] Start: 02-22-2024 End: 12-20-2024 Alcoholic beverage intake Lifetime non-drinker (finding) [facility] Start: 02-22-2024 End: 10-31-2024 History of Social function [facility] Start: 1950 Sex assigned at Not on file [facility] Start: 02-14-2024 End: 11-25-2024 Alcoholic beverage intake Current drinker of alcohol (finding) [facility] Has the River[employer], oil, or water [employer] threatened to shut off services in your home in past 12Mo No [facility] Do you belong to any clubs or organizations such as nondenominational groups, unions, fraternal or athletic groups, or school groups? Yes [facility] Are you now , , , , never or living with a partner? [facility] How often to you hav e a drink containing alcohol? 2-4 times a month [facility] How many standard dr inks containing alcohol do you have on a typical day? 1 or 2 [facility] How often do you hav e 6 or more drinks on 1 occasion? Never [facility] How hard is it for y ou to pay for the very basics like food, housing, medical care, and heating Hard [facility] Do you feel stress - tense, restless, nervous, or anxious, or unable to sleep at night because your mind is troubled all the time - these days [OSQ] Not at all [facility] Start: 08-02-2021 Education 18 [facility] Start: 09-07-2020 Alcohol Comment occasional [facility] Start: 03-12-2015 End: 11-25-2024 Sex Male (finding) [facility] Do you feel stress - tense, restless, nervous, or anxious, or unable to sleep at night because your mind is troubled all the time - these days [OSQ] Rather much [facility] Goals Date Patient Goal Desired Activity /State Functional Status Date Assessment Result Facility 07-29-2024 Functional Status N/A [facility] 12-04-2023 Functional Status N/A [facility] 01-27-2023 Functional Status N/A [facility] 11-14-2022 Functional Status N/A [facility] 05-16-2022 Functional Status N/A [facility] Clinical Notes 03-02-2022 to 12-20-2024 Hamzah Lazo, CONNER - 12/20/2024 4:10 PM EDTTelephone Encounter - Darshana Loera RN - 12/15/2024 2:57 PM EDTTelephone Encounter - Darshana Loera RN - 12/15/2024 2:57 PM EDT Note Date & Type Note Facility 12-20-2024 History of Presen t illness Narrative Patient: Eliazar Nunez : 1950 PCP: [facility] [...] Allergies: Allergies Allergen Reactions Moxifloxacin GI intolerance Amoxicillin Diarrhea Clavulanic Acid Diarrhea Naproxen GI intolerance Perflutren Lipid Microspheres Unknown Sob and severe back pain. Resolved after 30 mins Past Medical History: Past Medical History: Diagnosis Date Allergic rhinitis Orellana esophagus BPH with urinary obstruction CAD (coronary artery disease) ([facility]) CHF (congestive heart failure) ([facility]) COVID-19 07/2021 History of heart attack ([facility]) 09/10/2014 HLD (hyperlipidemia) ([facility]) HTN (hypertension) ([facility]) Hx of fall 01/2018 Kidney stones IN (myocardial infarction) ([facility]) SURINDER (obstructive sleep apnea) Shingles Sleep apnea [...] Resource Strain: High Risk (06/06/2024) Received from [facility] Financial Resource Strain (CARDIA) Difficulty of Paying Living Expenses: Hard Food Insecurity: No Food Insecurity (11/25/2024) Received from [facility] Hunger Screening Within the past 12 months we worried whether our food would run out before we got money to buy more.: Never True Within the past 12 months the food we bought just didn't last and we didn't have money to get more.: Never True Transportation Needs: No Transportation Needs (07/18/2023) Received from [facility] PRAPARE - Transportation Lack of Transportation (Medical): No Lack of Transportation (Non-Medical): No Physical Activity: Sufficiently Active (08/02/2021) Received from [facility] Exercise Vital Sign Days of Exercise per Week: 5 days Minutes of Exercise per Session: 40 min Stress: No Stress Concern Present (06/06/2024) Received from [facility] Last Guide [facility] [employer] [place] [facility] - Occupational Stress Questionnaire Feeling of Stress : Not at all Social Connections: Socially Integrated (08/02/2021) Received from [facility] Social Connection and Isolation Panel [NHANES] Frequency of Communication with Friends and Family: More than three times a week Frequency of Social Gatherings with Friends and Family: More than three times a week Attends Church Services: More than 4 times per year Active Member of Clubs or Organizations: Yes Attends Club or Organization Meetings: More than 4 times per year Marital Status: Intimate Partner Violence: Not on file Housing Stability: Low Risk (07/18/2023) Received from [facility] Housing Instability Are you worried or concerned [...] feet ORTHO: Positive pain on palpation to toenails of the left 1,2,3,4,5 toes and right 1,2,3,4,5 toes ASSESSMENT 1. Pain due to onychomycosis of toenails of both feet 2. Venous insufficiency PLAN Discussed proper foot care with patient today. Debride nails in length and thickness digits 1 through 10 Continue with elevation of feet when nwb for swelling to edema Hamzah Lazo DPM documented in this encounter [facility] 12-15-2024 Miscellaneous Notes Last OV 11/25/24 CMP 08/27/24 documented in this encounter [facility] 12-15-2024 Telephone encounter Note Last OV 11/25/24 CMP 08/27/24 [facility] 12-09-2024 Telephone encounter Note Pt left VM - he wants champagne color. Called him back to schedule fitting appointment but call went to voice mail [facility] Work Phone: 12-09-2024 Miscellaneous Notes Pt left VM - he wants champagne color. Called him back to schedule fitting appointment but call went to voice mail Called pt - he was approved for aids, I just need color. Left VM on cell phone. Called home phone and spoke to his . She will have him call us documented in this encounter [facility] 12-06-2024 Telephone encounter Note Called pt - he was approved for aids, I just need color. Left VM on cell phone. Called home phone and spoke to his . She will have him call us [facility] 11-25-2024 History of Presen t illness Narrative Eliazar Nunez Date of visit: 11/25/2024 Date of : 1950 Age: 74 y.o. Patient Active Problem List Diagnosis Obstructive sleep apnea Hyperlipidemia Presence of bare metal stent in anterior descending branch of left coronary artery 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 ([facility]) Ischemic myocardial dysfunction GERD (gastroesophageal reflux disease) Chronic seasonal allergic rhinitis due to pollen Orellana's esophagus Proteinuria Medicare annual wellness visit, subsequent Coronary artery disease of [place] artery of [place] heart with stable angina pectoris Allergic rhinitis Hydrocele in adult Benign prostatic hyperplasia with urinary obstruction Abnormal CT of the chest Multiple thyroid nodules Situational anxiety Bronchiectasis without complication ([facility]) Nocturia Allergies Allergen Reactions Avelox [Moxifloxacin] GI Disturbance Naprosyn [Naproxen] GI Disturbance Perflutren Lipid Microspheres Other (See Comments) Sob and severe back pain. Resolved after 30 mins Current Outpatient Medications Medication Sig Dispense Refill amLODIPine (NORVASC) 5 mg tablet Take 1 tablet (5 mg total) by mouth in the morning. 90 tablet 2 ascorbic acid, vitamin C, (VITAMIN C) 1000 mg tablet Take 1 tablet (1,000 mg total) by mouth in the morning. aspirin 81 mg Take 1 tablet (81 mg total) by mouth in the morning. atorvastatin (LIPITOR) 80 mg tablet Take 1 tablet (80 mg total) by mouth in the morning. 90 tablet 0 azelastine (ASTELIN) 137 mcg (0.1 %) nasal spray Administer 1 spray into each nostril in the morning and 1 spray before bedtime. carvediloL (COREG) 12.5 mg tablet Take 1 tablet (12.5 mg total) by mouth in the morning and 1 tablet (12.5 mg total) before bedtime. 180 tablet 1 cetirizine (ZyrTEC) 10 mg capsule Take 1 capsule (10 mg total) by mouth in the morning. chlorhexidine (PERIDEX) 0.12 % solution Apply 15 mL to the mouth or throat in the morning. famotidine (PEPCID) 20 mg tablet Take 1 tablet (20 mg total) by mouth in the morning. FLUoxetine (PROzac) 10 mg capsule Take 1 capsule (10 mg total) by mouth in the morning. 90 capsule 1 fluticasone propionate (FLONASE) 50 mcg/actuation nasal spray Administer 2 sprays into each nostril in the morning. 16 g 11 lisinopriL (PRINIVIL,ZESTRIL) 10 mg tablet Take 1 tablet (10 mg total) by mouth in the morning. 60 tablet 3 nitroglycerin (NITROSTAT) 0.[address] 1 tablet (0.4 mg total) under the tongue every 5 (five) minutes as needed for chest pain. 25 tablet 5 psyllium seed, with sugar, (FIBER ORAL) Take by mouth in the morning and before bedtime. tamsulosin (FLOMAX) 0.4 mg capsule Take 1 capsule (0.4 mg total) by mouth in the morning and 1 capsule (0.4 mg total) before bedtime. No current facility-administered medications for this visit. 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 Patient is here for routine office visit. He denies chest pain, shortness for breath and palpitations. He denies orthopnea, paroxysmal nocturnal dyspnea lower limb edema. Past Medical History: Diagnosis Date Allergic rhinitis Atherosclerotic heart disease of [place] coronary artery without angina pectoris Orellana's esophagus BPH (benign prostatic hyperplasia) Episodic lightheadedness 08/22/2017 Gastritis 11/15/2018 Pepcid ( pt on asa for CAD) Heart attack ([facility]) 09/10/2014 maker Hyperlipidemia Medication controlled Hypertension Hypertensive heart disease with heart failure [place] Ischemic cardiomyopathy Kidney stones Obstructive sleep apnea BiPAP setting at 2 Presence of coronary angioplasty implant and graft Prostatitis Puckering of macula, left eye Tinea corporis 10/02/2017 No data recorded No data recorded No data recorded Past Surgical History: Procedure Laterality Date BLEPHAROPLASTY CARDIAC CATHETERIZATION COLONOSCOPY 03/20/2023 CORONARY ANGIOPLASTY WITH STENT PLACEMENT LAPAROSCOPIC CHOLECYSTECTOMY N/A 02/04/2020 Performed by Terry Ruvalcaba DO at [facility] THROMBECTOMY TONSILLECTOMY VEIN LIGATION AND STRIPPING Family History Problem Relation Age of Onset Dementia Mother Hypertension Mother Cancer Mother Stroke Father Throat cancer Father Hypertension Father Heart disease Father Depression Daughter Bipolar disorder Daughter Social History Socioeconomic History Marital status: Spouse name: Not on file Number of children: Not on file Years of education: Not on file Highest education level: Master's degree (e.g., MA, MS, Marcia, MEd, [employer], [employer]YA) Occupational History Not on file Tobacco Use Smoking status: Never Smokeless tobacco: Never Vaping Use Vaping status: Never Used Substance and Sexual Activity Alcohol use: Yes Comment: occasional Drug use: No Sexual activity: Yes Partners: Female Other Topics Concern Caffeine Use No Social History Narrative Not on file Social Drivers of Health Financial Resource Strain: High Risk (06/06/2024) Overall Financial Resource Strain (CARDIA) Difficulty of Paying Living Expenses: Hard Food Insecurity: No Food Insecurity (11/25/2024) Hunger Screening Food Insecurity - Worry: Never True Food Insecurity - Inability: Never True Transportation Needs: No Transportation Needs (07/18/2023) PRAPARE - Transportation Lack of Transportation (Medical): No Lack of Transportation (Non-Medical): No Physical Activity: Sufficiently Active (08/02/2021) Exercise Vital Sign Days of Exercise per Week: 5 days Minutes of Exercise per Session: 40 min Stress: No Stress Concern Present (06/06/2024) [place] [facility] [employer] - Occupational Stress Questionnaire Feeling of Stress : Not at all Social Connections: Socially Integrated (08/02/2021) Social Connection and Isolation Panel [NHANES] Frequency of Communication with Friends and Family: More than three times a week Frequency of Social Gatherings with Friends and Family: More than three times a week Attends Church Services: More than 4 times per year Active Member of Clubs or Organizations: Yes Attends Club or Organization Meetings: More than 4 times per year Marital Status: Interpersonal Safety: Not At Risk (08/02/2021) Humiliation, Afraid, Rape, and Kick questionnaire Fear of Current or Ex-Partner: No Emotionally Abused: No Physically Abused: No Sexually Abused: No Housing Instability: Low Risk (07/18/2023) Housing Instability Housing Instability: No Review of Systems Review of Systems Constitutional: Negative. HENT: Positive for hearing loss. Eyes: Negative. Cardiovascular: Negative. Respiratory: Negative. Endocrine: Negative. Hematologic/Lymphatic: Negative. Skin: Negative. Musculoskeletal: Negative. Gastrointestinal: Positive for constipation. Genitourinary: Negative. Neurological: Negative. Psychiatric/Behavioral: Positive for depression. The patient is nervous/anxious. Allergic/Immunologic: Negative. Vascular: Negative. CARDIOVASCULAR: Please review HPI. Physical Examination General appearance: Alert, oriented and cooperative. In no acute distress. Skin: Warm and dry to touch. Head: Normocephalic, without obvious abnormality, atraumatic. Ears, Nose, Mouth, Throat: Throat clear without erythema or exudate. Dentition intact. Eyes: Conjunctivae unremarkable, EOM intact. Neck: No JVD, No carotid bruit. Neck supple, trachea midline. Respiratory: Clear to auscultation bilaterally, no use of accessory muscles. Cardiovascular: RRR with normal S1 and S2 with no murmurs. Gastrointestinal: Soft, non-tender. Bowel sounds normal. Musculoskeletal: No peripheral edema. Neurologic: Oriented to time, person and place, affect appropriate. No focal/major motor defects noted. Psychiatric: Appropriate mood, memory and judgement. VITAL SIGNS: BP 106/68 Pulse 50 Ht 190.5 cm (6' 3 ) Wt 105.1 kg (231 lb 12.8 oz) SpO2 90% BMI 28.97 kg/m Orders Placed or Reconciled This Encounter Medications famotidine (PEPCID) 20 mg tablet Sig: Take 1 tablet (20 mg total) by mouth in the morning. chlorhexidine (PERIDEX) 0.12 % solution Sig: Apply 15 mL to the mouth or throat in the morning. ascorbic acid, vitamin C, (VITAMIN C) 1000 mg tablet Sig: Take 1 tablet (1,000 mg total) by mouth in the morning. psyllium seed, with sugar, (FIBER ORAL) Sig: Take by mouth in the morning and before bedtime. There are no discontinued medications. IMPRESSIONS/PLAN 1. Ischemic myocardial dysfunction - POCT EKG 2. Coronary artery disease of [place] artery of [place] heart with stable angina pectoris - POCT EKG 3. 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 ([facility]) 4. Presence of bare metal stent in anterior descending branch of left coronary artery 5. Obstructive sleep apnea Overall, stable from a cardiac standpoint. Blood pressure heart rate are controlled. Euvolemic on examination. No anginal symptoms. Continue current cardiac medications. All questions and concerns addressed to the patient's satisfaction. Follow-up in 12 months or sooner if needed. This note was created with the assistance of a speech recognition program. While intending to generate a timely document that accurately reflects the content of the visit, no guarantee can be provided that every grammatical or spelling mistake has been or will be identified or corrected. Thank you for your understanding! TODAYS ORDERS Orders Placed This Encounter Procedures POCT EKG FOLLOW UP Return in about 1 year (around 11/25/2025). PCP: COCO Braun Referring Physician: COCO Braun [address] [place] [address] documented in this encounter [facility] Last Guide [facility] 10-31-2024 History of Presen t illness Narrative Images from the original note were not included. Eliazar Nunez 1950 Eliazar Nunez is a 74 y.o. male presents with chief complaint of Consult (Hemorrhoids- Had one episode of bleeding. Last colonoscopy was 2 yrs ago.) HPI: HPI Patient had 1 episode of rectal bleeding, he had a large bowel movement that was somewhat painful and then he would some bright red blood. He has never had blood before or since. Talked to a specimen processor who took over for Dr. Laughlin who referred him here. He was told that in his last colonoscopy that he would large hemorrhoids. He has no anorectal pain or burning or itching. He does have problems with getting clean with wiping, he feels like he always has skid nazario in his underwear. He does take fiber supplementation but only 1 Metamucil gel cap per day. SUBJECTIVE: MEDICATIONS: ALLERGIES Current Outpatient Medications Medication Instructions amLODIPine (NORVASC) 5 mg, Every morning aspirin 81 mg, Daily RT atorvastatin (Lipitor) 80 MG tablet 1 tablet, Every morning carvedilol (Coreg) 12.5 MG tablet 1 tablet, Every 12 hours Cetirizine HCl 10 mg, Daily RT chlorhexidine (Peridex) 0.12 % solution as directed Mouth/Throat famotidine (Pepcid) 20 MG tablet Daily fluticasone (Flonase Allergy Relief) 50 MCG/ACT nasal spray Nasal lisinopril 10 MG tablet TAKE 1 TABLET BY MOUTH TWICE A DAY IN THE MORNING AND BEFORE BEDTIME nitroglycerin (NITROSTAT) 0.4 mg, Daily PRN tamsulosin (FLOMAX) 0.4 mg, 2 times daily Allergies Allergen Reactions Moxifloxacin GI intolerance Amoxicillin Diarrhea Clavulanic Acid Diarrhea Naproxen GI intolerance Perflutren Lipid Microspheres Unknown Sob and severe back pain. Resolved after 30 mins PAST MEDICAL HISTORY: SOCIAL HISTORY SURGICAL HISTORY: Past Medical History: Diagnosis Date Allergic rhinitis Orellana esophagus BPH with urinary obstruction CAD (coronary artery disease) ([facility]) CHF (congestive heart failure) ([facility]) COVID-19 07/2021 History of heart attack ([facility]) 09/10/2014 HLD (hyperlipidemia) ([facility]) HTN (hypertension) ([facility]) Hx of fall 01/2018 Kidney stones IN (myocardial infarction) ([facility]) SURINDER (obstructive sleep apnea) Shingles Sleep apnea Social History Tobacco Use Smoking status: Never Smokeless tobacco: Never Vaping Use Vaping status: Never Used Substance Use Topics Alcohol use: Never Drug use: Never Past Surgical History: Procedure Laterality Date BLEPHAROPLASTY CHOLECYSTECTOMY COLONOSCOPY CORONARY ANGIOPLASTY WITH STENT PLACEMENT THROMBECTOMY TONSILLECTOMY US GUIDED FINE PERCUTANEOUS ASPIRATION 02/20/2023 US GUIDED FINE PERCUTANEOUS ASPIRATION 02/20/2023 VEIN LIGATION AND STRIPPING REVIEW OF SYMPTOMS: Review of Systems Constitutional: Negative for appetite change and fatigue. HENT: Negative for trouble swallowing. Respiratory: Negative for cough and shortness of breath. Cardiovascular: Negative for chest pain. Gastrointestinal: Positive for anal bleeding. Negative for abdominal pain. Genitourinary: Negative for hematuria. Musculoskeletal: Negative for arthralgias. Neurological: Negative for seizures. Hematological: Negative for adenopathy. OBJECTIVE: Visit Vitals BP 120/66 Ht 6' 3 Wt 235 lb BMI 29.37 kg/m Smoking Status Never BSA 2.38 m Physical Exam Constitutional: Appearance: Normal appearance. He is not ill-appearing. HENT: Head: Atraumatic. Eyes: General: No scleral icterus. Cardiovascular: Rate and Rhythm: Regular rhythm. Heart sounds: Normal heart sounds. Pulmonary: Breath sounds: No wheezing. Abdominal: General: There is no distension. Tenderness: There is no abdominal tenderness. Genitourinary: Comments: On visual inspection there is no perianal mass. With Valsalva there is no prolapse. On digital exam there is good tone there is no gross blood there is no masses. Musculoskeletal: Right lower leg: No edema. Left lower leg: No edema. Neurological: Mental Status: He is alert. ASSESSMENT AND PLAN: Assessment/Plan Diagnoses and all orders for this visit: Internal hemorrhoids Unspecified hemorrhoids - Ambulatory referral to General Surgery I would discussion with the patient regarding internal hemorrhoids. The fiber supplement he is taking is extremely minimal amount of fiber. Increase fiber would help. Five caps is only 1.8 g of fiber. I would recommend him take Metamucil powder or other psyllium powder 1 big heaping tbsp daily in water. That will help his wiping by reducing residue. He is very appreciative of that. I am happy to see him again on an as-needed basis otherwise I am he is discharged from my care. documented in this encounter [facility] 10-21-2024 Miscellaneous Notes PAP mask and supplies order with supportive documentation faxed to [facility]. documented in this encounter [facility] 10-21-2024 Telephone encounter Note PAP mask and supplies order with supportive documentation faxed to [facility]. [facility] 10-17-2024 Miscellaneous Notes Pt completed office visit with [facility] today. C/o jaw pain and would like to try different mask. Pt states the pain is only on the bottom, left side and he thinks it is due to having several teeth pulled on that side and current mask puts pressure on this area. Reviewed that can try nasal mask with chinstrap but chinstrap likely will put pressure in same area. Pt agrees and wanted to try the hybrid mask. Sampled him the Airfit F40 -M and it is enchilada maker weight than Dreamwear / no contraindication for magnets. Reviewed possible mask liners also so can avoid over-tightening mask. documented in this encounter [facility] 10-17-2024 Telephone encounter Note Pt completed office visit with SE today. C/o jaw pain and would like to try different mask. Pt states the pain is only on the bottom, left side and he thinks it is due to having several teeth pulled on that side and current mask puts pressure on this area. Reviewed that can try nasal mask with chinstrap but chinstrap likely will put pressure in same area. Pt agrees and wanted to try the hybrid mask. Sampled him the Airfit F40 -M and it is enchilada maker weight than Dreamwear / no contraindication for magnets. Reviewed possible mask liners also so can avoid over-tightening mask. [facility] 10-17-2024 History of Presen t illness Narrative Images from the original note were not included. Images from the original note were not included. [facility] Progress Note Patient - Eliazar Nnuez Age - 74 y.o. - 1950 ASSESSMENT SURINDER on BIPAP 20/05 therapy History of frequent URI Allergic rhinitis PLAN Reviewed mask options today and new sample mask given to trial Refill BiPAP supplies Continue excellent BiPAP adherence Continue Zyrtec, Flonase Repeat chest x-ray Return to clinic in 1 year earlier if needed SUBJECTIVE Mr. Nunez presents for follow-up of his SURINDER on BiPAP and his allergic rhinitis. He was historically initially seen for pulmonary nodular opacities on CT imaging however this resolved on follow-up imaging. Last CT was September 2023. He is low risk for neoplasm and does not qualify for annual low-dose screening CT scans. 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 He takes Zyrtec for his allergic rhinitis along with Flonase. He has stayed healthy through this fall and winter season without any respiratory illness. No new shortness of breath, cough, wheeze. He does get a little bit winded after climbing 3 flights of stairs at the school. His BiPAP every night with sleep. Download is reviewed today and demonstrates excellent adherence with 100% of days used greater than 4 hours. He is using it 7 days a week for proximally 7-1/2 hours per night. He is waking up refreshed and has no daytime sleepiness. His only complaint is at with moving from the nasal pillow mask to a full face mask he started to have bilateral lower jaw pain at the site of where the mask contact his face. He has also had some recent teeth pulled on the lower jaw. He is uncertain if he is clenching his jaw. VITALS BP 107/53 Pulse 53 Ht 190.5 cm (6' 3 ) Wt 105.6 kg (232 lb 14.4 oz) SpO2 97% BMI 29.11 kg/m Exam General: Alert, oriented, no acute distress, nontoxic Chest: Clear to auscultation bilaterally without any crackles, wheezes, rhonchi. Normal AP diameter. CV: Regular rate regular rhythm Extremities: No edema, erythema, distal cyanosis, clubbing Integumentary: Warm and dry. No rash or lesion Neuro: No lateralizing deficits. No tremors Meds Medications Reviewed. Lab Results PFT Results Radiology CT CHEST 09/28/23 CLINICAL INFORMATION: Abnormal CT of the chest; [...] that were previously present have largely resolved. Bureau Chief images include series 2, image 84 of [...] the latter 2 areas are marked with ione. There remains a left lower lobe calcified [...] be determined clinically. Dr. Khushbu Gill DO. [facility] Office: [phone] documented in this encounter [facility] 10-11-2024 Miscellaneous Notes Last OV 11/20/23 Last lipids was drawn at [facility] will call over for lab results.slm documented in this encounter [facility] 10-11-2024 Telephone encounter Note Last OV 11/20/23 Last lipids was drawn at [facility] will call over for lab results.slm [facility] 10-10-2024 History of Presen t illness Narrative History: Pt was referred to Audiology because of hearing loss. Pt has noticed a decrease in his hearing. He is a cytology teacher at both [employer] and [employer]. 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. He has difficulty hearing his students at times and also hearing people on his tours. Otoscopic Exam: Ear canal clear and TM intact AU Pure Tone Audiometry Right Ear: Mild sloping to severe sensorineural hearing loss above 500 Hz Left Ear: Mild sloping to severe sensorineural hearing loss above 500 Hz Speech Audiometry Right SRT = 45 dB and word discrimination score at 75 dBHL (masked) = 88% Left SRT = 45 dB and word discrimination score at 75 dBHL (masked) = 88% Tympanometry Right Ear: Type A tympanogram Left Ear: Type A tympanogram Impressions: Bilateral sensorineural hearing loss. Pt is good candidate and should be eligible for assistance through [facility]. Pt will return later today for hearing aid discussion. documented in this encounter [facility] 09-26-2024 History of Presen t illness Narrative Patient: Eliazar Nunez : 1950 PCP: [facility] Provider Unallocated, MD SUBJECTIVE This is a 74 y.o. male [...] with urinary obstruction CAD (coronary artery disease) ([facility]) CHF (congestive heart failure) ([facility]) COVID-19 07/2021 History of heart attack ([facility]) 09/10/2014 HLD (hyperlipidemia) ([facility]) HTN (hypertension) ([facility]) Hx of fall 01/2018 Kidney stones IN (myocardial infarction) ([facility]) SURINDER (obstructive sleep apnea) Shingles Sleep apnea [...] Resource Strain: High Risk (06/06/2024) Received from [facility] Overall Financial Resource Strain (CARDIA) Difficulty of Paying Living Expenses: Hard Food Insecurity: No Food Insecurity (06/06/2024) Received from [facility] Hunger Screening Within the past 12 months we worried whether our food would run out before we got money to buy more.: Never True Within the past 12 months the food we bought just didn't last and we didn't have money to get more.: Never True Transportation Needs: No Transportation Needs (07/18/2023) [facility] PRAPARE - Transportation Lack of Transportation (Medical): No Lack of Transportation (Non-Medical): No Physical Activity: Sufficiently Active (08/02/2021) [facility] Exercise Vital Sign Days of Exercise per Week: 5 days Minutes of Exercise per Session: 40 min Stress: No Stress Concern Present (06/06/2024) Received from [facility] [place] [employer] - Occupational Stress Questionnaire Feeling of Stress : Not at all Social Connections: Socially Integrated (08/02/2021) [facility] Social Connection and Isolation Panel [NHANES] Frequency of Communication with Friends and Family: More than three times a week Frequency of Social Gatherings with Friends and Family: More than three times a week Attends Church Services: More than 4 times per year Active Member of Clubs or Organizations: Yes Attends Club or Organization Meetings: More than 4 times per year Marital Status: Intimate Partner Violence: Not on file Housing Stability: Low Risk (07/18/2023) [facility] Housing Instability Are you worried or concerned [...] feet ORTHO: Positive pain on palpation to toenails of the left 1,2,3,4,5 toes and right 1,2,3,4,5 toes ASSESSMENT 1. Pain due to onychomycosis of toenails of both feet 2. Venous insufficiency PLAN Discussed proper foot care with patient today. Debride nails in length and thickness digits 1 through 10 Continue with elevation of feet when nwb for swelling to edema Hamzah Lazo DPM documented in this encounter [facility] 08-14-2024 History of Presen t illness Narrative Patient was seen today for routine ear cleaning. Non-occlusive cerumen present, bilaterally, which was successfully removed without incident using instrumentation/suction. TMs visible and intact post cleaning. Patient is aware of hearing loss and is interested scheduling an audiological evaluation. He wanted to start with an ear cleaning first to see if this would help. 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 He stated he has a small benefit ($1000) toward hearing aids. If he is a candidate for hearing aids, he may be eligible for assistance through [employer]. In the past, [employer] was able to assist with the difference if insurance did not cover as much as [employer]. If patient does want an audio and is a candidate for amplification, we can explore these options and reach out to Yash. documented in this encounter [facility] 07-29-2024 Hospital Discharg e instructions Patient Education 07/29/2024 14:05:33 Urinary Frequency, Adult Urinary Frequency, Adult Urinary frequency means urinating more often than usual. You may urinate every 1 2 hours even though you drink a normal amount of fluid and do not have a bladder infection or condition. Although you urinate more often than normal, the total amount of urine produced in a day is normal. With urinary frequency, you may have an urgent need to urinate often. The stress and anxiety of needing to find a bathroom quickly can make this urge worse. This condition may go away on its own, or you may need treatment at home. Home treatment may include bladder training, exercises, taking medicines, or making changes to your diet. Follow these instructions at home: Bladder health Your health care provider will tell you what to do to improve bladder health. You may be told to: Keep a bladder diary. Keep track of: ?What you eat and drink. ?How often you urinate. ?How much you urinate. Follow a bladder training program. This may include: ?Learning to delay going to the bathroom. ?Double urinating, also called voiding. This helps if you are not completely emptying your bladder. ?Scheduled voiding. Do Kegel exercises. Kegel exercises strengthen the muscles that help control urination, which may help the condition. Eating and drinking Follow instructions from your health care provider about eating or drinking restrictions. You may be told to: Avoid caffeine. Drink fewer fluids, especially alcohol. Avoid drinking in the evening. Avoid foods or drinks that may irritate the bladder. These include coffee, tea, soda, artificial sweeteners, citrus, tomato-based foods, and chocolate. Eat foods that help prevent or treat constipation. Constipation can make urinary frequency worse. You may need to take these actions to prevent or treat constipation: ?Drink enough fluid to keep your urine pale yellow. ?Take rosl-uoe-uwnzhwe or prescription medicines. ?Eat foods that are high in fiber, such as beans, whole grains, and fresh fruits and vegetables. ?Limit foods that are high in fat and processed sugars, such as fried or sweet foods. General instructions Take kvbw-ang-kjxkkuy and prescription medicines only as told by your health care provider. Keep all follow-up visits. This is important. Contact a health care provider if: You start urinating more often. You feel pain or irritation when you urinate. You notice blood in your urine. Your urine looks cloudy. You develop a fever. You begin vomiting. Get help right away if: You are unable to urinate. Summary Urinary frequency means urinating more often than usual. With urinary frequency, you may urinate every 1 2 hours even though you drink a normal amount of fluid and do not have a bladder infection or other bladder condition. Your health care provider may recommend that you keep a bladder diary, follow a bladder training program, or make dietary changes. If told by your health care provider, do Kegel exercises to strengthen the muscles that help control urination. Take vsym-byz-yvrpfmg and prescription medicines only as told by your health care provider. Contact a health care provider if your symptoms do not improve or get worse. This information is not intended to replace advice given to you by your health care provider. Make sure you discuss any questions you have with your health care provider. Document Revised: 02/26/2021 Document Reviewed: 02/26/2021 [employer] Patient Education 2023 [employer]. Follow Up Care 07/17/2024 16:25:59 With:MARGE VARNER, OTONIEL Epstein Address: [facility] [address] , [place] [phone] When: Unknown [facility] Lakisha 07-29-2024 Note Patient Education Urology Urinary Frequency, Adult Urinary frequency means urinating more often than usual. You may urinate every 1?2 hours even though you drink a normal amount of fluid and do not have a bladder infection or condition. Although you urinate more often than normal, the total amount of urine produced in a day is normal. With urinary frequency, you may have an urgent need to urinate often. The stress and anxiety of needing to find a bathroom quickly can make this urge worse. This condition may go away on its own, or you may need treatment at home. Home treatment may include bladder training, exercises, taking medicines, or making changes to your diet. Follow these instructions at home: Bladder health Your health care provider will tell you what to do to improve bladder health. You may be told to: ??? Keep a bladder diary. Keep track of: ? What you eat and drink. ? How often you urinate. ? How much you urinate. ??? Follow a bladder training program. This may include: ? Learning to delay going to the bathroom. ? Double urinating, also called voiding. This helps if you are not completely emptying your bladder. ? Scheduled voiding. ??? Do Kegel exercises. Kegel exercises strengthen the muscles that help control urination, which may help the condition. Eating and drinking Follow instructions from your health care provider about eating or drinking restrictions. You may be told to: ??? Avoid caffeine. ??? Drink fewer fluids, especially alcohol. ??? Avoid drinking in the evening. ??? Avoid foods or drinks that may irritate the bladder. These include coffee, tea, soda, artificial sweeteners, citrus, tomato-based foods, and chocolate. ??? Eat foods that help prevent or treat constipation. Constipation can make urinary frequency worse. You may need to take these actions to prevent or treat constipation: ? Drink enough fluid to keep your urine pale yellow. ? Take enmm-pea-azulxvt or prescription medicines. ? Eat foods that are high in fiber, such as beans, whole grains, and fresh fruits and vegetables. ? Limit foods that are high in fat and processed sugars, such as fried or sweet foods. General instructions ??? Take qrmx-dei-karahsl and prescription medicines only as told by your health care provider. ??? Keep all follow-up visits. This is important. Contact a health care provider if: ??? You start urinating more often. ??? You feel pain or irritation when you urinate. ??? You notice blood in your urine. ??? Your urine looks cloudy. ??? You develop a fever. ??? You begin vomiting. Get help right away if: ??? You are unable to urinate. Summary ??? Urinary frequency means urinating more often than usual. With urinary frequency, you may urinate every 1?2 hours even though you drink a normal amount of fluid and do not have a bladder infection or other bladder condition. ??? Your health care provider may recommend that you keep a bladder diary, follow a bladder training program, or make dietary changes. ??? If told by your health care provider, do Kegel exercises to strengthen the muscles that help control urination. ??? Take azvr-vpp-tjjjcxm and prescription medicines only as told by your health care provider. ??? Contact a health care provider if your symptoms do not improve or get worse. This information is not intended to replace advice given to you by your health care provider. Make sure you discuss any questions you have with your health care provider. Document Revised: 02/26/2021 Document Reviewed: 02/26/2021 Elsevier Patient Education ? 2023 [employer]. [facility] 07-20-2024 Evaluation note Diagnosis Onset Date Resolution Bronchitis acute July 20, 2024 1:43pm Cough noneactive July 20, 2024 1:43pm Sore throat noneactive July 1:43pm Bleeding hemorrhoids acute Oni leelee 2024 11:07am Diverticulosis acute August 272024 11:07am Esophageal reflux acute August 27, 2024 11:07am History of colon polyps acute J anuary 2024 11:07am Rectal bleeding inactive August 082024 11:07am [facility] Work Phone: 1(426) 790-879612-08-2024 Miscellaneous Notes* Telephone Encounter - Rae Holman RN - 07/14/2024 7:13 PM EST OV 11/20/2023 Lipid panel 05/18/2023 Letter to be sent to patient's home. All labs ordered for med management. documented in this encounterMarietta Osteopathic ClinicEtransmedia Technology [id number] Telephone encounter Note* Telephone Encounter - Rae Holman RN - 07/14/2024 7:13 PM EST OV 11/20/2023 Lipid panel 05/18/2023 Letter to be sent to patient's home. All labs ordered for med management. [facility] History of Present illness Narrative* Nathan Talbot APRN-THEA - 06/06/2024 10:20 AM EDT Subjective SUBJECTIVE: Patient ID: Eliazar Nunez is a 73 y.o. male who presents for a Medicare Annual Wellness exam. HPI The following portions of the patient's history were reviewed and updated as appropriate: allergies, current medications, past family history, past medical history, past social history, past surgicalhistory and problem list. 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 : Lifestyle [...] Do you have a durable power of employee benefits attorney?: (!) No Cognitive Screening Do you [...] COCO Braun 06/06/24 1237 documented in this encounterUniversity [facility]als [facility]10-03-[facility] History of Present illness Narrative* Hamzah Lazo DPM - 05/09/2024 4:30 PM EDT Patient: Eliazar Nunez : 1950 PCP: No [...] with urinary obstruction CAD (coronary artery disease) ([facility]) CHF (congestive heart failure) ([facility]) COVID-19 07/2021 History of heart attack ([facility]) 09/10/2014 HLD (hyperlipidemia) ([facility]) HTN (hypertension) ([facility]) Hx of fall 01/2018 Kidney stones IN (myocardial infarction) ([facility]) SURINDER (obstructive sleep apnea) Shingles Sleep apnea [...] Resource Strain: High Risk (07/18/2023) Received from [facility] Overall Financial Resource Strain (CARDIA) Difficulty of Paying Living Expenses: Hard Food Insecurity: No Food Insecurity (02/14/2024) Received from [facility] Hunger Screening Within the past 12 months we worried whether our food would run out before we got money to buy more.: Never True Within the past 12 months the food we bought just didn't last and we didn't have money to get more.: Never True Transportation Needs: No Transportation Needs (07/18/2023) Received from [facility], [facility] PRAPARE - Transportation Lack of Transportation (Medical): No Lack of Transportation (Non-Medical): No Physical Activity: Sufficiently Active (08/02/2021) Received from [facility], [facility] Exercise Vital Sign Days of Exercise per Week: 5 days Minutes of Exercise per Session: 40 min Stress: Stress Concern Present (08/02/2021) Received from [facility], [facility] [place] [employer] - Occupational Stress Questionnaire Feeling of Stress : Rather much Social Connections: Socially Integrated (08/02/2021) Received from [facility], [facility] Social Connection and Isolation Panel [NHANES] Frequency of Communication with Friends and Family: More than three times a week Frequency of Social Gatherings with Friends and Family: More than three times a week Attends Church Services: More than 4 times per year Active Member of Clubs or Organizations: Yes Attends Club or Organization Meetings: More than 4 times per year Marital Status: Intimate Partner Violence: Not on file Housing Stability: Low Risk (07/18/2023) Received from [facility], [facility] Housing Instability Are you worried or concerned [...] 10 Hamzah Lazo DPM documented [facility] [id number] Miscellaneous Notes* Telephone Encounter - Vernell Stewart RN - 05/01/2024 11:28 AM EDT Last OV 11/20/23.slm documented in this encounterUniversity [facility]als [facility]09-25-2024 Telephone encounter Note* Telephone Encounter - Vernell Stewart RN - 05/01/2024 11:28 AM EDT Last OV 11/20/23.slm [facility]09-16-2024 Miscellaneous Notes* Telephone Encounter - Vernell Stewart RN - 04/22/2024 2:06 PM EDT Last OV 11/20/23 Last lipids 05/18/24.slm documented in this encounterUniversity Hospitals [facility] Center09-16-2024 Telephone encounter Note* Telephone Encounter - Vernell Stewart RN - 04/22/2024 2:06 PM EDT Last OV 11/20/23 Last lipids 05/18/24.slm [facility]07-10-2024 History of Present illness Narrative* Nathan Talbot, EMERGENCY MEDICINE PHYSICIAN-CONTAINER SHOP WELDER - 02/14/2024 4:00 PM EDT Images from the original note were [place] [id number] SUBJECTIVE: Patient ID: Eliazar Nunez is a 73 y.o. male. Chief Complaint Patient presents with Hypertension Patient presents for routine follow up visit Overall has been doing well. Moods have been stable. Hypertension Pertinent negatives include no chest pain, headaches, palpitations or shortness of breath. Heartburn He reports no chest pain or no coughing. Pertinent negatives include no fatigue. Hyperlipidemia Pertinent negatives include no chest pain or shortness of breath The following portions of the patient's history were reviewed and updated as appropriate: allergies, current medications, past family history, past medical history, past social history, past surgicalhistory and problem list. Past Surgical History: Procedure Laterality Date BLEPHAROPLASTY CARDIAC CATHETERIZATION COLONOSCOPY 03/20/2023 CORONARY ANGIOPLASTY WITH STENT PLACEMENT LAPAROSCOPIC CHOLECYSTECTOMY N/A 02/04/2020 Performed by Terry Ruvalcaba DO at [facility] THROMBECTOMY TONSILLECTOMY VEIN LIGATION AND STRIPPING Past Medical History: Diagnosis Date Allergic rhinitis Atherosclerotic heart disease of [place] coronary artery without angina pectoris Orellana's esophagus BPH (benign prostatic hyperplasia) Episodic lightheadedness 08/22/2017 Gastritis 11/15/2018 Pepcid ( pt on asa for CAD) Heart attack ([facility]) 09/10/2014 maker Hyperlipidemia Medication controlled Hypertension Hypertensive heart disease with heart failure ([facility]) Ischemic cardiomyopathy Kidney stones Obstructive sleep apnea [...] Negative for chills, fatigue and fever. HENT: Negative for hearing loss and trouble swallowing. Eyes: Negative for pain and visual disturbance. Respiratory: Negative for cough and chest tightness. Cardiovascular: Negative for leg swelling. Gastrointestinal: Negative for blood in stool. Endocrine: Negative for polydipsia, polyphagia and polyuria. Genitourinary: Negative for difficulty urinating, dysuria, flank pain, hematuria, scrotal swelling and testicular pain. Musculoskeletal: Negative. Skin: Negative. Allergic/Immunologic: Negative. Neurological: Negative for seizures and syncope. Hematological: Does not bruise/bleed easily. Psychiatric/Behavioral: Negative. PHYSICAL EXAMINATION: Vitals: 02/14/24 1602 BP: 112/60 BP Site: Left Arm BP Postition: Sitting Pulse: 54 Resp: 18 Temp: 36.4 C (97.6 F) TempSrc: Oral SpO2: 97% Weight: 106.2 kg (234 lb 3.2 oz) Height: 190.5 cm (6' 3 ) Patient noted to have elevated BMI and the following intervention(s) were applied: encouragement toexercise. Physical Exam Vitals and nursing note reviewed. [...] normal. ASSESSMENT/PLAN: Eliazar was seen today for hypertension. Diagnoses and all orders for this visit: Situational depression - FLUoxetine (PROzac) 10 mg capsule; Take 1 capsule (10 mg total) by mouth in the morning. 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 (CMS-HCC) Coronary artery disease of [place] artery of [place] heart with stable angina pectoris (CMS-HCC) 1. HTN Controlled Continue carvedilol, lisinopril 2. Hyperlipidemia Continue atorvastatin 3. Situational depression Depression: Not at risk (02/14/2024) PHQ-2 PHQ-2 Score: 0 Continue fluoxetine 10 mg oral daily Monitored by cardiology every 6 months for history of CAD, HTN, and CHF. Has bare metal stent. Reviewed last cardiology notes, is stable. Last Echo done 2023 Left Ventricle: Systolic function is low normal to mildly decreased with an ejection fraction of 50-55%. Mild concentric hypertrophy without segmental wall motion abnormalities Aortic insufficiency, mild Mitral regurgitation, mild Tricuspid regurgitation, mild Biatrial enlargement Body mass index is 29.27 kg/m . Patient noted to have elevated BMI and the following intervention(s) were applied: Discussed current weight today. Consider healthy food choices, portion control. Avoid sugary beverages and high concentrated sweets. Routine exercise regimen encouraged. ALL QUESTIONS ANSWERED Total time spent was 25 minutes: Preparing to see the patient (e.g., review of tests) Obtaining and/or reviewing separately obtained history Performing a medically appropriate examination and/or evaluation Counseling and educating the patient/family/caregiver Ordering medications, tests, or procedures Follow-up: Medicare wellness COCO Braun 02/14/24 1657 documented in this encounterUniversity Hospitals Geneva [facility] Center06-13-2024 Miscellaneous Notes* Telephone Encounter - DENIZ Bowman - 01/18/2024 3:53 PM EDT Patient stopped into office with his Maddison, patient requested a refill of Flonase from [facility], creative services writer informed patient that it was filled by his PCP, COCO Corral, creative services writer informed patient to request refill from PCP. documented in this encounterUniversity Hospitals Geneva [facility] Center06-13-2024 Telephone encounter Note* Telephone Encounter - DENIZ Bowman - 01/18/2024 3:53 PM EDT Patient stopped into office with his Maddison, patient requested a refill of Flonase from [place], creative services writer informed patient that it was filled by his PCP, COCO Corral, creative services writer informed patient to request refill from PCP. [facility]06-05-2024 Miscellaneous Notes* Telephone Encounter - Gisela Loza CMA - 01/10/2024 9:54 AM EDT Patient called and stated his congestion is worse and not any better. He has finished all medication. He stated his mucus is more in quantity and very discolored. His chest hurts for all the coughing. Any other suggestions on what to do? * Telephone Encounter - Omega Luis DO - 01/10/2024 9:54 AM EDT I will send in an antibiotic for a week * Telephone Encounter - Gisela Loza CMA - 01/10/2024 9:54 AM EDT Patient is aware documented in this encounterUniversity Hospitals [facility] Center06-05-2024 Telephone encounter Note* Telephone Encounter - Gisela Loza CMA - 01/10/2024 9:54 AM EDT Patient called and stated his congestion is worse and not any better. He has finished all medication. He stated his mucus is more in quantity and very discolored. His chest hurts for all the coughing. Any other suggestions on what to do? [facility]06-05-2024 Telephone encounter Note* Telephone Encounter - Omega Luis DO - 01/10/2024 9:54 AM EDT I will send in an antibiotic for a week [facility]06-05-2024 Telephone encounter Note* Telephone Encounter - Gisela Loza CMA - 01/10/2024 9:54 AM EDT Patient is aware [facility]05-31-2024 Miscellaneous Notes* Telephone Encounter - Gisela Loza CMA - 01/05/2024 11:44 AM EDT Patient called and stated since he has been on the medicine the doctor prescribed his BP has been very high ranging 140 to 150 and usually runs 90 to 100 for the top number. * Telephone Encounter - Gisela Loza CMA - 01/05/2024 11:44 AM EDT Patient instructed per Dr. Luis to decrease his steroids to 2 pills x day documented in this encounterUniversity Hospitals Geneva [facility] Center05-31-2024 Telephone encounter Note* Telephone Encounter - Gisela Loza CMA - 01/05/2024 11:44 AM EDT Patient called and stated since he has been on the medicine the doctor prescribed his BP has been very high ranging 140 to 150 and usually runs 90 to 100 for the top number. [facility]05-31-2024 Telephone encounter Note* Telephone Encounter - Gisela Loza CMA - 01/05/2024 11:44 AM EDT Patient instructed per Dr. Luis to decrease his steroids to 2 pills x day [facility]05-28-2024 History of Present illness Narrative* Omega Luis DO - 01/02/2024 3:45 PM EDT Subjective Patient ID: Eliazar Nunez is a 73 y.o. male. Patient presents for sore throat and cough. It started about a week ago. 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 He is concerned he has it. He has sinus congestion and drainage. He is coughing with occasional green phlegm but it is difficult to get up. Cough is worse at night when helays down. It keeps him awake at night. He has known CHF although last EF was ok. He doesn't have afever. He has known allergies and is on an antihistamine, fluticasone and astelin nasal sprays. He also had an episode of rectal bleeding. There was bright red blood in the toilet after a BM. He has some issues with constipation. He had a colonoscopy recently. There was no pain. The following portions of the patient's history were reviewed and updated as appropriate: allergies, current medications, past family history, past medical history, past social history, past surgicalhistory, problem list, and medication reconciliation was completed including current medication andpost discharge medication. Review of Systems Objective Physical Exam Exam conducted with a baggagemaster present (Sridhar Edge MS IV). Constitutional: General: He is not in acute distress. HENT: Head: Normocephalic. Right Ear: Tympanic membrane, ear canal and external ear normal. Left Ear: Tympanic membrane, ear canal and external ear normal. Nose: Congestion and rhinorrhea present. Rhinorrhea is clear. Left Turbinates: Enlarged and swollen. Comments: Obstructing on the left Mouth/Throat: Lips: Jackpot. Pharynx: No posterior oropharyngeal erythema (mildly). Comments: +PND Neck: Trachea: Trachea normal. Cardiovascular: Rate and Rhythm: Normal rate and regular rhythm. Pulses: Normal pulses. Heart sounds: Normal heart sounds. No murmur heard. Pulmonary: Effort: Pulmonary effort is normal. No respiratory distress. Breath sounds: Normal breath sounds. No wheezing, rhonchi or rales. Musculoskeletal: Cervical back: Neck supple. Lymphadenopathy: Cervical: No cervical adenopathy. Neurological: General: No focal deficit present. Mental Status: He is alert and oriented to person, place, and time. Psychiatric: Mood and Affect: Mood normal. Behavior: Behavior normal. Thought Content: Thought content normal. Judgment: Judgment normal. Assessment/Plan Eliazar was seen today for cough. Diagnoses and all orders for this visit: Upper respiratory disease - codeine-guaiFENesin (guaiFENesin AC) 10-100 mg/5 mL liquid; Take 5 mL by mouth 4 (four) times a day as needed for cough. Suspect viral URI vs exacerbation of allergies. Will try a burst of steroids and rx Robitussin AC syrup 5 ml Q6hrs prn. Caution drowsiness. It is an opioid. Risks and benefits discussed. It will be for a short course. Patient agrees. He has had it in the past and used it with benefit. The OARRS/MAPPS database was reviewed today and found to be appropriate. No indication of medication diversion, or non compliance. Pharyngitis, unspecified etiology - POCT rapid strep A - predniSONE (DELTASONE) 20 mg tablet; Take 1 tablet (20 mg total) by mouth 3 (three) times a day for 5 days. Strep was negative. Painless rectal bleeding He had 1 episode. I suspect internal hemorrhoid. His colonoscopy is UTD. Stay on aspirin for now. documented in this encounterUniversity Hospitals [facility]05-09-2024 Miscellaneous Notes* Telephone Encounter - Vernell Stewart RN - 12/14/2023 3:28 PM EDT Pt call states has been having bilat ankle swelling Home Health was into see him and she is thinking it is from the Norvasc. Can you please address this TMP is off. Thx slm * Telephone Encounter - Evan Pace MD - 12/14/2023 3:28 PM EDT Noted. Can try holding Norvasc for few days and see if it helps. Will need to monitor blood pressure twice a day with goal blood pressure less than 135/85 and if persistently above goal can increase lisinopril to [address] Please update Dr. Butler when available. Thank you * Telephone Encounter - Morelia Murphy RN - 12/14/2023 3:28 PM EDT VM left asking pt to please call office to discuss Dr. Pace's recommendations. Both [facility] and [place] office number's left * Telephone Encounter - Morelia Murphy RN - 12/14/2023 3:28 PM EDT Pt returns call, MS recommendations reviewed with him and he verbalizes understanding. Will call office to update on BP and edema early next week. documented in this encounterUniversity Hospitals [facility] Center05-09-2024 Telephone encounter Note* Telephone Encounter - Vernell Stewart RN - 12/14/2023 3:28 PM EDT Pt call states has been having bilat ankle swelling Home Health was into see him and she is thinking it is from the Norvasc. Can you please address this TMP is off. Thx slm [id number] Telephone encounter Note* Telephone Encounter - Evan Pace MD - 12/14/2023 3:28 PM EDT Noted. Can try holding Norvasc for few days and see if it helps. Will need to monitor blood pressure twice a day with goal blood pressure less than 135/85 and if persistently above goal can increase lisinopril to [address] Please update Dr. Butler when available. Thank you [facility] Work Phone: [phone] Telephone encounter Note* Telephone Encounter - Morelia Murphy RN - 12/14/2023 3:28 PM EDT VM left asking pt to please call office to discuss Dr. Pace's recommendations. Both [facility] and [place] office number's left [id number] Telephone encounter Note* Telephone Encounter - Morelia Murphy RN - 12/14/2023 3:28 PM EDT Pt returns call, MS recommendations reviewed with him and he verbalizes understanding. Will call office to update on BP and edema early next week. [facility]05-08-2024 Miscellaneous Notes* Telephone Encounter - Audra Monk RN - 12/13/2023 11:34 AM EDT 11/20/23 david documented in this encounterUniversity Hospitals [facility] Center05-08-2024 Telephone encounter Note* Telephone Encounter - Audra Monk RN - 12/13/2023 11:34 AM EDT 11/20/23 david [facility]04-29-2024 Hospital Discharge instructions Patient Education 12/04/2023 12:58:16 [...] urethra. Follow these instructions at home: Take [id number] and prescription medicines only as told by [...] provider. Document Revised: 02/09/2022 Document Reviewed: 02/09/2022 [employer] Patient Education 2022 [employer] Follow Up Care 09/06/2023 13:17:16 With:MARGE VARNER, Amanda Alvares URL Address: [facility] [address], [place] [phone] When: Unknown Comments:1 yr w/ PSA [facility] Miscellaneous Notes* Telephone Encounter - Milly Vazquez - 11/23/2023 9:57 AM EDT Pt does not need to come in today, schedule 3 mo out for HTN * Telephone Encounter - Milly Taylor - 11/23/2023 9:57 AM EDT scheduled documented in this encounterSum[facility] Last Guide [id number] Telephone encounter Note* Telephone Encounter - Milly Taylor - 11/23/2023 9:57 AM EDT Pt does not need to come in today, schedule 3 mo out for HTN [facility] Last Guide [id number] Telephone encounter Note* Telephone Encounter - Millycecilia Vazquez - 11/23/2023 9:57 [address] [facility] [id number] History of Present illness Narrative* Lucia Butler MD - 11/20/2023 8:45 AM EDT Eliazar Nunez Date of visit: 11/20/2023 Date of : 1950 Age: 73 y.o. Patient Active Problem List Diagnosis Obstructive sleep apnea Hyperlipidemia Presence of bare metal stent in anterior descending branch of left coronary artery 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 [place] Ischemic myocardial dysfunction GERD (gastroesophageal reflux disease) Chronic seasonal allergic rhinitis due to pollen Orellana's esophagus Proteinuria Medicare annual wellness visit, subsequent Coronary artery disease of [place] artery of [place] heart with stable angina pectoris [place] Allergic rhinitis Hydrocele in adult Benign prostatic hyperplasia with urinary obstruction Abnormal CT of the chest Multiple thyroid nodules Situational anxiety Bronchiectasis without complication [place] Allergies Allergen Reactions Avelox [Moxifloxacin] GI Disturbance Naprosyn [Naproxen] GI Disturbance Perflutren Lipid Microspheres Other (See Comments) Sob and severe back pain. Resolved after 30 mins Current Outpatient Medications Medication Sig Dispense Refill amLODIPine (NORVASC) 5 mg tablet Take 1 tablet (5 mg total) by mouth in the morning. 90 tablet 3 aspirin 81 mg Take 1 tablet (81 mg total) by mouth in the morning. atorvastatin (LIPITOR) 80 mg tablet take 1 tablet by mouth every morning 90 tablet 1 azelastine (ASTELIN) 137 mcg (0.1 %) nasal spray Administer 1 spray into each nostril in the morning and 1 spray before bedtime. carvediloL (COREG) 12.5 mg tablet take 1 tablet by mouth every 12 hours 180 tablet 2 cetirizine (ZyrTEC) 10 mg capsule Take 1 capsule (10 mg total) by mouth in the morning. famotidine (PEPCID) 20 mg tablet Daily FLUoxetine (PROzac) 10 mg capsule Take 1 capsule (10 mg total) by mouth in the morning. 90 capsule 1 fluticasone propionate (FLONASE) 50 mcg/actuation nasal spray instill 2 sprays into each nostril once daily if needed 16 g 11 lisinopriL (PRINIVIL,ZESTRIL) 10 mg tablet TAKE 1 TABLET BY MOUTH TWICE A DAY IN THE MORNING AND BEFORE BEDTIME 180 tablet 3 loperamide (IMODIUM) 2 mg capsule Take 1 capsule (2 mg total) by mouth 4 (four) times a day as needed for diarrhea. 12 capsule 0 nitroglycerin (NITROSTAT) 0.[address] 1 tablet (0.4 mg total) under the tongue every 5 (five) minutes as needed for chest pain. 25 tablet 5 ondansetron ODT (ZOFRAN ODT) 4 mg disintegrating tablet Dissolve 1 tablet (4 mg total) on tongue every 8 (eight) hours as needed for nausea or vomiting. 20 tablet 0 tamsulosin (FLOMAX) 0.4 mg capsule Take 1 capsule (0.4 mg total) by mouth in the morning and 1 capsule (0.4 mg total) before bedtime. valACYclovir (VALTREX) 1000 mg tablet Take 1 tablet (1,000 mg total) by mouth 3 (three) times a day. (Patient not taking: Reported on 11/20/2023) 21 tablet 0 No current facility-administered medications for this visit. 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 He would repeat echo which shows ejection fraction 50-55% he has been having lower extremity edema but this has been help with taking his amlodipine at night Past Medical History: Diagnosis Date Allergic rhinitis Atherosclerotic heart disease of [place] coronary artery without angina pectoris Orellana's esophagus BPH (benign prostatic hyperplasia) Episodic lightheadedness 08/22/2017 Gastritis 11/15/2018 Pepcid ( pt on asa for CAD) Heart attack ([facility] 09/10/2014 maker Hyperlipidemia Medication controlled Hypertension Hypertensive heart disease with heart failure ([facility]) Ischemic cardiomyopathy Kidney stones Obstructive sleep apnea BiPAP setting at 2 Presence of coronary angioplasty implant and graft Prostatitis Puckering of macula, left eye Tinea corporis 10/02/2017 No data recorded No data recorded No data recorded Past Surgical History: Procedure Laterality Date BLEPHAROPLASTY CARDIAC CATHETERIZATION COLONOSCOPY 03/20/2023 CORONARY ANGIOPLASTY WITH STENT PLACEMENT LAPAROSCOPIC CHOLECYSTECTOMY N/A 02/04/2020 Performed by Terry Ruvalcaba DO at [facility] THROMBECTOMY TONSILLECTOMY VEIN LIGATION AND STRIPPING Family History Problem Relation Age of Onset Dementia Mother Hypertension Mother Cancer Mother Stroke Father Throat cancer Father Hypertension Father Heart disease Father Depression Daughter Bipolar disorder Daughter Social History Socioeconomic History Marital status: Spouse name: Not on file Number of children: Not on file Years of education: Not on file Highest education level: Master's degree (e.g., MA, MS, Marcia, MEd, WAREHOUSE ORDER PULLER, NADIYA) Occupational History Not on file Tobacco Use Smoking status: Never Smokeless tobacco: Never Vaping Use Vaping status: Never Used Substance and Sexual Activity Alcohol use: Yes Comment: occasional Drug use: No Sexual activity: Yes Partners: Female Other Topics Concern Caffeine Use No Social History Narrative Not on file Social Determinants of Health Financial Resource Strain: High Risk (07/18/2023) Overall Financial Resource Strain (CARDIA) Difficulty of Paying Living Expenses: Hard Food Insecurity: No Food Insecurity (11/20/2023) Hunger Screening Food Insecurity - Worry: Never True Food Insecurity - Inability: Never True Transportation Needs: No Transportation Needs (07/18/2023) PRAPARE - Transportation Lack of Transportation (Medical): No Lack of Transportation (Non-Medical): No Physical Activity: Sufficiently Active (08/02/2021) Exercise Vital Sign Days of Exercise per Week: 5 days Minutes of Exercise per Session: 40 min Stress: Stress Concern Present (08/02/2021) [place] [employer] Occupational [employer] - Occupational Stress Questionnaire Feeling of Stress : Rather much Social Connections: Socially Integrated (08/02/2021) Social Connection and Isolation Panel [NHANES] Frequency of Communication with Friends and Family: More than three times a week Frequency of Social Gatherings with Friends and Family: More than three times a week Attends Church Services: More than 4 times per year Active Member of Clubs or Organizations: Yes Attends Club or Organization Meetings: More than 4 times per year Marital Status: Interpersonal Safety: Not At Risk (08/02/2021) Humiliation, Afraid, Rape, and Kick questionnaire Fear of Current or Ex-Partner: No Emotionally Abused: No Physically Abused: No Sexually Abused: No Housing Instability: Low Risk (07/18/2023) Housing Instability Housing Instability: No Review of Systems Review of Systems Constitutional: Negative. HENT: Positive for hearing loss. Eyes: Negative. Cardiovascular: Negative. Respiratory: Negative. Endocrine: Negative. Hematologic/Lymphatic: Negative. Skin: Negative. Musculoskeletal: Negative. Gastrointestinal: Negative. Genitourinary: Negative. Neurological: Negative. Psychiatric/Behavioral: Positive for depression. The patient is nervous/anxious. Allergic/Immunologic: Positive for environmental allergies. Vascular: Negative. CARDIOVASCULAR: Please review HPI. Physical Examination General appearance: Alert, oriented and cooperative. In no acute distress. Skin: Warm and dry to touch. Head: Normocephalic, without obvious abnormality, atraumatic. Ears, Nose, Mouth, Throat: Throat clear without erythema or exudate. Dentition intact. Eyes: Conjunctivae unremarkable, EOM intact. Neck: No JVD, No carotid bruit. Neck supple, trachea midline. Respiratory: Clear to auscultation bilaterally, no use of accessory muscles. Cardiovascular: RRR with normal S1 and S2 with no murmurs. Gastrointestinal: Soft, non-tender. Bowel sounds normal. Musculoskeletal: No peripheral edema. Neurologic: Oriented to time, person and place, affect appropriate. No focal/major motor defects noted. Psychiatric: Appropriate mood, memory and judgement. VITAL SIGNS: BP 114/68 (BP Site: Left Arm, BP Postition: Sitting) Pulse 56 Ht 190.5 cm (6' 3 ) Wt 107 kg (235 lb 12.8 oz) SpO2 96% BMI 29.47 kg/m No orders of the defined types were placed in this encounter. There are no discontinued medications. IMPRESSIONS/PLAN 1. 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 Continues doquite well Dependent edema better taking amlodipine at night and support socks Echo looks a bit better than it has been in the past Continue with risk factor modification continue with regular physical activity TODAYS ORDERS No orders of the defined types were placed in this encounter. FOLLOW UP No follow-ups on file. PCP: Nathan Talbot APRN-CONTAINER SHOP WELDER Referring Physician: Mojgan Devries APRN-TUBER MACHINE OPERATOR HELPER [address] [place] [address] documented in this [facility]04-12-2024 Miscellaneous Notes* Telephone Encounter - Yasmine Joseph CMA - 11/17/2023 10:04 AM EDT Called patient to remind them to bring their most current copy of their medication list with them to their appt. Patient verbalizes understanding. documented in this [facility]04-12-2024 Telephone encounter Note* Telephone Encounter - Yasmine Joseph CMA - 11/17/2023 10:04 AM EDT Called patient to remind them to bring their most current copy of their medication list with them to their appt. Patient verbalizes understanding. [employer] Last Guide [id number] History of Present illness Narrative* Nathan Talbot, EMERGENCY MEDICINE PHYSICIAN-CONTAINER SHOP WELDER - 11/14/2023 2:40 PM EDT Images from the original note were not included. [address] [place] [id number] SUBJECTIVE: Patient ID: Eliazar Nunez is a 73 y.o. male. Chief Complaint Patient presents with Sore Throat Vomiting Is accompanied by his today. States he started nausea, vomiting, and diarrhea last night. Low grade fever of 100 oral. Is takingTylenol for fever. Feels weak. Is trying to increase fluids to what he can tolerate. Vomiting This is a new problem. The current episode started yesterday. The problem occurs 2 to 4 times per day. The problem has been waxing and waning. The emesis has an appearance of bile and stomach contents. Maximum temperature: 100 oral last night. Associated symptoms include abdominal pain, diarrhea, afever, myalgias and sweats. Risk factors include ill contacts. He has tried acetaminophen, increased fluids and sleep for the symptoms. The treatment provided mild relief. The following portions of the patient's history were reviewed and updated as appropriate: allergies, current medications, past family history, past medical history, past social history, past surgicalhistory and problem list. Past Surgical History: Procedure Laterality Date BLEPHAROPLASTY CARDIAC CATHETERIZATION COLONOSCOPY 03/20/2023 CORONARY ANGIOPLASTY WITH STENT PLACEMENT LAPAROSCOPIC CHOLECYSTECTOMY N/A 02/04/2020 Performed by Terry Ruvalcaba DO at [facility] THROMBECTOMY TONSILLECTOMY VEIN LIGATION AND STRIPPING Past Medical History: Diagnosis Date Allergic rhinitis Atherosclerotic heart disease of [place] coronary artery without angina pectoris Orellana's esophagus BPH (benign prostatic hyperplasia) Episodic lightheadedness 08/22/2017 Gastritis 11/15/2018 Pepcid ( pt on asa for CAD) Heart attack ([facility]) 09/10/2014 maker Hyperlipidemia Medication controlled Hypertension Hypertensive heart disease with heart failure ([facility]) Ischemic cardiomyopathy Kidney stones Obstructive sleep apnea [...] REVIEW OF SYSTEMS: Review of Systems Constitutional: Positive for activity change, appetite change, fatigue and fever. HENT: Positive for postnasal drip and sore throat. Eyes: Negative. Respiratory: Negative. Cardiovascular: Negative. Gastrointestinal: Positive for abdominal pain, diarrhea and vomiting. Endocrine: Negative. Genitourinary: Negative. Musculoskeletal: Positive for myalgias. Skin: Negative. Allergic/Immunologic: Negative. Neurological: Negative. Hematological: Negative. Psychiatric/Behavioral: Negative. PHYSICAL EXAMINATION: Vitals: 11/14/23 1440 BP: 90/50 BP Site: Left Arm BP Postition: Sitting Pulse: 71 Resp: 18 Temp: 37.5 C (99.5 F) TempSrc: Tympanic SpO2: 93% Weight: 106.1 kg (233 lb 12.8 oz) Height: 190.5 cm (6' 3 ) Patient noted to have elevated BMI and the following intervention(s) were applied: encouragement toexercise. Physical Exam Vitals and nursing note reviewed. [...] normal. ASSESSMENT/PLAN: Eliazar was seen today for sore throat and vomiting. Diagnoses and all orders for this visit: Gastroenteritis Flu-like symptoms - POCT Influenza A/Influenza B/SARS-COV-2 Veritor Nausea and vomiting, unspecified vomiting type - ondansetron ODT (ZOFRAN ODT) 4 mg disintegrating tablet; Dissolve 1 tablet (4 mg total) on tongueevery 8 (eight) hours as needed for nausea or vomiting. Loose stools - loperamide (IMODIUM) 2 mg capsule; Take 1 capsule (2 mg total) by mouth 4 (four) times a day as needed for diarrhea. POCT influenza and COVID-1 negative in office today Education regarding gastroenteritis. Treatment course is alleviating the symptoms. Increase fluids. Start with brat diet, advance as tolerated. Zofran 4 mg ODT as directed PRN for nausea and vomting Loperamide 2 mg capsule. 1 capsule oral every 4 times daily as needed for diarrhea. Dispense #12. No refills. Warm salt water gargles as needed for sore throat. Tylenol as needed per slice plug cutter operator guidelines for fever or pain. ALL QUESTIONS ANSWERED Total time spent was 25 minutes: Preparing to see the patient (e.g., review of tests) Obtaining and/or reviewing separately obtained history Performing a medically appropriate examination and/or evaluation Counseling and educating the patient/family/caregiver Ordering medications, tests, or procedures Follow-up: Next scheduled Sooner if no improvement COCO Braun 11/14/23 1532 documented in this encounterUniversity Hospitals [facility]03-20-2024 Miscellaneous Notes* Telephone Encounter - Ivet Campbell CMA - 10/25/2023 11:15 AM EDT Left message for patient to remind them to bring their most current medication list with them to their appointment. documented in this encounterUniversity Hospitals [facility] Center03-20-2024 Telephone encounter Note* Telephone Encounter - Ivet Campbell CMA - 10/25/2023 11:15 AM EDT Left message for patient to remind them to bring their most current medication list with them to their appointment. [facility]03-11-[facility] History of Present illness Narrative* Nathan Talbot, EMERGENCY MEDICINE PHYSICIAN-CONTAINER SHOP WELDER - 10/16/2023 2:20 PM EDT Images from the original note were not included. [address] [place] [phone] SUBJECTIVE: Patient ID: Eliazar Nunez is a [...] past medical history, past social history, past surgicalhistory and problem list. Past Surgical History: Procedure Laterality Date BLEPHAROPLASTY CARDIAC CATHETERIZATION COLONOSCOPY 03/20/2023 CORONARY ANGIOPLASTY WITH STENT PLACEMENT LAPAROSCOPIC CHOLECYSTECTOMY N/A 02/04/2020 Performed by Terry Ruvalcaba DO at [facility] THROMBECTOMY TONSILLECTOMY VEIN LIGATION AND STRIPPING Past Medical History: Diagnosis Date Allergic rhinitis Atherosclerotic heart disease of [place] coronary artery without angina pectoris Orellana's esophagus BPH (benign prostatic hyperplasia) Episodic lightheadedness 08/22/2017 Gastritis 11/15/2018 Pepcid ( pt on asa for CAD) Heart attack ([facility]) 09/10/2014 maker Hyperlipidemia Medication controlled Hypertension Hypertensive heart disease with heart failure ([facility]) Ischemic cardiomyopathy Kidney stones Obstructive sleep apnea [...] and the following intervention(s) were applied: encouragement toexercise. Physical Exam Vitals and nursing note reviewed. [...] throat. Motrin or Tylenol as needed per slice plug cutter operator guidelines for fever or pain. ALL QUESTIONS ANSWERED Total time spent was 25 minutes: Preparing to see the patient (e.g., review of tests) Obtaining and/or reviewing separately obtained history Performing a medically appropriate examination and/or evaluation Counseling and educating the patient/family/caregiver Ordering medications, tests, or procedures Follow-up: Next scheduled Sooner if no improvement COCO Braun 10/16/23 1602 documented in this encounterUniversity Hospitals Geneva [facility] Center03-07-2024 History of Present illness Narrative* DENIZ Bowman - 10/12/2023 9:30 AM EST Images from the original note were not included. * Khushbu Gill DO - 10/12/2023 9:30 AM EST Images from the original note were not included. [facility] Progress Note Patient - [...] has another ultrasound scheduled for the summer [facility] Return to clinic in 1 year or earlier if needed SUBJECTIVE Mr. Nunez presents for follow-up of his pulmonary nodular opacities and obstructive sleep apnea. Heis here after follow-up repeat CT scan of the chest. He has had a cold in the last several days. Reports that he saw PCP and had swab which was negative for influenza and has had negative COVID swab.Overall he feels that he is improving. He has no complaints or concerns today. No shortness of breath, cough, wheeze. No other respiratory illnesses since last office visit. 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 He has no issues with his current PAPdevice. He is sleeping well on it every night. Since switching to the nasal pillow mask both he andhis feel that he is getting better quality [...] that were previously present have largely resolved. Bureau Chief images include series 2, image 84 of 139, where a 3 mm nodule remains at the site of a previous 16 mm spiculated mass/nodule. Similar areas of nodules replaced with small scars are noted on series 2 image 35 of 139, in the left upper lobe, and series 2 image 47 of 139, in the posterior right upperlobe adjacent to fissure. Both of the latter 2 areas are marked with ione. There remains a left lower lobe calcified [...] be determined clinically. Dr. Khushbu Gill DO. [facility] Office: [phone] documented in this encounterUniversity Hospitals Geneva [facility] Center03-05-2024 History of Present illness Narrative* Nathan Talbot, JAIRON-CONTAINER SHOP WELDER - 10/10/2023 2:40 PM EST Images from the original note were not included. [address] [place] [id number] SUBJECTIVE: Patient ID: Eliazar Nunez is a 73 y.o. male. Chief Complaint Patient presents with Cough Sore throat.fever 1 week States he has been experiencing runny nose, low grade fever of 100 oral once last night, and sore throat. 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 States 11 children was absent from one class, one day this week. He is concerned he may have strep? Did home COVID -19 testing, which was negative. States he was seen by repeat chief this past year, is allergic to grasses. URI This is a new problem. The current episode started in the past 7 days. The problem has been waxing and waning. Maximum temperature: 100 oral last night. Associated symptoms include congestion, coughing, rhinorrhea, a sore throat and swollen glands. Pertinent negatives include no chest pain, dysuriaor headaches. Treatments tried: Zyrtec, Flonase, Astelin. The treatment provided mild relief. The following portions of the patient's history were reviewed and updated as appropriate: allergies, current medications, past family history, past medical history, past social history, past surgicalhistory and problem list. Past Surgical History: Procedure Laterality Date BLEPHAROPLASTY CARDIAC CATHETERIZATION COLONOSCOPY 03/20/2023 CORONARY ANGIOPLASTY WITH STENT PLACEMENT LAPAROSCOPIC CHOLECYSTECTOMY N/A 02/04/2020 Performed by Terry Ruvalcaba DO at [facility] THROMBECTOMY TONSILLECTOMY VEIN LIGATION AND STRIPPING Past Medical History: Diagnosis Date Allergic rhinitis Atherosclerotic heart disease of [place] coronary artery without angina pectoris Orellana's esophagus BPH (benign prostatic hyperplasia) Episodic lightheadedness 08/22/2017 Gastritis 11/15/2018 Pepcid ( pt on asa for CAD) Heart attack ([facility]) 09/10/2014 maker Hyperlipidemia Medication controlled Hypertension Hypertensive heart disease with heart failure ([facility] Ischemic cardiomyopathy Kidney stones Obstructive sleep apnea [...] and the following intervention(s) were applied: encouragement toexercise. Physical Exam Vitals and nursing note reviewed. [...] is negative today Has been evaluated by repeat chief, Dr. Perez, [facility] March 2023. Has allergy response to grasses. [...] COCO Braun 10/10/23 1536 documented in this encounterUniversity Hospitals Geneva [facility]02-14-2024 Miscellaneous Notes* Telephone Encounter - Doris Fam - 09/20/2023 11:28 AM EST This is notification that we received referral from: Mojgan Devries Dx: edema, Ischemic myocardial dysfunction [I25.5] Not new l/s: [facility] 11/2022 Please schedule f/u documented in this encounterUniversity Hospitals Geneva Medical Center02-14-2024 Telephone encounter Note* Telephone Encounter - Doris Fam - 09/20/2023 11:28 AM EST This is notification that we received referral from: Mojgan Lyn Popeyehany Dx: edema, Ischemic myocardial dysfunction [I25.5] Not new l/s: [facility] 11/2022 Please schedule f/u [facility]02-13-[facility]24 History of Present illness Narrative* Mojgan Lyn Chelsea, JAIRON-TUBER MACHINE OPERATOR HELPER - 09/19/2023 11:20 AM EST Subjective Patient ID: Eliazar Nunez is a [...] good otherwise He has not seen the hotel office manager in some years and has not had an echo in years The following portions of the patient's history were reviewed and updated as appropriate: allergies, current medications, past family history, past medical history, past social history, past surgicalhistory, problem list, and medication reconciliation was completed including current medication andpost discharge medication. Review of Systems Constitutional: Negative. HENT: Negative. Respiratory: Negative. Cardiovascular: Positive for leg swelling. Negative for chest pain and palpitations. Gastrointestinal: Positive for abdominal pain. Endocrine: Negative. Genitourinary: Negative. Musculoskeletal: Negative. Skin: Negative. Allergic/Immunologic: Negative. Neurological: Negative. Hematological: Negative. Psychiatric/Behavioral: Negative. Objective Physical Exam Vitals and nursing note reviewed. Exam conducted with a baggagemaster present (). HENT: Head: Normocephalic. Neck: Vascular: [...] - Echo complete W/O contrast; Future - [facility] - [place], [place]; Future Will have him change his amlodipine from am to pm Reviewed his labs from May which were all good Will set up an echocardiogram for him and also set up a cardiology visit for him due to his historyof failure and ischemic heart disease JONATHAN Ortiz 09/19/23 1225 documented in this encounterUniversity Hospitals Geneva Medical Center01-04-2024 History of Present illness Narrative* Omega Luis, DO - 08/10/2023 4:30 PM EST Subjective Patient ID: Eliazar Nunez is a [...] past medical history, past social history, past surgicalhistory, problem list, and medication reconciliation was completed including current medication andpost discharge medication. Review of Systems Objective Physical [...] from work right now. documented in this encounterUniversity Hospitals Geneva Medical Center12-27-2023 History of Present illness Narrative* Nathan Talbot APRN-THEA - 08/02/2023 4:45 PM EST Images from the original note were not included. [address] [place] [address] SUBJECTIVE: Patient ID: Eliazar Nunez is a 73 y.o. male. Chief Complaint Patient presents with sinus Covid pos 07/15 States yesterday his right ear started to hurt. Additionally, increased congestion with pain above right eyebrow and side of his face. Had COVID-19 on 07/15/23. States he recovered from COVID before ear pain started. Alleviating methods tried- using architecture department chair over right ear. Sinus Problem This is a new problem. The current episode started yesterday. The problem has been rapidly worsening since onset. There has been no fever. The pain is moderate. Associated symptoms include congestion, ear pain, headaches, a hoarse voice and sinus pressure. Pertinent negatives include no chills, coughing or shortness of breath. Treatments tried: accountant budget. The treatment provided no relief. The following portions of the patient's history were reviewed and updated as appropriate: allergies, current medications, past family history, past medical history, past social history, past surgicalhistory and problem list. 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 Physical Exam Vitals and nursing note reviewed. [...] throat. Motrin or Tylenol as needed per slice plug cutter operator guidelines for fever or pain. Start Augmentin [...] COCO Braun 08/02/23 1709 documented in this encounterUniversity Hospitals Geneva Medical Center12-10-2023 Evaluation note* Encounter Date Diagnosis Assessment Notes Treatment Notes Treatment Clinical Notes Jul, Communicable disease contact (ICD-10 - [...] of COVID. Jul, Cough (ICD-10 - R05.9) [facility] Other 10-04-2023 Evaluation note* Encounter Date Diagnosis [...] - Z86.010) REPEAT COLONOSCOPY IN 5 YEARS [facility] Other 06-23-2023 Hospital Discharge instructions Patient Education [...] urethra. Follow these instructions at home: Take hqhu-pel-aywtvob and prescription medicines only as told by [...] provider. Document Revised: 02/09/2022 Document Reviewed: 02/09/2022 [employer] Patient Education 2022 [employer]. Follow Up Care 01/26/2023 15:51:37 With:MARGE VARNER, Amanda Alvares, URL Address: [facility] [address], [place] [address]- [phone] When: Unknown Comments:pt on schedule [facility] 04-10-2023 Hospital Discharge instructions Patient Education 11/14/2022 [...] Follow these instructions at home: Medicines Take fedl-svm-iphbpft and prescription medicines only as told by [...] 07/21/2001 Document Revised: 07/06/2018 Document Reviewed: 08/09/2017 [employer] Patient Education 2020 [employer]. Follow Up Care 05/16/2022 12:07:44 With:MARGE VARNER, Amanda Alvares, URL Address: [facility] [address] [place] [address]- When: Unknown [facility] [place] 10-21-2022 Evaluation note* Encounter Date Diagnosis Assessment [...] unspecified ligament, initial encounter (ICD-10 - S83.91XA) [facility] Other 10-10-2022 Hospital Discharge instructions Patient Education [...] have oneof these risk factors: ?Being of -[place]ian descent. ?Having a family history of prostate [...] you: Are older than age 55. Are -[place]ian. Have a father, brother, or uncle who [...] 05/04/2018 Document Revised: 07/06/2018 Document Reviewed: 05/04/2018 [employer] Patient Education 2020 [employer]. Follow Up Care 11/08/2021 12:06:59 With:Amanda BIRD MD, URL Address: [facility] [address], [place] [address] [phone] When:11/14/2022 [facility] 08-17-2022 [facility]* Encounter Date Diagnosis Assessment Notes Treatment Notes Treatment Clinical Notes Feb, Right sided abdominal pain (ICD-10 - R10.9) Feb, Loose stools (ICD-10 - R19.5) PT GIVEN LOW FODMAP DIET HANDOUT PT TO START [employer] [facility] DAILY Feb, History of colon polyps (ICD-10 - Z86.010) [facility] Other Evaluation + Plan note Future Appointments Appointment Date:11/14/2022 10:45:00 AM Scheduled Provider:Amanda BIRD MD Location:[facility] Appointment Type:URO Office Visit Diagnostic Tests Pending * PSA Total 05/16/22 [facility] evaluation + Plan note Future Appointments Appointment Date:11/14/2022 10:45:00 AM Scheduled Provider:Amanda BIRD MD Location:[facility]ments Appointment Date:12/26/2022 03:00:00 PM Scheduled Provider:Amanda IBRD MD Location:[facility] Appointment Type:URO Office Visit [facility] evaluation + Plan note Future Appointments Appointment Date:01/06/2025 09:45:00 AM Scheduled Provider:Amanda BIRD MD Location:[facility] Appointment Type:URO Office Visit Diagnostic Tests Pending * PSA Total 12/04/23 [facility] evaluation + Plan note Future Appointments Appointment Date:01/06/2025 09:45:00 AM Scheduled Provider:Amanda BIRD MD Location:[facility] Appointment Type:URO Office Visit Diagnostic Tests Pending * PSA Total 07/29/24 [facility] evaluation noteNo [facility] Other Evaluation note* Diagnosis Onset Date Resolution Status Encounter for colonoscopy du e to history of adenomatous colonic polyps [facility] Work Phone: Evaluation note* Diagnosis Pain due to onychomycosis of toenails of both feet- Primary Venous insufficiency Unspecified venous (peripheral) insufficiency [facility] Diagnosis Pain due to onychomycosis of toenails of both feet- Primary Venous insufficiency Unspecified venous (peripheral) insufficiency [facility]* Diagnosis Excessive ear wax, bilateral- Primary [facility]* Diagnosis Allergic rhinitis, unspecified seasonality, unspecified trigger [facility] Diagnosis Situational depression [facility] Diagnosis Situational depression [facility] Diagnosis Acute right otitis media- Primary Acute non-recurrent pansinusitis [facility] Diagnosis Situational depression [facility] Diagnosis Herpes zoster without complication- Primary [facility] Diagnosis 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 ([facility]) Benign hypertensive heart disease with heart failure [facility] Diagnosis 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 ([facility]) Benign hypertensive heart disease with heart failure [facility] Diagnosis Upper respiratory disease- Primary Other and unspecified diseases of upper respiratory tract Pharyngitis, unspecified etiology Painless rectal bleeding [facility] Diagnosis Localized edema- Primary Edema Ischemic myocardial dysfunction [facility] Diagnosis Situational depression- Primary 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 ([facility]) Benign hypertensive heart disease with heart failure Coronary artery disease of [place] artery of [place] heart with stable angina pectoris ([facility]) [facility] Diagnosis Allergic rhinitis due to pollen, unspecified seasonality- Primary Sore throat Acute pharyngitis [facility] Diagnosis Obstructive sleep apnea- Primary Obstructive sleep apnea (adult) (pediatric) Bronchiectasis without complication ([facility]) [facility] Diagnosis Acute non-recurrent pansinusitis- Primary [facility] Diagnosis Atherosclerosis of [place] coronary artery of [place] heart without angina pectoris [facility] Diagnosis Gastroenteritis- Primary Other and unspecified noninfectious gastroenteritis and colitis Flu-like symptoms Nausea and vomiting, unspecified vomiting type Loose stools Abnormal feces [facility] Diagnosis Ischemic myocardial dysfunction- Primary Presence of bare metal stent in anterior descending branch of left coronary artery [facility] Diagnosis Hyperlipidemia, unspecified hyperlipidemia type [facility]* Diagnosis Atherosclerosis of [place] coronary artery of [place] heart without angina pectoris documented in this encounter [facility]* Diagnosis Medicare annual wellness visit, subsequent- Primary documented in this encounter [facility]* Diagnosis Medication management- Primary Hyperlipidemia, unspecified hyperlipidemia type [facility] Diagnosis Sensorineural hearing loss (SNHL) of both ears- Primary [facility] encounter [facility]* Diagnosis Hyperlipidemia, unspecified hyperlipidemia type [facility]* Diagnosis Obstructive sleep apnea- Primary Obstructive sleep apnea (adult) (pediatric) Chronic seasonal allergic rhinitis due to pollen Dyspnea on exertion Other dyspnea and respiratory abnormality documented [facility]* Diagnosis Internal hemorrhoids- Primary Internal hemorrhoids without mention of complication Unspecified hemorrhoids documented in this encounter [facility]* Diagnosis Ischemic myocardial dysfunction- Primary Coronary artery disease of [place] artery of [place] heart with stable angina pectoris 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 ([facility]) Benign hypertensive heart disease with heart failure Presence of bare metal stent in anterior descending branch of left coronary artery Obstructive sleep apnea Obstructive sleep apnea (adult) (pediatric) [facility] Diagnosis Onset Date Resolution Status Admit Date GERD (gastroesophageal reflu x disease) acute November 25, 2024 10:41am [facility] Work Phone: Evaluation note* Diagnosis Atherosclerosis of [place] coronary artery of [place] heart without angina pectoris [facility] Diagnosis 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 ([facility]) Benign hypertensive heart disease with heart failure [facility]* Diagnosis Pain due to onychomycosis of toenails of both feet- Primary Venous insufficiency Unspecified venous (peripheral) insufficiency documented in this encounter [facility] HealthcareHistory general Narrative - Reported* Type Description Date Medical History sleep apnea Medical History chronic sinusitis Medical History Esophageal reflux Medical History BPH Medical History hypertension Surgical History colonoscopy Surgical History tonsillectomy Surgical History heart stent Hospitalization History vein stripping Hospitalization History heart attack [facility] Other [facility] Narrative - Reported* Type Description Date Medical History sleep apnea Medical History chronic sinusitis Medical History Esophageal reflux Medical History BPH Medical History hypertension Surgical History colonoscopy Surgical History tonsillectomy Surgical History heart stent Surgical History gall bladder 2019 Hospitalization History vein stripping Hospitalization History heart attack [facility] Other History of Present illness Narrative* Hamzah Lazo, DPM - 07/18/2024 4:30 PM EST Patient: [...] with urinary obstruction CAD (coronary artery disease) ([facility]) CHF (congestive heart failure) ([facility]) COVID-19 07/2021 History of heart attack ([facility]) 09/10/2014 HLD (hyperlipidemia) ([facility]) HTN (hypertension) ([facility]) Hx of fall 01/2018 Kidney stones IN (myocardial infarction) ([facility]) SURINDER (obstructive sleep apnea) Shingles Sleep apnea [...] Resource Strain: High Risk (06/06/2024) Received from [facility] Financial Resource Strain (CARDIA) Difficulty of Paying Living Expenses: Hard Food Insecurity: No Food Insecurity (06/06/2024) Received from [facility] Hunger Screening Within the past 12 months we worried whether our food would run out before we got money to buy more.: Never True Within the past 12 months the food we bought just didn't last and we didn't have money to get more.: Never True Transportation Needs: No Transportation Needs (07/18/2023) [facility] PRAPARE - Transportation Lack of Transportation (Medical): No Lack of Transportation (Non-Medical): No Physical Activity: Sufficiently Active (08/02/2021) Received from [facility], [facility] Last Guide [facility] Exercise Vital Sign Days of Exercise per Week: 5 days Minutes of Exercise per Session: 40 min Stress: No Stress Concern Present (06/06/2024) Received from [email or web address] [facility] [employer] [place] [facility] [employer] [facility] - Occupational Stress Questionnaire Feeling of Stress : Not at all Social Connections: Socially Integrated (08/02/2021) [facility] Social Connection and Isolation Panel [NHANES] Frequency of Communication with Friends and Family: More than three times a week Frequency of Social Gatherings with Friends and Family: More than three times a week Attends Church Services: More than 4 times per year Active Member of Clubs or Organizations: Yes Attends Club or Organization Meetings: More than 4 times per year Marital Status: Intimate Partner Violence: Not on file Housing Stability: Low Risk (07/18/2023) [facility] Housing Instability Are you worried or concerned [...] 10 Hamzah Lazo DPM documented in this [facility] Narrative No data available for this section [facility] Hospital Discharge instructions No data available for this section [facility] instructionsAmbulatory Orders* Referral to General Surgery Time Frame: 08/27/24, Location: None [place] Work Phone: InstructionsNot on filedocumented in this encounter [facility] SystemInstructionsNot on filedocumented in this encounter [facility]Instructions* Attachments The following attachments cannot be sent through Care Everywhere. * Sinusitis in adults (Eritrean) * Ear Infection ED (Eritrean) documented in this encounterProMedica Health SystemInstructionsNot on file documented in this encounterProJohn [facility]. [facility] Health SystemInstructionsNot on file documented in this encounterProMedica Health SystemInstructionsNot on file documented in this encounterProMedinj Health SystemInstructionsNot on file documented in this encounterProMedinj Health SystemInstructionsNot on file documented in this encounterProMedinj Health SystemInstructionsNot on file documented in this encounterProJohn A. [facility] Health SystemInstructionsNot on file documented in this encounterProJohn A. [facility] Health SystemInstructionsNot on file documented in this encounterProMedinj Health SystemInstructionsNot on file documented in this encounterProJohn A. [facility] Health SystemInstructions* Attachments The following attachments cannot be sent through Care Everywhere. * High Blood Pressure ED (Eritrean) documented in this encounterProJohn A. [facility] Health SystemInstructions* Attachments The following attachments cannot be sent through Care Everywhere. * Sore throat in adults (Eritrean) documented in this encounterProSt. [facility] SystemInstructions* Attachments The following attachments cannot be sent through Care Everywhere. * Sinusitis Discharge Instructions, Adult (Eritrean) documented in this encounterProJohn A. [facility] Health SystemInstructionsNot on file documented in this encounterProJohn A. [facility] Health SystemInstructions* Attachments The following attachments cannot be sent through Care Everywhere. * Viral Gastroenteritis Discharge Instructions, Adult (Eritrean) documented in this encounterProSt. Mary'S Medical Center SystemProgress note No data available for this section [facility] reason for referral (narrative)* Consultation (Routine) - Pending Review Specialty Diagnoses / Procedures Referred By Fam vivar Referred To Contact Cardiology Diagnoses Ischemic myocardial dysfunction Mojgan Devries APRN-FNP [address] [place] [address] [facility] [address] [facility] [address] [place] [address] Referral ID Status Reason Start Date Expiration Date Visits Requested Visits Authorized [id number] Pending Review Specialty Services Required 09/19/2023 09/18/2024 1 1 * Cardiology (Routine) - Pending Review Specialty Diagnoses / Procedures Referred By Contac t Referred To Contact Diagnoses Ischemic myocardial dysfunction Procedures Echo complete W/O contrast Mojgan Devries, JONATHAN [address] [place] [address] Referral ID Status Reason Start Date Expiration Date V isits Requested Visits Authorized [id number] Pending Review 09/19/2023 09/18/2024 1 1 [email or web address] Summary Purpose Family History No Family History Records Found Relationship Condition Age at Onset Recorded Date/T stepan Not Specified Dementia Unknown Malignant neoplasm Unknown Cerebrovascular accident (CVA) Unknown Relationship Condition Age at Onset Recorded Date/T stepan mother Dementia Unknown Malignant neoplasm Unknown Cerebrovascular accident (CVA) Unknown father Cerebrovascular accident Unknown Unknown mother Unknown Advance Directives No Advanced Directives Records Found Advance Directive Response Recorded Date/ Time Advance Directives No July 12:59pm Advance Directive Response Recorded Date/ Time Advance Directives No July 11:59am Chief Complaint and Reason for Visit Chief Complaint Right Sided Abdomina l Pain, Loose Stools, Hx of Co Right Sided Abdominal Pain, Loose Stools, Hx of Co Reason for Visit Encounter for colono scopy due to history of adenomatous colonic polyps Chief Complaint Admit Date Sinus congestion, cough, sore throat Dec ember 2023 1:43pm 1 yr follow up August 27, 2024 1 1:07am Reason for Visit Admit Date Bronchitis July 20, 2024 1:43pm Cough July 20, 2024 1:43pm Sore throat July 20, 2024 1:43pm Bleeding hemorrhoids August 27, 2024 11:07am Diverticulosis August 27, 2024 1 1:07am Esophageal reflux August 27, 2024 1 1:07am History of colon polyps August 27 11:07am Rectal bleeding August 27, 2024 1 1:07am Chief Complaint Admit Date 3 month follow up/GERD med check November 062024 10:41am Reason for Visit Admit Date GERD (gastroesophageal reflux disease) A pril 21st, 2025 10:41am Additional Source Comments (unrecognized sect ion and content) No Status Records FoundNo Status Records FoundNo Status Records FoundNo Status Records FoundNo Status Records FoundNo Status Records FoundNo Status Records FoundNo Status Records Found INFORMATION SOURCE (unrecogn ized section and content) DATE CREATED AUTHOR 09/16/2021 [facility] DATE CREATED AUTHOR AUTHOR'S ORGANIZ ATION 09/13/2022 [facility] DATE CREATED AUTHOR AUTHOR'S ORGANIZ ATION 03/23/2023 [facility] DATE CREATED AUTHOR AUTHOR'S ORGANIZ ATION 10/18/2023 [facility] DATE CREATED AUTHOR AUTHOR'S ORGANIZ ATION 10/12/2024 [facility] DATE CREATED AUTHOR AUTHOR'S ORGANIZ ATION 10/20/2024 [facility] DATE CREATED AUTHOR AUTHOR'S ORGANIZ ATION 11/25/2024 [facility] DATE CREATED AUTHOR AUTHOR'S ORGANIZ ATION 12/22/2024 [facility] EPIC REASON FOR VISIT (unrecogniz ed section and content) Reason Comments Toenail Care Non dm nail care Reason Onset Date Comments Med Refill 08/19/2024 Reason Onset Date Comments Med Refill 08/20/2024 Reason Onset Date Comments Med Refill 08/26/2024 Reason Comments sinus Covid pos 12/9 Reason Comments Med Refill Reason Comments rash 08/07/2023- nose,fac e Reason Onset Date Comments Med Refill 12/07/2023 Reason Onset Date Comments Med Refill 09/16/2024 Reason Comments Cough Coughing,Sore throat ,running nose Can't sleep cause of cough, rectial bleeding also Reason Comments edema in legs Reason Onset Date Comments Med Refill 09/22/2023 Reason Comments Hypertension Reason Comments Cough Sore throat.fever 1 week Reason Comments Follow-up CT: 09/28/2023 Sleep Apnea DME: [facility] Reason Comments Sinus Problem Stuffy, no fever or sore throat. Reason Onset Date Comments Med Refill 03/18/2024 Reason Comments Sore Throat Vomiting Reason Comments Follow-up EST PT F/U EARLY FOR Ischemic myocardial dysfunction, ECHO DONE SCHED W/ PT L/S MBE Specialty Diagnoses / Procedures Referred By Fam t Referred To Contact Cardiology Diagnoses Ischemic myocardial dysfunction Mojgan Devries, EMERGENCY MEDICINE PHYSICIAN-TUBER MACHINE OPERATOR HELPER [address] [place] [address] [facility] [address] [facility] [address] [place] [address] Referral ID Status Reason Start Date Expiration Date Visits Requested Visits Authorized [id number] Pending Review Specialty Services Required 09/19/2023 09/18/2024 1 1 Reason Onset Date Comments Med Refill 04/05/2024 Reason Onset Date Comments Med Refill 04/22/2024 Reason Onset Date Comments Med Refill 05/01/2024 Reason Comments maw Reason Onset Date Comments Med Refill 10/11/2024 Reason Comments Follow-up CT: 09/28/2023FT: 0 02/27/2023Echo: 10/19/2023ME: [facility] Reason Comments Consult Hemorrhoids- Had one episode of bleeding. Last colonoscopy was 2 yrs ago. Specialty Diagnoses / Procedures Referred By Fam vivar Referred To Contact General Surgery Diagnoses Unspecified hemorrhoids Procedures [place] OFFICE/OUTPATIENT [facility] 60 MINUTES Sarmad Marcus MD [address] [facility] [address] [place] [address] Phone: tel: fax: [facility] [address] [facility] [address] [place] [address] Phone: tel: fax: Referral ID Status Reason Start Date Expiration Date V isits Requested Visits Authorized [id number] Closed Specialty Services Required 08/30/2024 02/26/2025 1 1 Reason Comments Follow-up EST PT F/U 1 YR L/S TMP Reason Onset Date Comments Color of Hearing Aids 12/06/2024 Reason Onset Date Comments Med Refill 12/13/2024 Reason Onset Date Comments Med Refill 12/16/2024 Care Teams (unrecognized sec tion and content) Team Status: Inactive Member Role Status Dates Simba Grey MD Attending Provider Active AMBER BraunC Primary Care Provider Active Team Status: Active Member Role Status Dates Nathan Talbot , SMALL BUSINESS SALES REPRESENTATIVE-C Primary Care Provider Active Team Status: Inactive Member Role Status Dates Nathan Talbot , SMALL BUSINESS SALES REPRESENTATIVE-C Primary Care Provider Active EDITH Lindquist Attending Provider Active Inspector Timers Relationship Specialty Start Date End Date Unallocated, Roseann Kim MD [address] [facility] [place] [address] PCP - General Family Medicine 05/09/24 Nathan Talbot CRNP [address] [place] [address] Referring Physician Nurse Practitioner 09/28/23 Inspector Timers Relationship Specialty Start Date End Date Unallocated, Roseann Kim MD [address] [place] [address] PCP - General Family Medicine 05/09/24 Nathan Talbot CRNP [address] [place] [id number] Referring Physician Nurse Practitioner 09/28/23 Inspector Timers Relationship Specialty Start Date End Date Unallocated, Roseann Kim MD [address] [facility] [place] [address] PCP - General Family Medicine 05/09/24 Nathan Talbot CRNP [address] [place] [address] Referring Physician Nurse Practitioner 09/28/23 Inspector Timers Relationship Specialty Start Date End Date Unallocated, Roseann Kim MD [address] [place] [address] PCP - General Family Medicine 05/09/24 Nathan Talbot CRNP [address] [place] [address] Referring Physician Nurse Practitioner 09/28/23 Inspector Timers Relationship Specialty Start Date End Date Unallocated, Noms MD Julio [address] [place] [address] PCP - General Family Medicine 05/09/24 Nathan Talbot CRNP [address] [place] [place] [address] Referring Physician Nurse Practitioner 09/28/23 Inspector Timers Relationship Specialty Start Date End Date Nathan Talbot APRN-CONTAINER SHOP WELDER [address] [place] [address] PCP - General Family Medicine 06/24/19 Inspector Timers Relationship Specialty Start Date End Date Nathan Talbot APRN-CONTAINER SH[employer] WEL[employer] [address] [place] [address] PCP - General Family Medicine 06/24/19 Team Status: Inactive Member Role Status Dates Nathan Talbot NP-C Primary Care Provider Active Start: July 20, 2024 End: July 20, 2024 Lynette Varela APRN NP-C Attending Provider Active Start: July End: July 20, 2024 Team Status: Inactive Member Role Status Dates Nathan Talbot NP-C Primary Care Provider Active Start: August 27, 2024 End: August 27, 2024 Sarmad Marcus MD Attending Provider Active S tart: August 27, 2024 End: August 27, 2024 Inspector Timers Relationship Specialty Start Date End Date Nathan Talbot APRN-CONTAINER SHOP WELDER [address] [place] [address] PCP - General Family Medicine 06/24/19 Inspector Timers Relationship Specialty Start Date End Date Nathan Talbot [facility] [address] [place] [address] PCP - General Family Medicine 06/24/19 Inspector Timers Relationship Specialty Start Date End Date Nathan Talbot [facility] [address] [place] [address] PCP - General Family Medicine 06/24/19 Inspector Timers Relationship Specialty Start Date End Date Nathan Talbot [facility] [address] [place] [address] PCP - General Family Medicine 06/24/19 Inspector Timers Relationship Specialty Start Date End Date Nathan Talbot [facility] [address] [place] [address] PCP - General Family Medicine 06/24/19 Inspector Timers Relationship Specialty Start Date End Date Nathan Talbot [facility] [address] [place] [address] PCP - General Family Medicine 06/24/19 Inspector Timers Relationship Specialty Start Date End Date Nathan Talbot [facility] [address] [place] [address] PCP - General Family Medicine 06/24/19 Inspector Timers Relationship Specialty Start Date End Date Nathan Talbot [facility] [address] [place] [address] PCP - General Family Medicine 06/24/19 Inspector Timers Relationship Specialty Start Date End Date Nathan Talbot [facility] [address] [place] [address] PCP - General Family Medicine 06/24/19 Inspector Timers Relationship Specialty Start Date End Date Nathan Talbot [facility] [address] [place] [address] PCP - General Family Medicine 06/24/19 Inspector Timers Relationship Specialty Start Date End Date Nathan Talbot [facility] [address] [place] [address] PCP - General Family Medicine 06/24/19 Inspector Timers Relationship Specialty Start Date End Date Nathan Talbot [facility] [address] [place] [address] PCP - General Family Medicine 06/24/19 Inspector Timers Relationship Specialty Start Date End Date Unallocated, Noms MD Julio [address] [place] [address] PCP - General Family Medicine 05/09/24 Nathan Talbot CRNP [address] [place] [address] Referring Physician Nurse Practitioner 09/28/23 Inspector Timers Relationship Specialty Start Date End Date Unallocated, Roseann Kim MD [address] [place] [address] PCP - General Family Medicine 05/09/24 Nathan Talbot CRNP Referring Physician Nurse Practitioner 09/28/23 Team Status: Inactive Member Role Status Dates Nathan Talbot , SMALL BUSINESS SALES REPRESENTATIVE-C Primary Care Provider Active Start: November 25, 2024 End: November 25, 2024 Yogesh Vital APRN Attending Provider Active Start: November 25, 2024 End: November 25, 2024 Inspector Timers Relationship Specialty Start Date End Date Unallocated, Roseann Kim MD [address] [place] [address] PCP - General Family Medicine 05/09/24 Nathan Talbot CRNP Referring Physician Nurse Practitioner 09/28/23 Inspector Timers Relationship Specialty Start Date End Date Unallocated, Roseann Kim MD [address] [place] [address] PCP - General Family Medicine 05/09/24 Nathan Talbot CRNP Referring Physician Nurse Practitioner 09/28/23 Inspector Timers Relationship Specialty Start Date End Date Unallocated, Roseann Kim MD [address] [place] [address] PCP - General Family Medicine 05/09/24 Nathan Talbot CRNP Referring Physician Nurse Practitioner 09/28/23 Goals (unrecognized section and content) Goals may be documented in a n alternate section FOR RECORDS PERTAINING TO PATIENTS WHO ARE [...] BE BASED ON THE PRIMARY CLINICAL RECORDS. [facility] [employer] [facility]. provides no warranty or guarantee of the accuracy or completeness of information in this document.
[2025-01-02 08:24] LABS: Prostate Specific Antigen Dx 1.59 ng/mL (<=4.00)
== END 2025-01-02 06:47 | disposition home or self-care (01) ==
LOC: LAB 06:48
PROVIDERS: PCP Nurse Practitioner; Visit Provider Urology
DX: R97.20 Elevated prostate specific antigen [PSA] (principal)
CPT/HCPCS: 36415; 84153

== ENCOUNTER 2025-04-11 16:17 | Emergency (ER) | payer MEDICARE, SELFPAY ==
--- OUTSIDE RECORDS SUMMARY | 2025-04-11 16:26 | XMS_ITS | CCD ---
Author Organization [facility] Care Team Providers Care Java User Interface Developer Name Role Phone Simba Grey Unavailable MD Simba Grey Attending Provider [phone] EDITH Talbot Primary Care Provider NATHAN TALBOT Primary Care Physician Juana Handley Unavailable EDITH Handley Attending Provider MARGE, DR PATEL Admitting Unavailable BIRD, DR [...] Care Unavailable BIRD, DR PATEL Consulting Unavailable ANTIONE, NATHAN Primary Care Unavailable PAY, DR WHITMORE [...] Noms Provider Primary Care Provi shameka Antione FILM AND VIDEO EDITOR-WARRANT SERVERNathan Primary Care Provid er Nathan Mariano Unavailable [phone] [facility] Provid er HAMZAH LAZO Attending Unavailable KIM MCKEON Attending Unavailable KIM MCKEON Attending Unavailable SIMEON SAGASTUME Attending Unavailable SARMAD MARCUS Referring Unavailable HAMZAH LAZO Attending Unavailable HAMZAH LAZO Attending Unavailable HAMZAH LAZO Attending Unavailable HAMZAH LAZO Attending Unavailable CYNTHIA JOHNSON Attending Unavailable Antione FILM AND VIDEO EDITOR[facility], Nathan Youssef Primary Care Provid er Krradha FILM AND VIDEO EDITOR[facility], Aaron Brown Primary Care Provider NATHAN TALBOT Primary Care Physician THEA TALBOT Primary Care Unavaila ble BIRDAmanda Attending Unavailable ANTIONE, THEA Youssef Primary Care Unavaila YASMINE Ceballos Attending Unavailable THEA TALBOT Primary Care Unavaila ble BIRDAmanda Attending Unavailable TALBOT, THEA Youssef Primary Care Unavaila ble BIRDAmanda Attending Unavailable TALBOT, THEA Youssef Primary Care Unavaila ble BIRDAmanda Attending Unavailable TALBOT, THEA Youssef Primary Care Unavaila ble YASMINE VIERA Attending Unavailable NATHAN TALBOT Referring Unavailable TALBOTADILENE VENCESE Mikael Primary Care Unavailable KHUSHBU GILL Attending Unavailable NATHAN TALBOT Referring Unavailable TALBOTADILENE VENCESE Mikael Primary Care Unavailable KROTZER, AARON D Attending Unavailable TALBOTADILENE VENCESE J Referring Unavailable KROTZER, AARON D Primary Care Unavailable KROTZER, AARON D Attending Unavailable KROTZER, AARON D Referring Unavailable KROTZER, AARON D Primary Care Unavailable KHUSHBU GILL Attending Unavailable KHUSHBU GILL Referring Unavailable TALBOTNATHAN VENCES Primary Care Unavailable TALBOT, NATHAN Mikael Primary Care Unavailable LEOPOLDO MONTAÑO Attending Unavailable NATHAN TALBOT Referring Unavailable NATHAN TALBOT Primary Care Unavailable EVELIN JUAREZ Referring Unavailable TALBOTNATHAN VENCES Primary Care Unavailable KROTZER, AARON D Referring Unavailable KROTZER, AARON D Primary Care Unavailable AARON DHILLON Referring Unavailable AARON DHILLON Primary Care Unavailable Antione SHARMA, Nathan Youssef Primary Care Provider Dodie Pike APRN Attending Provider Allergies Allergy Classification Reported Allergen(s) Allergy Type Date of Onset Reaction(s) Facility (20 sources) moxifloxacin; Translations: [moxifloxacin] Drug Allergy 11-10-19 17 Vomiting (disorder), GI intolerance, GI Disturbance [facility] (1 source) moxifloxacin Drug Allergy 03-20-20 23 [facility] Repository (1 source) Amoxicillin / Clavulanate Drug Allergy diarrhea [employer] Other (20 sources) Naproxen; Translations: [NAPROXEN] Drug Allergy 11-10-19 17 GI intolerance, GI Disturbance [facility] (20 sources) Perflutren; Translations: [PERFLUTREN LIPID MICROSPHERES] Drug Allergy 10-18-19 24 Other (See Comments) [facility] (11 sources) Amoxicillin Drug Allergy 08-27-19 25 Diarrhea [facility] (11 sources) Clavulanate Drug Allergy 08-27-[address] [facility] (8 sources) Perflutren Lipid Microspheres Propensity to adverse reactions 10-18-19 24 Unknown [facility] Medications Current Medications Medication Drug Class(es) Dates Sig (Normalized) Sig (Original) [id number] actuat albuterol 0.09 mg/actuat metered dose inhaler (1 source) beta2-Adrenergic Agonist Start: 04-08-2025 take 1 puff(s) by inhalation every four hours Albuterol Sulfate 90 mcg/actuation HFA aerosol inhaler Active 2 PUFF INHALATION Q4H 08 20April 08, 2025 12:00am Complies with drug therapy amLODIPine 5 mg oral tablet (20 sources) Dihydropyridine Calcium Channel Johnathan Start: 12-01-2022 End: 12-16-2024 take 1 tablet by mouth once daily Amlodipine 5 mg tablet Active 5 MG PO Daily July 20, 2024 1:00am Complies with drug therapy amoxicillin 875 mg oral tablet (2 sources) [...] Active ascorbic acid 1000 mg oral tablet (8 sources) Vitamin C take 0.5 tablet by mouth in the morning ascorbic acid, vitamin C, (VITAMIN C) 1000 mg tablet Take 0.5 tablets (500 mg total) by mouth in the morning. Active take 1 tablet by mouth in the mo rning ascorbic acid, vitamin C, (VITAMIN C) 1000 mg tablet Take 1 tablet (1,000 mg total) by mouth in the morning. Active aspirin 81 mg delayed release oral tablet (20 sources) Platelet Aggregation Inhibitor, Nonsteroidal Anti-inflammatory Drug Start: 11-25-2024 take 1 tablet by mouth once daily Aspirin 81 mg tablet,delayed release (DR/EC) Active 81 MG PO Daily November 25, 2024 12:00am Complies with drug therapy Start: 01-27-2023 End: 07-20-2024 take 1 tablet [...] 2022 12:57pm take 1 tablet by [place] once daily Aspirin 81 81 MG 1 tablet Orally Once a day Active atorvastatin 80 mg oral tablet (20 sources) HMG-CoA Reductase Inhibitor Start: 06-24-2019 atorvastatin Oral, Daily, Refills(s) 0 Start Date: 06/24/19 Status: Ordered Repeat number: 1 Start: 06-24-2019 atorvastatin O ral, Daily, Refills(s) 0 Start Date: 06/24/19 Status: Ordered Start: 11-07-2017 End: 02-11-2025 take 1 tablet by mouth once daily Atorvastatin 80 mg tablet Active 80 MG PO Daily November 07, 2017 12:00am Complies with drug therapy Atorvastatin Myles cium Active azelastine hydrochloride 0.137 mg/actuat metered dose nasal spray (20 sources) Histamine-1 Receptor Antagonist Start: 07-20-2024 Azelastine 137 mcg ( 0.1 %) spray,non-aerosol Active INTRANASAL July 20, 2024 1:00am Complies with drug therapy Start: 03-30-2023 take 1 spray(s) nasa l route in the morning azelastine (ASTELIN) 137 mcg (0.1 %) nasal spray Administer 1 spray into each nostril in the morning and 1 spray before bedtime. 03/30/2023 Active Azelastine 137 mcg (0.1 %) spray,non-aerosol (2 sources) Start: 07-20-2024 Azelastine 137 mcg (0.1 %) spray,non-aerosol Active INTRANASAL July 20, 2024 1:00am Start: 07-20-2024 Azelastine 137 mcg (0.1 %) spray,non-aerosol Active INTRANASAL July 20, 2024 12:00am azithromycin 250 mg oral tablet (1 source) Macrolide Antimicrobial Start: 10-16-2023 End: 10-20-2023 azithromycin (ZITHROMAX) 250 mg tablet Indications: Acute non-recurrent pansinusitis Take 2 tablets the first day, then 1 tablet daily for 4 days. 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 180 tablet 3 12/13/2024 Active Start: 06-28-2023 take 1 tablet by [place] th every twelve hours carvedilol (Coreg) 12.5 MG tablet Take 1 tablet by mouth every 12 (twelve) hours 06/28/2023 Active Start: 06-24-2019 carvedilol Ora l, Refills(s) 0 Start Date: 06/24/19 Status: Ordered Repeat number: 1 Start: 06-24-2019 carvedilol Ora l, Refills(s) 0 Start Date: 06/24/19 Status: Ordered Start: 11-07-2017 take 1 tablet by [place] th twice daily Carvedilol 12.5 mg tablet Active 12.5 MG PO Twice daily November 07, 2017 12:00am Complies with drug therapy Carvedilol Activ e cetirizine hydrochloride 10 mg oral tablet (20 sources) Histamine-1 Receptor Antagonist Start: 03-23-2022 take 1 tablet by mouth once daily Cetirizine (Zyrtec) 10 mg Tablet Active 10 MG PO Daily March 23, 2022 12:00am Complies with drug therapy Start: 06-24-2019 Zyrtec Daily, Refills(s) 0 Start Date: 06/24/19 Status: Ordered Repeat number: 1 Start: 06-24-2019 Zyrtec Daily, Refills(s) 0 Start Date: 06/24/19 Status: Ordered take 1 capsule by mo uth in the morning cetirizine (ZyrTEC) 10 mg capsule Take 1 capsule (10 mg total) by mouth in the morning. Active chlorhexidine gluconate 1.2 mg/ml mouthwash (20 sources) take 15 mL by mouth in the morning chlorhexidine (PERIDEX) 0.12 % solution Apply 15 mL to the mouth or throat in the morning. Active chlorhexidine (P eridex) 0.12 % solution as directed Mouth/Throat Active dutasteride 0.5 mg oral capsule (8 sources) 5-alpha Reductase Inhibitor Start: 08-27-2024 Dutasteride 0.5 mg capsule Active MG PO August 27, 2024 1:00am Complies with drug therapy Start: 07-29-2024 dutasteride (A VODART) 0.5 mg capsule Take 1 capsule (0.5 mg total) by mouth. 07/29/2024 Active famotidine 20 mg oral tablet (20 sources) Histamine-2 Receptor Antagonist Start: 03-20-2023 End: 02-14-2024 take 1 tablet by mouth once daily as needed for gastroesophageal reflux disease Famotidine 20 mg Tablet Active 20 MG PO Daily as needed for Heartburn March 20, 2023 12:00am Complies with drug therapy Start: 06-24-2019 Pepcid Refills (s) 0 Start Date: 06/24/19 Status: Ordered Repeat number: 1 Start: 06-24-2019 Pepcid Refills (s) 0 Start Date: 06/24/19 Status: Ordered Pepcid Active Fiber Adult Gummies 2 GM (2 sources) Fiber Adult Nathaniel ies 2 GM as directed Orally Active FLUoxetine 10 mg oral capsule (20 sources) Serotonin Reuptake Inhibitor Start: 04-08-2025 Fluoxetine 10 mg capsule Active MG PO April 08, 2025 12:00am Complies with drug therapy Start: 05-10-2023 End: 08-26-2024 take 1 capsule by mouth in the morning FLUoxetine (PROzac) 10 mg capsule Indications: Situational depression Take 1 capsule (10 mg total) by mouth in the morning. 90 capsule 1 08/26/2024 Active fluticasone propionate 0.05 mg/actuat metered dose nasal spray (20 sources) Corticosteroid Start: 08-19-2024 take 2 spray(s) nasal route in the [...] Refill(s) 0 Start Date: 06/24/19 Status: Ordered Repeat number: 1 Start: 06-24-2019 Flonase Nasal, Daily, Refill(s) 0 Start Date: 06/24/19 Status: Ordered Start: 11-07-2017 Fluticasone Pr opionate 50 mcg/actuation spray,suspension Active 1 SPRAY INTRANASAL Daily November 07, 2017 12:00am Complies with drug therapy fluticasone (Prasanth nase Allergy Relief) 50 MCG/ACT [...] Refills(s) 0 Start Date: 06/24/19 Status: Ordered Repeat number: 1 Start: 11-07-2017 End: 12-17-2024 take 1 tablet by mouth once daily Lisinopril 10 mg tablet Active 10 MG PO Daily November 07, 2017 12:00am Complies with drug therapy Lisinopril Activ e mesalamine 1000 mg rectal [...] directed Orally as directed for 6 days 21 Oct, 2022 Active Start: 08-06-2016 Depo-Medrol 40 mg Jul, 40 mg Nitro 0.4 mg Tab (8 sources) Start: 06-24-2019 Nitro 0.4 mg T ab = 1 tab(s), SubLingual, q5min, PRN Chest pain, # 25 tab(s), Refills(s) 3 Start Date: 06/24/19 Status: Ordered Quantity: 25.0 Unit: tab(s) Repeat number: 1 Start: 06-24-2019 Nitro 0.4 mg T ab [...] needed 03/20/2023 Active Start: 03-20-2023 End: 09-22-2023 Nitroglycerin 0.4 mg Tablet, Sublingual Active 0.4 MG SUBLINGUAL every 5 to 15 minutes as needed for Chest Pain March 20, 2023 12:00am do not exceed 3 doses per episode Complies with drug therapy Start: 06-24-2019 Nitro 0.4 mg T ab = 1 tab(s), SubLingual, q5min, PRN Chest pain, # 25 tab(s), Refills(s) 3 Start Date: 06/24/19 Status: Ordered omeprazole 40 mg delayed release oral capsule (3 sources) Proton Pump Inhibitor Start: 08-27-2024 take 1 capsule by mouth once daily Omeprazole 40 mg capsule,delayed release(DR/EC) Active 40 MG PO Daily August 27, 2024 1:00am Complies with drug therapy ondansetron 4 mg disintegrating oral tablet (15 sources) Serotonin-3 Receptor Antagonist Start: 03-11-2025 take 1 tablet by mouth every eight hours as needed for nausea and vomiting and nausea and nausea ondansetron ODT (ZOFRAN ODT) 4 mg disintegrating tablet Indications: Nausea Dissolve 1 tablet (4 mg total) on tongue every 8 (eight) hours as needed for nausea or vomiting. 20 tablet 03/11/2025 Active Start: 11-14-2023 End: 02-14-2024 ondansetron ODT (ZOFRAN ODT) 4 mg disintegrating tablet Indications: Nausea and vomiting, unspecified vomiting type Dissolve 1 tablet (4 mg total) on tongue every 8 (eight) hours as needed for nausea or vomiting. 20 tablet 11/14/2023 02/14/2024 Discontinued (Therapy completed) oxybutynin chloride 5 mg oral tablet (5 sources) Cholinergic Muscarinic Antagonist Start: 01-06-2025 take 1 tablet by mouth once daily as needed oxybutynin 5 mg Tab 5 mg = 1 tab(s), Oral, Daily, PRN for urinary discomfort, # 30 tab(s), Refills(s) 0 Start Date: 01/06/25 Status: Ordered Quantity: 30.0 Unit: tab(s) Repeat number: 1 Start: 08-27-2024 End: 11-25-2024 take 1 tablet [...] improvement, # 30 tab(s), Refills(s) 11, Pharmacy: [facility] [id number], 192, cm, 07/29/24 13:00:00 EST, Height/Length Dosing, 108.5, kg, 07/29/24 13:00:00 EST, Weight Dosing Start Date: 07/29/24 Status: Ordered Effient (20 sources) [id number] Platelet Inhibitor Start: 06-24-2019 Katia nt Oral, Daily, Refills(s) 0 Start Date: 06/24/19 Status: Ordered Repeat number: 1 Start: 06-24-2019 Effient Oral, Daily, Refills(s) 0 Start Date: 06/24/19 Status: Ordered Start: 11-07-2017 End: 03-20-2023 take 1 tablet by mouth once daily Prasugrel Hcl (Effient) 10 mg Tablet Discontinued 10 MG PO Daily November 07, 2017 12:00am March 20, 2023 12:31pm Effient Active predniSONE 20 mg oral tablet (6 sources) Start: 04-08-2025 take 1 tablet by mouth twice daily Prednisone 20 mg tablet Active 20 MG PO Twice daily 05 11April 08, 2025 12:00am Complies with drug therapy Start: 07-20-2024 End: 11-25-2024 take 1 tablet [...] 5 days. 15 tablet 01/02/2024 01/07/2024 Active psyllium seed, with sugar, (FIBER ORAL) (8 sources) psyllium seed, w ith sugar, (FIBER ORAL) Take by mouth in the morning and before bedtime. Active tamsulosin hydrochloride 0.4 mg oral capsule (20 sources) alpha-Adrenergic Johnathan Start: 06-10-2024 take 1 capsule by mouth twice daily tamsulosin 0.4 mg Cap 0.4 mg = 1 cap(s), Oral, BID, # 180 cap(s), Refills(s) 3, Pharmacy: [facility] [id number], 192, cm, 12/04/23 11:52:00 EDT, Height/Length Dosing, 104, kg, 12/04/23 11:52:00 EDT, Weight Dosing Start Date: 06/10/24 Status: Ordered Quantity: 180.0 Unit: cap(s) Repeat number: 4 Start: 07-10-2023 take 1 capsule by [facility] twice daily tamsulosin 0.4 mg Cap 0.4 mg = 1 cap(s), Oral, BID, # 180 cap(s), Refills(s) 3, Pharmacy: [facility] #[id number], 192, cm, 01/27/23 10:46:00 EDT, Height/Length Dosing, 104, kg, 01/27/23 10:46:00 EDT, Weight Dosing Start Date: 07/10/23 Status: Ordered Start: 07-12-2022 take 1 capsule by [facility] twice daily tamsulosin 0.4 mg Cap 0.4 mg = 1 cap(s), Oral, BID, # 180 cap(s), Refills(s) 3, Pharmacy: [facility] #[id number], 192, cm, 05/16/22 11:06:00 EDT, Height/Length Dosing, 106, kg, 05/16/22 11:06:00 EDT, Weight Dosing Start Date: 07/12/22 Status: Ordered Start: 07-09-2021 End: 07-04-2022 take 1 capsule by mouth twice daily Flomax 0.4 mg Cap 0.4 mg = 1 cap(s), Oral, BID, X 90 day(s), # 180 cap(s), Refills(s) 3, Pharmacy: [id number], 192, cm, 05/03/21 13:47:00 EDT, Height/Length Dosing, 106, kg, 05/03/21 13:47:00 EDT, Weight Dosing Start Date: 07/09/21 Stop Date: 07/04/22 Status: Ordered Start: 11-07-2017 take 1 capsule by [facility] once daily Tamsulosin 0.4 mg capsule,extended release 24hr Active 0.4 MG PO Daily November 07, 2017 12:00am Complies with drug therapy take 1 capsule by [facility] every twenty-four hours in the morning tamsulosin [...] Not-Taking/PRN docusate sodium 50 mg oral capsule (5 sources) Start: 11-07-2017 End: 03-23-2022 take 1 [...] Active Psyllium Seed (With Dextrose) (Fiber) Powder (5 sources) Start: 11-07-2017 End: 03-23-2022 take 2 [...] Date Documented Da te Episodic/Chronic Abdominal pain (12 sources) Right sided abdominal pain; Translations: [Unspecified abdominal pain] Onset: 03-02-2022 Resolved: 03-02-2022 Episodic Acute myocardial infarction (9 sources) Myocardial infarction 03-01-2019 Chronic Adjustment disorders (4 sources) Reactive depression (situational); Translations: [Adjustment disorder with depressed mood] 08-20-2024 Chronic Anxiety disorders (20 sources) Anxiety; Translations: [Other specified anxiety disorders] Onset: 05-10-2023 05-10-2023 Chronic Calculus of urinary tract (20 sources) History of calculus of kidney; Translations: [Personal history of urinary calculi] Onset: 05-16-2022 Episodic Chronic obstructive pulmonary disease and bronchiectasis (20 sources) Bronchiectasis; Translations: [Bronchiectasis, uncomplicated] Onset: 05-18-2023 05-18-2023 Chronic Chronic obstructive pulmonary disease and bronchiectasis (4 sources) Bronchitis; Translations: [Bronchitis, not specified as acute or chronic] 07-20-2024 Episodic Coronary atherosclerosis and other heart disease (20 sources) Coronary arteriosclerosis; Translations: [Ischemic cardiomyopathy] Onset: 10-03-2014 03-01-2019 Chronic Disorders of lipid metabolism (20 sources) Hyperlipidemia; Translations: [Hyperlipidemia, unspecified] 12-01-2022 Chronic Diverticulosis and diverticulitis (7 sources) Diverticular disease of colon; Translations: [Diverticulosis of large intestine without perforation or abscess without bleeding] Chronic Esophageal disorders (20 sources) Orellana's esophagus; Translations: [Orellana's esophagus without dysplasia] Onset: 07-11-2013 11-08-2017 Chronic Comment on above: Problem List clean-u p per request of Phys. EHR Cmte Essential hypertension (9 sources) Hypertensive disorder 03-01-2019 Chronic Gastrointestinal hemorrhage (5 sources) Rectal hemorrhage; Translations: [Hemorrhage of anus and rectum] 07-19-2023 Episodic Comment on above: Problem List clean-u p per request of Phys. 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 Chronic Hemorrhoids (15 sources) Other hemorrhoids; Translations: [Bleeding hemorrhoids] Onset: [...] in toe; Translations: [Tinea unguium] 05-09-2024 Episodic Nausea and vomiting (3 sources) Nausea and vomiting; Translations: [Nausea with vomiting, unspecified] Onset: 03-11-2025 11-14-2023 Episodic Other aftercare (2 sources) Other retirement (current) drug therapy; Translations: [OTH PHONE REPRESENTATIVE CURRENT DRUG THERAPY] Onset: 09-13-2022 Episodic Other aftercare (1 source) senior care (current) use of aspirin; Translations: [PHONE REPRESENTATIVE CURRENT USE OF ASPIRIN] Onset: 09-13-2022 Episodic Other aftercare (1 source) Patient encounter status; Translations: [Other retirement (current) drug therapy] 07-15-2024 Episodic Other and unspecified benign neoplasm (13 sources) History of polyp of colon; Translations: [Personal history of colonic polyps] 08-27-2024 Episodic Other and unspecified benign neoplasm (2 sources) Personal history of colonic polyps Onset: 03-02-2022 Resolved: 03-02-2022 Episodic Other connective tissue disease (2 sources) Pain in right lower limb; Translations: [Pain in right leg] 02-27-2025 Episodic Other connective tissue disease (2 sources) Pain in right leg; Translations: [Pain in right leg] Onset: 02-27-2025 Episodic Other diseases of veins and lymphatics (4 sources) Vascular insufficiency; Translations: [Venous insufficiency (chronic) (peripheral)] 05-09-2024 Episodic Other ear and sense organ disorders (5 sources) Sensorineural hearing loss, bilateral; Translations: [Sensorineural hearing loss, bilateral] 10-10-2024 Chronic Other ear and sense organ disorders (2 sources) Excessive cerumen in ear canal ; Translations: [Impacted cerumen, bilateral] 08-14-2024 Episodic Other gastrointestinal disorders (1 source) Diarrhea of presumed infectious origin; Translations: [Diarrhea, unspecified] 03-11-2025 Episodic Other gastrointestinal disorders (1 source) Diarrhea, unspecified; Translations: [Diarrhea, unspecified] Onset: 03-11-2025 Episodic Other lower respiratory disease (1 source) Cough; Translations: [Cough] 07-20-2024 Episodic Other lower respiratory disease (1 source) Dyspnea on exertion; Translations: [Other forms of dyspnea] 10-17-2024 Episodic Other male genital disorders (17 sources) Male erectile dysfunction, unspecified; Translations: [Erectile dysfunction] Onset: 11-03-2021 Chronic Other male genital disorders (9 sources) H/O: male genital disorder 03-01-2019 Episodic Other male genital disorders (9 sources) Retrograde ejaculation 12-23-2019 Episodic Other non-traumatic joint disorders (1 source) Pain in right knee Episodic Other nutritional; endocrine; and metabolic disorders (9 sources) H/O: endocrine disorder 03-01-2019 Episodic Other [...] Phys. EHR Cmte Other upper respiratory disease (9 sources) Seasonal allergy 03-01-2019 Chronic Other upper respiratory disease (20 sources) Allergic rhinitis; Translations: [Allergic rhinitis, unspecified] Onset: 03-25-2020 08-19-2024 Chronic Other upper respiratory disease (20 sources) Allergic rhinitis due to pollen; Translations: [Allergic rhinitis due to pollen] Onset: 12-20-2017 04-29-2019 Chronic Other upper respiratory disease (1 source) Allergic rhinitis due to pollen; Translations: [Allergic rhinitis due to pollen] Onset: 04-29-2019 Chronic Other upper respiratory infections (5 sources) Acute pharyngitis, unspecified; Translations: [Acute pharyngitis] 07-20-2024 Episodic Residual codes; unclassified (20 sources) Obstructive sleep apnea syndrome; Translations: [Obstructive sleep apnea (adult) (pediatric)] 10-24-2022 Chronic Residual codes; unclassified (2 sources) Obstructive sleep apnea (adult) (pediatric); Translations: [Obstructive sleep apnea (adult) (pediatric)] Onset: 07-21-2021 Chronic Residual codes; unclassified (2 sources) Viral syndrome; Translations: [Other general symptoms and signs] 11-14-2023 Episodic Residual codes; unclassified (1 source) Other general symptoms and signs; Translations: [Other general symptoms and signs] Onset: 03-11-2025 Episodic Sprains and strains (1 source) Sprain of unspecified site of right knee, initial encounter Episodic Thyroid disorders (20 sources) Multinodular goiter; Translations: [Nontoxic multinodular goiter] Onset: 01-30-2023 01-30-2023 Chronic Unclassified (9 sources) Drug therapy finding 12-23-2019 Unclassified (3 [...] implant and graft] Onset: 07-15-2015 12-01-2022 Episodic Disorders of teeth and jaw (2 sources) Other specified disorders of teeth and supporting structures; Translations: [Toothache] Onset: 11-05-2024 Episodic Genitourinary symptoms and ill-defined conditions (20 sources) Isolated proteinuria; Translations: [Urgent desire to urinate] Onset: 11-15-2018 03-01-2019 Episodic Mood disorders (20 sources) Mood disorders Onset: 06-06-2024 Resolved: 03-11-2025 06-06-2024 Noninfectious gastroenteritis (1 source) Gastroenteritis; Translations: [Noninfective gastroenteritis and colitis, unspecified] 11-14-2023 Episodic Other gastrointestinal disorders (1 source) Other fecal abnormalities Onset: 03-02-2022 Resolved: 03-02-2022 Episodic Other gastrointestinal disorders (1 source) Loose stool; Translations: [Other fecal abnormalities] 11-14-2023 Episodic Other lower respiratory disease (20 sources) Nodule of lung; Translations: [Solitary pulmonary nodule] Onset: 05-18-2023 Resolved: 10-12-2023 10-12-2023 Episodic Other lower respiratory disease (2 sources) Other forms of dyspnea; Translations: [Other forms of dyspnea] Onset: 10-17-2024 Episodic Other male genital disorders (20 sources) Adult hydrocele; Translations: [Hydrocele, unspecified] Onset: 05-07-2020 05-07-2020 Episodic Other upper respiratory disease (1 source) Disorder of upper respiratory system; Translations: [Disease of upper respiratory tract, unspecified] 01-02-2024 Episodic Otitis media and related conditions (1 source) Acute right otitis media; Translations: [Otitis media, unspecified, right ear] 08-02-2023 Episodic Residual codes; unclassified (1 source) Localized edema; Translations: [Localized edema] 09-19-2023 Episodic Unclassified (1 source) LOW BACK PAIN, UNSPECIFIED; Translations: [LOW BACK PAIN, UNSPECIFIED] Onset: 09-09-2022 Unclassified (1 source) Cough R05.9 Unclassified (20 sources) Onset: 11-14-2023 Resolved: 02-14-2024 02-14-2024 Viral infection (1 source) Herpes zoster without complication; Translations: [Zoster without complications] 08-10-2023 Episodic Viral infection (1 source) COVID-19 Results Test Name Value Interpretation Reference Range Facility GI PANEL STOOL PATHOGEN PANE Edwin 03-12-2025 ADENOVIRUS Not detected Normal Not Detected [facility] Comment on above: Performed By: #### G IP #### [facility] ([facility]) [address] [place] [address] VIR AGGREGATIVE E COLI Not detected Normal Not Detected [facility] Comment on above: Performed By: #### G IP #### [facility] ([facility]) [address] [place] [address] VIR ASTROVIRUS Not detected Normal Not Detected [facility] Comment on above: Performed By: #### G IP #### [facility] ([facility]) [address] [place] [address] VIR CAMPYLOBACTER Not detected Normal Not Detected [facility] Comment on above: Performed By: #### G IP #### [facility] ([facility]) [address] [place] [address] VIR CRYPTOSPORIDIUM Not detected Normal Not Detected [facility] Comment on above: Performed By: #### G IP #### [facility] ([facility]) [address] [place] [address] VIR CYCLOSPORA Not detected Normal Not Detected [facility] Comment on above: Performed By: #### G IP #### [facility] ([facility]) [address] [place] [address] VIR E HISTOLYTICA Not detected Normal Not Detected [facility] Comment on above: Performed By: #### G IP #### [facility] [address] [place] [address] VIR GIARDIA LAMBLIA Not detected Normal Not Detected [facility] Comment on above: Performed By: #### G IP #### [facility] [address] [place] [address] VIR NOROVIRUS Not detected Normal Not Detected [facility] Comment on above: Performed By: #### G IP #### [facility] ([facility] [address] [place] [address] VIR PATHOGENIC E COLI Detected Abnormal Not Detected [facility] Comment on above: Result Comment: Ente ropathogenic Escherichia coli Performed By: #### G IP #### [facility] [address] [place] [address] VIR PLESIOMONAS Not detected Normal Not Detected [facility] Comment on above: Performed By: #### G IP #### [facility] [address] [place] [address] VIR ROTAVIRUS A Not detected Normal Not Detected [facility] Comment on above: Performed By: #### G IP #### [facility] [address] [place] [address] VIR SALMONELLA Not detected Normal Not Detected [facility] Comment on above: Performed By: #### G IP #### [facility] [address] [place] [address] VIR SAPOVIRUS Not detected Normal Not Detected [facility] Comment on above: Performed By: #### G IP #### [facility] [address] [place] [address] VIR SHIGA TOXIN E COLI Not detected Normal Not Detected [facility] Comment on above: Performed By: #### G IP #### [facility] [address] [place] [address] VIR SHIGELLA-E COLI Not detected Normal Not Detected [facility] Comment on above: Performed By: #### G IP #### [facility] [address] [place] [address] VIR TOXIGENIC E COLI Not detected Normal Not Detected [facility] Comment on above: Performed By: #### G IP #### [facility] [address] [place] [address] VIR VIBRIO Not detected Normal Not Detected [facility] Comment on above: Performed By: #### G IP #### [facility] [address] [place] [address] VIR VIBRIO CHOLERAE Not detected Normal Not Detected [facility] Comment on above: Performed By: #### G IP #### [facility] [address] [place] [address] VIR Y. ENTEROCOLITICA Not detected Normal Not Detected [facility] Comment on above: Performed By: #### G IP #### [facility] [address] [place] [address] VIR POCT Xpert, Xpress CoV-2, FL U, RSV Plus (Cepheid)on 03-11-2025 External Poct Influenza A Cepheid Negative Negative [facility] External Poct Influenza B Cepheid Negative Negative [facility] External Poct Rsv Cepheid Negative Negative [facility] SARS-CoV-2 (COVID-19) RNA NANETTE+probe Ql (Unsp spec) Negative Negative [facility] [address] Ambulatory Visit Summaryon 0 03-04-2025 Ambulatory Visit Summary Ambulatory Visit Summary ELIAZAR NUNEZ [place] :1950 Visit Date:03/04/2025 Ambulatory Visit Instructions Your Diagnosis Impotence Your Care Team Attending Physician - YASMINE VIERA PA-C Primary Care Physician - NATHAN TALBOT CNP This Is Your Medications List dutasteride (dutasteride 0.5 mg Cap) tamsulosin (tamsulosin 0.4 mg Cap) Contact prescribing physician if questions or concerns amlodipine (amLODIPine 5 mg Tab) aspirin (aspirin 81 mg Oral EC Tab) atorvastatin carvedilol cetirizine (Zyrtec) famotidine (Pepcid) fluticasone nasal (Flonase) lisinopril nitroglycerin (Nitro 0.4 mg Tab) prasugrel (Effient) [Image Removed: STOP]Stop taking these medications oxybutynin (oxybutynin 5 mg Tab) Procedures Performed Transrectal biopsy of prostate using ultrasound (US) guidance (04/03/2007), Blepharoplasty, Colonoscopy, Colonoscopy, Placement of stent in cardiac conduit, Procedure on eye, Tonsillectomy, varicocelectomy. Discharge Vitals Temperature (Axillary) 36.5 ???C Heart Rate (Peripheral) 48 Respiratory Rate 16 Blood Pressure 110/60 Height 192 cm Height 76 in Weight 105.2 kg Weight 231.926 lb BMI 28.54 What to do next Scheduled Follow-Up Appointments Monday2025 9:00 AM EDT With: Where: [facility] [address] [facility] [place] [address]- Monday2025 9:45 AM EDT With: Amanda BIRD MD Where: [facility] [address] [place] [address]- You Need to Schedule the Following Appointments Follow Up with Keep previously scheduled follow-up appointment. When: Where: Medications What How Much When Instructions Unchanged dutasteride (dutasteride 0.5 mg Cap) 1 Capsules By Mouth Every day Unchanged tamsulosin (tamsulosin 0.4 mg Cap) 1 Capsules By Mouth 2 times a day Unchanged amlodipine (amLODIPine 5 mg Tab) Contact prescribing physician if questions or concerns Unchanged aspirin (aspirin 81 mg Oral EC Tab) By Mouth Every day Contact prescribing physician if questions or concerns Unchanged atorvastatin By Mouth Every day Contact prescribing physician if questions or concerns Unchanged carvedilol By Mouth Contact prescribing physician if questions or concerns Unchanged cetirizine (Zyrtec) Every day Contact prescribing physician if questions or concerns Unchanged famotidine (Pepcid) Contact prescribing physician if questions or concerns Unchanged fluticasone nasal (Flonase) Nasal Inhalation Every day Contact prescribing physician if questions or concerns Unchanged lisinopril 5 Milligram By Mouth Every day Contact prescribing physician if questions or concerns Unchanged nitroglycerin (Nitro 0.4 mg Tab) 1 Tablets Sublingual Every 5 minutes as needed for Chest pain Contact prescribing physician if questions or concerns Unchanged prasugrel (Effient) By Mouth Every day Contact prescribing physician if questions or concerns What How Much When Comments Stop Taking oxybutynin (oxybutynin 5 mg Tab) 1 Tablets By Mouth Every day as needed for for urinary discomfort Allergies moxifloxacin (Vomiting) Problems Ongoing - Any problem that you are currently receiving treatment for. Anticoagulated Barretts esophagus BPH with urinary obstruction Coronary artery disease Elevated PSA Enlarged prostate with urinary obstruction H/O chronic prostatitis H/O hypogonadism History of kidney stones Hypertension Impotence Isolated proteinuria Kidney stone Myocardial infarct Nocturia Post-void dribbling Retrograde ejaculation Seasonal allergies Urinary urgency Patient Survey You may receive a survey via text or e-mail asking about your office visit. Please share your experience with us by completing your survey. We appreciate your feedback and thank you for choosing us for your care. Education Materials Erectile Dysfunction Erectile dysfunction (ED) is the inability to get or keep an erection in order to have sexual intercourse. ED is considered a symptom of an underlying disorder and is not considered a disease. ED may include: ??? Inability to get an erection. ??? Lack of enough hardness of the erection to allow penetration. ??? Loss of erection before sex is finished. What are the causes? This condition may be caused by: ??? Physical causes, such as: ? Artery problems. This may include heart disease, high blood pressure, atherosclerosis, and diabetes. ? Hormonal problems, such as low testosterone. ? Obesity. ? Nerve problems. This may include back or pelvic injuries, multiple sclerosis, Parkinson's disease, spinal cord injury, and stroke. ??? Certain medicines, such as: ? Pain relievers. ? Antidepressants. ? Blood pressure medicines and water pills (diuretics). ? Cancer medicines. ? An (more content not included)... Normal [facility] Urology Office/Clinic Noteon 03-04-2025 Urology Office/Clinic Note Urology Office/Clinic Note Chief Complaint p4 injections teaching HPI Staff Pt is here to learn 4P injections. Consent needs to be signed. Dx: impotence, nocturia, BPH with urinary obstruction, elevated PSA and kidney stone Review of Systems PHQ Score Initial Depression Screen Score: 0 SCORE Physical Exam Vitals & Measurements T: 36.5 ???C(Axillary) HR: 48(Peripheral) RR: 16 BP: 110/60 HT: 76 in HT: 192 cm WT: 105.2 kg WT: 231.926 lb BMI: 28.54 Assessment/Plan 1. Impotence (N52.9: Male erectile dysfunction, unspecified) The patient was educated on the safe and correct use of intracavernous injection therapy. No barriers to learning were identified. Pt was offered the option of demonstrating injection technique either on himself or on the penile model. Pt elected to demonstrate on penile model. This was done in my presence and I confirmed proper technique. Pt's also was present and learned/demonstrate d proper technique. We discussed self-titration of the dosage of medication within the specified range. Pt understands this medication should not be used more than once in a 24-hour period. We discussed that if he experiences erection lasting longer than four hours, he needs to seek immediate treatment at the emergency department as the longer he waits, the more damage that is done to the penile tissue. All questions answered. Pt will contact office if he has any difficulty with injections or if reaches max dose (1ml) without success. Ordered: 1126F Pain severity quantified; no pain present Current tobacco non-user 1036F E&M of Est. Patient Moderate 30-39 Min 27620 Functional status assessed 1170F Medication list documented in medical record 1159F Most recent diastolic blood pressure <80 mm Hg 3078F Review of all meds by a prescribing practitioner or clinical pharmacist documented in EHR 1160F Systolic BP <130 mm Hg (Most Recent) 3074F Total time spent reviewing previous notes/results/exter nal documents, preparing the chart, conducting the encounter with the patient and family, ordering tests/medications, and documenting the encounter was 30 minutes. Follow-up With When Contact Information Keep previously scheduled follow-up appointment. Additional Instructions: Patient Education Erectile Dysfunction Problem List/Past Medical History Ongoing Anticoagulated Barretts esophagus BPH with urinary obstruction Coronary artery disease Elevated PSA Enlarged prostate with urinary obstruction H/O chronic prostatitis H/O hypogonadism History of kidney stones Hypertension Impotence Isolated proteinuria Kidney stone Myocardial infarct Nocturia Post-void dribbling Retrograde ejaculation Seasonal allergies Urinary urgency Historical No qualifying data Procedure/Surgical History Transrectal biopsy of prostate using ultrasound (US) guidance (04/03/2007), Blepharoplasty, Colonoscopy, Colonoscopy, Placement of stent in cardiac conduit, Procedure on eye, Tonsillectomy, varicocelectomy. Medications amLODIPine 5 mg Tab aspirin 81 mg Oral EC Tab, Oral, Daily atorvastatin, Oral, Daily carvedilol, Oral dutasteride 0.5 mg Cap, 0.5 mg= 1 cap(s), Oral, Daily, 11 refills Effient, Oral, Daily Flonase, Nasal, Daily lisinopril, 5 mg, Oral, Daily Nitro 0.4 mg Tab, 1 tab(s), SubLingual, q5min, PRN Pepcid tamsulosin 0.4 mg Cap, 0.4 mg= 1 cap(s), Oral, BID, 3 refills Zyrtec, Daily Allergies moxifloxacin (Vomiting) Social History Alcohol Never., 07/28/2024 Substance Abuse Never., 01/01/2025 Tobacco Never (less than 100 in lifetime) Tobacco Use:. Never Smokeless Tobacco Use:., 03/04/2025 Never (less than 100 in lifetime) Tobacco Use:. Never Smokeless Tobacco Use:., 07/29/2024 Never (less than 100 in lifetime) Tobacco Use:., 12/23/2019 Family History Family history is negative Immunizations Vaccine Date Status Comments influenza virus vaccine, inactivated 05/15/2024 Recorded influenza virus vaccine, inactivated 05/10/2023 Recorded SARS-CoV-2 (COVID-19) [id number] 07/13/2022 Recorded influenza virus vaccine, inactivated 06/09/2022 Recorded SARSCoV2 mRNA(tozinamer-matt -sucros) vac 02/22/2022 Recorded influenza virus vaccine, inactivated 06/12/2021 Recorded SARS-CoV-2 (COVID-19) mRNA BNT-162b2 vax 05/12/2021 Recorded SARS-CoV-2 (COVID-19) mRNA BNT-162b2 vax 10/09/2020 Recorded SARS-CoV-2 (COVID-19) mRNA BNT-162b2 vax 10/2020 Recorded SARS-CoV-2 (COVID-19) mRNA BNT-162b2 vax 10/2020 Recorded SARS-CoV-2 (COVID-19) mRNA BNT-162b2 vax 09/18/2020 Recorded influenza virus vaccine, inactivated 06/03/2020 Recorded influenza virus vaccine, inactivated 06/04/2019 Recorded zoster vaccine live 03/20/2019 Recorded 2024-07-29: [facility] zoster vaccine, inactivated 11/02/2018 Recorded pneumococcal 23-valent vaccine 05/13/2018 Recorded influenza virus vaccine, inactivated 05/13/2018 Recorded influenza virus vaccine, inactivated (more content not included)... [facility] Comment on above: Result Comment: Elec tronically Signed By: AYLIN STEWART, YASMINE Jiangbr\Date and Time Signed: 03/04/25 12:21 EDT LIPID PROFILEon 01-10-2025 Cholesterol [Mass/Vol] 91 mg/dL Low 150-200 Pr [facility] Comment on above: Performed By: #### L IPR #### [facility]) [address] [place] [address] VIR Cholesterol in HDL [Mass/Vol] 29 mg/dL Low >39 [facility] Comment on above: Result Comment: HDL <40 mg/dL - High Risk HDL > or = 40mg/dL- Desirable HDL >60 mg/dL - Negative Risk Performed By: #### L IPR #### [facility] [address] [place] [address] VIR Cholesterol in LDL [Mass/Vol] 48 mg/dL Normal <130 [facility] Comment on above: Result Comment: LDL <100 mg/dL - Desirable LDL >160 mg/dL - High Risk Performed By: #### L IPR #### [facility]) [address] [place] [address] VIR CHOLESTEROL:HDL 3.1 Normal 1.0-5.0 [facility] Comment on above: Performed By: #### L IPR #### [facility]) [address] [place] [address] VIR Triglyceride [Mass/Vol] 70 mg/dL Normal 27-150 [facility] Comment on above: Performed By: #### L IPR #### [facility] [address] [place] [address] VIR VERY LOW LIPOPROTEIN 14 mg/dL Normal 0-30 [facility] Comment on above: Performed By: #### L IPR #### [facility] [address] [place] [address] VIR Ambulatory Visit Summaryon 0 01-06-2025 Ambulatory Visit Summary Ambulatory Visit Summary ELIAZAR NUNEZ :1950 Visit Date:01/06/2025 Ambulatory Visit Instructions Your Diagnosis Impotence Nocturia BPH with urinary obstruction Elevated PSA Kidney stone Your Care Team Attending Physician - Amanda BIRD MD Primary Care Physician - NATHAN TALBOT CNP This Is Your Medications List dutasteride (dutasteride 0.5 mg Cap) oxybutynin (oxybutynin 5 mg Tab) tamsulosin (tamsulosin 0.4 mg Cap) Contact prescribing physician if questions or concerns amlodipine (amLODIPine 5 mg Tab) aspirin (aspirin 81 mg Oral EC Tab) atorvastatin carvedilol cetirizine (Zyrtec) famotidine (Pepcid) fluticasone nasal (Flonase) lisinopril nitroglycerin (Nitro 0.4 mg Tab) prasugrel (Effient) Procedures Performed Transrectal biopsy of prostate using ultrasound (US) guidance (04/03/2007), Blepharoplasty, Colonoscopy, Colonoscopy, Placement of stent in cardiac conduit, Procedure on eye, Tonsillectomy, varicocelectomy. Discharge Vitals Heart Rate (Peripheral) 49 Respiratory Rate 16 Blood Pressure 122/62 Height 192 cm Height 76 in Weight 106 kg Weight 233.69 lb BMI 28.75 What to do next Scheduled Follow-Up Appointments Monday 10:30 AM EDT With: Amanda BIRD MD Where: [facility] [address] [address]- Monday2025 9:45 AM EDT With: Amanda BIRD MD Where: [facility] [address] [address]- You Need to Schedule the Following Appointments Follow Up with Amanda BIRD MD, URL When: Comments: 6 mos w/ PSA & schedule ICI reteaching Where: [facility] [address] , [place] [address]- [phone] Medications What How Much When Instructions Unchanged dutasteride (dutasteride 0.5 mg Cap) 1 Capsules By Mouth Every day Unchanged oxybutynin (oxybutynin 5 mg Tab) 1 Tablets By Mouth Every day as needed for for urinary discomfort Unchanged tamsulosin (tamsulosin 0.4 mg Cap) 1 Capsules By Mouth 2 times a day Unchanged amlodipine (amLODIPine 5 mg Tab) Contact prescribing physician if questions or concerns Unchanged aspirin (aspirin 81 mg Oral EC Tab) By Mouth Every day Contact prescribing physician if questions or concerns Unchanged atorvastatin By Mouth Every day Contact prescribing physician if questions or concerns Unchanged carvedilol By Mouth Contact prescribing physician if questions or concerns Unchanged cetirizine (Zyrtec) Every day Contact prescribing physician if questions or concerns Unchanged famotidine (Pepcid) Contact prescribing physician if questions or concerns Unchanged fluticasone nasal (Flonase) Nasal Inhalation Every day Contact prescribing physician if questions or concerns Unchanged lisinopril 5 Milligram By Mouth Every day Contact prescribing physician if questions or concerns Unchanged nitroglycerin (Nitro 0.4 mg Tab) 1 Tablets Sublingual Every 5 minutes as needed for Chest pain Contact prescribing physician if questions or concerns Unchanged prasugrel (Effient) By Mouth Every day Contact prescribing physician if questions or concerns Allergies moxifloxacin (Vomiting) Problems Ongoing - Any problem that you are currently receiving treatment for. Anticoagulated Barretts esophagus BPH with urinary obstruction Coronary artery disease Elevated PSA Enlarged prostate with urinary obstruction H/O chronic prostatitis H/O hypogonadism History of kidney stones Hypertension Impotence Isolated proteinuria Kidney stone Myocardial infarct Nocturia Post-void dribbling Retrograde ejaculation Seasonal allergies Urinary urgency Patient Survey You may receive a survey via text or e-mail asking about your office visit. Please share your experience with us by completing your survey. We appreciate your feedback and thank you for choosing us for your care. Education Materials Erectile Dysfunction Erectile dysfunction (ED) is the inability to get or keep an erection in order to have sexual intercourse. ED is considered a symptom of an underlying disorder and is not considered a disease. ED may include: ??? Inability to get an erection. ??? Lack of enough hardness of the erection to allow penetration. ??? Loss of erection before sex is finished. What are the causes? This condition may be caused by: ??? Physical causes, such as: ? Artery problems. This may include heart disease, high blood pressure, atherosclerosis, and diabetes. ? Hormonal problems, such as low testosterone. ? Obesity. ? Nerve problems. This may include back or pelvic injuries, multiple sclerosis, Parkinson's disease, spinal cord injury, and stroke. ??? Certain medicines, such as: ? Pain relievers. ? Antidepressants. ? Blood pressure (more content not included)... Normal [facility] Urology Office/Clinic Noteon 01-06-2025 Urology Office/Clinic Note Urology Office/Clinic Note Chief Complaint 6 month follow up with PSA HPI Staff 6 mpnth follow up with PSA Dx: kidney stone, impotence, BPH with urinary obstruction, nocturia and elevated PSA. Tamsulosin bid, dutasteride 0.5mg qd PSA done 01/02/25 - 1.59 IPSS: 8. SANDY: 5 Denies abdominal/flank pain, denies dysuria and visible blood History of Present Illness Tests reviewed: reviewed UA I have reviewed the previous health record [...] See HPI. Physical Exam Vitals & Measurements HR: 49(Peripheral) RR: 16 BP: 122/62 HT: 76 in HT: 192 cm WT: 106 kg WT: 233.69 lb BMI: 28.75 General Appearance: alert, no distress, well nourished, well developed male. Assessment/Plan 1. Impotence (N52.9: Male erectile dysfunction, unspecified) Has nitro on hand which is contraindicated with ED meds. Reports worsening ED after starting Dutasteride. Discussed possible SE from med. Discussed alternative option of a vacuum device and importance of proper sizing. Pt admits to having performance anxiety so unsure if tx will work. Taught ICI 01/27/23. Pt had difficulty performing injections. also tried to help but pt still felt uncomfortable. Never tried increasing dosage as he had anxiety about injection. Shares he did have good effects with ICI. States he would be wiling to retry this and desires reteaching for himself and his . Admits he does not typically have a fear of needles but the location of injection causes angst. However thinks he can work through this with his . -ICI reteaching to be scheduled after pt receives new rx from [facility]. Nocturia (R35.1: Nocturia) Started on Oxybutynin 5mg qhs at prior OV. Pt called 10/28/24 stating he stopped Oxybutynin after taking x2 mos due to minimal improvement. However noticed he had to get up during the night more after d/c Oxybutynin, so pt restarted Oxybutynin 5mg qhs. Has had some improvement, getting up 3-4x/night vs 4-5x. Does have SURINDER, wears c-pap nightly. Does not think this is contributing to sxs as he still experiences nocturia despite his c-pap machine telling him he had no events . -Cont Oxybutynin 5mg qhs 3. BPH with urinary obstruction (N40.1: Benign prostatic hyperplasia with lower urinary tract symptoms) IPSS 8. UA today negative for blood and infection. Taking Flomax 0.4 mg bid. Started on Dutasteride 0.5mg qd at prior OV. Reports improved urination. Wishes to continue current regimen. Shares he has been voiding more frequently during the day vs holding it and also feels this has helped. -Cont Flomax bid and Dutasteride qd 4. Elevated PSA (R97.20: Elevated prostate specific antigen [PSA]) PSA: 04/26/21 - 3.69 11/08/21 - 3.91 05/09/22 - 2.79 11/14/22 - 2.20 11/27/23 - 3.30 & 30.3% 07/2024 - Started Dutasteride 01/02/25 - 1.59 (3.08 Dutasteride) KATEY 12/04/23: ~45g, benign PSA remains stable. Will cont to monitor. 5. Kidney stone (N20.0: Calculus of kidney) Stone analysis 04/26/21 - 100% Ca Ox Craven. KUB 07/15/22 [facility] - No urinary tract calculi. CT AP wo con 09/09/22 [facility] - Subcentimeter left renal calculi. No ureteral calculi. KUB 11/27/23 [facility] - No visible urinary tract calculi. [1] Follow-up With When Contact Information Amanda BIRD MD, URL [facility] [address] [place] [address] [phone] Additional Instructions: 6 mos w/ PSA & schedule ICI reteaching Patient Education Erectile Dysfunction I, Amna Sarmiento, personally scribed for Dr. Bird on 01/06/2025 10:50:20. . Documentation recorded by the scribeAmna, accurately reflects the services(s) I performed and decisions made by me. Authenticated by Dr. Bird on 01/06/2025 10:52:46. Problem List/Past Medical History Ongoing Anticoagulated Barretts esophagus BPH with urinary obstruction Coronary artery disease Elevated PSA Enlarged prostate with urinary obstruction H/O chronic prostatitis H/O hypogonadism History of kidney stones Hypertension Impotence Isolated proteinuria Kidney stone Myocardial infarct Nocturia Post-void dribbling Retrograde ejaculation Seasonal allergies Urinary urgency Historical No qualifying data Procedure/Surgical History Transrectal biopsy of prostate using u (more content not included)... Normal 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 KUB 07/15/22 [facility] - No urinary tract [...] Amanda Alvares, [facility] [address] [place] [address] [phone] Additional Instructions: already has f/u 01/06/25 w/ PSA Patient Education Urinary Frequency, Adult I, Amna Sarmiento, personally scribed for Dr. Bird on 07/29/2024 14:20:20. . Documentation recorded by the scribe, Amna Sarmiento, accurately reflects the services(s) I performed and [...] Seasonal allergie (more content not included)... Normal [facility] Comment on above: Result Comment: Elec tronically Signed By: Amanda BIRD MD\.br\Date and Time Signed: 07/29/24 14:23 EST\.br\Electronically Co-Signed By: Amna Sarmiento\.br\Date and Time Co-Signed: 07/29/24 14:20 EST COVID Cepheidon 07-20-2024 SARS-CoV-2 (COVID-19) RNA NANETTE+probe Ql (Unsp spec) COVID Cepheid [facility] - Microbiology an d Antimicrobial susceptibilityon 07-20-2024 SARS-CoV-2 (COVID-19) RNA NANETTE+probe Ql (Unsp spec) Negative [facility] No Panel Informationon 07-20 POC Influenza A (PCR) Negative [facility] POC Influenza B (PCR) Negative [facility] No Panel InformationOrdered By: Lynette Varela on 07-20-2024 Quick Strep (POC) [facility] POCT rapid strep Aon 024 S. pyogenes Ag IA Ql (Unsp spec) Negative Negative [facility] [address] POCT EKGOrdered By: Yasmine Joseph on 11-20-2023 [facility] POCT Influenza A/Influenza B /SARS-COV-2 Veritoron 11-14-2023 External Poct Influenza A Antigen Negative [facility] External Poct Influenza B Antigen Negative [facility] SARS-CoV-2 (COVID-19) Ag IA.rapid Ql (Resp) Negative [facility] [address] POCT Influenza A/Influenza B /SARS-COV-2 Veritoron 10-10-2023 External Poct Influenza A Antigen Negative [facility] External Poct Influenza B Antigen Negative [facility] SARS-CoV-2 (COVID-19) Ag IA.rapid Ql (Resp) Negative [facility] [address] POCT rapid strep AOrdered By : Rhoda Leung on 10-10-2023 S. pyogenes Ag IA Ql (Unsp spec) Negative Negative [facility] [address] COVID + FLU Quick Testingon 07-16-2023 SARS-CoV-2 (COVID-19) RNA NANETTE+probe Ql (Unsp spec) Positive [employer] Other COVID + FLU Quick Testing Negative [employer] Other Edwin 03-20-2023 L Specimen: [id number] Received: 03/20/23 Status: ALEIDA Sepulveda Num: [id number] Spec Type: Surgical Subm Dr: Simba Grey MD Tissues: A Colon Biopsy (TRANSVERSE POLYP) Procedures: HE/2, Gross/Micro L4 Age/ Patient Sex Location Account Attending Physician Eliazar Nunez/[facility] [id number] Simba Grey MD SPEC NUM: [id number] RECD: 03/20/23 STATUS: ALEIDA STILLVonda NUM: [id number] HERNANDEZ: 03/20/23- [facility] DR: Simba Grey MD ENTERED: 03/20/[address] [facility] [address]: SPEC TYPE: Surgical DEPT: S ORDERED: HE/2, Gross/Micro L4 ORDERED: HE2, Gross/Micro L4 Pathological Diagnosis Colon, transverse, polyp, [...] microscopic examination confirms the diagnosis. CPT Codes 37666 Specimen: [id number] Received: 03/20/23 Status: ALEIDA Sepulveda Num: [id number] Spec Type: Surgical Subm Dr: Simba Grey MD Tissues: A Colon Biopsy (TRANSVERSE POLYP) Procedures: HE/Gurpreet, Gross/Micro L4 Patient: Eliazar Nunez [id number] (Continued) Signed (signatur e on file) Nando Glaser MD 03/22/23 1135 [facility] CBC AUTO DIFFon 09-09-2022 BASO # 0.0 103/ul Normal 0.0-0.1 [facility] Comment on above: Performed By: #### C BC #### [facility] [address] [address] [address] Tyrone Salazar Basophils/100 WBC (Bld) 0.4 % Normal 0.2-2.0 [facility] Comment on above: Performed By: #### C BC #### [facility] [address] [address] [address] Tyrone Salazar EO # 0.2 103/ul Normal 0.0-0.7 [facility] Comment on above: Performed By: #### C BC #### [facility] [address] [place] [address] Dr. Tyrone Salazar Eosinophils/100 WBC (Bld) 2.8 % Normal 0.9-7.0 [facility] Comment on above: Performed By: #### C BC #### [facility] [address] [address] [address] Tyrone Salazar Erythrocyte distribution width (RBC) [Ratio] 13.1 % Normal 11.0-15.0 [facility] Comment on above: Performed By: #### C BC #### [facility] [address] [place] [address] Dr. Tyrone Salazar Hematocrit (Bld) [Volume fraction] 45.6 % Normal 42.0-54.0 [facility] Comment on above: Performed By: #### C BC #### [facility] [address] [address] [address] Tyrone Salazar Hemoglobin (Bld) [Mass/Vol] 15.5 g/dL Normal 14.0-18.0 [facility] Comment on above: Performed By: #### C BC #### [facility] [address] [place] [address] Dr. Tyrone Salazar IG # 0.02 10e3/ul Normal 0.00-0.03 [facility] Comment on above: Performed By: #### C BC #### [facility] [address] [place] [address] Dr. Tyrone Salazar IG % 0.4 % Normal 0.0-0.5 [facility] Comment on above: Performed By: #### C BC #### [facility] [address] [place] [address] Dr. Tyrone Salazar LYMPH # 1.3 103/ul Normal 1.2-3.8 [facility] Comment on above: Performed By: #### C BC #### [facility] [address] [place] [address] Dr. Tyrone Salazar Lymphocytes/100 WBC (Bld) 23.5 % Normal 20.5-60.0 [facility] Comment on above: Performed By: #### C BC #### [facility] [address] [place] [address] Dr. Tyrone Salazar MANUAL DIFF REQ NO Normal [facility] Comment on above: Performed By: #### C BC #### [facility] [address] [place] [address] Dr. Tyrone Salazar MCH (RBC) [Entitic mass] 29.8 pg Normal 25.9-34.0 [facility] Comment on above: Performed By: #### C BC #### [facility] [address] [place] [address] Dr. Tyrone Salazar MCHC (RBC) [Mass/Vol] 34.0 g/dL Normal 29.9-35.2 [facility] Comment on above: Performed By: #### C BC #### [facility] [address] [place] [address] Dr. Tyrone Salazar MCV (RBC) [Entitic vol] 87.5 fL Normal 80.0-94.0 [facility] Comment on above: Performed By: #### C BC #### [facility] [address] [place] [address] Dr. Tyrone Salazar MONO # 0.6 103/ul Normal 0.3-0.8 [facility] Comment on above: Performed By: #### C BC #### [facility] [address] [place] [address] Dr. Tyrnoe Salazar Monocytes/100 WBC (Bld) 10.2 % Normal 1.7-12.0 [facility] Comment on above: Performed By: #### C BC #### [facility] [address] [place] [address] Dr. Tyrone Salazar NEUT # 3.4 103/ul Normal 1.4-6.5 [facility] Comment on above: Performed By: #### C BC #### [facility] [address] [place] [address] Dr. Tyrone Salazar Neutrophils/100 WBC (Bld) 62.2 % Normal 43.0-75.0 [facility] Comment on above: Performed By: #### C BC #### [facility] [address] [place] [address] Dr. Tyrone Salazar Platelet mean volume (Bld) [Entitic vol] 9.8 fL Normal 9.5-13.5 [facility] Comment on above: Performed By: #### C BC #### [facility] [address] [place] [address] Dr. Tyrone Salazar PLT 166 103/ul Normal 150-450 [facility] Comment on above: Performed By: #### C BC #### [facility] [address] [place] [address] Dr. Tyrone Salazar RBC 5.21 106/ul Normal 4.70-6.10 [facility] Comment on above: Performed By: #### C BC #### [facility] [address] [place] [address] Dr. Tyrone Salazar WBC 5.4 103/ul Normal 4.0-11.0 [facility] Comment on above: Performed By: #### C BC #### [facility] [address] [place], [place] [id number] Dr. Tyrone Salazar CT ABD/PELVIS WO CONon [...] LUCIA VERDUGO Date: 2022-09-09 18:22 Normal [facility] ER URINE PROFILEon 3 Bilirubin Ql (U) Negative Normal NEGATIVE [facility] Comment on above: Performed By: #### E RUR #### [facility] [address] [address] [address] Tyrone Salazar Clarity (U) CLEAR Normal CLEAR [facility] Comment on above: Performed By: #### E RUR #### [facility] [address] [address] [address] Tyrone Salazar Color (U) YELLOW Normal YELLOW [facility] Comment on above: Performed By: #### E RUR #### [facility] [address] [address] [address] Tyrone SIERRA A micrscopic examination will be performed if indicated. Normal [facility] Comment on above: Performed By: #### E RUR #### [facility] [address] [place] [address] Dr. Tyrone Salazar Glucose Ql (U) Negative Normal NEGATIVE [facility] Comment on above: Performed By: #### E RUR #### [facility] [address] [place] [address] Dr. Tyrone Salazar Hemoglobin Ql (U) Negative Normal NEGATIVE [facility] Comment on above: Performed By: #### E RUR #### [facility] [address] [place] [address] Dr. Tyrone Salazar Ketones Ql (U) Negative Normal NEGATIVE [facility] Comment on above: Performed By: #### E RUR #### [facility] [address] [place] [address] Dr. Tyrone Salazar LEUKOCYTES Negative Normal NEGATIVE [facility] Comment on above: Performed By: #### E RUR #### [facility] [address] [place] [address] Dr. Tyrone Salazar Nitrite Ql (U) Negative Normal NEGATIVE [facility] Comment on above: Performed By: #### E RUR #### [facility] [address] [place] [address] Dr. Tyrone Salazar pH (U) 6.0 [pH] Normal 5-9 [facility] Comment on above: Performed By: #### E RUR #### [facility] [address] [place] [address] Dr. Tyrone Salazar SPEC GRAVITY 1.025 Normal 1.005-<=1.02 5 [facility] Comment on above: Performed By: #### E RUR #### [facility] [address] [place] [address] Dr. Tyrone Salazar UA PROTEIN Negative Normal NEGATIVE/ TRACE [facility] Comment on above: Performed By: #### E RUR #### [facility] [address] [place] [address] Dr. Tyrone Salazar UR MICRO IND NOT INDICATED Normal [facility] Comment on above: Performed By: #### E RUR #### [facility] [address] [place] [address] Dr. Tyrone Salazar Urobilinogen Qn (U) 0.2 {Tra'U}/dL Normal 0.2 - 1. 0 [facility] Comment on above: Performed By: #### E RUR #### [facility] [address] [place] [address] Dr. Tyrone Salazar PROF 14(COMP METB)on 023 Albumin [Mass/Vol] 3.7 g/dL Normal 3.4-5.0 [facility] Comment on above: Performed By: #### C MP #### [facility] [address] [place] [address] Dr. Tyrone Salazar Albumin/Globulin [Mass ratio] 1.2 {ratio} Normal [facility] Comment on above: Performed By: #### C MP #### [facility] [address] [place] [address] Dr. Tyrone Salazar ALP [Catalytic activity/Vol] 130 U/L Critically high 46-116 [facility] Comment on above: Performed By: #### C MP #### [facility] [address] [place] [address] Dr. Tyrone Salazar ALT [Catalytic activity/Vol] 35 U/L Normal 16-63 [facility] Comment on above: Performed By: #### C MP #### [facility] [address] [place] [address] Dr. Tyrone Salazar Anion gap [Moles/Vol] 8.1 mmol/L Normal [facility] Comment on above: Performed By: #### C MP #### [facility] [address] [place] [address] Dr. Tyrone Salazar AST [Catalytic activity/Vol] 24 U/L Normal 15-37 [facility] Comment on above: Performed By: #### C MP #### [facility] [address] [place] [address] Dr. Tyrone Salazar Bilirubin [Mass/Vol] 2.0 mg/dL Critically high 0.2-1.0 [facility] Comment on above: Performed By: #### C MP #### [facility] [address] [address] [address] Tyrone Salazar Calcium [Mass/Vol] 8.5 mg/dL Normal 8.5-10.1 [facility] Comment on above: Performed By: #### C MP #### [facility] [address] [address] [address] Tyrone Salazar Chloride [Moles/Vol] 105 mmol/L Normal 98-107 [facility] Comment on above: Performed By: #### C MP #### [facility] [address] [address] [address] Tyrone Salazar CO2 [Moles/Vol] 31.7 mmol/L Normal 21.0-32.0 [facility] Comment on above: Performed By: #### C MP #### [facility] [address] [place] [address] Dr. Tyrone Salazar Creatinine [Mass/Vol] 0.79 mg/dL Normal 0.70-1.30 [facility] Comment on above: Performed By: #### C MP #### [facility] [address] [place] [address] Dr. Tyrone Salazar EGFR-AF CANADIAN >60 Normal >=60 [facility] Comment on above: Performed By: #### C MP #### [facility] [address] [address] [address] Tyrone Salazar EGFR-NON AF CANADIAN >60 Normal >=60 [facility] Comment on above: Performed By: #### C MP #### [facility] [address] [place] [address] Dr. Tyrone Salazar Globulin (S) [Mass/Vol] 3.0 g/dL Normal [facility] Comment on above: Performed By: #### C MP #### [facility] [address] [place] [address] Dr. Tyrone Salazar Glucose [Mass/Vol] 98 mg/dL Normal 74-106 [facility] Comment on above: Performed By: #### C MP #### [facility] [address] [address] [address] Tyrone Salazar Potassium [Moles/Vol] 3.8 mmol/L Normal 3.5-5.1 [facility] Comment on above: Performed By: #### C MP #### [facility] [address] [address] [address] Tyrone Salazar Protein [Mass/Vol] 6.7 g/dL Normal 6.4-8.2 [facility] Comment on above: Performed By: #### C MP #### [facility] [address] [address] [address] Tyrone Salazar Sodium [Moles/Vol] 141 mmol/L Normal 136-145 [facility] Comment on above: Performed By: #### C MP #### [facility] [address] [address] [address] Tyrone Salazar Urea nitrogen [Mass/Vol] 16.0 mg/dL Normal 7.0-18.0 [facility] Comment on above: Performed By: #### C MP #### [facility] [address] [address] [address] Tyrone Salazar Urea nitrogen/Creatinine [Mass ratio] 20.3 mg/mg Normal [facility] Comment on above: Performed By: #### C MP #### [facility] [address] [id number] Tyrone Salazar XR KUB 1 VIEWon [...] JUAN PABLO CHENG Date: 2022-07-15 14:41 Normal [facility] XR knee RT 4V*on 05-27-2022 XR knee RT 4V* [facility] [address] [place] [address] [place] [address] XRay Report Signed Patient: Eliazar Nunez MR#: [id number] : 1950 Acct:[id number] Age/Sex: 71 / M ADM Date: 05/27/22 Loc: XDUCLY Room: Type: [facility] Attending Dr: Juana SHARMA Copies to: EDITH [...] Jennifer Morgan M.D.05/27/2022 4:25 PM Dictation Location: [place] [address] Transcribed By: [facility] 05/27/22 1625 Dictated By: Jennifer Morgan MD 05/27/22 162 Signed By: 05/27/22 1625 [facility] XR knee RT 4V* [facility] [employer] Other XR knee RT 4V* [facility] [employer] Other XR knee RT 4V* [address] [place] [address] [employer] Other XR knee RT 4V* [place] [address] [facility] Other XR [facility] RT 4V* XRay Report [employer] Other XR knee RT 4V* Signed [employer] Other XR knee RT 4V* Patient: Eliazar Nunez MR#: [id number] [facility] [employer] Other XR knee RT 4V* 751 [employer] Other XR knee RT 4V* : 1950 Acct:[id number] [employer] Other XR knee RT 4V* Age/Sex: 71 / M ADM Date: 05/27/22 [employer] Other XR knee RT 4V* Loc: XDUCLY Room: Type: REG CLI [employer] Other XR knee RT 4V* Attending Dr: Juana SHARMA [employer] Other XR knee RT 4V* Copies to: EDITH Piper [employer] Other XR knee RT 4V* Ordering Provider: EDITH Piper [employer] Other XR knee RT 4V* Date of Service: 05/27/22 [employer] Other XR knee RT 4V* XR/XR knee RT 4V*: Acute pain of right knee [employer] Other XR knee RT 4V* RIGHT KNEE - 4 views [employer] Other XR knee RT 4V* COMPARISON: Right tib-fib 07/12/2017 [employer] Other XR knee RT 4V* CLINICAL DATA: Right knee pain over the patella for the past few days, without injury. [employer] Other XR knee RT 4V* AP, lateral and both oblique views were obtained. There is no fracture or dislocation. There is [employer] Other XR knee RT 4V* no disproportionate joint space narrowing or prominent hypertrophy. There is a trace amount joint [employer] Other XR knee RT 4V* fluid. There is no focal soft tissue swelling. [employer] Other XR knee RT 4V* XR/XR knee RT 4V* [employer] Other XR knee RT 4V* IMPRESSION: [employer] Other XR knee RT 4V* NO ACUTE BONY FINDINGS. [employer] Other XR knee RT 4V* Impression dictated by: Jennifer Morgan M.D.05/27/2022 4:25 PM [employer] Other XR knee RT 4V* Dictation Location: [place] [address] [employer] Other XR knee RT 4V* Transcribed By: CINDY 05/27/22 [facility] [employer] Other XR knee RT 4V* Dictated By: Jennifer Morgan MD 05/27/22 [facility] [employer] Other XR knee RT 4V* Signed By: [employer] Other XR knee RT 4V* 05/27/22 [facility] 27 bards Other Albumin [Mass/volume] in Ser um or PlasmaOrdered By: Simba Grey on 03-21-2022 Albumin [Mass/Vol] 3.4 g/dL 3.2-5.5 [facility] Basophils Auto (Bld) [#/Vol] Ordered By: Simba Grey on 03-21-2022 Basophils (Bld) [#/Vol] 0.0 10*3/uL 0.0-0.2 [facility] Basophils/100 WBC Auto (Bld) Ordered By: Simba Grey on 03-21-2022 Basophils/100 WBC (Bld) 0.5 % . [facility] Blood hemoglobin measurement (mass/volume)Ordered By: Simba Grey on 03-21-2022 Hemoglobin (Bld) [Mass/Vol] 14.7 g/dL 13.0-17.0 [facility] Blood leukocytes automated c ount (number/volume)Ordered By: Simba Grey on 03-21-2022 WBC (Bld) [#/Vol] 4.9 10*3/uL 4.5-11.0 [facility] C reactive protein [Mass/vol ume] in Serum or PlasmaOrdered By: Simba Grey on 03-21-2022 CRP [Mass/Vol] 1.4 mg/dL 0.0-1.0 [facility] COVID-19 SOFIAOrdered By: Celia Grey on 03-21-2022 SARS-CoV+SARS-CoV-2 (COVID-19) Ag IA.rapid Ql (Resp) Negative Negative [facility] Comment on above: This is a duplicate Suze SARS Antigen (CHASTITY) result to be used for statistical tracking purpose only. Clostridioides difficile tox in B tcdB gene [Presence] in Stool by NANETTE with probe deteOrdered By: Simba Grey on 03-21-2022 C. difficile toxin B tcdB gene NANETTE+probe Ql (Stl) Negative Negative [facility] Comment on above: Testing performed by RT-PCR Creatinine and Glomerular fi ltration rate.predicted panel (S/P/Bld)Ordered By: Simba Grey on 03-21-2022 Creatinine [Mass/Vol] 0.93 mg/dL 0.64-1.27 [facility] Eosinophils Auto (Bld) [#/Vo l]Ordered By: Simba Grey on 03-21-2022 Eosinophils (Bld) [#/Vol] 0.1 10*3/uL 0.0-0.45 [facility] Eosinophils/100 WBC Auto (Bl d)Ordered By: Simba Grey on 03-21-2022 Eosinophils/100 WBC (Bld) 2.8 % . [facility] Erythrocyte distribution wid th Auto (RBC) [Ratio]Ordered By: Simba Grey on 03-21-2022 Erythrocyte distribution width (RBC) [Ratio] 14.3 % 12.0-14.8 [facility] Erythrocyte sedimentation ra te by Photometric methodOrdered By: Simba Grey on 03-21-2022 ESR Photometric method (Bld) [Velocity] 3 mm/hr 0-19 [facility] Estimated glomerular filtrat ion rate (GFR) non- AmericanOrdered By: Simba Grey on 03-21-2022 GFR/1.73 sq M.predicted among non-blacks MDRD (S/P/Bld) [Vol rate/Area] > 60 mL/Min [facility] Globulin Calc (S) [Mass/Vol] Ordered By: Simba Grey on 03-21-2022 Globulin (S) [Mass/Vol] 2.4 g/dL [facility] Hematocrit Auto (Bld) [Volum e fraction]Ordered By: Simba Grey on 03-21-2022 Hematocrit (Bld) [Volume fraction] 43.2 % 38.8-50.0 [facility] Laboratory - Hematology and Cell countsOrdered By: Simba Grey on 03-21-2022 Nucleated RBC/100 WBC (Bld) [Ratio] 0.1 % 0-0.5 [facility] Lymphocytes Auto (Bld) [#/Vo l]Ordered By: Simba Grey on 03-21-2022 Lymphocytes (Bld) [#/Vol] 1.1 10*3/uL 1.00-4.8 [facility] Lymphocytes/100 WBC Auto (Bl d)Ordered By: Simba Grey on 03-21-2022 Lymphocytes/100 WBC (Bld) 22.1 % . [facility] MCH Auto (RBC) [Entitic mass ]Ordered By: Simba Grey on 03-21-2022 MCH (RBC) [Entitic mass] 29.5 pg 27.5-35.2 [facility] MCHC Auto (RBC) [Mass/Vol]Or dered By: Simba Grey on 03-21-2022 MCHC (RBC) [Mass/Vol] 34.0 g/dL 32.5-35.6 [facility] MCV Auto (RBC) [Entitic vol] Ordered By: Simba Grey on 03-21-2022 MCV (RBC) [Entitic vol] 86.7 fL 83.5-101 [facility] Monocytes Auto (Bld) [#/Vol] Ordered By: Simba Grey on 03-21-2022 Monocytes (Bld) [#/Vol] 0.5 10*3/uL 0.0-0.8 [facility] Monocytes/100 WBC Auto (Bld) Ordered By: Simba Grey on 03-21-2022 Monocytes/100 WBC (Bld) 10.3 % . [facility] Neutrophils Auto (Bld) [#/Vo l]Ordered By: Simba Grey on 03-21-2022 Neutrophils (Bld) [#/Vol] 3.2 10*3/uL 1.8-7.7 [facility] Neutrophils/100 WBC Auto (Bl d)Ordered By: Simba Grey on 03-21-2022 Neutrophils/100 WBC (Bld) 64.3 % . [facility] No Panel InformationOrdered By: Simba Grey on 03-21-2022 Estimated GFR () > 60 mL/Min [facility] Comment on above: GFR estimated refere nce range: According to KDOQI guidelines, <60 ml/min/1.73m2 is sufficient to diagnose a patient with chronic kidney disease. Pharmacy Creatinine Clearance (Chem N/A [facility] SARS Antigen (LFIA) [facility] Platelet mean volume Auto (B ld) [Entitic vol]Ordered By: Simba Grey on 03-21-2022 Platelet mean volume (Bld) [Entitic vol] 8.4 fL 6.6-10.1 [facility] Platelets Auto (Bld) [#/Vol] Ordered By: Simba Grey on 03-21-2022 Platelets (Bld) [#/Vol] 156 10*3/uL 150-450 [facility] Protein [Mass/volume] in Ser um or PlasmaOrdered By: Simba Grey on 03-21-2022 Protein [Mass/Vol] 5.8 g/dL 6.1-7.9 [facility] RBC Auto (Bld) [#/Vol]Ordere d By: Simba Grey on 03-21-2022 RBC (Bld) [#/Vol] 4.98 10*6/uL 3.90-5.60 [facility] Serum or plasma alanine brown otransferase measurement without P-5'-P (enzymatic activiOrdered By: Simba Grey on 03-21-2022 ALT No additional P-5'-P [Catalytic activity/Vol] 21 U/L 10-60 [facility] Serum or plasma albumin/glob ulin mass ratioOrdered By: Simba Grey on 03-21-2022 Albumin/Globulin [Mass ratio] 1.4 {ratio} [facility] Serum or plasma alkaline adriane sphatase measurement (enzymatic activity/volume)Ordered By: Simba Grey on 03-21-2022 ALP [Catalytic activity/Vol] 110 U/L 32-92 [facility] Serum or plasma amylase colby urement (enzymatic activity/volume)Ordered By: Simba Grey on 03-21-2022 Amylase [Catalytic activity/Vol] 69 U/L 28-100 [facility] Serum or plasma aspartate am inotransferase measurement (enzymatic activity/volume)Ordered By: Simba Grey on 03-21-2022 AST [Catalytic activity/Vol] 21 U/L 10-42 [facility] Serum or plasma calcium colby urement (mass/volume)Ordered By: Simba Grey on 03-21-2022 Calcium [Mass/Vol] 8.8 mg/dL 8.2-10.2 [facility] Serum or plasma chloride alicia surement (moles/volume)Ordered By: Simba Grey on 03-21-2022 Chloride [Moles/Vol] 103 mmol/L 95-114 [facility] Serum or plasma glucose colby urement (mass/volume)Ordered By: Simba Grey on 03-21-2022 Glucose [Mass/Vol] 118 mg/dL 70-100 [facility] Comment on above: ADA recommended refe rence [...] on 03-21-2022 Potassium [Moles/Vol] 4.1 mmol/L 3.5-5.1 [facility] Serum or plasma sodium measu rement (moles/volume)Ordered By: Simba Grey on 03-21-2022 Sodium [Moles/Vol] 137 mmol/L 136-146 [facility] Serum or plasma total biliru bin measurement (mass/volume)Ordered By: Simba Grey on 03-21-2022 Bilirubin [Mass/Vol] 1.7 mg/dL 0.3-1.2 [facility] Comment on above: Samples from patient s who have taken Naproxen have shown spurious elevation in Total Bilirubin levels. A metabolite of Naproxen, O-desmethylnaproxen, has been shown to interfere with the Emelia method for measuring Total Bilirubin. Serum or plasma total carbon dioxide measurement (moles/volume)Ordered By: Simba Grey on 03-21-2022 CO2 [Moles/Vol] 28.9 mmol/L 22.0-30.0 [facility] Serum or plasma urea nitroge n measurement (mass/volume)Ordered By: Simba Grey on 03-21-2022 Urea nitrogen [Mass/Vol] 16 mg/dL 9-23 [facility] Coding Summaryon 09-15-2021 Coding Summary HTMLBase 64 XxazybinPWb5bHe+PGh lYWQ+ZS5WUPNgB91owU LfzQ6MZ6sUTB1DCOGYI UZWUF1QFO4ehQJ2NQmm D1TnddMl JupohRGoKT75YUu3IBA 9rSodEEaykB4fuWIjN1 a9JhUkXD20bS89EMqnB TSxKcU1TkJlvlvnhNPq Y8ukNdGylFFpVtt+PHR hYmxlIHdpZHRoPScxMD BcZsJtcXtgJJ4kGp5vI GVyLWNvbGxhcHNlOiBj a4mdLSYlMWqjCL6yjXu pO2YjrRN7ELDwa8u8If 48dHI+JUIwIWS1jAwhV Zokj428WhIsp9krUHV6 nXYvROanTYY6C28nm6N 9XCRuTSEbRXN6cWP9eY 4inUqqtwydI6MecOFsS nL9NQK1uLFjyH4nhYdy glpeqK8rAvw+H83ALT1 FNSBFNA2UKfo0G5BaMm wvdHI+OQ15FGXsDE79t CIzqGRcn8bfnKc7QeOh NIIbYGV6pZhgEQabt0W qGLPiX21jlHJqo7U0DF AyrDwznTGvHsXsrTU7e T8sRBpbkgtfb7zsujlb Ukmer7voyt51qX99L02 qJVulJKDpVVG3VIIfGA SdjTyvzw0siQ8qHp7+I Zhuy5faf2wgzDl7OiVs GNQhqqPpgKbeEEI9w2T lIb42P3QzkGpyl8XqCu q4yl77uLBgr6I5dKH3K HmcMQEbtM1fPMrrZrZ1 LVBhNjLhhA29wWPuEUr xZx6ecEwblMvfXZ5lVJ KlkazpNWNhvE1kCHKsw MKqmDreMQ4uFQVnnxbg w078ShSfXXO5XTZrhHT uP5ShvZ9cRfHtOFKpUZ JrR7EhfEDyLIscN107W TkhSsU0MKFtrnGgC2Oh YQNlsLpmOqA7w1T4Ze2 Mj0OqwhjoDQU2ALgnAD WcUhB2VlYuPmI7N9CeV bm0KIOqfDimGS6nC1Zi EETdcwchfzjnvKE0IRX yXBQwcR02uJTpCYzjDd 2fu2H4g411LQNzDXWdu P42Yu4krYiuGRWawKGF lI9zkdwpb7fkobjvWrH cLSOiILy6XVw8WQZhaY gyFvXxENV4ZaU5LEF4h FZhoT9qtUupjipprF4d Oyc+I16usE9gUDH4DMI 0qzokJUGsyaGbLY21NG 82K5RzVlhyaYEztQD+P IXumpKdcBbmMS5sZoTg i2tzw7NfBIttQ2WwCNO kNChaVtu1WELcPET3lP Y8tW6dKGKvGMzlk6X3l XW9J0MomxUawf4fn5tj QPZsPPadK52qvTVmb7Y 2CAQrxHZ3DMBxoJtuMs XzmO80Pej+PGNvbGdyb 3LeDukqc7jnw9dzbWx3 IjMwJSIgdmFsaWduPSJ 6w2ExYc38A75vKOmsAD RoPSIxNSUiIHZhbGlnb w3plX6kQx7+PGNvbCB3 yZH3eC4tQUWuSwT8GNw aX321NyOxfNClMdeoe6 slm0xfcXa5PiYtMZXnj oHotRrdHHC2x7VzCy36 Z89qNWwmZLDyANDcJNX iRQWegFherz2srA1gIe 8+JE6qb1soik97qL82z HI+XMXcEJY4qVscNNpv JRBkaL9hTKjhAkK9IOH dMtOaqY72uVWuZCweAi 3qwPldyJgiUS0bDXXyd mcyp502VpNvj1vlPZLe kCHdMXtyTFR7F40bv6F 8VOJxTWHlBIS4uGM6wB 1hbGlnbjogbGVmdDsgd uSlzHohTPvrCBbxP457 IHRvcDsnPlBhdGllbnQ fMmFhGDt7V5LmUub6YG ZhqWgkDR0bpNNeBAhxK n2xeRcnkQmnFF5bZMEc mvbiw077RvGuv5ohJDR ihUShPLguLWU4E09me1 Z2QVZpMFGfUNF6cIM8t Q8yhQqzvreggMXvxSks xuMczWovCDaqGVmqU38 6IHRvcDsnPkJpcnRoIE PqeGN3ID28GJ68pQHmj 4I7uVQ9M1RrFADwhfch mogljPH3SYYsUBBaqV2 7Fu5ctSqaMs4sEBMoTX G2DFYnxBLyP5MgeF3aW tXjOARsIKRrP1BsfHNk YEdwX851QVzgLfZ5SQD eoeJpI2BqXPIshPmrQi J3f6F5Iz8FK0X9FA64K Y62sYPdp2R8dUX6F8Uu KJEldzotwvkygWN9OMR jLICvtG01Yh1nbCjjMh 7mNPHcJAV8MCDscPFfT 5RifR8dUmViILJqFRQe S6RgqZArFChgS159PBf kVbL0MTRudgVfV2YyRZ IkcUzdImI9m9Y0Ct1FJ Vv8SL40BV61pWWgm5T7 nAB3H9CpWQNkwzehvne dsYB1KKHnNWLmoD18Uy 5nsKzcKs5yYCQhTFS6M QFpqXJkJ9LzcO0uKaRs JMMfPMRrD2XjmWMwDQp jG014ZAnzSzI8TGJjbj AfQ6DeNKQgyEcfCwZ9p 8C2Ui5HEXNfLL89VYO7 aYU3FL71KP74D7OrAin vdGFibGU+PHRhYmxlIH dpZHRoPScxMDAlJyBzd MdoDO1yQc6sSIUfJJUd lAdfwMSiHiFly2tcBOJ gHEhpVA8wqJtfL1CawP X0KUVhe4z2Vi20A02eH 3JvdXA+RXRxlWE4vUN1 iJ0zDoHoJpY8YWnxZ82 3XdXzcXBgZrwnt3wty1 lcrOg4SuL6SWBrmiSqs OmoAKY2f8WcZp52S26y IHdpZHRoPSIxNSUiIHZ ozZlktm0nuP1jGc3+PG SxdMM4zXE0eX1wNhYmJ wQ1ZVvrZ878ZmOrkISo Twmhn1muw0ilwUo5DsB tWCDzsjRnmQpvQHU3e5 OyMt93W8LnwHxpr9BaI np6zb01fUUlk5Z2kZG9 C9IqVHJrqqvzvUEwmLv tRY9qQJFpiflcCJQnkE 3gBZZhM9c1MaHgUxY7G XggV4UwspV6IPKmqSKq DHrcGRX8Q97ha5H5BHS aMUIvZJK4iWD4wY3jvL lnbjogbGVmdDsgdmVyd SqsEMzoWGueV376CGAb tKrvHGGrpO0uHYSscGF fwZetUZ1tNPCmiebtNv cBTB4YQVJVMHqHKYWMM NK8N0TgPtu0OXTonLrz JJ7kmVSzGYspBj6dhMj qjSltOE7uPFUthgdpII TenT5xAGLuqMCciQvvU B3nHTIkuqsmh694BePv AWS3VTMexCSzZ7JxoR2 zYlFkUGQrWASlJ5MufB DnEDhcH111HGvbMnY9P XWujgXuH8CwKPJazNvm HfJ8u8U5Gf4xPI1oDD7 eQXCrUO77YR95vYKwa7 O3yDG9T1EoFJWpdmuhu nmbhQO7CZCxFVRzfT67 cUQvMDiePq5zx5V8a83 1GILfNYLvgM28Uf3ncV xzGYOguPENfQ4aqqsew 3gsdlriBoSvRFTkDKj5 MRi1KAJpwTrwEwZtWTN 7PuO5ZJO0aRHoqO9nfY anogxrdR0uSul+NzAgW WWgxrK3N5BrPmp7LZBl kPlqYW0ieEZeZRbwUk0 jmIfhbHveJJ9cNVCqlg cwYPKxzU8mEWEhrMCxj WzyPO3oHGQitvnhh350 JiNzPYS6VMNplJWjU6B jlD9xJyGcRGVzQYKbP3 ChpXUuKEajZ977ZLwiM hT3LJCsbhGvH6YsQBRu vJykQjB7o4Y4Dl6KKNh WZS65OZ70sMXqt5T3fD X4R4ZlGKRpoeacgbnby QA6UNYbCUVihG43tMYk MCjfUx1of9S1y839HRL rRMOpwX69Ba9heEqkNG UumNMSuL2mkqeub0bcq qtzVnBzIQDgPHp3LFf0 GYXdjHxaSeHrWRM8EqS 3KCU5rGAouZ7auQlwlh uoaB2hXcl+N8W2O0OjE jwvdHI+RI87ZLTfJH76 iHXhvLQal1otxNu9DlH tFYScWPN3xEyfMJshb2 ImQGQnY16zkHPaz8Z4I GNvbGxhcHNlOyBlbXB0 bQ2rUEbglwiuc2oovua pNlryo9ftgn78bI73R0 9sIHdpZHRoPSIzMCUiI KDwvMqvpk7lmF5cYt3+ MZWfaQB6dKC3yN4pAyC wArO3ZOfcM824WaLbjL CjYncen5qlq4mbuYb8R jIwJSIgdmFsaWduPSJ0 s8QsFb33D03lRTgfFWP oPSIyMCUiIHZhbGlnbj 6viZ1uUc2+VW3lf1iqr p86gP76nAX+PHRkIHN0 zQrjGBtwXHLtfH4jMKu bTaQ2FXGmJdClmA13dC ItFRpfWa4yfMmooUepN K7nLSAnjhobx595BaRp k4daCQNtfIPtETbpFHT 3Q35gb8J4DWBbVWGwVV Y7yHK0nY4gjLxotogxq GVmdDsgdmVydGljYWwt FPloU210MLStpGppLeP meHYjX5pkzvBJPJ1dOn wvdGQ+YILcFIA3wKnlA CqrFUPjhX5fMGCrJ8w8 YxVoFhM3MQlfL3UmhgV 6IGJvbGQgMTBwdCBUaW 3oehtya8cyxcomVlYbZ PNyHUv0USa2DKRekLku UeTuXHS6PnA1AQB0tGY lfT9wcYrfvymdlG7fXa c+RklOOjwvdGQ+PHRkI FC1aIxbVXpxKXCgmF5j WTYpY1y7ScKzIpB7FNu tS4GqgtQ2XHNfhMZpEA DrxZSQfC5ryachz1jnt pxwUzEzNOCxRWe3SRb2 FOPbkXsrGsIyKUV3ScD 9YCI4bDXvlS0icAdxsm eqkA1sVlk+TVJOOjwvd GQ+LPNzQFT1nMlcHWfv DJXtyK3fQWKxH4w1FnV wRiO3YQvmN2UfckD5RV KrcIOlPHIszFPVkB6ta lgda6gktshwTkQxTIBv VYz1JKr6WBOjnTddWbN yWRR3BgR2KVO0yZZsfC 0niSjoylffeO3kPzp+U DM6MMI8WR47TY27B5Ai PjwvdGFibGU+PHRhYmx lIHdpZHRoPScxMDAlJy QsaUmkYQ0eDa7rDTPjH GElsPeqyRWnUvDni8lz YXB (more content not included)... [facility] Provider Orderson 09-15-2021 Provider Orders [id number] [facility] .Auto Diff 109-14-2021 Auto Craven % 11 % Normal 08-18 [facility] Comment on above: Performed By: #### 1 [id number] #### [facility] [address] [place] [address] Baso Abs# 0.0 x10 Normal 0.0-0.2 [facility] Comment on above: Performed By: #### 1 [id number], [id number] #### [facility] ([facility]) [address] [place] [address] 31317 Basophils/100 WBC (Bld) 0.4 % Normal 0.2-2.0 [facility] Comment on above: Performed By: #### 1 [id number] #### [facility] ([facility]) [address] [place] [address] 32608 Eos Abs# 0.2 x10 Normal 0.0-0.4 [facility] Comment on above: Performed By: #### 1 [id number], [id number] #### [facility] (DEFAULT) [address] [place] [address] 58945 Eosinophils/100 WBC (Bld) 3.6 % Normal 0.9-4.0 [facility] Comment on above: Performed By: #### 1 [id number], [id number] #### [facility] (DEFAULT) [address] [place] [address] 14237 Lymph Abs# 1.4 x10 Normal 1.3-2.9 [facility] Comment on above: Performed By: #### 1 [id number], [id number] #### [facility] (DEFAULT) [address] [place] [address] 72664 Lymphocytes/100 WBC (Bld) 29 % Normal 14-48 [facility] Comment on above: Performed By: #### 1 [id number], [id number] #### [facility] (DEFAULT) [address] [place] [address] 99892 Craven Abs# 0.5 x10 Normal 0.0-0.8 [facility] Comment on above: Performed By: #### 1 [id number], [id number] #### [facility] (DEFAULT) [address] [place] [address] 45815 Neut Abs# 2.8 x10 Normal 1.5-9.2 [facility] Comment on above: Performed By: #### 1 [id number], [id number] #### [facility] (DEFAULT) [address] [place] [address] 18191 Neutrophils/100 WBC (Bld) 56 % Normal 44-88 [facility] Comment on above: Performed By: #### 1 [id number], [id number] #### [facility] (DEFAULT) [address] [place] [address] 91719 CBC w/ Auto Diffon 2 Erythrocyte distribution width (RBC) [Ratio] 13.8 % Normal 11.5-15.0 [facility] Comment on above: Performed By: #### 1 [id number], [id number] #### [facility] (DEFAULT) [address] [place] [address] Hematocrit (Bld) [Volume fraction] 44.5 % Normal 34.8-51.9 [facility] Comment on above: Performed By: #### 1 [id number], [id number] #### [facility] (DEFAULT) [address] [place] [address] Hemoglobin (Bld) [Mass/Vol] 14.6 g/dL Normal 11.8-17.7 [facility] Comment on above: Performed By: #### 1 [id number], [id number] #### [facility] (DEFAULT) [address] [place] [address] Instr WBC 5.0 x10 Invalid Interpretation Code [facility] Comment on above: Performed By: #### 1 [id number], [id number] #### [facility] (DEFAULT) [address] [place] [address] Man Diff? Auto Normal [facility] Comment on above: Performed By: #### 1 [id number] #### [facility] (DEFAULT) [address] [place] [address] 83307 MCH (RBC) [Entitic mass] 29 pg Normal 24-34 [facility] Comment on above: Performed By: #### 1 [id number], [id number] #### [facility] (DEFAULT) [address] [place] [address] 04160 MCHC (RBC) [Mass/Vol] 33 g/dL Normal 26-37 [facility] Comment on above: Performed By: #### 1 [id number], [id number] #### [facility] (DEFAULT) [address] [place] [address] 50287 MCV (RBC) [Entitic vol] 88 fL Normal 81-100 [facility] Comment on above: Performed By: #### 1 [id number], [id number] #### [facility] (DEFAULT) [address] [place] [address] 03607 Platelet 171 x10 Normal 138-427 [facility] Comment on above: Performed By: #### 1 [id number], [id number] #### [facility] (DEFAULT) [address] [place] [address] 63089 Platelet mean volume (Bld) [Entitic vol] 9.7 fL Normal 6.3-10.2 [facility] Comment on above: Performed By: #### 1 [id number], [id number] #### [facility] (DEFAULT) [address] [place] [address] 37635 RBC 5.04 x10 Normal 3.70-5.30 [facility] Comment on above: Performed By: #### 1 [id number], [id number] #### [facility] (DEFAULT) [address] [place] [address] 90908 WBC 5.0 x10 Normal 3.5-10.5 [facility] Comment on above: Performed By: #### 1 [id number], [id number] #### [facility] ([facility]) [address] [place] [address] 70871 Vital Signs Date Time Vital Sign Value Performing Clinician Facility 04-08-2025 12:54-0400 Body height 193.04 cm Nathan CLARKC Work Phone: [facility] 04-08-2025 12:54-0400 Body mass index (BMI) [Ratio] 27.8 kg/m2 Nathan Talbot NP-C Work Phone: [facility] 04-08-2025 12:54-0400 Body temperature 97.7 [degF] Nathan Talbot NP-C Work Phone: [facility] 04-08-2025 12:54-0400 Body weight 103.92 kg Nathan Talbot NP-C Work Phone: [facility] 04-08-2025 12:54-0400 Diastolic blood pressure 51 mm[Hg] Nathan Talbot CONSULTING INTERN-C Work Phone: [facility] 04-08-2025 12:54-0400 Heart rate 55 /min Nathan Talobt CONSULTING INTERN-C Work Phone: [facility] 04-08-2025 12:54-0400 Respiratory rate 18 /min Nathan Thomasillo CONSULTING INTERN-C Work Phone: [facility] 04-08-2025 12:54-0400 SaO2% (BldA) [Mass fraction] 98 % Nathan Thomasillo CONSULTING INTERN-C Work Phone: [facility] 04-08-2025 12:54-0400 Systolic blood pressure 93 mm[Hg] Nathan Thomasillo CONSULTING INTERN-C Work Phone: [facility] 03-11-2025 08:23-0400 Body height 190.5 cm Aaron Rojaszer FILM AND VIDEO EDITOR-WARRANT SERVER Work Phone: [facility] [employer] [facility] 03-11-2025 08:23-0400 Body mass index (BMI) [Ratio] 28.1 kg/m2 Aaronjose De Los Santosotzer FILM AND VIDEO EDITOR-WARRANT SERVER [facility] 03-11-2025 08:23-0400 Body temperature 99 [degF] Aaron Rojaszer FILM AND VIDEO EDITOR-WARRANT SERVER [facility] Phone: [facility] [employer] 03-11-2025 08:23-0400 Body weight 101.97 kg Aaron Rojaszer FILM AND VIDEO EDITOR-WARRANT SERVER [facility] 03-11-2025 08:23-0400 Diastolic blood pressure 62 mm[Hg] Aaron Filibertootzer FILM AND VIDEO EDITOR-WARRANT SERVER [facility] Phone: [facility] 03-11-2025 08:23-0400 Heart rate 71 /min Aaronjose Rojsazer FILM AND VIDEO EDITOR-WARRANT SERVER Work Phone: [facility] 03-11-2025 08:23-0400 Respiratory rate 18 /min Aaronjose Rojaszer FILM AND VIDEO EDITOR-WARRANT SERVER Work Phone: [facility] [employer] [facility] 03-11-2025 08:23-0400 SaO2% (BldA) [Mass fraction] 95 % Aaron Crystalzer FILM AND VIDEO EDITOR-WARRANT SERVER Work Phone: [facility] [employer] [facility] 03-11-2025 08:23-0400 Systolic blood pressure 100 mm[Hg] Aaron Crystalzer FILM AND VIDEO EDITOR-WARRANT SERVER Work Phone: [facility] 02-27-2025 10:38-0400 Body height 190.5 cm Aaronjose Rojaszer FILM AND VIDEO EDITOR-WARRANT SERVER Work Phone: [facility] 02-27-2025 10:38-0400 Body mass index (BMI) [Ratio] 28.5 kg/m2 Aaronjose Rojaszer FILM AND VIDEO EDITOR-WARRANT SERVER Work Phone: [facility] 02-27-2025 10:38-0400 Body temperature 98.1 [degF] Aaron De Los Santosotzer FILM AND VIDEO EDITOR-WARRANT SERVER Work Phone: [facility] 02-27-2025 10:38-0400 Body weight 103.42 kg Aaron Rojaszer FILM AND VIDEO EDITOR-WARRANT SERVER Work Phone: [facility] 02-27-2025 10:38-0400 Diastolic blood pressure 60 mm[Hg] Aaron Filibertootzer FILM AND VIDEO EDITOR-WARRANT SERVER Work Phone: [facility] 02-27-2025 10:38-0400 Heart rate 52 /min Aaron Filibertootzer FILM AND VIDEO EDITOR-WARRANT SERVER Work Phone: [facility] [employer] [facility] 02-27-2025 10:38-0400 Respiratory rate 17 /min Aaron Filibertootzer FILM AND VIDEO EDITOR-WARRANT SERVER Work Phone: [facility] 02-27-2025 10:38-0400 SaO2% (BldA) [Mass fraction] 95 % Aaron Filibertootzer FILM AND VIDEO EDITOR-WARRANT SERVER Work Phone: [facility] 02-27-2025 10:38-0400 Systolic blood pressure 110 mm[Hg] Aaron Dhillon FILM AND VIDEO EDITOR-WARRANT SERVER Work Phone: [facility] 12-20-2024 16:12-0400 Body height 190.5 cm Hamzah Lazo DPM Work Phone: [facility] 12-20-2024 16:12-0400 Body mass index (BMI) [Ratio] 29.37 kg/m2 Hamzah Lazo DPM Work Phone: [facility] 12-20-2024 16:12-0400 Body weight 106.59 kg Hamzah Rey DPM Work Phone: [facility] 12-20-2024 16:12-0400 Respiratory rate 18 /min Hamzah Rey DPM Work Phone: [facility] 11-25-2024 10:44-0400 Body height 193.04 cm [facility] 11-25-2024 10:44-0400 Body mass index (BMI) [Ratio] 27.7 kg/m2 [facility] 11-25-2024 10:44-0400 Body weight 103.41 kg [facility] 11-25-2024 10:44-0400 Diastolic blood pressure 64 mm[Hg] [facility] 11-25-2024 10:44-0400 Heart rate 49 /min [facility] 11-25-2024 10:44-0400 Systolic blood pressure 109 mm[Hg] [facility] 11-25-2024 09:31-0400 Body height 190.5 cm Leopoldo Montaño MD Work Phone: [facility] 11-25-2024 09:31-0400 Body mass index (BMI) [Ratio] 28.97 kg/m2 Leopoldo Montaño MD Work Phone: [facility] 11-25-2024 09:31-0400 Body weight 105.14 kg Leopoldo Montaño MD Work Phone: [facility] 11-25-2024 09:31-0400 Diastolic blood pressure 68 mm[Hg] Leopoldo Montaño MD Work Phone: [facility] 11-25-2024 09:31-0400 Heart rate 50 /min Leopoldo Montaño MD Work Phone: [facility] 11-25-2024 09:31-0400 SaO2% (BldA) [Mass fraction] 90 % Leopoldo Montaño MD Work Phone: [facility] 11-25-2024 09:31-0400 Systolic blood pressure 106 mm[Hg] Leopoldo Montaño MD Work Phone: [facility] 10-31-2024 13:52-0400 Body height 190.5 cm Simeon Mitesh LENTZ Work Phone: [facility] 10-31-2024 13:52-0400 Body mass index (BMI) [Ratio] 29.37 kg/m2 Simeon Mitesh LENTZ Work Phone: [facility] 10-31-2024 13:52-0400 Body weight 106.59 kg Simeon Sagastume DO Work Phone: [facility] 10-31-2024 13:52-0400 Diastolic blood pressure 66 mm[Hg] Simeon Sagastume DO Work Phone: [facility] 10-31-2024 13:52-0400 Systolic blood pressure 120 mm[Hg] Simeon Mitesh LENTZ Work Phone: [facility] 10-17-2024 09:48-0400 Body height 190.5 cm Khushbu Gill Work Phone: [facility] 10-17-2024 09:48-0400 Body mass index (BMI) [Ratio] 29.11 kg/m2 Khushbu Gill DO Work Phone: [facility] 10-17-2024 09:48-0400 Body weight 105.64 kg Khushbu Gill Work Phone: [facility] 10-17-2024 09:48-0400 Diastolic blood pressure 53 mm[Hg] Khushbu Gill DO Work Phone: [facility] 10-17-2024 09:48-0400 Heart rate 53 /min Khushbu Gill DO Work Phone: [facility] [employer] [facility] 10-17-2024 09:48-0400 SaO2% (BldA) [Mass fraction] 97 % Khushbu Gill DO Work Phone: [facility] 10-17-2024 09:48-0400 Systolic blood pressure 107 mm[Hg] Khushbu Gill DO Work Phone: [facility] 09-26-2024 16:20-0500 Body height 190.5 cm Hamzah Lazo DPM Work Phone: [facility] 09-26-2024 16:20-0500 Body mass index (BMI) [Ratio] 29.37 kg/m2 Hamzah Lazo DPM Work Phone: [facility] 09-26-2024 16:20-0500 Body weight 106.59 kg Hamzah Lazo DPM Work Phone: [facility] 09-26-2024 16:20-0500 Respiratory rate 18 /min Hamzah Lazo DPM Work Phone: [facility] 08-27-2024 11:09-0500 Body height 193.04 cm [facility] 08-27-2024 11:09-0500 Body mass index (BMI) [Ratio] 29 kg/m2 [facility] 08-27-2024 11:09-0500 Body weight 108.1 kg [facility] 07-29-2024 12:56-0500 Blood Pressure Location Amanda BIRD [facility] 07-29-2024 12:56-0500 Body temperature 98.6 [degF] Amanda BIRD [facility] 07-29-2024 12:56-0500 Diastolic blood pressure 70 mm[Hg] Amanda BIRD [facility] 07-29-2024 12:56-0500 Heart rate 60 /min Amanda BIRD [facility] 07-29-2024 12:56-0500 Respiratory rate 18 /min Amanda BIRD [facility] 07-29-2024 12:56-0500 Systolic blood pressure 116 mm[Hg] Amanda BIRD [facility] 07-20-2024 14:36-0500 Body height 193.04 cm [facility] 07-20-2024 14:36-0500 Body mass index (BMI) [Ratio] 29 kg/m2 [facility] [facility] 07-20-2024 14:36-0500 Body temperature 97.4 [degF] [facility] 07-20-2024 14:36-0500 Body weight 108.01 kg [facility] 07-20-2024 14:36-0500 Diastolic blood pressure 57 mm[Hg] [facility] 07-20-2024 14:36-0500 Heart rate 56 /min [facility] 07-20-2024 14:36-0500 Respiratory rate 16 /min [facility] 07-20-2024 14:36-0500 SaO2% (BldA) [Mass fraction] 97 % [facility] 07-20-2024 14:36-0500 Systolic blood pressure 117 mm[Hg] [facility] 07-18-2024 13:46-0500 Body height 190.5 cm Hamzah Lazo DPM Work Phone: [facility] 07-18-2024 13:46-0500 Body mass index (BMI) [Ratio] 29.37 kg/m2 Hamzah Lazo DPM Work Phone: [facility] 07-18-2024 13:46-0500 Body weight 106.59 kg Hamzah Lazo DPM Work Phone: [facility] 07-18-2024 13:46-0500 Respiratory rate 16 /min Hamzah Lazo DPM Work Phone: [facility] 06-06-2024 10:30-0400 Body height 190.5 cm Nathan Talbot FILM AND VIDEO EDITOR-WARRANT SERVER Work Phone: [facility] 06-06-2024 10:30-0400 Body mass index (BMI) [Ratio] 29.12 kg/m2 Nathan Talbot FILM AND VIDEO EDITOR-WARRANT SERVER Work Phone: [facility] 06-06-2024 10:30-0400 Body weight 105.69 kg Nathan Talbot FILM AND VIDEO EDITOR-WARRANT SERVER Work Phone: [facility] 06-06-2024 10:30-0400 Diastolic blood pressure 62 mm[Hg] Nathan Talbot FILM AND VIDEO EDITOR-WARRANT SERVER Work Phone: [facility] 06-06-2024 10:30-0400 Systolic blood pressure 110 mm[Hg] Nathan Talbot FILM AND VIDEO EDITOR-WARRANT SERVER Work Phone: [facility] 05-09-2024 16:30-0400 Body height 190.5 cm Hamzah Lazo DPM Work Phone: [facility] 05-09-2024 16:30-0400 Body mass index (BMI) [Ratio] 29.37 kg/m2 Hamzah Lazo DPM Work Phone: [facility] 05-09-2024 16:30-0400 Body weight 106.59 kg Hamzah Lazo DPM Work Phone: [facility] 05-09-2024 16:30-0400 Diastolic blood pressure 80 mm[Hg] Hamzah Lazo DPM Work Phone: [facility] 05-09-2024 16:30-0400 Heart rate 75 /min Hamzah Lazo DPM Work Phone: [facility] 05-09-2024 16:30-0400 Respiratory rate 18 /min Hamzah Lazo DPM Work Phone: [facility] 05-09-2024 16:30-0400 Systolic blood pressure 128 mm[Hg] Hamzah Lazo DPM Work Phone: [facility] 02-14-2024 16:02-0400 Body height 190.5 cm Nathan Talbot FILM AND VIDEO EDITOR-WARRANT SERVER Work Phone: [facility] 02-14-2024 16:02-0400 Body mass index (BMI) [Ratio] 29.27 kg/m2 Nathan Talbot FILM AND VIDEO EDITOR-WARRANT SERVER Work Phone: [facility] 02-14-2024 16:02-0400 Body temperature 97.59 [degF] Nathan Talbot FILM AND VIDEO EDITOR-WARRANT SERVER Work Phone: [facility] 02-14-2024 16:02-0400 Body weight 106.23 kg Nathan Talbot FILM AND VIDEO EDITOR-WARRANT SERVER Work Phone: [facility] 02-14-2024 16:02-0400 Diastolic blood pressure 60 mm[Hg] Nathan Talbot FILM AND VIDEO EDITOR-WARRANT SERVER Work Phone: [facility] 02-14-2024 16:02-0400 Heart rate 54 /min Nathan Talbot FILM AND VIDEO EDITOR-WARRANT SERVER Work Phone: [facility] 02-14-2024 16:02-0400 Respiratory rate 18 /min Nathan Talbot FILM AND VIDEO EDITOR-WARRANT SERVER Work Phone: [facility] 02-14-2024 16:02-0400 SaO2% (BldA) [Mass fraction] 97 % Nathan Talbot FILM AND VIDEO EDITOR-WARRANT SERVER Work Phone: [facility] 02-14-2024 16:02-0400 Systolic blood pressure 112 mm[Hg] Nathan Talbot FILM AND VIDEO EDITOR-WARRANT SERVER Work Phone: [facility] 01-02-2024 15:55-0400 Body height 190.5 cm Omega Furlong DO Work Phone: [facility] [employer] [facility] 01-02-2024 15:55-0400 Body mass index (BMI) [Ratio] 29.31 kg/m2 Omega Furlong DO Work Phone: [facility] [employer] [facility] 01-02-2024 15:55-0400 Body temperature 97.3 [degF] Omega Furlong DO Work Phone: [facility] [employer] [facility] 01-02-2024 15:55-0400 Body weight 106.37 kg Omega Furlong DO Work Phone: [facility] 01-02-2024 15:55-0400 Diastolic blood pressure 56 mm[Hg] Omega Furlong DO Work Phone: [facility] [employer] [facility] 01-02-2024 15:55-0400 Heart rate 58 /min Omega Furlong DO Work Phone: [facility] [employer] [facility] 01-02-2024 15:55-0400 Respiratory rate 18 /min Omega Furlong DO Work Phone: [facility] [employer] [facility] 01-02-2024 15:55-0400 SaO2% (BldA) [Mass fraction] 95 % Omega Furlong DO Work Phone: [facility] 01-02-2024 15:55-0400 Systolic blood pressure 98 mm[Hg] Omega Furlong DO Work Phone: [facility] 12-04-2023 11:50-0400 Blood Pressure Location Amanda BIRD [facility] 12-04-2023 11:50-0400 Body temperature 96.8 [degF] Amanda BIRD [facility] 12-04-2023 11:50-0400 Diastolic blood pressure 76 mm[Hg] Amanda BIRD [facility] 12-04-2023 11:50-0400 Heart rate 84 /min Amanda BIRD [facility] 12-04-2023 11:50-0400 Systolic blood pressure 110 mm[Hg] Amanda BIRD [facility] 11-20-2023 08:50-0400 Body height 190.5 cm Lucia Butler MD Work Phone: [facility] 11-20-2023 08:50-0400 Body mass index (BMI) [Ratio] 29.47 kg/m2 Lucia Butler MD Work Phone: [facility] 11-20-2023 08:50-0400 Body weight 106.96 kg Lucia Butler MD Work Phone: [facility] 11-20-2023 08:50-0400 Diastolic blood pressure 68 mm[Hg] Lucia Butler MD Work Phone: [facility] 11-20-2023 08:50-0400 Heart rate 56 /min Lucia Butler MD Work Phone: [facility] [employer] [facility] 11-20-2023 08:50-0400 SaO2% (BldA) [Mass fraction] 96 % Lucia Butler MD Work Phone: [facility] 11-20-2023 08:50-0400 Systolic blood pressure 114 mm[Hg] Lucia Butler MD Work Phone: [facility] [employer] [facility] 11-14-2023 14:40-0400 Body height 190.5 cm Nathan SEPULVEDA Work Phone: [facility] [employer] [facility] 11-14-2023 14:40-0400 Body mass index (BMI) [Ratio] 29.22 kg/m2 Nathan SEPULVEDA Work Phone: [facility] 11-14-2023 14:40-0400 Body temperature 99.5 [degF] Nathan Talbot APRN-WARRANT SERVER Work Phone: [facility] 11-14-2023 14:40-0400 Body weight 106.05 kg Nathan Talbot APRN-WARRANT SERVER Work Phone: [facility] 11-14-2023 14:40-0400 Diastolic blood pressure 50 mm[Hg] Nathan Talbot FILM AND VIDEO EDITOR-WARRANT SERVER Work Phone: [facility] 11-14-2023 14:40-0400 Heart rate 71 /min Nathan Talbot APRN-WARRANT SERVER Work Phone: [facility] 11-14-2023 14:40-0400 Respiratory rate 18 /min Nathan Talbot APRN-WARRANT SERVER Work Phone: [facility] 11-14-2023 14:40-0400 SaO2% (BldA) [Mass fraction] 93 % Nathan Talbot APRN-WARRANT SERVER Work Phone: [facility] 11-14-2023 14:40-0400 Systolic blood pressure 90 mm[Hg] Nathan Talbot APRN-WARRANT SERVER Work Phone: [facility] 10-16-2023 14:30-0400 Body height 190.5 cm Nathan Talbot APRN-WARRANT SERVER Work Phone: [facility] 10-16-2023 14:30-0400 Body mass index (BMI) [Ratio] 30 kg/m2 Nathan Talbot FILM AND VIDEO EDITOR-WARRANT SERVER Work Phone: [facility] 10-16-2023 14:30-0400 Body temperature 97.7 [degF] Nathan Talbot APRN-WARRANT SERVER Work Phone: [facility] 10-16-2023 14:30-0400 Body weight 108.86 kg Nathan Talbot FILM AND VIDEO EDITOR-WARRANT SERVER Work Phone: [facility] [employer] 10-16-2023 14:30-0400 Diastolic blood pressure 60 mm[Hg] Nathan Talbot APRN-THEA Work Phone: [facility] [employer] 10-16-2023 14:30-0400 Heart rate 52 /min Nathan Talbot APRNAIYANA Work Phone: [facility] [employer] 10-16-2023 14:30-0400 SaO2% (BldA) [Mass fraction] 96 % Nathan Talbot APRN-THEA Work Phone: [facility] [employer] 10-16-2023 14:30-0400 Systolic blood pressure 110 mm[Hg] Nathan Talbot APRN-TEHA Work Phone: [facility] [employer] 10-12-2023 09:22-0500 Body height 190.5 cm Khushbu Gill DO Work Phone: [facility] 10-12-2023 09:22-0500 Body mass index (BMI) [Ratio] 29.69 kg/m2 Khushbu Gill DO Work Phone: [facility] [employer] 10-12-2023 09:22-0500 Body weight 107.73 kg Khushbu Gill DO Work Phone: [facility] [employer] 10-12-2023 09:22-0500 Diastolic blood pressure 59 mm[Hg] Khushbu Gill DO Work Phone: [facility] [employer] 10-12-2023 09:22-0500 Heart rate 50 /min Khushbu Gill DO Work Phone: [facility] [employer] 10-12-2023 09:22-0500 SaO2% (BldA) [Mass fraction] 95 % Khushbu Gill DO Work Phone: [facility] [employer] 10-12-2023 09:22-0500 Systolic blood pressure 110 mm[Hg] Khushbu Gill DO Work Phone: [facility] [employer] 10-10-2023 14:46-0500 Body height 190.5 cm Nathan Talbot APRN-THEA Work Phone: [facility] [employer] [facility] 10-10-2023 14:46-0500 Body mass index (BMI) [Ratio] 30 kg/m2 Nathan Talbot APRN-WARRANT SERVER Work Phone: [facility] [employer] [facility] 10-10-2023 14:46-0500 Body temperature 98.01 [degF] Nathan Talbot APRN-THEA Work Phone: [facility] 10-10-2023 14:46-0500 Body weight 108.86 kg Nathan Talbot APRN-THEA Work Phone: [facility] 10-10-2023 14:46-0500 Diastolic blood pressure 56 mm[Hg] Nathan Talbot APRN-THEA Work Phone: [facility] 10-10-2023 14:46-0500 Heart rate 53 /min Nathan SEPULVEDA Work Phone: [facility] 10-10-2023 14:46-0500 SaO2% (BldA) [Mass fraction] 97 % Nathan Talbot APRN-THEA Work Phone: [facility] 10-10-2023 14:46-0500 Systolic blood pressure 112 mm[Hg] Nathan Talbot APRN-WARRANT SERVER Work Phone: [facility] 09-19-2023 11:32-0500 Body height 190.5 cm Mojgan Devries APRN-GRAPHIC PRE PRESS TRADES WORKER Work Phone: [facility] 09-19-2023 11:32-0500 Body mass index (BMI) [Ratio] 30.12 kg/m2 Mojgan Devries FILM AND VIDEO EDITOR-GRAPHIC PRE PRESS TRADES WORKER Work Phone: [facility] 09-19-2023 11:32-0500 Body temperature 97.2 [degF] Mojgan Devries APRN-GRAPHIC PRE PRESS TRADES WORKER Work Phone: [facility] 09-19-2023 11:32-0500 Body weight 109.32 kg Mojgan CASTILLO Work Phone: [facility] 09-19-2023 11:32-0500 Diastolic blood pressure 50 mm[Hg] Mojgan CASTILLO Work Phone: [facility] 09-19-2023 11:32-0500 Heart rate 51 /min Mojgan CASTILLO Work Phone: [facility] 09-19-2023 11:32-0500 SaO2% (BldA) [Mass fraction] 97 % Mojgan CASTILLO Work Phone: [facility] [employer] [facility] 09-19-2023 11:32-0500 Systolic blood pressure 110 mm[Hg] Mojgan CASTILLO Work Phone: [facility] [employer] [facility] 08-10-2023 16:45-0500 Body height 190.5 cm Omega Furlong DO Work Phone: [facility] 08-10-2023 16:45-0500 Body mass index (BMI) [Ratio] 29.54 kg/m2 Omega Furlong DO Work Phone: [facility] [employer] [facility] 08-10-2023 16:45-0500 Body temperature 97.7 [degF] Omega Furlong DO Work Phone: [facility] [employer] [facility] 08-10-2023 16:45-0500 Body weight 107.19 kg Omega Furlong DO Work Phone: [facility] 08-10-2023 16:45-0500 Diastolic blood pressure 60 mm[Hg] Omega Furlong DO Work Phone: [facility] [employer] [facility] 08-10-2023 16:45-0500 Heart rate 62 /min Omega Furlong DO Work Phone: [facility] [employer] [facility] 08-10-2023 16:45-0500 SaO2% (BldA) [Mass fraction] 100 % Omega Gar DO [facility] 08-10-2023 16:45-0500 Systolic blood pressure 118 mm[Hg] Omega Gar DO Work Phone: [facility] 08-02-2023 16:46-0500 Body height 190.5 cm Nathan Talbot APRN-THEA Work Phone: [facility] 08-02-2023 16:46-0500 Body mass index (BMI) [Ratio] 29.85 kg/m2 Nathan Talbot FILM AND VIDEO EDITOR-THEA Work Phone: [facility] 08-02-2023 16:46-0500 Body temperature 97.3 [degF] Nathan Talbot APRN-WARRANT SERVER Work Phone: [facility] 08-02-2023 16:46-0500 Body weight 108.32 kg Nathan Talbot APRN-WARRANT SERVER Work Phone: [facility] 08-02-2023 16:46-0500 Diastolic blood pressure 58 mm[Hg] Nathan Talbot APRN-WARRANT SERVER Work Phone: [facility] 08-02-2023 16:46-0500 Heart rate 58 /min Nathan Talbot APRN-WARRANT SERVER Work Phone: [facility] 08-02-2023 16:46-0500 SaO2% (BldA) [Mass fraction] 97 % Nathan Talbot APRN-WARRANT SERVER Work Phone: [facility] [employer] 08-02-2023 16:46-0500 Systolic blood pressure 110 mm[Hg] Nathan Talbot FILM AND VIDEO EDITOR-WARRANT SERVER Work Phone: [facility] 07-16-2023 13:00-0500 Body height 185.42 cm Juana Handley Other [employer] Other 07-16-2023 13:00-0500 Body mass index (BMI) [Ratio] 31.24 kg/m2 Juana Handley Other [employer] Other 07-16-2023 13:00-0500 Body temperature 98.4 [degF] Juana Handley Other [employer] Other 07-16-2023 13:00-0500 Body weight 107.41 kg Juana Handley Other [employer] Other 07-16-2023 13:00-0500 Diastolic blood pressure 60 mm[Hg] Juana Handley Other [employer] Other 07-16-2023 13:00-0500 SaO2% (BldA) [Mass fraction] 96 % Juana Handley Other [employer] Other 07-16-2023 13:00-0500 Systolic blood pressure 117 mm[Hg] Juana Handley Other [employer] Other 05-10-2023 09:30-0400 Body height 185.42 cm Simba Grey Other [employer] Other 05-10-2023 09:30-0400 Body mass index (BMI) [Ratio] 30.61 kg/m2 Simba Grey Other [employer] Other 05-10-2023 09:30-0400 Body weight 105.24 kg Simba Grey Other [employer] Other 05-10-2023 09:30-0400 Diastolic blood pressure 65 mm[Hg] Simba Grey Other [employer] Other 05-10-2023 09:30-0400 Systolic blood pressure 104 mm[Hg] Simba Grey Other [facility] [employer] Other 01-27-2023 10:44-0400 Blood Pressure Location Amanda BIRD [facility] 01-27-2023 10:44-0400 Diastolic blood pressure 68 mm[Hg] Amanda BIRD [facility] 01-27-2023 10:44-0400 Heart rate 72 /min Amanda BIRD [facility] 01-27-2023 10:44-0400 Respiratory rate 16 /min Amanda BIRD [facility] 01-27-2023 10:44-0400 Systolic blood pressure 116 mm[Hg] Amanda BIRD [facility] 11-14-2022 11:00-0400 Blood Pressure Location Amanda BIRD [facility] 11-14-2022 11:00-0400 Diastolic blood pressure 69 mm[Hg] Amanda BIRD [facility] 11-14-2022 11:00-0400 Heart rate 58 /min Amanda BIRD [facility] 11-14-2022 11:00-0400 Respiratory rate 16 /min Amanda BIRD [facility] 11-14-2022 11:00-0400 Systolic blood pressure 129 mm[Hg] Amanda BIRD [facility] 05-27-2022 16:35-0400 Body height 185.42 cm Juana Handley Other [employer] Other 05-27-2022 16:35-0400 Body mass index (BMI) [Ratio] 31.42 kg/m2 Juana Morenomond Other [employer] Other 05-27-2022 16:35-0400 Body temperature 98.1 [degF] Juana Handley Other [employer] Other 05-27-2022 16:35-0400 Body weight 108.05 kg Juana Morenomond Other [employer] Other 05-27-2022 16:35-0400 Diastolic blood pressure 68 mm[Hg] Juana Morenomond Other [employer] Other 05-27-2022 16:35-0400 Respiratory rate 18 /min Juana Morenomond Other [employer] Other 05-27-2022 16:35-0400 SaO2% (BldA) [Mass fraction] 96 % Juana Morenomond Other [employer] Other 05-27-2022 16:35-0400 Systolic blood pressure 119 mm[Hg] Juana Morenomond Other [employer] Other 05-16-2022 11:05-0400 Blood Pressure Location Amanda BIRD [facility] 05-16-2022 11:05-0400 Diastolic blood pressure 73 mm[Hg] Amanda BIRD [facility] 05-16-2022 11:05-0400 Heart rate 52 /min Amandadacia BIRD [facility] 05-16-2022 11:05-0400 Respiratory rate 16 /min Amanda BIRD [facility] 05-16-2022 11:05-0400 Systolic blood pressure 127 mm[Hg] Amanda BIRD [facility] 03-23-2022 15:26-0400 Diastolic blood pressure 71 mm[Hg] MD Simba Grey Work Phone: [facility] 03-23-2022 15:26-0400 Heart rate 55 /min MD Simba Grey Work Phone: [facility] 03-23-2022 15:26-0400 Respiratory rate 16 /min MD Simba Grey Work Phone: [facility] 03-23-2022 15:26-0400 SaO2% (BldA) [Mass fraction] 98 % MD Simba Grey Work Phone: [facility] 03-23-2022 15:26-0400 Systolic blood pressure 142 mm[Hg] MD Simba Grey Work Phone: [facility] 03-23-2022 13:01-0400 Body height 190.5 cm MD Simba Grey Work Phone: [facility] 03-23-2022 13:01-0400 Body temperature 97.5 [degF] MD Simba Grey Work Phone: [facility] 03-23-2022 13:01-0400 Body weight 102.05 kg MD Simba Grey Work Phone: [facility] 03-02-2022 11:45-0400 Body height 185.42 cm Simba Grey Other [employer] Other 03-02-2022 11:45-0400 Body mass index (BMI) [Ratio] 30.34 kg/m2 Simba Grey Other [employer] Other 03-02-2022 11:45-0400 Body weight 104.33 kg Simba Grey Other [employer] Other Encounters Encounter Date Encounter Type Care Provider Facility Start: 01-05-2026 ambulatory THEA TALBOT Facility:[facility]ue Start: 12-30-2025 ambulatory WARRANT SERVER NATHAN TLABOT Facility:[facility] Start: 04-08-2025 End: 04-08-2025 ambulatory Nathan Talbot CONSULTING INTERN-C Work Phone: [facility] Work Phone: Start: 04-08-2025 End: 04-08-2025 Patient encounter procedure Dodie Pike FILM AND VIDEO EDITOR -[facility] Work Phone: Start: 03-12-2025 ambulatory AARON D KROTZER [facility] Start: 03-11-2025 End: 03-11-2025 ambulatory AARON D KRZER [facility] Start: 03-11-2025 End: 03-11-2025 ambulatory [facility] D [facility] Start: 03-11-2025 End: 03-11-2025 Office outpatient visit 25 minutes Aaron Rojaszer FILM AND VIDEO EDITOR-WARRANT SERVER Work Phone: [facility] Comment on above: Flu-like symptoms (P rimary Dx); Nausea; Diarrhea of presumed infectious origin Start: 03-04-2025 End: 03-04-2025 ambulatory WARRANT SERVER NATHANOMAR TALBOT Facility:[facility] Start: 03-04-2025 End: 03-04-2025 Patient encounter procedure YASMINE VIERA [facility] Start: 02-27-2025 End: 02-27-2025 Office outpatient visit 15 minutes Aaron Dhillon FILM AND VIDEO EDITOR-WARRANT SERVER Work Phone: [facility] Comment on above: Leg pain, right (Inga mojgan Dx) Start: 02-27-2025 End: 02-27-2025 ambulatory AARON DHILLON [facility] Start: 02-10-2025 End: 02-11-2025 Refill Keerthi Powers FILM AND VIDEO EDITOR-WARRANT SERVER Work Phone: [facility] Comment on above: Med Refill Start: 01-20-2025 End: 01-20-2025 Patient encounter procedure Roseann Durant Audiology [facility] - Stacie FIERROS CATA DURANT Comment on above: Sensorineural hearin g loss (SNHL) of both ears (Primary Dx) Start: 01-20-2025 End: 01-20-2025 ambulatory HAMZAH LAZO Not Available Start: 01-10-2025 ambulatory [facility] Start: 01-08-2025 End: 01-08-2025 Refill Juana Nguyen RN [facility] Comment on above: Med Refill Start: 01-06-2025 End: 01-06-2025 ambulatory WARRANT SERVER NATHAN TALBOT Facility:[facility] Start: 01-06-2025 End: 01-06-2025 Patient encounter procedure Amanda BIRD [facility] Start: 01-01-2025 End: 01-01-2025 ambulatory HAMZAH LAZO Not Available Start: 01-01-2025 End: 01-01-2025 Patient encounter procedure Roseann Durant [facility] - Stacie DURANT Comment on above: Sensorineural hearin g loss (SNHL) of both ears (Primary Dx) Start: 12-20-2024 End: 12-20-2024 Patient encounter procedure Hamzah Lazo DPM Work Phone: [facility] Comment on above: Pain due to onychomy cosis of toenails of both feet (Primary Dx); Venous insufficiency Start: 12-20-2024 End: 12-20-2024 ambulatory HAMZAH LAZO Not Available Start: 12-20-2024 End: 12-20-2024 Bamboo flowsheet Hamzah Reta Rey DPM Work Phone: [facility] Start: 12-20-2024 End: 12-20-2024 Bamboo flowsheet Hamzah Mcduffie Rey DPM Work Phone: [facility] Start: 12-16-2024 End: 12-17-2024 Refill Sharron Yanez LPN [facility] Comment on above: Med Refill Start: 12-15-2024 End: 12-17-2024 Refill Henri Carrasquillo APRN-WARRANT SERVER Work Phone: [facility] Comment on above: Med Refill Start: 12-13-2024 End: 12-13-2024 Refill Juana Nguyen RN [facility] Comment on above: Med Refill Start: 12-06-2024 End: 12-10-2024 Telephone encounter Kim Mckeon CCC-A Work Phone: [facility] Comment on above: [employer] [facility] [employer] [facility] Start: 11-25-2024 End: 11-25-2024 ambulatory [facility] Work Phone: Start: 11-25-2024 End: 11-25-2024 Patient encounter procedure [facility] Work Phone: Start: 11-25-2024 End: 11-25-2024 Office outpatient visit 25 minutes Leopoldo Montaño MD Work Phone: [facility] Comment on above: Ischemic myocardial dysfunction (Primary Dx); 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; 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 ([facility]); Presence of bare metal stent in anterior descending branch of left coronary artery; Obstructive sleep apnea Start: 11-25-2024 End: 11-25-2024 ambulatory LEOPOLDO MONTAÑO [facility] Start: 11-05-2024 End: 11-05-2024 Emergency department patient visit NATHAN TALBOT [facility] Start: 10-31-2024 End: 10-31-2024 Office outpatient new 45 minutes Simeon Sagastume DO Work Phone: [facility] Comment on above: Internal hemorrhoids (Primary Dx); Unspecified hemorrhoids Start: 10-31-2024 End: 10-31-2024 ambulatory SIMEON SAGASTUME Not Available Start: 10-21-2024 End: 10-21-2024 Telephone encounter Kelsey GUAMAN [facility] Medicine Start: 10-17-2024 End: 10-17-2024 Telephone encounter Celsa Vidales [facility] Start: 10-17-2024 End: 10-17-2024 Office outpatient visit 15 minutes Khushbu Marley Elston DO Work Phone: [facility] Comment on above: Obstructive sleep ap medina (Primary Dx); Chronic seasonal allergic rhinitis due to pollen; Dyspnea on exertion Start: 10-17-2024 End: 10-17-2024 ambulatory [facility] Start: 10-11-2024 End: 10-11-2024 Refill Vernell Stewart RN [facility] Comment on above: Med Refill Start: 10-10-2024 End: 10-10-2024 Clinical Support Kim Mckeon CCC-A Work Phone: [facility] Comment on above: Sensorineural hearin g loss (SNHL) of both ears (Primary Dx) Start: 09-26-2024 End: 09-26-2024 Patient encounter procedure Hamzah Lazo DPM Work Phone: [facility] Comment on above: Pain due to onychomy cosis of toenails of both feet (Primary Dx); Venous insufficiency Start: 09-26-2024 End: 09-26-2024 ambulatory HAMZAH LAZO Not Available Start: 09-26-2024 End: 09-26-2024 Bamboo flowsheet Hamzah Lazo DPM Work Phone: [facility] Start: 09-26-2024 End: 09-26-2024 Bamboo flowsheet Hamzah Lazo DPM Work Phone: [facility] Start: 09-16-2024 End: 09-16-2024 Refill Sharron Yanez [facility] Comment on above: Med Refill Start: 08-27-2024 End: 08-27-2024 ambulatory [facility] Work Phone: Start: 08-27-2024 End: 08-27-2024 Patient encounter procedure [facility] Work Phone: Start: 08-26-2024 End: 08-26-2024 Refill Rhoda Leung [facility] Internal [facility] - Family Medicine Comment on above: Situational depressi on Start: 08-20-2024 End: 08-20-2024 Refill Gisela Loza [facility] - Family Medicine Comment on above: Situational depressi on Start: 08-19-2024 End: 08-19-2024 Refill Rhoda Leung [facility] - Family Medicine Comment on above: Allergic rhinitis, u nspecified seasonality, unspecified trigger Start: 08-14-2024 End: 08-14-2024 Bamboo flowsheet Cynthia Johnson AUD Work Phone: [facility] Start: 08-14-2024 End: 08-14-2024 Bamboo flowsheet Cynthia Johnson AUD Work Phone: [facility] Start: 08-14-2024 End: 08-14-2024 Patient encounter procedure Cynthia Johnson AUD Work Phone: [facility] Comment on above: Excessive ear wax, b ilateral (Primary Dx) Start: 08-14-2024 End: 08-14-2024 ambulatory CYNTHIA JOHNSON Not Available Start: 07-29-2024 End: 07-29-2024 ambulatory WARRANT SERVER NATHAN TALBOT Facility:[facility] Start: 07-29-2024 End: 07-29-2024 Patient encounter procedure Amanda Alvares BIRD [facility] Start: 07-20-2024 End: 07-20-2024 Patient encounter procedure [facility] Work Phone: [...] Start: 07-14-2024 End: 07-15-2024 Refill Henri Carrasquillo FILM AND VIDEO EDITOR-WARRANT SERVER Work Phone: [facility] Comment on above: Med Refill Start: 06-06-2024 End: 06-06-2024 ambulatory NATHAN TALBOT [facility] Start: 06-06-2024 End: 06-06-2024 Patient encounter procedure Nathan Talbot FILM AND VIDEO EDITOR-WARRANT SERVER Work Phone: [facility] - [...] 05-01-2024 End: 05-01-2024 Refill Vernell Stewart RN [facility] Comment on above: Med Refill Start: 04-22-2024 End: 04-22-2024 Refill Vernell Stewart RN [facility] Comment on above: Med Refill Start: 04-05-2024 End: 04-05-2024 Refill Diya Ramirez RN [facility] Comment on above: Med Refill Start: 03-18-2024 End: 03-18-2024 Refill Diya Ramirez RN [facility] Comment on above: Med Refill Start: 02-22-2024 End: 02-22-2024 ambulatory HAMZAH LAZO Not Available Start: 02-14-2024 End: 02-14-2024 Office outpatient visit 15 minutes Nathan Talbot APRN-WARRANT SERVER Work Phone: [facility] Comment on above: Situational depressi on (Primary Dx); 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 ([facility]); 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 ([facility]) Start: 01-18-2024 End: 01-18-2024 Telephone encounter Kelsey GUAMAN [facility] Start: 01-11-2024 End: 01-11-2024 Orders Only Omega Gar DO Work Phone: [facility] Start: 01-10-2024 End: 01-11-2024 Telephone encounter Gisela Loza CMA [facility] Start: 01-05-2024 End: 01-05-2024 Telephone encounter Gisela Loza CMA [facility] Start: 01-02-2024 End: 01-02-2024 Office outpatient visit 15 minutes Omega Gar DO Work Phone: [facility] Comment on above: Upper respiratory di sease (Primary Dx); Pharyngitis, unspecified etiology; Painless rectal bleeding Start: 12-14-2023 End: 12-15-2023 Telephone encounter Vernell Stewart RN [facility] Start: 12-13-2023 End: 12-13-2023 Refill Leopoldo Montaño MD Work Phone: [facility] Comment on above: Med Refill Start: 12-07-2023 End: 12-07-2023 Refill Diya Ramirez RN [facility] Comment on above: Med Refill Start: 12-04-2023 End: 12-04-2023 Patient encounter procedure Amanda Alvares MARGE [facility] Start: 11-29-2023 End: 11-29-2023 Refill Nathan Talbot FILM AND VIDEO EDITOR-WARRANT SERVER Work Phone: [facility] Comment on above: Situational depressi on Start: 11-23-2023 End: 11-23-2023 Telephone encounter Nathan Talbot FILM AND VIDEO EDITOR-WARRANT SERVER Work Phone: [facility] Start: 11-20-2023 End: 11-20-2023 Office outpatient visit 15 minutes Leopoldo Montaño MD Work Phone: [facility] Comment on above: Ischemic myocardial dysfunction (Primary Dx); Presence of bare metal stent in anterior descending branch of left coronary artery Start: 11-17-2023 End: 11-17-2023 Telephone encounter Yasmine Joseph CMA [facility] Start: 11-14-2023 End: 11-14-2023 Office outpatient visit 15 minutes Nathan Talbot FILM AND VIDEO EDITOR-WARRANT SERVER [facility] Comment on above: Gastroenteritis (Inga ulrich Dx); Flu-like symptoms; Nausea and vomiting, unspecified vomiting type; Loose stools Start: 10-25-2023 Telephone encounter Ivet Campbell [facility] Start: 10-17-2023 End: 10-18-2023 [facility]ulatory [facility] Start: 10-16-2023 End: 10-16-2023 Office outpatient visit 15 minutes Nathan Talbot APRN-WARRANT SERVER Work Phone: [facility] Comment on above: Acute non-recurrent pansinusitis (Primary Dx) Start: 10-12-2023 End: 10-12-2023 Office outpatient visit 10 minutes Khushbu Gill DO Work Phone: [facility] Comment on above: Obstructive sleep ap medina (Primary Dx); Bronchiectasis without complication ([facility]) Start: 10-10-2023 End: 10-10-2023 Office outpatient visit 15 minutes Nathan Talbot FILM AND VIDEO EDITOR-WARRANT SERVER Work Phone: [facility] Comment on above: Allergic rhinitis du e to pollen, unspecified seasonality (Primary Dx); Sore throat Start: 09-22-2023 Refill Juana Nguyen RN [facility] Card[facility] Comment on above: Med Refill Start: 09-20-2023 Telephone encounter Leopoldo Montaño MD Work Phone: [facility] Start: 09-19-2023 End: 09-19-2023 Office outpatient visit 25 minutes Mojgan Devries FILM AND VIDEO EDITOR-GRAPHIC PRE [employer]ESS TRADES WORKER Work Phone: [facility] Comment on above: Localized edema (Inga ulrich Dx); Ischemic myocardial dysfunction Start: 08-10-2023 End: 08-10-2023 Office outpatient visit 15 minutes Omega Gar DO Work Phone: [facility] Comment on above: Herpes zoster withou t complication (Primary Dx) Start: 08-02-2023 End: 08-02-2023 Office outpatient visit 15 minutes Nathan Talbot FILM AND VIDEO EDITOR-WARRANT SERVER Work Phone: [facility] Comment on above: Acute right otitis m edia (Primary Dx); Acute non-recurrent pansinusitis Start: 07-16-2023 End: 07-16-2023 ambulatory Juana Handley Other [employer] Other Start: 07-16-2023 Office outpatient vi sit 15 minutes Juana Handley [facility] Start: 05-10-2023 End: 05-10-2023 ambulatory Simba Grey Other [employer] Other Start: 05-10-2023 Office outpatient vi sit 15 minutes Simba Grey [facility] Start: 03-20-2023 End: 03-20-2023 ambulatory Simba Grey Facility:[facility] Start: 03-06-2023 End: 03-06-2023 ambulatory Simba Grey Other [employer] Other Start: 03-06-2023 Telephone encounter Simba angel [facility] Start: 02-15-2023 End: 02-15-2023 ambulatory Simba Grey Other [employer] Other Start: 02-15-2023 Telephone encounter Simba angel [facility] Start: 01-27-2023 End: 01-27-2023 Patient encounter procedure Amanda BIRD [facility] [place] Start: 11-14-2022 End: 11-14-2022 Patient encounter procedure Amanda BIRD [facility] Start: 10-05-2022 End: 11-08-2022 Pre-admission assessment Stephanie Singleton [facility] Start: 09-09-2022 End: 09-09-2022 ambulatory NATHAN TALBOT Facility:[facility] Start: 07-15-2022 End: 07-16-[address] AMANDA BIRD Facility:[facility] Start: 05-27-2022 End: 05-27-2022 Patient encounter procedure CONSULTING INTERN-Ronald Talbot Work Phone: [facility] Start: 05-27-2022 End: 05-27-2022 ambulatory ARI-Ronald Talbot Work Phone: [employer] Other Start: 05-27-2022 Office outpatient vi sit 15 minutes Juana Handley [facility] Start: 05-16-2022 End: 05-16-2022 Patient encounter procedure Amanda BIRD [facility] Start: 05-09-2022 End: 05-10-[address] AMANDA BIRD Facility:[facility] Start: 04-20-2022 End: 04-20-2022 ambulatory Simba Grey Other [employer] Other Start: 04-20-2022 Telephone encounter Simba Alvarado ck [facility] Start: 03-23-2022 End: 03-23-2022 Admission to same day surgery center MD Simba Grey Work Phone: [facility] Start: 03-21-2022 End: 03-21-2022 Patient encounter procedure MD Simba Grey Work Phone: [facility] Start: 03-14-2022 End: 03-14-2022 ambulatory Simba Grey Other [employer] Other Start: 03-14-2022 Telephone encounter Simba Alvarado jeanne [facility] Start: 03-02-2022 End: 03-02-2022 ambulatory Simba Grey Other [employer] Other Start: 03-02-2022 Office outpatient vi sit 25 minutes Simba Grey [facility] Start: 03-01-2022 End: 03-01-2022 ambulatory Simba Grey Other [employer] Other Start: 03-01-2022 Telephone encounter Simba Christiano jeanne [facility] Start: 10-28-2021 End: 10-29-[address] AMANDA BIRD Facility: Start: 03-25-2020 Patient encounter procedure Nathan Thomasillo FILM AND VIDEO EDITOR-WARRANT SERVER Work Phone: [facility] Procedures Date Procedure Procedure Detail Performing Clinician Start: 03-11-2025 POCT XPERT, XPRESS C OV-2, FLU, RSV PLUS (CEPHEID) Aaron Dhillon FILM AND VIDEO EDITOR-WARRANT SERVER Work Phone: Start: 03-11-2025 Adult depression scr eening assessment Aaron Dhillon FILM AND VIDEO EDITOR-WARRANT SERVER Work Phone: Start: 02-27-2025 Adult depression scr eening assessment Aaron Dhillon FILM AND VIDEO EDITOR-WARRANT SERVER Work Phone: Start: 11-25-2024 Ecg routine ecg w/le ast 12 lds w/i&r Leopoldo Montaño MD Work Phone: Start: 11-25-2024 Follow-up visit Follow-up LEOPOLDO MONTAÑO Start: 10-31-2024 Colonoscopy Kim Logan CCC-A Work Phone: Start: 10-17-2024 Follow-up visit Follow-up KHUSHBU GILL Start: 10-10-2024 AUDITORY FUNCTION TESTS Kim Mckeon CCC-A Work Phone: Start: 07-20-2024 Quick Strep (POC) Start: 06-06-2024 Adult depression scr eening assessment Nathan Talbot [facility] Work Phone: Start: 02-14-2024 Adult depression scr eening assessment Nathan Talbot [facility] Work Phone: Start: 01-02-2024 Iaadiadoo streptococ cus group a Omega Solis Furlong DO Work Phone: Start: 01-02-2024 Adult depression scr eening assessment Omega Branchlong DO Work Phone: Start: 11-20-2023 Ecg routine ecg w/le ast 12 lds w/i&r Lucia Butler MD Work Phone: Start: 11-14-2023 POCT INFLUENZA A/INF LUENZA B/SARS-COV-2 VERITOR Nathan Talbot [facility] Work Phone: Start: 11-14-2023 Adult depression scr eening assessment Nathan Talbot [facility] Work Phone: Start: 10-16-2023 Adult depression scr eening assessment Nathan Talbot [facility] Work Phone: Start: 10-10-2023 POCT INFLUENZA A/INF LUENZA B/SARS-COV-2 VERITOR Nathan Talbot [facility] Work Phone: Start: 10-10-2023 Iaadiadoo streptococ cus group a Nathan Talbot [facility] Work Phone: Start: 10-10-2023 Adult depression scr eening assessment Nathan Talbot [facility] Work Phone: Start: 09-19-2023 Adult depression scr eening assessment Mojgan Devries FILM AND VIDEO EDITOR-[facility] Work Phone: Start: 08-10-2023 Adult depression scr eening assessment Omega Gar DO Work Phone: Start: 08-02-2023 Adult depression scr eening assessment Nathan Talbot FILM AND VIDEO EDITOR-WARRANT SERVER Work Phone: Start: 05-27-2022 X-ray of right knee CONSULTING INTERN- C Nathan Talbot Work Phone: Start: 05-09-[address] GUILLE BIRD Comment on above: Performed By: #### P SAD #### [facility] [address] [address] [address] Tyrone Salazar Start: 03-23-2022 End: 03-23-2022 Colonoscopy CONSULTING INTERN-C Nathan Noble o Work Phone: Start: 03-23-2022 Diagnostic endoscopi c examination on colon MD Simba Grey Work Phone: Start: 10-28-[address] GUILLE BIRD Comment on above: Performed By: #### P SAD #### [facility] [address] [place] [address] Dr. Tyrone Salazar Start: 04-03-2007 Transrectal biopsy o f prostate using ultrasound guidance Amanda BIRD Blepharoplasty Amanda RIOC S Colonoscopy Amanda BIRD Colonoscopy Amanda BIRD Placement of stent i n cardiac conduit Amanda BIRD Procedure on eye Amanda ZAVALETA SARS Antigen (LFIA) MD Philomena Grey Work Phone: Stool culture for bacteria Ayaka Grey Work Phone: Tonsillectomy Amanda BIRD varicocelectomy Amanda MAYO Plan of Treatment Date Care Activity Detail Author Start: 10-31-2034 Screening for malignant neoplasm of colon [facility] Start: 03-23-2027 Screening for malignant neoplasm of colon Colonoscopy [facility] Start: 02-27-2026 Adult BMI Screening Adult BMI Screening [facility] Start: 02-27-2026 Depression Screening Depression Screening [facility] Start: 02-27-2026 Fall Risk Screening Fall Risk Screening [facility] Start: 02-27-2026 Tobacco Screening Tobacco Screening [facility] Start: 11-25-2025 Adult BMI Screening Adult BMI Screening [facility] Start: 11-25-2025 Tobacco Screening Tobacco Screening [facility] Start: 10-17-2025 Adult BMI Screening Adult BMI Screening [facility] Start: 10-17-2025 Tobacco Screening Tobacco Screening [facility] Start: 06-12-2025 End: 06-12-2025 Patient encounter procedure 06/12/2025 9:20 AM EST Office Visit [facility] Internal Medicine - Family Medicine [address] [place] [place] [address] [facility] Start: 06-06-2025 Adult BMI Screening Adult BMI Screening [facility] Start: 06-06-2025 Depression Screening Depression Screening [facility] Start: 06-06-2025 Fall Risk Screening Fall Risk Screening [facility] Start: 06-06-2025 Medicare Annual Wellness (AWV) Medicare Annual Wellness (AWV) [facility] Start: 06-06-2025 Medicare Annual Wellness Visit Medicare Annual Wellness Visit [facility] Start: 04-28-2025 End: 04-28-2025 Clinical Support 04/28/2025 3:30 PM EDT Clinical Support [facility] [address] [place] [address] Kim Mckeon, [facility] [address] [place] [address] [facility] Start: 04-07-2025 Influenza vaccination Influenza Vaccine [facility] Start: 03-11-2025 End: 03-11-2025 Patient encounter procedure 03/11/2025 4:00 PM EDT Appointment [facility] [address] [place] [phone] [facility] Start: 03-06-2025 End: 03-06-2025 Patient encounter procedure 03/06/2025 9:30 AM EDT Procedure Visit [facility] [address] [facility] [address] [place] [id number] Hamzah Lazo, [place] [address] [facility] [address] [place] [address] [facility] Start: 02-27-2025 End: 02-27-2026 US.doppler Lower extremity artery - bilateral Vas art duplex lwr bilateral Vascular Ultrasound Routine Leg pain, right Expected: 02/27/2025, Expires: 02/27/2026 [facility] Work Phone: Comment on above: Expected: 02/27/2025, Expires: Start: 02-13-2025 Adult BMI Follow Up Plan Adult BMI Follow Up Plan [facility] Start: 02-13-2025 Adult BMI Screening Adult BMI Screening [facility] Start: 02-13-2025 Depression Screening Depression Screening [facility] Start: 02-13-2025 Fall Risk Screening Fall Risk Screening [facility] Start: 02-13-2025 Tobacco Screening Tobacco Screening [facility] Start: 01-20-2025 End: 01-20-2025 Patient encounter procedure 01/20/2025 3:30 PM EDT Office Visit [facility] [address] [facility] [place] [address] [facility] Start: 01-01-2025 Adult BMI Screening Adult BMI Screening [facility] Start: 01-01-2025 Depression Screening Depression Screening [facility] Start: 01-01-2025 Fall Risk Screening Fall Risk Screening [facility] Start: 01-01-2025 Tobacco Screening Tobacco Screening [facility] Start: 01-01-2025 End: 01-01-2025 Patient encounter procedure 01/01/2025 1:00 PM EDT Office Visit [facility] [address] [facility] [place] [phone] [facility] Start: 12-20-2024 End: 12-20-2024 Patient encounter procedure [facility] Comment on above: Pain due to onychomycosis of toenails of both feet (Primary Dx); Venous insufficiency Start: 12-05-2024 End: 12-05-2024 Patient encounter procedure 12/05/2024 4:30 PM EDT Procedure Visit [facility] [address] [facility] [address] [place] [address] Hamzah Lazo DPM [address] [facility] 5 [place] [address] [facility] Start: 11-28-2024 COVID-19 Vaccine () COVID-19 Vaccine () [facility] Start: 11-25-2024 End: 11-25-2024 Patient encounter procedure 11/25/2024 9:15 AM EDT Office Visit [facility] [address] [facility] [address] [place] [address] Leopoldo Montaño MD [address] [place] [address] [facility] Start: 11-19-2024 Adult BMI Screening Adult BMI Screening [facility] Start: 11-19-2024 Tobacco Screening Tobacco Screening [facility] Start: 11-13-2024 Adult BMI Follow Up Plan Adult BMI Follow Up Plan [facility] Start: 11-13-2024 Adult BMI Screening Adult BMI Screening [facility] Start: 11-13-2024 Depression Screening Depression Screening [facility] Start: 11-13-2024 Fall Risk Screening Fall Risk Screening [facility] Start: 11-13-2024 Tobacco Screening Tobacco Screening [facility] Start: 10-17-2024 End: 10-17-2025 XR Chest PA and Lateral X-ray chest 2 views Imaging Routine Dyspnea on exertion Expected: 10/17/2024, Expires: 10/17/2025 [facility] Work Phone: Comment on above: Expected: 10/17/2024, Expires: Start: 10-17-2024 End: 10-17-2024 [facility] Start: 10-15-2024 Adult BMI Follow Up Plan Adult BMI Follow Up Plan [facility] Start: 10-15-2024 Adult BMI Screening Adult BMI Screening [facility] Start: 10-15-2024 Depression Screening Depression Screening [facility] Start: 10-15-2024 Fall Risk Screening Fall Risk Screening [facility] Start: 10-15-2024 Tobacco Screening Tobacco Screening [facility] Start: 10-10-2024 End: 10-10-2024 Clinical Support [facility] Start: 10-09-2024 Adult BMI Follow Up Plan Adult BMI Follow Up Plan [facility] Start: 10-09-2024 Adult BMI Screening Adult BMI Screening [facility] Start: 10-09-2024 Depression Screening Depression Screening [facility] Start: 10-09-2024 Fall Risk Screening Fall Risk Screening [facility] Start: 10-09-2024 Tobacco Screening Tobacco Screening [facility] Start: 09-26-2024 End: 09-26-2024 Patient encounter procedure [facility] Comment on above: Pain due to onychomycosis of toenails of both feet (Primary Dx); Venous insufficiency Start: 09-19-2024 Adult BMI Screening Adult BMI Screening [facility] Start: 09-19-2024 Depression Screening Depression Screening [facility] Start: 09-19-2024 Fall Risk Screening Fall Risk Screening [facility] Start: 09-19-2024 Tobacco Screening Tobacco Screening [facility] Start: 08-27-2024 Patient referral [facility] Work Phone: Start: 08-14-2024 End: 08-14-2024 Patient encounter procedure [facility] Comment on above: Arrived Start: 08-10-2024 Adult BMI Screening Adult BMI Screening [facility] Start: 08-10-2024 Depression Screening Depression Screening [facility] Start: 08-10-2024 Fall Risk Screening Fall Risk Screening [facility] Start: 08-10-2024 Tobacco Screening Tobacco Screening [facility] Start: 08-02-2024 Adult BMI Follow Up Plan Adult BMI Follow Up Plan [facility] Start: 08-02-2024 Adult BMI Screening Adult BMI Screening [facility] Start: 08-02-2024 Depression Screening Depression Screening [facility] Start: 08-02-2024 Fall Risk Screening Fall Risk Screening [facility] Start: 08-02-2024 Tobacco Screening Tobacco Screening [facility] Start: 07-18-2024 End: 07-18-2024 Patient encounter procedure 07/18/2024 4:30 PM EST Procedure Visit [facility] [address] [facility] [address] [place] [address] Hamzah Lazo DPM [address] [address] [facility] Start: 07-18-2024 Adult BMI Follow Up Plan Adult BMI Follow Up Plan [facility] Start: 05-09-2024 End: 05-09-2024 Patient encounter procedure 05/09/2024 4:30 PM EDT Procedure Visit [facility] [address] [phone] Hamzah Lazo DPM [address] [address] Onychomycosis (Primary Dx); Toe pain, bilateral; Venous insufficiency [facility] Comment on above: Onychomycosis (Primary Dx); Toe pain, bilateral; Venous insufficiency Start: 04-07-2024 COVID-19 Vaccine ( season) COVID-19 Vaccine () [facility] Start: 04-07-2024 Influenza vaccination [facility] Start: 04-03-2024 Medicare Annual Wellness Visit Medicare Annual Wellness Visit [facility] Start: 02-14-2024 End: 02-14-2024 Patient encounter procedure 02/14/2024 4:00 PM EDT Office Visit [facility] Internal Medicine - Family Medicine [address] [place] [phone] Nathan Talbot, FILM AND VIDEO EDITOR-WARRANT SERVER [address] [place] [address] [facility] Internal Medicine - Family Medicine Start: 11-23-2023 End: 11-23-2023 Patient encounter procedure 11/23/2023 4:00 PM EDT Office Visit [facility] Internal Medicine - Family Medicine [address] [place] [phone] Nathan Talbot, FILM AND VIDEO EDITOR-WARRANT SERVER [address] [place] [phone] [facility] Internal Medicine - Family Medicine Start: 11-20-2023 End: 11-20-2023 Patient encounter procedure 11/20/2023 8:45 AM EDT Office Visit [facility] Cardiology [address] [place] [phone] Leopoldo Montaño MD [address] [place] [address] Lucia Butler MD [address] [facility] [place] [phone] [facility] Start: 11-09-2023 COVID-19 Vaccine ( season) COVID-19 Vaccine ( season) [facility] Start: 11-09-2023 End: 11-09-2023 Patient encounter procedure 11/09/2023 1:00 PM EDT Office Visit [facility] Internal Medicine - Family Medicine [address] [place] [phone] Nathan Talbot, FILM AND VIDEO EDITOR-WARRANT SERVER [address] [place] [phone] [facility] Internal Medicine - Family Medicine Start: 10-26-2023 End: 10-26-2023 Patient encounter procedure 10/26/2023 1:00 PM EDT Office Visit [facility] [address] [facility] [address] [place] [phone] Leopoldo Montaño MD [address] [place] [address] Corbin Castro MD [address] [place], [place] [phone] [facility] Start: 10-24-2023 End: 10-24-2023 Patient encounter procedure 10/24/2023 3:00 PM EDT Appointment [facility] - Cardiovascular [address] [place] [phone] [facility] Cardiovascular Start: 10-17-2023 End: 10-17-2023 Patient encounter procedure 10/17/2023 2:30 PM EDT Appointment [facility] [address] [place] [phone] [facility] Start: 10-12-2023 End: 10-12-2023 Patient encounter procedure 10/12/2023 9:30 AM EST Office Visit [facility] Pul[facility] [address] [place] [phone] Khushbu Gill, [address] [address] [facility] Start: 09-28-2023 End: 09-28-2023 Patient encounter procedure 09/28/2023 10:00 AM EST Appointment [facility] - [facility] Imaging [address] [place] [address] Herman Gillna Ayaka, DO [address] [address] [facility] [place] Imaging Start: 09-19-2023 End: 09-19-2024 Echo complete W/O contrast Echo complete W/O contrast Echocardiography Routine Ischemic myocardial dysfunction Expected: 09/19/2023, Expires: 09/19/2024 [employer] Work Phone: Comment on above: Expected: 09/19/2023, Expires: Start: 08-21-2023 End: 08-21-2023 Patient encounter procedure 08/21/2023 8:30 AM EST Appointment [facility] - [facility] Imaging [address] [place] [address] Khushbu Gill, DO [address] [address] [facility] [place] Imaging Start: 03-23-2022 [facility] Start: 05-15-2019 Administration of varicella zoster vaccine Zoster (Shingles) Vaccine (3 of 3) [facility] Start: 1970 DTaP,Tdap and Td Vaccines (1 - Tdap) DTaP,Tdap and Td Vaccines (1 - Tdap) [facility] Start: 1950 Screening for malignant neoplasm of colon [facility] End: 07-15-2025 Basic metabolic 2000 panel - Serum or Plasma Basic Metabolic Panel Lab Routine Medication management 1 Occurrences starting 07/15/2024 until 07/15/2025 [employer] Work Phone: Comment on above: 1 Occurrences starting 07/15/2024 until 07/15/2025 Comprehensive metabo lic 2000 panel - Serum or Plasma [facility] End: 03-11-2026 Gastrointestinal pathogens DNA and RNA panel - Stool by NANETTE with non-probe detection GI Panel(stool pathogen panel) Lab Routine Diarrhea of presumed infectious origin 1 Occurrences starting 03/11/2025 until 03/11/2026 [facility] Comment on above: 1 Occurrences starting 03/11/2025 until 03/11/2026 End: 07-15-2025 Lipid panel Lipid panel Lab Routine Medication management 1 Occurrences starting 07/15/2024 until 07/15/2025 [facility] Comment on above: 1 Occurrences starting 07/15/2024 until 07/15/2025 Patient Education Colon Polyps [facility] Work Phone: Patient referral [facility] Work Phone: [facility] Immunizations Immunization Date Immunization Notes Care Provider Mikael ivan 05-15-2024 influenza virus vacc ine, unspecified formulation Amanda BIRD [facility] 05-15-2024 influenza, high dose seasonal, preservative-free Nathan Talbot FILM AND VIDEO EDITOR-WARRANT SERVER Work Phone: [facility] 04-09-2024 tuberculin skin test ; purified protein derivative solution, intradermal Nathan Talbot FILM AND VIDEO EDITOR-WARRANT SERVER Work Phone: [facility] 05-26-2023 RSV, recombinant, protein subunit RSVpreF, adjuvant reconstituted, 0.5 mL, PF Nathan Talbot FILM AND VIDEO EDITOR-WARRANT SERVER Work Phone: [facility] 05-10-2023 Influenza Vaccine, Quadrivalent, Adjuvanted Nathan Talbot FILM AND VIDEO EDITOR-WARRANT SERVER Work Phone: [facility] 05-10-2023 influenza virus vacc ine, unspecified formulation Nathan Talbot FILM AND VIDEO EDITOR-WARRANT SERVER Work Phone: [facility] 07-13-2022 Covid-19, Mrna, Lnp- s, Bivalent, Pf, 30mcg/0.3 ml Nathan Talbot FILM AND VIDEO EDITOR-WARRANT SERVER Work Phone: [facility] 06-09-2022 influenza virus vacc ine, unspecified formulation Amanda BIRD [facility] 06-09-2022 Influenza, High-dose , Quadrivalent Nathan Talbot FILM AND VIDEO EDITOR-WARRANT SERVER Work Phone: [facility] 02-22-2022 COVID-19 mRNAAshly (Pfizer) MD Simba Grey Work Phone: [facility] 02-22-2022 Covid-19, Mrna, Lnp- s, Pf, 30 Mcg/0.3 Ml Dose, Matt-sucrose Nathan Talbot FILM AND VIDEO EDITOR-WARRANT SERVER Work Phone: [facility] 02-22-2022 SARS-CoV-2 mRNA (aplnpoiztgb-gsad-nrjuvh e) vaccine Amandadacia BIRD [facility] 06-12-2021 Influenza Vaccine, Quadrivalent, Adjuvanted Nathan Talbot FILM AND VIDEO EDITOR-WARRANT SERVER Work Phone: [facility] 06-12-2021 influenza virus vacc ine, unspecified formulation Amanda BIRD [facility] 06-12-2021 Influenza, High-dose , Quadrivalent Nathan Talbot FILM AND VIDEO EDITOR-WARRANT SERVER Work Phone: [facility] 05-12-2021 COVID-19 mRNAAshly (Pfizer) MD Simba Grey Work Phone: [facility] 10-09-2020 COVID-19 mRNAAshly (Pfizer) MD Simba Grey Work Phone: [facility] 10-05-2020 SARS-CoV-2 (COVID-19 ) mRNA BNT-162b2 vax Amanda BIRD [facility] 09-18-2020 COVID-19 mRNA, Ashly stevenson (Pfizer) MD Simba Grey Work Phone: [facility] 06-03-2020 Influenza Vaccine, Quadrivalent, Adjuvanted Nathan Talbot FILM AND VIDEO EDITOR-WARRANT SERVER Work Phone: [facility] 06-03-2020 influenza virus vacc ine, unspecified formulation Amanda BIRD [facility] 06-04-2019 influenza virus vacc ine, unspecified formulation Amanda BIRD [facility] 06-04-2019 Seasonal trivalent influenza vaccine, adjuvanted, preservative free Nathan Talbot FILM AND VIDEO EDITOR-WARRANT SERVER Work Phone: [facility] 03-20-2019 zoster vaccine recombinant Nathan Talbot FILM AND VIDEO EDITOR-WARRANT SERVER Work Phone: [facility] 03-20-2019 zoster vaccine, live Nathan Talbot FILM AND VIDEO EDITOR-WARRANT SERVER Work Phone: [facility] Comment on above: Result Comment: 2023: [facility] 03-20-2019 zoster vaccine, unspecified formulation Nathan Talbot FILM AND VIDEO EDITOR-WARRANT SERVER Work Phone: [facility] 11-02-2018 zoster vaccine recombinant Nathan Talbot FILM AND VIDEO EDITOR-WARRANT SERVER Work Phone: [facility] 11-02-2018 zoster vaccine, live Nathan Talbot FILM AND VIDEO EDITOR-WARRANT SERVER Work Phone: [facility] 05-13-2018 influenza virus vacc ine, unspecified formulation Nathan Talbot FILM AND VIDEO EDITOR-WARRANT SERVER Work Phone: [facility] 05-13-2018 pneumococcal polysaccharide vaccine, 23 valent Nathan Talbot FILM AND VIDEO EDITOR-WARRANT SERVER Work Phone: [facility] 05-13-2018 Seasonal trivalent influenza vaccine, adjuvanted, preservative free Nathan Talbot FILM AND VIDEO EDITOR-WARRANT SERVER Work Phone: [facility] 04-24-2017 influenza virus vacc ine, unspecified formulation Nathan Talbot FILM AND VIDEO EDITOR-WARRANT SERVER Work Phone: [facility] 04-24-2017 influenza, high dose seasonal, preservative-free Nathan Talbot FILM AND VIDEO EDITOR-WARRANT SERVER Work Phone: [facility] 06-02-2016 influenza virus vacc ine, unspecified formulation Nathan Talbot FILM AND VIDEO EDITOR-WARRANT SERVER Work Phone: [facility] 06-02-2016 influenza, injectabl e, quadrivalent, preservative free Nathan Talbot FILM AND VIDEO EDITOR-WARRANT SERVER Work Phone: [facility] 07-06-2015 influenza virus vacc ine, unspecified formulation Amanda BIRD [facility] 07-06-2015 influenza, seasonal, injectable, preservative free Nathan Talbot FILM AND VIDEO EDITOR-WARRANT SERVER Work Phone: [facility] 07-06-2015 pneumococcal conjuga te vaccine, 13 valent Nathan Talbot FILM AND VIDEO EDITOR-WARRANT SERVER Work Phone: [facility] 08-25-2014 influenza virus vacc ine, unspecified formulation Amanda BIRD [facility] 08-25-2014 influenza, seasonal, injectable, preservative free Nathan Talbot FILM AND VIDEO EDITOR-WARRANT SERVER Work Phone: [facility] 06-11-2007 influenza virus vacc ine, whole virus Nathan Talbot FILM AND VIDEO EDITOR-WARRANT SERVER Work Phone: [email or web address] [facility] 06-11-2007 influenza, whole Amanda SHIVAM ERS [facility] Payers Date Payer Category Payer Private Health Insurance [employer] [id number] 2024 Unknown [id number] 2023 Medicaid [employer] MEDICARE A DVANTAGE [id number] 2022 Self-pay [id number] 2021 Medicare HMO [employer] MED[employer]ARE [id number] 2020 Medicare [id number]. [id number] 1959 Medicare [id number] 2.16.840.1.535498.19 1951 Unknown [id number] 2.16.840.1.367228.3.579.2. 593 1951 Unknown [id number] 2.16.840.1.817693.3.579.2. 593 1951 Unknown [id number] 2.16.840.1.567913.3.579.2. 593 1951 Unknown [id number] 2.16.840.1.239842.3.579.2. 593 1951 Unknown [id number] 2.16.840.1.012443.3.579.2. 1286 1951 Unknown [id number] 2.16.840.1.047759.3.579.2. 1259 1951 Unknown [id number] 2.16.840.1.733157.3.579.2. 1259 1951 Unknown [id number] 2.16.840.1.420116.3.579.2. 1259 1951 Unknown [id number] 2.16.840.1.390890.3.579.2. 1259 1951 Unknown [id number] 2.16.840.1.386328.3.579.2. 1259 1951 Unknown [id number] 2.16.840.1.459591.3.579.2. 1259 1951 Unknown [id number] 2.16.840.1.336526.3.579.2. 1259 1951 Unknown [id number] 2.16.840.1.085997.3.579.2. 1258 1951 Unknown [id number] 2.16.840.1.244149.3.579.2. 1258 1951 Unknown [id number] 2.16.840.1.021228.3.579.2. 1258 1951 Unknown [id number] 2.16.840.1.433339.3.579.2. 1258 1951 Unknown [id number] 2.16.840.1.125282.3.579.2. 1951 Unknown [id number] 2.16.840.1.629015.3.579.2. 1951 Unknown [id number] 2.16.840.1.207377.3.579.2. 1951 Unknown [id number] 2.16.840.1.287688.3.579.2. 1951 Unknown [id number] 2.16.840.1.544680.3.579.2. 1951 Unknown [id number] 2.16.840.1.249642.3.579.2. 1951 Unknown [id number] 2.16.840.1.131720.3.579.2. 1285 1951 Unknown [id number] 2.16.840.1.498062.3.579.2. 1285 1951 Unknown [id number] 2.16.840.1.867509.3.579.2. 1285 1951 Unknown [id number] 2.16.840.1.932695.3.579.2. 1285 1951 Unknown [id number] 2.16.840.1.352662.3.579.2. 1285 1951 Unknown [id number] 2.16.840.1.864733.3.579.2. 1286 1951 Unknown [id number] 2.16.840.1.331032.3.579.2. 1286 1951 Unknown [id number] 2.16.840.1.108135.3.579.2. 1286 1951 Unknown [id number] 2.16.840.1.245964.3.579.2. 1286 1951 Unknown [id number] 2.16.840.1.230609.3.579.2. 1286 Unknown [id number] Unknown [id number] 2.16.840.1.110296.3.579.2. 531 Unknown [id number] 2.16.840.1.060539.3.579.2. 531 Social History Date Type Detail Facility Unknown if ever smoked [facility] Other Start: 08-02-2021 End: 02-22-2024 Sex Assigned At [employer] Other Start: 03-23-2022 End: 07-20-2024 Tobacco smoking status NHIS Never smoked tobacco (finding) [facility] Start: 1950 Sex Assigned At Male [facility] Tobacco smoking status Never [facility] Start: 12-08-2021 End: 09-28-2023 Tobacco use and exposure Smokeless tobacco non-user [employer] [facility] Start: 02-22-2024 End: 12-20-2024 Alcoholic beverage intake Lifetime non-drinker (finding) [facility] Start: 08-02-2021 End: 02-22-2024 History of Social function [facility] Start: 1950 Sex assigned at Not on file [facility] Start: 02-14-2024 End: 03-11-2025 Alcoholic beverage intake Current drinker of alcohol (finding) [employer] Has the [place], or [employer] threatened to shut off services in your home in past 12Mo No [facility] Do you belong to any clubs or organizations such as bahai groups, unions, fraternal or athletic groups, or school groups? Yes [facility] Are you now , , , , never or living with a partner? [facility] How often to you hav e a drink containing alcohol? 2-4 times a month [facility] How many standard dr inks containing alcohol do you have on a typical day? 1 or 2 [facility] How often do you hav e 6 or more drinks on 1 occasion? Never [facility] How hard is it for y ou to pay for the very basics like food, housing, medical care, and heating Hard [facility] Do you feel stress - tense, restless, nervous, or anxious, or unable to sleep at night because your mind is troubled all the time - these days [OSQ] Not at all [facility] Start: 08-02-2021 Education 18 [facility] Start: 09-07-2020 Alcohol Comment occasional [facility] Start: 03-12-2015 End: 02-08-2019 Sex Male (finding) [facility] Do you feel stress - tense, restless, nervous, or anxious, or unable to sleep at night because your mind is troubled all the time - these days [OSQ] Rather much [facility] Sexual Orientation [facility] Goals Date Patient Goal Desired Activity /State Functional Status Date Assessment Result Facility 07-29-2024 Functional Status N/A [facility] 12-04-2023 Functional Status N/A [facility] 01-27-2023 Functional Status N/A [facility] 11-14-2022 Functional Status N/A [facility] 05-16-2022 Functional Status N/A [facility] Clinical Notes 03-02-2022 to 03-11-2025 Aaron Dhillon, JAIRON-WARRANT SERVER - 03/11/2025 8:10 AM EDTPatient InstructionsKyjose Brown Jacquie, JAIRON-WARRANT SERVER - 02/27/2025 10:30 AM EDTTelephone Encounter - Darshana Loera RN - 02/10/2025 5:03 PM EDT Note Date & Type Note Facility 03-11-2025 History of Presen t illness Narrative IM PROGRESS NOTE Patient - Eliazar Nunez Age - 74 y.o. - 1950 ASSESSMENT & PLAN 1. Flu-like symptoms (Primary) -negative for flu, COVID, RSV - POCT Xpert, Xpress CoV-2, FLU, RSV Plus (Cepheid) 2. Nausea - ondansetron ODT (ZOFRAN ODT) 4 mg disintegrating tablet; Dissolve 1 tablet (4 mg total) on tongue every 8 (eight) hours as needed for nausea or vomiting. Dispense: 20 tablet; Refill: 0 3. Diarrhea of presumed infectious origin -increase fluid intake - GI Panel(stool pathogen panel); Future Subjective The following portions of the patient's history were reviewed and updated as appropriate: allergies, current medications, past family history, past medical history, past social history, past surgical history and problem list. Fever, fatigue, Nausea vomiting diarrhea for the last 3 days. URI This is a new problem. The current episode started in the past 7 days. The problem has been waxing and waning. The maximum temperature recorded prior to his arrival was 102 - 102.9 F. The fever has been present for 1 to 2 days. Associated symptoms include abdominal pain, congestion, coughing, diarrhea, nausea, sneezing and vomiting. Pertinent negatives include no chest pain, dysuria, ear pain, headaches, joint pain, joint swelling, neck pain, plugged ear sensation, rash, rhinorrhea, sinus pain, sore throat, swollen glands or wheezing. He has tried acetaminophen for the symptoms. Review of Systems Constitutional: Positive for appetite change and fatigue. HENT: Positive for congestion and sneezing. Negative for ear pain, rhinorrhea, sinus pain and sore throat. Respiratory: Positive for cough. Negative for wheezing. Cardiovascular: Negative for chest pain. Gastrointestinal: Positive for abdominal pain, diarrhea, nausea and vomiting. Genitourinary: Negative for dysuria. Musculoskeletal: Negative for joint pain and neck pain. Skin: Negative for rash. Neurological: Negative for headaches. Exam BP 100/62 (BP Site: Left Arm, BP Postition: Sitting, BP CUFF SIZE: S (7-9 inches)) Pulse 71 Temp 37.2 C (99 F) (Tympanic) Resp 18 Ht 190.5 cm (6' 3 ) Wt 102 kg (224 lb 12.8 oz) SpO2 95% BMI 28.10 kg/m Physical Exam Vitals and nursing note reviewed. Constitutional: General: He is not in acute distress. HENT: Right Ear: Tympanic membrane normal. Left Ear: Tympanic membrane normal. Mouth/Throat: Mouth: Mucous membranes are moist. Pharynx: Oropharynx is clear. Cardiovascular: Rate and Rhythm: Normal rate and regular rhythm. Pulses: Normal pulses. Pulmonary: Effort: Pulmonary effort is normal. Breath sounds: Normal breath sounds. Musculoskeletal: Right lower leg: No edema. Left lower leg: No edema. Skin: General: Skin is warm and dry. Capillary Refill: Capillary refill takes less than 2 seconds. Neurological: General: No focal deficit present. Mental Status: He is alert. Meds Current Outpatient Medications: amLODIPine (NORVASC) 5 mg tablet, Take 1 tablet (5 mg total) by mouth in the morning., Disp: 90 tablet, Rfl: 2 ascorbic acid, vitamin C, (VITAMIN C) 1000 mg tablet, Take 0.5 tablets (500 mg total) by mouth in the morning., Disp: , Rfl: aspirin 81 mg, Take 1 tablet (81 mg total) by mouth in the morning., Disp: , Rfl: atorvastatin (LIPITOR) 80 mg tablet, TAKE 1 TABLET BY MOUTH IN THE MORNING, Disp: 90 tablet, Rfl: 2 azelastine (ASTELIN) 137 mcg (0.1 %) nasal spray, Administer 1 spray into each nostril in the morning and 1 spray before bedtime., Disp: , Rfl: carvediloL (COREG) 12.5 mg tablet, Take 1 tablet (12.5 mg total) by mouth in the morning and 1 tablet (12.5 mg total) before bedtime., Disp: 180 tablet, Rfl: 3 cetirizine (ZyrTEC) 10 mg capsule, Take 1 capsule (10 mg total) by mouth in the morning., Disp: , Rfl: chlorhexidine (PERIDEX) 0.12 % solution, Apply 15 mL to the mouth or throat in the morning., Disp: , Rfl: dutasteride (AVODART) 0.5 mg capsule, Take 1 capsule (0.5 mg total) by mouth., Disp: , Rfl: famotidine (PEPCID) 20 mg tablet, Take 1 tablet (20 mg total) by mouth in the morning., Disp: , Rfl: FLUoxetine (PROzac) 10 mg capsule, Take 1 capsule (10 mg total) by mouth in the morning., Disp: 90 capsule, Rfl: 1 fluticasone propionate (FLONASE) 50 mcg/actuation nasal spray, Administer 2 sprays into each nostril in the morning., Disp: 16 g, Rfl: 11 lisinopriL (PRINIVIL,ZESTRIL) 10 mg tablet, TAKE 1 TABLET BY MOUTH EVERY MORNING, Disp: 90 tablet, Rfl: 2 nitroglycerin (NITROSTAT) 0.4 MG SL tablet, Place 1 tablet (0.4 mg total) under the tongue every 5 (five) minutes as needed for chest pain., Disp: 25 tablet, Rfl: 5 psyllium seed, with sugar, (FIBER ORAL), Take by mouth in the morning and before bedtime., Disp: , Rfl: tamsulosin (FLOMAX) 0.4 mg capsule, Take 1 capsule (0.4 mg total) by mouth in the morning and 1 capsule (0.4 mg total) before bedtime., Disp: , Rfl: ondansetron ODT (ZOFRAN ODT) 4 mg disintegrating tablet, Dissolve 1 tablet (4 mg total) on tongue every 8 (eight) hours as needed for nausea or vomiting., Disp: 20 tablet, Rfl: 0 Lab Results Office Visit on 03/11/2025 Component Date Value Ref Range Status External Poct Influenza A Cepheid 03/11/2025 Negative Negative Final External Poct Influenza B Cepheid 03/11/2025 Negative Negative Final External Poct Sars Cov 2 Cepheid 03/11/2025 Negative Negative Final External Poct Rsv Cepheid 03/11/2025 Negative Negative Final Other Testing No results found. Return if symptoms worsen or fail to improve. [facility] Office: [phone] This note is dictated with the use of M*Modal. Please note that this dictation was completed with computer voice recognition software. Quite often unanticipated grammatical, syntax, homophones, and other interpretive errors are inadvertently transcribed by the computer software. Please disregard these errors. Please excuse any errors that have escaped final proofreading. [facility] 03/11/25 0921 documented in this encounter [facility] 03-11-2025 Instructions COCO Acuna - 03/11/2025 8:10 AM EDT Continue Zyrtec and Flonase daily for 7-10 days. Use Tylenol or ibuprofen PRN for fever or pain. Use OTC cough syrup as needed to help with cough. Increase rest and fluid intake. documented in this encounter [facility] 03-04-2025 Hospital Discharg e instructions Patient Education 03/04/2025 12:21:28 Erectile Dysfunction Erectile Dysfunction Erectile dysfunction (ED) is the inability to get or keep an erection in order to have sexual intercourse. ED is considered a symptom of an underlying disorder and is not considered a disease. ED may include: Inability to get an erection. Lack of enough hardness of the erection to allow penetration. Loss of erection before sex is finished. What are the causes? This condition may be caused by: Physical causes, such as: ?Artery problems. This may include heart disease, high blood pressure, atherosclerosis, and diabetes. ?Hormonal problems, such as low testosterone. ?Obesity. ?Nerve problems. This may include back or pelvic injuries, multiple sclerosis, Parkinson's disease, spinal cord injury, and stroke. Certain medicines, such as: ?Pain relievers. ?Antidepressants. ?Blood pressure medicines and water pills (diuretics). ?Cancer medicines. ?Antihistamines. ?Muscle relaxants. Lifestyle factors, such as: ?Use of drugs such as marijuana, cocaine, or opioids. ?Excessive use of alcohol. ?Smoking. ?Lack of physical activity or exercise. Psychological causes, such as: ?Anxiety or stress. ?Sadness or depression. ?Exhaustion. ?Fear about sexual performance. ?Guilt. What are the signs or symptoms? Symptoms of this condition include: Inability to get an erection. Lack of enough hardness of the erection to allow penetration. Loss of the erection before sex is finished. Sometimes having normal erections, but with frequent unsatisfactory episodes. Low sexual satisfaction in either partner due to erection problems. A curved penis occurring with erection. The curve may cause pain, or the penis may be too curved to allow for intercourse. Never having nighttime or morning erections. How is this diagnosed? This condition is often diagnosed by: Performing a physical exam to find other diseases or specific problems with the penis. Asking you detailed questions about the problem. Doing tests, such as: ?Blood tests to check for diabetes mellitus or high cholesterol, or to measure hormone levels. ?Other tests to check for underlying health conditions. ?An ultrasound exam to check for scarring. ?A test to check blood flow to the penis. Doing a sleep study at home to measure nighttime erections. How is this treated? This condition may be treated by: Medicines, such as: ?Medicine taken by mouth to help you achieve an erection (oral medicine). ?Hormone replacement therapy to replace low testosterone levels. ?Medicine that is injected into the penis. Your health care provider may instruct you how to give yourself these injections at home. ?Medicine that is delivered with a short applicator tube. The tube is inserted into the opening at the tip of the penis, which is the opening of the urethra. A tiny pellet of medicine is put in the urethra. The pellet dissolves and enhances erectile function. This is also called MUSE (medicated urethral system for erections) therapy. Vacuum pump. This is a pump with [...] become straight for sexual intercourse. Blood vessel surgery to improve blood flow to the penis. During this procedure, a blood vessel from a different part of the body is placed into the penis to allow blood to flow around (bypass) damaged or blocked blood vessels. Lifestyle changes, such as exercising more, losing weight, and quitting smoking. Follow these instructions at home: Medicines Take ljjz-bfj-tbcuwmq and prescription medicines only as told by your health care provider. Do not increase the dosage without first discussing it with your health care provider. If you are using self-injections, do injections as directed by your health care provider. Make sure you avoid any veins that are on the surface of the penis. After giving an injection, apply pressure to the injection site for 5 minutes. Talk to your health care provider about how to prevent headaches while taking ED medicines. These medicines may cause a sudden headache due to the increase in blood flow in your body. General instructions Exercise regularly, as directed by your health care provider. Work with your health care provider to lose weight, if needed. Do not use any products that contain nicotine or tobacco. These products include cigarettes, chewing tobacco, and vaping devices, such as e-cigarettes. If you need help quitting, ask your health care provider. Before using a vacuum pump, read the instructions that come with the pump and discuss any questions with your health care provider. Keep all follow-up visits. This is important. Contact a health care provider if: You feel nauseous. You are vomiting. You get sudden headaches while taking ED medicines. You have any concerns about your sexual health. Get help right away if: You are [...] of your penis. You have redness spreading at your groin or lower abdomen. You are unable to urinate. You experience chest pain or a rapid heartbeat (palpitations) after taking oral medicines. These symptoms may represent a serious problem that is an emergency. Do not wait to see if the symptoms will go away. Get medical help right away. Call your local emergency services (911 in the [place] Do not drive yourself to the hospital. Summary Erectile dysfunction (ED) is the inability to get or keep an erection during sexual intercourse. This condition is diagnosed based on a physical exam, your symptoms, and tests to determine the cause. Treatment varies depending on the cause and may include medicines, hormone therapy, surgery, or a vacuum pump. You may need follow-up visits to [...] with your health care provider. Document Revised: 10/20/2021 Document Reviewed: 10/20/2021 [employer] Patient Education 2023 [employer]. Follow Up Care 01/06/2025 10:51:28 With:Keep previously scheduled follow-up appointment. Address: When: Unknown [facility] 03-04-2025 Note Patient Education Urology Erectile Dysfunction Erectile dysfunction (ED) is the inability to get or keep an erection in order to have sexual intercourse. ED is considered a symptom of an underlying disorder and is not considered a disease. ED may include: ??? Inability to get an erection. ??? Lack of enough hardness of the erection to allow penetration. ??? Loss of erection before sex is finished. What are the causes? This condition may be caused by: ??? Physical causes, such as: ? Artery problems. This may include heart disease, high blood pressure, atherosclerosis, and diabetes. ? Hormonal problems, such as low testosterone. ? Obesity. ? Nerve problems. This may include back or pelvic injuries, multiple sclerosis, Parkinson's disease, spinal cord injury, and stroke. ??? Certain medicines, such as: ? Pain relievers. ? Antidepressants. ? Blood pressure medicines and water pills (diuretics). ? Cancer medicines. ? Antihistamines. ? Muscle relaxants. ??? Lifestyle factors, such as: ? Use of drugs such as marijuana, cocaine, or opioids. ? Excessive use of alcohol. ? Smoking. ? Lack of physical activity or exercise. ??? Psychological causes, such as: ? Anxiety or stress. ? Sadness or depression. ? Exhaustion. ? Fear about sexual performance. ? Guilt. What are the signs or symptoms? Symptoms of this condition include: ??? Inability to get an erection. ??? Lack of enough hardness of the erection to allow penetration. ??? Loss of the erection before sex is finished. ??? Sometimes having normal erections, but with frequent unsatisfactory episodes. ??? Low sexual satisfaction in either partner due to erection problems. ??? A curved penis occurring with erection. The curve may cause pain, or the penis may be too curved to allow for intercourse. ??? Never having nighttime or morning erections. How is this diagnosed? This condition is often diagnosed by: ??? Performing a physical exam to find other diseases or specific problems with the penis. ??? Asking you detailed questions about the problem. ??? Doing tests, such as: ? Blood tests to check for diabetes mellitus or high cholesterol, or to measure hormone levels. ? Other tests to check for underlying health conditions. ? An ultrasound exam to check for scarring. ? A test to check blood flow to the penis. ??? Doing a sleep study at home to measure nighttime erections. How is this treated? This condition may be treated by: ??? Medicines, such as: ? Medicine taken by mouth to help you achieve an erection (oral medicine). ? Hormone replacement therapy to replace low testosterone levels. ? Medicine that is injected into the penis. Your health care provider may instruct you how to give yourself these injections at home. ? Medicine that is delivered with a short applicator tube. The tube is inserted into the opening at the tip of the penis, which is the opening of the urethra. A tiny pellet of medicine is put in the urethra. The pellet dissolves and enhances erectile function. This is also called MUSE (medicated urethral system for erections) therapy. ??? Vacuum pump. This is a pump with a ring on it. The pump and ring are placed on the penis and used to create pressure that helps the penis become erect. ??? Penile implant surgery. In this procedure, you may receive: ? An inflatable implant. This consists of cylinders, a pump, and a reservoir. The cylinders can be inflated with a fluid that helps to create an erection, and they can be deflated after intercourse. ? A semi-rigid implant. This consists of two silicone rubber rods. The rods provide some rigidity. They are also flexible, so the penis can both curve downward in its normal position and become straight for sexual intercourse. ??? Blood vessel surgery to improve blood flow to the penis. During this procedure, a blood vessel from a different part of the body is placed into the penis to allow blood to flow around (bypass) damaged or blocked blood vessels. ??? Lifestyle changes, such as exercising more, losing weight, and quitting smoking. Follow these instructions at home: Medicines ??? Take aiaf-jnc-pegkbau and prescription medicines only as told by your health care provider. Do not increase the dosage without first discussing it with your health care provider. ??? If you are using self-injections, do injections as directed by your health care provider. Make sure you avoid any veins that are on the surface of the penis. After giving an injection, apply pressure to the injection site for 5 minutes. ??? Talk to your health care provider about how to prevent headaches while taking ED medicines. These medicines may cause a sudden headache due to the increase in blood flow in your body. General instructions ??? Exercise regularly, as directed by your health care provider. Work with your health care provider to lose weight, if needed. ??? Do not u (more content not included)... [facility] 02-27-2025 History of Presen t illness Narrative IM PROGRESS NOTE Patient - Eliazar Nunez Age - 74 y.o. - 1950 ASSESSMENT & PLAN 1. Leg pain, right (Primary) -advised Tylenol prior to going to sleep at night. - Vas art duplex lwr bilateral; Future -due to cardiac history we will get arterial duplex. -back/lumbar exam negative Subjective The following portions of the patient's history were reviewed and updated as appropriate: allergies, current medications, past family history, past medical history, past social history, past surgical history and problem list. Leg Pain The incident occurred more than 1 week ago. There was no injury mechanism. The pain is present in the right leg. The quality of the pain is described as aching. The pain is at a severity of 8/10. The pain is moderate. The pain has been Intermittent since onset. Pertinent negatives include no inability to bear weight, loss of motion, loss of sensation, muscle weakness, numbness or tingling. Exacerbated by: sleeping. Treatments tried: pain creams/ointments. The treatment provided no relief. Review of Systems Constitutional: Negative for chills and fever. Respiratory: Negative for shortness of breath. Cardiovascular: Positive for leg swelling. Negative for chest pain. Gastrointestinal: Negative for abdominal pain, constipation, diarrhea, nausea and vomiting. Genitourinary: Negative for difficulty urinating. Musculoskeletal: Positive for myalgias. Skin: Negative for rash. Neurological: Negative for tingling, syncope, weakness and numbness. Psychiatric/Behavioral: Positive for sleep disturbance (Leg pain making it difficult to sleep). Exam BP 110/60 (BP Site: Right Arm, BP Postition: Sitting, BP CUFF SIZE: S (7-9 inches)) Pulse 52 Temp 36.7 C (98.1 F) (Tympanic) Resp 17 Ht 190.5 cm (6' 3 ) Wt 103.4 kg (228 lb) SpO2 95% BMI 28.50 kg/m Physical Exam Constitutional: General: He is not in acute distress. Appearance: He is well-developed. HENT: Head: Normocephalic. Right Ear: External ear normal. Left Ear: External ear normal. Eyes: Conjunctiva/sclera: Conjunctivae normal. Pupils: Pupils are equal, round, and reactive to light. Cardiovascular: Rate and Rhythm: Normal rate and regular rhythm. Pulses: Dorsalis pedis pulses are 2+ on the right side and 2+ on the left side. Posterior tibial pulses are 2+ on the right side and 2+ on the left side. Heart sounds: Normal heart sounds. No murmur heard. Pulmonary: Effort: Pulmonary effort is normal. Breath sounds: Normal breath sounds. Abdominal: Palpations: Abdomen is soft. Tenderness: There is no abdominal tenderness. Musculoskeletal: General: No tenderness. Normal range of motion. Cervical back: Normal range of motion. Lumbar back: No swelling, spasms, tenderness or bony tenderness. Normal range of motion. Negative right straight leg raise test. Right lower leg: No edema. Left lower leg: No edema. Lymphadenopathy: Cervical: No cervical adenopathy. Skin: General: Skin is warm and dry. Capillary Refill: Capillary refill takes less than 2 seconds. Neurological: General: No focal deficit present. Mental Status: He is alert and oriented to person, place, and time. Psychiatric: Behavior: Behavior normal. Meds Current Outpatient Medications: amLODIPine (NORVASC) 5 mg tablet, Take 1 tablet (5 mg total) by mouth in the morning., Disp: 90 tablet, Rfl: 2 ascorbic acid, vitamin C, (VITAMIN C) 1000 mg tablet, Take 1 tablet (1,000 mg total) by mouth in the morning., Disp: , Rfl: aspirin 81 mg, Take 1 tablet (81 mg total) by mouth in the morning., Disp: , Rfl: atorvastatin (LIPITOR) 80 mg tablet, TAKE 1 TABLET BY MOUTH IN THE MORNING, Disp: 90 tablet, Rfl: 2 azelastine (ASTELIN) 137 mcg (0.1 %) nasal spray, Administer 1 spray into each nostril in the morning and 1 spray before bedtime., Disp: , Rfl: carvediloL (COREG) 12.5 mg tablet, Take 1 tablet (12.5 mg total) by mouth in the morning and 1 tablet (12.5 mg total) before bedtime., Disp: 180 tablet, Rfl: 3 cetirizine (ZyrTEC) 10 mg capsule, Take 1 capsule (10 mg total) by mouth in the morning., Disp: , Rfl: chlorhexidine (PERIDEX) 0.12 % solution, Apply 15 mL to the mouth or throat in the morning., Disp: , Rfl: dutasteride (AVODART) 0.5 mg capsule, Take 1 capsule (0.5 mg total) by mouth., Disp: , Rfl: famotidine (PEPCID) 20 mg tablet, Take 1 tablet (20 mg total) by mouth in the morning., Disp: , Rfl: FLUoxetine (PROzac) 10 mg capsule, Take 1 capsule (10 mg total) by mouth in the morning., Disp: 90 capsule, Rfl: 1 fluticasone propionate (FLONASE) 50 mcg/actuation nasal spray, Administer 2 sprays into each nostril in the morning., Disp: 16 g, Rfl: 11 lisinopriL (PRINIVIL,ZESTRIL) 10 mg tablet, TAKE 1 TABLET BY MOUTH EVERY MORNING, Disp: 90 tablet, Rfl: 2 nitroglycerin (NITROSTAT) 0.4 MG SL tablet, Place 1 tablet (0.4 mg total) under the tongue every 5 (five) minutes as needed for chest pain., Disp: 25 tablet, Rfl: 5 psyllium seed, with sugar, (FIBER ORAL), Take by mouth in the morning and before bedtime., Disp: , Rfl: tamsulosin (FLOMAX) 0.4 mg capsule, Take 1 capsule (0.4 mg total) by mouth in the morning and 1 capsule (0.4 mg total) before bedtime., Disp: , Rfl: Lab Results No visits with results within 1 Month(s) from this visit. Latest known visit with results is: Appointment on 01/10/2025 Component Date Value Ref Range Status CHOLESTEROL 01/10/2025 91 (L) 150 - 200 mg/dL Final TRIGLYCERIDE 01/10/2025 70 27 - 150 mg/dL Final HDL CHOLESTEROL 01/10/2025 29 (L) >39 mg/dL Final LDL (CALC) 01/10/2025 48 <130 mg/dL Final CHOLESTEROL:HDL 01/10/2025 3.1 1.0 - 5.0 Final VERY LOW LIPOPROTEIN 01/10/2025 14 0 - 30 mg/dL Final Other Testing No results found. Return if symptoms worsen or fail to improve. [facility] Office: [phone] This note is dictated with the use of M*Modal. Please note that this dictation was completed with computer voice recognition software. Quite often unanticipated grammatical, syntax, homophones, and other interpretive errors are inadvertently transcribed by the computer software. Please disregard these errors. Please excuse any errors that have escaped final proofreading. COCO Acuna 02/27/25 1102 C[facility] Acuna 02/27/25 1138 documented in this encounter [facility] 02-10-2025 Miscellaneous Notes Last OV 11/25/24 Lipid panel 01/10/25 documented in this encounter [facility] 02-10-2025 Telephone encounter Note Last OV 11/25/24 Lipid panel 01/10/25 [facility] 01-20-2025 History of Presen t illness Narrative Patient was in today for a two week follow up on hearing aids. He is very pleased with his hearing aids and states they are helping tremendously. Patient had a few basic questions regarding insertion which were answered. Patient is concerned as he is seeing wax on the aids. We talked about this being normal and encouraged changing filter as needed. Patient was also scheduled for a follow up in three months with an shearing machine tender so ear canals can be checked for wax. Cosigned by MICK Jang at 01/20/2025 4:11 PM EDT documented in this encounter [facility] 01-08-2025 Miscellaneous Notes News Photographer called and spoke w/ pt Informed is due to have lipids done. Agreed to go this week documented in this encounter [facility] 01-08-2025 Telephone encounter Note News Photographer called and spoke w/ pt Informed is due to have lipids done. Agreed to go this week [facility] 01-06-2025 Hospital Discharg e instructions Patient Education 01/06/2025 10:26:36 Erectile Dysfunction Erectile Dysfunction Erectile dysfunction (ED) is the inability to get or keep an erection in order to have sexual intercourse. ED is considered a symptom of an underlying disorder and is not considered a disease. ED may include: Inability to get an erection. Lack of enough hardness of the erection to allow penetration. Loss of erection before sex is finished. What are the causes? This condition may be caused by: Physical causes, such as: ?Artery problems. This may include heart disease, high blood pressure, atherosclerosis, and diabetes. ?Hormonal problems, such as low testosterone. ?Obesity. ?Nerve problems. This may include back or pelvic injuries, multiple sclerosis, Parkinson's disease, spinal cord injury, and stroke. Certain medicines, such as: ?Pain relievers. ?Antidepressants. ?Blood pressure medicines and water pills (diuretics). ?Cancer medicines. ?Antihistamines. ?Muscle relaxants. Lifestyle factors, such as: ?Use of drugs such as marijuana, cocaine, or opioids. ?Excessive use of alcohol. ?Smoking. ?Lack of physical activity or exercise. Psychological causes, such as: ?Anxiety or stress. ?Sadness or depression. ?Exhaustion. ?Fear about sexual performance. ?Guilt. What are the signs or symptoms? Symptoms of this condition include: Inability to get an erection. Lack of enough hardness of the erection to allow penetration. Loss of the erection before sex is finished. Sometimes having normal erections, but with frequent unsatisfactory episodes. Low sexual satisfaction in either partner due to erection problems. A curved penis occurring with erection. The curve may cause pain, or the penis may be too curved to allow for intercourse. Never having nighttime or morning erections. How is this diagnosed? This condition is often diagnosed by: Performing a physical exam to find other diseases or specific problems with the penis. Asking you detailed questions about the problem. Doing tests, such as: ?Blood tests to check for diabetes mellitus or high cholesterol, or to measure hormone levels. ?Other tests to check for underlying health conditions. ?An ultrasound exam to check for scarring. ?A test to check blood flow to the penis. Doing a sleep study at home to measure nighttime erections. How is this treated? This condition may be treated by: Medicines, such as: ?Medicine taken by mouth to help you achieve an erection (oral medicine). ?Hormone replacement therapy to replace low testosterone levels. ?Medicine that is injected into the penis. Your health care provider may instruct you how to give yourself these injections at home. ?Medicine that is delivered with a short applicator tube. The tube is inserted into the opening at the tip of the penis, which is the opening of the urethra. A tiny pellet of medicine is put in the urethra. The pellet dissolves and enhances erectile function. This is also called MUSE (medicated urethral system for erections) therapy. Vacuum pump. This is a pump with [...] become straight for sexual intercourse. Blood vessel surgery to improve blood flow to the penis. During this procedure, a blood vessel from a different part of the body is placed into the penis to allow blood to flow around (bypass) damaged or blocked blood vessels. Lifestyle changes, such as exercising more, losing weight, and quitting smoking. Follow these instructions at home: Medicines Take knnt-pza-iwwcczh and prescription medicines only as told by your health care provider. Do not increase the dosage without first discussing it with your health care provider. If you are using self-injections, do injections as directed by your health care provider. Make sure you avoid any veins that are on the surface of the penis. After giving an injection, apply pressure to the injection site for 5 minutes. Talk to your health care provider about how to prevent headaches while taking ED medicines. These medicines may cause a sudden headache due to the increase in blood flow in your body. General instructions Exercise regularly, as directed by your health care provider. Work with your health care provider to lose weight, if needed. Do not use any products that contain nicotine or tobacco. These products include cigarettes, chewing tobacco, and vaping devices, such as e-cigarettes. If you need help quitting, ask your health care provider. Before using a vacuum pump, read the instructions that come with the pump and discuss any questions with your health care provider. Keep all follow-up visits. This is important. Contact a health care provider if: You feel nauseous. You are vomiting. You get sudden headaches while taking ED medicines. You have any concerns about your sexual health. Get help right away if: You are [...] of your penis. You have redness spreading at your groin or lower abdomen. You are unable to urinate. You experience chest pain or a rapid heartbeat (palpitations) after taking oral medicines. These symptoms may represent a serious problem that is an emergency. Do not wait to see if the symptoms will go away. Get medical help right away. Call your local emergency services (911 in the [place] Do not drive yourself to the hospital. Summary Erectile dysfunction (ED) is the inability to get or keep an erection during sexual intercourse. This condition is diagnosed based on a physical exam, your symptoms, and tests to determine the cause. Treatment varies depending on the cause and may include medicines, hormone therapy, surgery, or a vacuum pump. You may need follow-up visits to [...] with your health care provider. Document Revised: 10/20/2021 Document Reviewed: 10/20/2021 [employer] Patient Education 2023 [employer] Follow Up Care 12/04/2023 13:15:56 With:MARGE VARNER, Amanda Alvares, URL Address: [facility] [address], [place] [address]- [phone] When: Unknown Comments:6 mos w/ PSA & schedule [facility] reteaching [facility]06[facility] Note Patient Education Urology Erectile Dysfunction Erectile dysfunction (ED) is the inability to get or keep an erection in order to have sexual intercourse. ED is considered a symptom of an underlying disorder and is not considered a disease. ED may include: ??? Inability to get an erection. ??? Lack of enough hardness of the erection to allow penetration. ??? Loss of erection before sex is finished. What are the causes? This condition may be caused by: ??? Physical causes, such as: ? Artery problems. This may include heart disease, high blood pressure, atherosclerosis, and diabetes. ? Hormonal problems, such as low testosterone. ? Obesity. ? Nerve problems. This may include back or pelvic injuries, multiple sclerosis, Parkinson's disease, spinal cord injury, and stroke. ??? Certain medicines, such as: ? Pain relievers. ? Antidepressants. ? Blood pressure medicines and water pills (diuretics). ? Cancer medicines. ? Antihistamines. ? Muscle relaxants. ??? Lifestyle factors, such as: ? Use of drugs such as marijuana, cocaine, or opioids. ? Excessive use of alcohol. ? Smoking. ? Lack of physical activity or exercise. ??? Psychological causes, such as: ? Anxiety or stress. ? Sadness or depression. ? Exhaustion. ? Fear about sexual performance. ? Guilt. What are the signs or symptoms? Symptoms of this condition include: ??? Inability to get an erection. ??? Lack of enough hardness of the erection to allow penetration. ??? Loss of the erection before sex is finished. ??? Sometimes having normal erections, but with frequent unsatisfactory episodes. ??? Low sexual satisfaction in either partner due to erection problems. ??? A curved penis occurring with erection. The curve may cause pain, or the penis may be too curved to allow for intercourse. ??? Never having nighttime or morning erections. How is this diagnosed? This condition is often diagnosed by: ??? Performing a physical exam to find other diseases or specific problems with the penis. ??? Asking you detailed questions about the problem. ??? Doing tests, such as: ? Blood tests to check for diabetes mellitus or high cholesterol, or to measure hormone levels. ? Other tests to check for underlying health conditions. ? An ultrasound exam to check for scarring. ? A test to check blood flow to the penis. ??? Doing a sleep study at home to measure nighttime erections. How is this treated? This condition may be treated by: ??? Medicines, such as: ? Medicine taken by mouth to help you achieve an erection (oral medicine). ? Hormone replacement therapy to replace low testosterone levels. ? Medicine that is injected into the penis. Your health care provider may instruct you how to give yourself these injections at home. ? Medicine that is delivered with a short applicator tube. The tube is inserted into the opening at the tip of the penis, which is the opening of the urethra. A tiny pellet of medicine is put in the urethra. The pellet dissolves and enhances erectile function. This is also called MUSE (medicated urethral system for erections) therapy. ??? Vacuum pump. This is a pump with a ring on it. The pump and ring are placed on the penis and used to create pressure that helps the penis become erect. ??? Penile implant surgery. In this procedure, you may receive: ? An inflatable implant. This consists of cylinders, a pump, and a reservoir. The cylinders can be inflated with a fluid that helps to create an erection, and they can be deflated after intercourse. ? A semi-rigid implant. This consists of two silicone rubber rods. The rods provide some rigidity. They are also flexible, so the penis can both curve downward in its normal position and become straight for sexual intercourse. ??? Blood vessel surgery to improve blood flow to the penis. During this procedure, a blood vessel from a different part of the body is placed into the penis to allow blood to flow around (bypass) damaged or blocked blood vessels. ??? Lifestyle changes, such as exercising more, losing weight, and quitting smoking. Follow these instructions at home: Medicines ??? Take pktu-lzu-mhyiyqf and prescription medicines only as told by your health care provider. Do not increase the dosage without first discussing it with your health care provider. ??? If you are using self-injections, do injections as directed by your health care provider. Make sure you avoid any veins that are on the surface of the penis. After giving an injection, apply pressure to the injection site for 5 minutes. ??? Talk to your health care provider about how to prevent headaches while taking ED medicines. These medicines may cause a sudden headache due to the increase in blood flow in your body. General instructions ??? Exercise regularly, as directed by your health care provider. Work with your health care provider to lose weight, if needed. ??? Do not u (more content not included)... [facility] 01-01-2025 History of Presen t illness Narrative Patient was in today to be fit with [employer] C7G T 1IX hearing aids that he obtained using assistance from [employer]. Patient is a new hearing aid wearer. He was accompanied by his , Maddison. Patient aids were coupled to Iceberg receivers with sm closed domes. Patient was comfortable with the gis analyst developer. He was able to change the dome and filter. Patient was able to remove and insert the hearing aid after some practice. Patient was pleased with the settings but felt his voice was just a bit loud. I reduced for speech X1 and patient was pleased. Patient aids were paired to his Iphone and he was able to stream as well as use the ever. Patient was scheduled for a follow up in several weeks. Cosigned by MICK Jang at 01/06/2025 9:40 AM EDT documented in this encounter [facility] 12-20-2024 History of Presen t illness Narrative Patient: Eliazar Nunez : 1950 PCP: [facility] Provider MD Oscar SUBJECTIVE This is a [...] with urinary obstruction CAD (coronary artery disease) ([facility]) CHF (congestive heart failure) ([facility]) COVID-19 07/2021 History of heart attack ([facility]) 09/10/2014 HLD (hyperlipidemia) ([facility]) HTN (hypertension) ([facility]) Hx of fall 01/2018 Kidney stones [place] (myocardial infarction) ([facility]) SURINDER (obstructive sleep apnea) Shingles Sleep [...] Resource Strain: High Risk (06/06/2024) [facility] Overall Financial Resource Strain (CARDIA) Difficulty of Paying Living Expenses: Hard Food Insecurity: No Food Insecurity (11/25/2024) [facility] Hunger Screening Within the past 12 months we worried whether our food would run out before we got money to buy more.: Never True Within the past 12 months the food we bought just didn't last and we didn't have money to get more.: Never True Transportation Needs: No Transportation Needs (07/18/2023) [facility] PRAPARE - Transportation Lack of Transportation (Medical): No Lack of Transportation (Non-Medical): No Physical Activity: Sufficiently Active (08/02/2021) Received from [facility] Exercise Vital Sign Days of Exercise per Week: 5 days Minutes of Exercise per Session: 40 min Stress: No Stress Concern Present (06/06/2024) Received from [email or web address] [employer] - Occupational Stress Questionnaire Feeling of Stress : Not at all Social Connections: Socially Integrated (08/02/2021) Received from [facility] Social Connection and Isolation Panel [NHANES] Frequency of Communication with Friends and Family: More than three times a week Frequency of Social Gatherings with Friends and Family: More than three times a week Attends Christianity Services: More than 4 times per year Active Member of Clubs or Organizations: Yes Attends Club or Organization Meetings: More than 4 times per year Marital Status: Intimate Partner Violence: Not on file Housing Stability: Low Risk (07/18/2023) [facility] Housing Instability Are you worried or [...] Hamzah Lazo DPM documented in this encounter [facility] 12-15-2024 Miscellaneous Notes Last OV 11/25/24 CMP 08/27/24 documented in this encounter [facility] 12-15-2024 Telephone encounter Note Last OV 11/25/24 CMP 08/27/24 [facility] 12-09-2024 Telephone encounter Note Pt left VM - he wants champagne color. Called him back to schedule fitting appointment but call went to voice mail [facility] Work Phone: 12-09-2024 Miscellaneous Notes Pt left VM - he wants champagne color. Called him back to schedule fitting appointment but call went to voice mail Called pt - he was approved for aids, I just need color. Left VM on cell phone. Called home phone and spoke to his . She will have him call us documented in this encounter [facility] 12-06-2024 Telephone encounter Note Called pt - he was approved for aids, I just need color. Left VM on cell phone. Called home phone and spoke to his . She will have him call us [facility] 11-25-2024 History of Presen t illness Narrative Eliazar Nunez Date of visit: 11/25/2024 Date of : 1950 Age: 74 y.o. 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 Allergic rhinitis Hydrocele in adult Benign prostatic hyperplasia with urinary obstruction Abnormal CT of the chest Multiple thyroid nodules Situational anxiety Bronchiectasis without complication ([facility]) Nocturia Allergies Allergen Reactions Avelox [Moxifloxacin] GI [...] Date Allergic rhinitis 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 BPH (benign prostatic hyperplasia) Episodic lightheadedness 08/22/2017 Gastritis 11/15/2018 Pepcid ( pt on asa for CAD) Heart attack ([facility]) 09/10/2014 maker Hyperlipidemia Medication controlled Hypertension Hypertensive heart disease with heart failure ([facility]) Ischemic cardiomyopathy Kidney stones Obstructive sleep apnea BiPAP setting at 2 Presence of coronary angioplasty implant and graft Prostatitis Puckering of macula, left eye Tinea corporis 10/02/2017 No data recorded No data recorded No data recorded Past Surgical History: Procedure Laterality Date BLEPHAROPLASTY CARDIAC CATHETERIZATION COLONOSCOPY 03/20/2023 CORONARY ANGIOPLASTY WITH STENT PLACEMENT LAPAROSCOPIC CHOLECYSTECTOMY N/A 02/04/2020 Performed by Terry Ruvalcaba DO at [facility] THROMBECTOMY TONSILLECTOMY VEIN LIGATION AND STRIPPING Family [...] Master's degree (e.g., MA, MS, Marcia, MEd, SALES COMMUNICATIONS MANAGER, NADIYA) Occupational History Not on file Tobacco [...] min Stress: No Stress Concern Present (06/06/2024) [employer] - Occupational Stress Questionnaire Feeling of Stress : Not at all Social Connections: Socially Integrated (08/02/2021) Social Connection and Isolation Panel [NHANES] Frequency of Communication with Friends and Family: More than three times a week Frequency of Social Gatherings with Friends and Family: More than three times a week Attends Christianity Services: More than 4 times per year [...] POCT EKG 2. 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 ([facility]) 4. Presence of bare metal stent in [...] Braun Referring Physician: COCO Braun [address] [place] [place] [id number] documented in this encounter [facility] 10-31-2024 History of Presen t illness Narrative [...] blood before or since. Talked to a automotive general sales manager who took over for Dr. Laughlin who [...] with urinary obstruction CAD (coronary artery disease) ([facility]) CHF (congestive heart failure) ([facility]) COVID-19 07/2021 History of heart attack ([facility]) 09/10/2014 HLD (hyperlipidemia) ([facility]) HTN (hypertension) ([facility]) Hx of 01/2018 Kidney stones [place] (myocardial infarction) ([facility]) SURINDER (obstructive sleep apnea) Shingles Sleep [...] from my care. documented in this encounter [facility] 10-21-2024 Miscellaneous Notes PAP mask and supplies order with supportive documentation faxed to [facility]. documented in this encounter [facility] 10-21-2024 Telephone encounter Note PAP mask and supplies order with supportive documentation faxed to [facility]. [facility] 10-17-2024 Miscellaneous Notes Pt completed office visit [...] the Airfit F40 -M and it is climate change risk assessor weight than Dreamwear / no contraindication for magnets. Reviewed possible mask liners also so can avoid over-tightening mask. documented in this encounter [facility] 10-17-2024 Telephone encounter Note Pt completed office [...] the Airfit F40 -M and it is climate change risk assessor weight than Dreamwear / no contraindication for magnets. Reviewed possible mask liners also so can avoid over-tightening mask. [facility] 10-17-2024 History of Presen t illness Narrative Images from the original note were not included. Images from the original note were not included. [facility] Progress Note Patient - Eliazar Nunez Age - 74 y.o. - 1950 ASSESSMENT SURINDER on BIPAP 20/05 therapy History of frequent URI Allergic rhinitis PLAN Reviewed mask options today and new sample mask given to trial Refill BiPAP supplies Continue excellent BiPAP adherence Continue Zyrtec, Flonase Repeat chest x-ray Return to clinic in 1 year earlier if needed SUBJECTIVE Mr. Nunez presents for follow-up of his SUIRNDER on BiPAP and his allergic rhinitis. He was historically initially seen for pulmonary nodular opacities on CT imaging however this resolved on follow-up imaging. Last CT was September 2023. He is low risk for neoplasm and does not qualify for annual low-dose screening CT scans. 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 [...] that were previously present have largely resolved. Pre Parole Counseling Aide images include series 2, image 84 of [...] the latter 2 areas are marked with [place]. There remains a left lower lobe calcified [...] be determined clinically. Dr. Khushbu Gill DO. [facility] Office: [phone] documented in this encounter [facility] 10-11-2024 Miscellaneous Notes Last OV 11/20/23 Last lipids was drawn at [facility] will call over for lab results.slm documented in this encounter [facility] 10-11-2024 Telephone encounter Note Last OV 11/20/23 Last lipids was drawn at [facility] will call over for lab results.slm [facility] 10-10-2024 History of Presen t illness Narrative History: Pt was referred to Audiology because of hearing loss. Pt has noticed a decrease in his hearing. He is a university teacher at both [employer] 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 He has difficulty hearing his students at [...] hearing aid discussion. documented in this encounter [facility] 09-26-2024 History of Presen t illness Narrative Patient: Eliazar Nunez : 1950 PCP: [facility] Provider MD Oscar SUBJECTIVE This is a [...] with urinary obstruction CAD (coronary artery disease) ([facility]) CHF (congestive heart failure) ([facility]) COVID-19 07/2021 History of heart attack ([facility]) 09/10/2014 HLD (hyperlipidemia) ([facility]) HTN (hypertension) ([facility]) Hx of fall 01/2018 Kidney stones [place] (myocardial infarction) ([facility]) SURINDER (obstructive sleep apnea) Shingles Sleep [...] Resource Strain: High Risk (06/06/2024) Received from [facility] Overall Financial Resource Strain (CARDIA) Difficulty of Paying Living Expenses: Hard Food Insecurity: No Food Insecurity (06/06/2024) Received from [facility] Hunger Screening Within the past 12 months we worried whether our food would run out before we got money to buy more.: Never True Within the past 12 months the food we bought just didn't last and we didn't have money to get more.: Never True Transportation Needs: No Transportation Needs (07/18/2023) Received from [facility], [facility] PRAPARE - Transportation Lack of Transportation (Medical): No Lack of Transportation (Non-Medical): No Physical Activity: Sufficiently Active (08/02/2021) Received from [facility], [facility] Exercise Vital Sign Days of Exercise per Week: 5 days Minutes of Exercise per Session: 40 min Stress: No Stress Concern Present (06/06/2024) Received from [facility] [employer] - Occupational Stress Questionnaire Feeling of Stress : Not at all Social Connections: Socially Integrated (08/02/2021) Received from [facility], [facility] Social Connection and Isolation Panel [NHANES] Frequency of Communication with Friends and Family: More than three times a week Frequency of Social Gatherings with Friends and Family: More than three times a week Attends Christianity Services: More than 4 times per year Active Member of Clubs or Organizations: Yes Attends Club or Organization Meetings: More than 4 times per year Marital Status: Intimate Partner Violence: Not on file Housing Stability: Low Risk (07/18/2023) Received from [facility], [facility] Housing Instability Are you worried or concerned [...] Hamzah Lazo DPM documented in this encounter [facility] 08-14-2024 History of Presen t illness Narrative [...] out to Yash. documented in this encounter [facility] 07-29-2024 Hospital Discharg e instructions Patient Education [...] to keep your urine pale yellow. ?Take impd-xfl-sdrfrfr or prescription medicines. ?Eat foods that are high in fiber, such as beans, whole grains, and fresh fruits and vegetables. ?Limit foods that are high in fat and processed sugars, such as fried or sweet foods. General instructions Take ayrb-nno-zdjnkgh and prescription medicines only as told by [...] the muscles that help control urination. Take mpeu-mfm-dqvzwbb and prescription medicines only as told by your health care provider. Contact a health care provider if your symptoms do not improve or get worse. This information is not intended to replace advice given to you by your health care provider. Make sure you discuss any questions you have with your health care provider. Document Revised: 02/26/2021 Document Reviewed: 02/26/2021 [employer] Patient Education 2023 Syn[employer]ogue. Follow Up Care 07/17/2024 16:25:59 With:MARGE VARNER, Amanda Alvares, URL Address: [facility] [address] , [place] [id number] When: Unknown [facility] [place] 07-29-2024 Note Patient Education Urology Urinary [...] keep your urine pale yellow. ? Take wdjg-ffe-xfazydm or prescription medicines. ? Eat foods that are high in fiber, such as beans, whole grains, and fresh fruits and vegetables. ? Limit foods that are high in fat and processed sugars, such as fried or sweet foods. General instructions ??? Take seet-vyo-xzerenx and prescription medicines only as told by [...] muscles that help control urination. ??? Take vxmy-htk-yftfmod and prescription medicines only as told by your health care provider. ??? Contact a health care provider if your symptoms do not improve or get worse. This information is not intended to replace advice given to you by your health care provider. Make sure you discuss any questions you have with your health care provider. Document Revised: 02/26/2021 Document Reviewed: 02/26/2021 [employer] Patient Education ? [address] [facility] 07-20-2024 Evaluation note Diagnosis Onset Date Resolution Bronchitis acute July 20, 2024 1:43pm Cough noneactive July 20, 2024 1:43pm Sore throat noneactive July 1:43pm Bleeding hemorrhoids acute Oni leelee 2024 11:07am Diverticulosis acute August 272024 11:07am Esophageal reflux acute August 27, 2024 11:07am History of colon polyps acute J anuary 2024 11:07am Rectal bleeding inactive August 082024 11:07am [facility] Work Phone: 1(366) 913-949312-08-2024 Miscellaneous Notes* Telephone Encounter - Rae Holman RN - 07/14/2024 7:13 PM EST OV 11/20/2023 Lipid panel 05/18/2023 Letter to be sent to patient's home. All labs ordered for med management. [facility] encounter Note* Telephone Encounter - Rae Holman RN - 07/14/2024 7:13 PM EST OV 11/20/2023 Lipid panel 05/18/2023 Letter to be sent to patient's home. All labs ordered for med management. [facility]10-31-2024 History of Present illness Narrative* Nathan Talbot, FILM AND VIDEO EDITOR-WARRANT SERVER - 06/06/2024 10:20 AM EDT Subjective SUBJECTIVE: [...] Do you have a durable power of civil attorney?: (!) No Cognitive Screening Do you [...] COCO Braun 06/06/24 [id number] [facility] History of Present illness Narrative* aHmzah Lazo, CONNER - 05/09/2024 4:30 PM EDT Patient: Eliazar [...] with urinary obstruction CAD (coronary artery disease) ([facility]) CHF (congestive heart failure) ([facility]) COVID-19 07/2021 History of heart attack ([facility]) 09/10/2014 HLD (hyperlipidemia) ([facility]) HTN (hypertension) ([facility]) Hx of fall 01/2018 Kidney stones [place] (myocardial infarction) ([facility]) SURINDER (obstructive sleep apnea) Shingles Sleep [...] Resource Strain: High Risk (07/18/2023) Received from [email or web address], [facility] Overall Financial Resource Strain (CARDIA) Difficulty of Paying Living Expenses: Hard Food Insecurity: No Food Insecurity (02/14/2024) [facility] Hunger Screening Within the past 12 months we worried whether our food would run out before we got money to buy more.: Never True Within the past 12 months the food we bought just didn't last and we didn't have money to get more.: Never True Transportation Needs: No Transportation Needs (07/18/2023) [facility], [facility] PRAPARE - Transportation Lack of Transportation (Medical): No Lack of Transportation (Non-Medical): No Physical Activity: Sufficiently Active (08/02/2021) Received from [employer], [facility] Exercise Vital Sign Days of Exercise per Week: 5 days Minutes of Exercise per Session: 40 min Stress: Stress Concern Present (08/02/2021) Received from [employer], [employer] [facility] [employer] - Occupational Stress Questionnaire Feeling of Stress : Rather much Social Connections: Socially Integrated (08/02/2021) Received from [employer], [facility] [facility] Social Connection and Isolation Panel [NHANES] Frequency of Communication with Friends and Family: More than three times a week Frequency of Social Gatherings with Friends and Family: More than three times a week Attends Christianity Services: More than 4 times per year Active Member of Clubs or Organizations: Yes Attends Club or Organization Meetings: More than 4 times per year Marital Status: Intimate Partner Violence: Not on file Housing Stability: Low Risk (07/18/2023) Received from [employer], [employer] Housing Instability Are you worried or concerned [...] 10 Hamzah Lazo DPM documented in this encounterFreeman Cancer [id number] Miscellaneous Notes* Telephone Encounter - Vernell Stewart RN - 05/01/2024 11:28 AM EDT Last OV 11/20/23.slm documented in this encounterMercy Health T[facility]09-25-2024 Telephone encounter Note* Telephone Encounter - Vernell Stewart RN - 05/01/2024 11:28 AM EDT Last OV 11/20/23.slm [facility]09-16-2024 Miscellaneous Notes* Telephone Encounter - Vernell Stewart RN - 04/22/2024 2:06 PM EDT Last OV 11/20/23 Last lipids 05/18/24.slm documented in this encounterMercy Health Tiffin Hospital09-16-2024 Telephone encounter Note* Telephone Encounter - Vernell Stewart RN - 04/22/2024 2:06 PM EDT Last OV 11/20/23 Last lipids 05/18/24.slm [facility]07-10-2024 History of Present illness Narrative* Nathan Talbot, JAIRON-WARRANT SERVER - 02/14/2024 4:00 PM EDT Images from the original note were not included. [address] [facility] [id number] SUBJECTIVE: Patient ID: Eliazar Nunez is a [...] 02/04/2020 Performed by Terry Ruvalcaba DO at [facility] THROMBECTOMY TONSILLECTOMY VEIN LIGATION AND STRIPPING Past Medical History: Diagnosis Date Allergic rhinitis 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 BPH (benign prostatic hyperplasia) Episodic lightheadedness 08/22/2017 Gastritis 11/15/2018 Pepcid ( pt on asa for CAD) Heart attack ([facility]) 09/10/2014 maker Hyperlipidemia Medication controlled Hypertension Hypertensive heart disease with heart failure ([facility]) Ischemic cardiomyopathy Kidney stones Obstructive sleep apnea [...] hypertensive heart disease with congestive heart failure ([facility]) 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 HTN Controlled Continue carvedilol, lisinopril 2. [...] procedures Follow-up: Medicare wellness COCO Braun 02/14/24 1013 documented in this encounterMercy Health Tiffin Hospital06-13-2024 Miscellaneous Notes* Telephone Encounter - DENIZ Bowman - 01/18/2024 3:53 PM EDT Patient stopped into office with his Maddison, patient requested a refill of Flonase from , staff writer informed patient that it was filled by his PCP, COCO Corral, staff writer informed patient to request refill from PCP. documented in this encounterMercy Health Tiffin Hospital06-13-2024 Telephone encounter Note* Telephone Encounter - DENIZ Bowman - 01/18/2024 3:53 PM EDT Patient stopped into office with his Maddison, patient requested a refill of Flonase from , staff writer informed patient that it was filled by his PCP, COCO Corral, staff writer informed patient to request refill from PCP. [facility]06-05-2024 Miscellaneous Notes* Telephone Encounter - Gisela Loza CMA - 01/10/2024 9:54 AM EDT Patient called and stated his congestion is worse and not any better. He has finished all medication. He stated his mucus is more in quantity and very discolored. His chest hurts for all the coughing. Any other suggestions on what to do? * Telephone Encounter - Omega Gar DO - 01/10/2024 9:54 AM EDT I will send in an antibiotic for a week * Telephone Encounter - Gisela Loza CMA - 01/10/2024 9:54 AM EDT Patient is aware documented in this encounterMercy Health Tiffin Hospital06-05-2024 Telephone encounter Note* Telephone Encounter - Gisela Loza CMA - 01/10/2024 9:54 AM EDT Patient called and stated his congestion is worse and not any better. He has finished all medication. He stated his mucus is more in quantity and very discolored. His chest hurts for all the coughing. Any other suggestions on what to do? [facility]06-05-2024 Telephone encounter Note* Telephone Encounter - Omega Gar DO - 01/10/2024 9:54 AM EDT I will send in an antibiotic for a week [facility]06-05-2024 Telephone encounter Note* Telephone Encounter - Gisela Loza CMA - 01/10/2024 9:54 AM EDT Patient is aware [facility]05-31-2024 Miscellaneous Notes* Telephone Encounter - Gisela Loza CMA - 01/05/2024 11:44 AM EDT Patient called and stated since he has been on the medicine the doctor prescribed his BP has been very high ranging 140 to 150 and usually runs 90 to 100 for the top number. * Telephone Encounter - Gisela Loza CMA - 01/05/2024 11:44 AM EDT Patient instructed per Dr. Gar to decrease his steroids to 2 pills x day documented in this encounterMercy Health Tiffin Hospital05-31-2024 Telephone encounter Note* Telephone Encounter - Gisela Loza CMA - 01/05/2024 11:44 AM EDT Patient called and stated since he has been on the medicine the doctor prescribed his BP has been very high ranging 140 to 150 and usually runs 90 to 100 for the top number. [facility]05-31-2024 Telephone encounter Note* Telephone Encounter - Gisela Loza CMA - 01/05/2024 11:44 AM EDT Patient instructed per Dr. Gar to decrease his steroids to 2 pills x day [facility]05-28-2024 History of Present illness Narrative* Omega Gar DO - 01/02/2024 3:45 PM EDT Subjective Patient ID: Eliazar Nunez is a 73 y.o. male. Patient presents for sore throat and cough. It started about a week ago. 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 He [...] Objective Physical Exam Exam conducted with a director for beauty school present ([place] MS IV). Constitutional: General: He is not in acute distress. HENT: Head: Normocephalic. Right Ear: Tympanic membrane, ear canal and external ear normal. Left Ear: Tympanic membrane, ear canal and external ear normal. Nose: Congestion and rhinorrhea present. Rhinorrhea is clear. Left Turbinates: Enlarged and swollen. Comments: Obstructing on the left Mouth/Throat: Lips: [place]. Pharynx: No posterior oropharyngeal erythema (mildly). Comments: [...] on aspirin for now. documented in this encounterProMedica Health [id number] Miscellaneous Notes* Telephone Encounter - Vernell Stewart [...] office to discuss Dr. Pace's recommendations. Both and [employer] office number's left * Telephone Encounter - Morelia Murphy RN - 12/14/2023 3:28 PM EDT Pt returns call, MS recommendations reviewed with him and he verbalizes understanding. Will call office to update on BP and edema early next week. documented in this encounterMercy Health Tiffin Hospital05-09-2024 Telephone encounter Note* Telephone Encounter - Vernell Stewart RN - 12/14/2023 3:28 PM EDT Pt call states has been having bilat ankle swelling Home Health was into see him and she is thinking it is from the Norvasc. Can you please address this TMP is off. Thx slm [facility]05-09-2024 Telephone encounter Note* Telephone Encounter - Evan Pace MD - 12/14/2023 3:28 PM EDT Noted. Can try holding Norvasc for few days and see if it helps. Will need to monitor blood pressure twice a day with goal blood pressure less than 135/85 and if persistently above goal can increase lisinopril to [address] mg [address] Please update Dr. Butler when available. Thank you [facility] [employer] Work Phone: [phone]) 798-697605-09-2024 Telephone encounter Note* Telephone Encounter - Morelia Murphy RN - 12/14/2023 3:28 PM EDT VM left asking pt to please call office to discuss Dr. Pace's recommendations. Both [facility] and [employer] office number's left [facility]05-09-2024 Telephone encounter Note* Telephone Encounter - Morelia Murphy RN - 12/14/2023 3:28 PM EDT Pt returns call, MS recommendations reviewed with him and he verbalizes understanding. Will call office to update on BP and edema early next week. [facility]05-08-2024 Miscellaneous Notes* Telephone Encounter - Audra Monk RN - 12/13/2023 11:34 AM EDT 11/20/23 david documented in this encounterOhio State University Wexner Medical CenterLuminoso [id number] Telephone encounter Note* Telephone Encounter - Audra Monk RN - 12/13/2023 11:34 AM EDT 11/20/23 david [facility]04-29-2024 Hospital Discharge instructions Patient Education 12/04/2023 12:58:16 [...] urethra. Follow these instructions at home: Take [id number] and prescription medicines only as told by [...] provider. Document Revised: 02/09/2022 Document Reviewed: 02/09/2022 [employer] Patient Education 2022 [employer]. Follow Up Care 09/06/2023 13:17:16 With:MARGE VARNER, Amanda Alvares, URL Address: [facility] [address] [place] [phone] When: Unknown Comments:1 yr w/ PSA [facility] 04-18-2024 Miscellaneous Notes* Telephone Encounter - Milly Vazquez - 11/23/2023 9:57 AM EDT Pt does not need to come in today, schedule 3 mo out for HTN * Telephone Encounter - Milly Reinaldotosha - 11/23/2023 9:57 AM EDT scheduled documented in this encounterMercy Health Tiffin Hospital04-18-2024 Telephone encounter Note* Telephone Encounter - [facility] Reinaldotosha - 11/23/2023 9:57 AM EDT Pt does not need to come in today, schedule 3 mo out for HTN [facility]04-18-2024 Telephone encounter Note* [facility] 11/23/2023 9:57 AM EDT scheduled [facility]04-15-2024 History of Present illness Narrative* Lucia Butler MD - 11/20/2023 8:45 AM EDT Eliazar Nunez Date of visit: 11/20/2023 Date of : 1950 Age: 73 y.o. 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 ([facility]) Allergic rhinitis Hydrocele in adult Benign prostatic hyperplasia with urinary obstruction Abnormal CT of the chest Multiple thyroid nodules Situational anxiety Bronchiectasis without complication ([facility]) Allergies Allergen Reactions Avelox [Moxifloxacin] GI Disturbance [...] ECHO DONE SCHED W/ PT L/S MBE History of Present Illness Patient with a [...] Date Allergic rhinitis 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 BPH (benign prostatic hyperplasia) Episodic lightheadedness 08/22/2017 Gastritis 11/15/2018 Pepcid ( pt on asa for CAD) Heart attack ([facility]) 09/10/2014 maker Hyperlipidemia Medication controlled Hypertension Hypertensive heart disease with heart failure ([facility]) Ischemic cardiomyopathy Kidney stones Obstructive sleep apnea BiPAP setting at 2 Presence of coronary angioplasty implant and graft Prostatitis Puckering of macula, left eye Tinea corporis 10/02/2017 No data recorded No data recorded No data recorded Past Surgical History: Procedure Laterality Date BLEPHAROPLASTY CARDIAC CATHETERIZATION COLONOSCOPY 03/20/2023 CORONARY ANGIOPLASTY WITH STENT PLACEMENT LAPAROSCOPIC CHOLECYSTECTOMY N/A 02/04/2020 Performed by Terry Ruvalcaba DO at [facility] THROMBECTOMY TONSILLECTOMY VEIN LIGATION AND STRIPPING Family [...] Master's degree (e.g., MA, MS, Marcia, MEd, SALES COMMUNICATIONS MANAGER, [employer]) Occupational History Not on file Tobacco [...] 40 min Stress: Stress Concern Present (08/02/2021) [employer] - Occupational Stress Questionnaire Feeling of Stress : Rather much Social Connections: Socially Integrated (08/02/2021) Social Connection and Isolation Panel [NHANES] Frequency of Communication with Friends and Family: More than three times a week Frequency of Social Gatherings with Friends and Family: More than three times a week Attends Christianity Services: More than 4 times per year [...] medications. IMPRESSIONS/PLAN 1. 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 PCP: COCO Braun Referring Physician: Mojgan Devries, JAIRON-GRAPHIC PRE PRESS TRADES WORKER [address] [place] [address] documented in this encounterMercy Health [facility]in Hospital04-12-2024 Miscellaneous Notes* Telephone Encounter - Yasmine Joseph CMA - 11/17/2023 10:04 AM EDT Called patient to remind them to bring their most current copy of their medication list with them to their appt. Patient verbalizes understanding. documented in this encounterMercy Health Tiffin Hospital04-12-2024 Telephone encounter Note* Telephone Encounter - Yasmine Josehp CMA - 11/17/2023 10:04 AM EDT Called patient to remind them to bring their most current copy of their medication list with them to their appt. Patient verbalizes understanding. [facility]04-09-2024 History of Present illness Narrative* COCO Braun - 11/14/2023 2:40 PM EDT Images from the original note were not included. 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 BPH (benign prostatic hyperplasia) Episodic lightheadedness 08/22/2017 Gastritis 11/15/2018 Pepcid ( pt on asa for CAD) Heart attack ([facility]) 09/10/2014 maker Hyperlipidemia Medication controlled Hypertension Hypertensive heart disease with heart failure ([facility]) Ischemic cardiomyopathy Kidney stones Obstructive sleep apnea BiPAP setting at 2 Presence of coronary angioplasty implant and graft Prostatitis Puckering of macula, left eye Tinea corporis 10/02/2017 Immunization History Administered Date(s) Administered COVID-19, mRNA, LNP-S, PF, 30mcg/0.3mL Dose 09/18/2020, 10/09/2020, 05/12/2021 Covid-19, Mrna, Lnp-s, Bivalent, Pf, 30mcg/0.3 ml 07/13/2022 Covid-19, Mrna, Lnp-s, Pf, 30 Mcg/0.3 Ml Dose, Matt-sucrose 02/22/2022 Covid-19,mrna, Lnp-s, Pf, 50mcg/0.5ml 1207/10/2023 Influenza (IM) Preservative Free 08/25/2014, 07/06/2015 Influenza [...] for sore throat. Tylenol as needed per limnologist guidelines for fever or pain. ALL QUESTIONS ANSWERED Total time spent was 25 minutes: Preparing to see the patient (e.g., review of tests) Obtaining and/or reviewing separately obtained history Performing a medically appropriate examination and/or evaluation Counseling and educating the patient/family/caregiver Ordering medications, tests, or procedures Follow-up: Next scheduled Sooner if no improvement COCO Braun 11/14/23 1532 documented in this encounterMercy Health T[facility]03-20-2024 Miscellaneous Notes* Telephone Encounter - Ivet Campbell CMA - 10/25/2023 11:15 AM EDT Left message for patient to remind them to bring their most current medication list with them to their appointment. documented in this encounterMercy Health Tiffin Hospital03-20-2024 Telephone encounter Note* Telephone Encounter - Ivet Campbell CMA - 10/25/2023 11:15 AM EDT Left message for patient to remind them to bring their most current medication list with them to their appointment. [facility]03-11-2024 History of Present illness Narrative* COCO Braun - 10/16/2023 2:20 PM EDT Images from the original note were not included. 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 Motrin or Tylenol as needed per limnologist guidelines for fever or pain. ALL QUESTIONS ANSWERED Total time spent was 25 minutes: Preparing to see the patient (e.g., review of tests) Obtaining and/or reviewing separately obtained history Performing a medically appropriate examination and/or evaluation Counseling and educating the patient/family/caregiver Ordering medications, tests, or procedures Follow-up: Next scheduled Sooner if no improvement COCO Braun 10/16/23 1602 documented in this encounterMercy Health Tiffin Hospital03-07-2024 History of Present illness Narrative* DENIZ Bowman - 10/12/2023 9:30 AM EST Images from the original note were not included. * Khushbu Gill, DO - 10/12/2023 9:30 AM EST Images from the original note were not included. [facility] Note Patient - Eliazar Nunez Age - 73 y.[facility]. [facility] 1950 [id number] ASSESSMENT Pulmonary nodular opacities bilaterally likely infectious [...] has another ultrasound scheduled for the summer [facility] Return to clinic in 1 [...] visit. 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 He [...] that were previously present have largely resolved. Pre Parole Counseling Aide images include series 2, image 84 of [...] the latter 2 areas are marked with [place]. There remains a left lower lobe calcified [...] be determined clinically. Dr. Khushbu Gill DO. [facility] Office: [phone] documented in this encounterMercy Health Tiffin Hospital03-05-2024 History of Present illness Narrative* Nathan Talbot, FILM AND VIDEO EDITOR-WARRANT SERVER - 10/10/2023 2:40 PM EST Images from the original note were not included. [address] [place] [address] SUBJECTIVE: Patient ID: Eliazar Nunez is a 73 y.o. male. Chief Complaint Patient presents with Cough Sore throat.fever 1 week States he has been experiencing runny nose, low grade fever of 100 oral once last night, and sore throat. 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 States 11 children was absent from one class, one day this week. He is concerned he may have strep? Did home COVID -19 testing, which was negative. States he was seen by funeral professional this past year, is allergic to grasses. 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 Perez, [facility] March 2023. Has allergy response to grasses. [...] COCO Braun 10/10/23 1536 documented in this encounterMercy Health Tiffin Hospital02-14-2024 Miscellaneous Notes* Telephone Encounter - Doris Fam - 09/20/2023 11:28 AM EST This is notification that we received referral from: Mojgan Devries Dx: edema, Ischemic myocardial dysfunction [I25.5] Not new l/s: E 11/2022 Please schedule f/u documented in this encounterMercy Health Tiffin Hospital02-14-2024 Telephone encounter Note* Telephone Encounter - Doris Fam - 09/20/2023 11:28 AM EST This is notification that we received referral from: Mojgan Devries Dx: edema, Ischemic myocardial dysfunction [I25.5] Not new l/s: MBE 11/2022 Please schedule f/u [facility]02-13-2024 History of Present illness Narrative* Mojgan Devries, FILM AND VIDEO EDITOR-GRAPHIC PRE PRESS TRADES WORKER - 09/19/2023 11:20 AM EST Subjective Patient [...] good otherwise He has not seen the lead portfolio manager in some years and has not [...] nursing note reviewed. Exam conducted with a director for beauty school present (). HENT: Head: Normocephalic. Neck: Vascular: [...] - Echo complete W/O contrast; Future - [facility] [place], [place]; Future Will have him change his amlodipine from am to pm Reviewed his labs from May which were all good Will set up an echocardiogram for him and also set up a cardiology visit for him due to his historyof failure and ischemic heart disease JONATHAN Ortiz 09/19/23 1225 documented in this encounterOhio State University Wexner Medical CenterTapInko Hillsdale [id number] History of Present illness Narrative* Omega Gar, - 08/10/2023 4:30 PM EST Subjective Patient [...] from work right now. documented in this encounterMercy Health Tiffin Hospital12-27-2023 History of Present illness Narrative* Nathan Talbot APRN-WARRANT SERVER - 08/02/2023 4:45 PM EST Images from the original note were not included. [address] [facility] [id number] SUBJECTIVE: Patient ID: Eliazar Nunez is a 73 y.o. male. Chief Complaint Patient presents with sinus Covid pos 07/15 States yesterday his right ear started to hurt. Additionally, increased congestion with pain above right eyebrow and side of his face. Had COVID-19 on 07/15/23. States he recovered from COVID before ear pain started. Alleviating methods tried- using occupational therapy department chair over right ear. Sinus Problem This is a new problem. The current episode started yesterday. The problem has been rapidly worsening since onset. There has been no fever. The pain is moderate. Associated symptoms include congestion, ear pain, headaches, a hoarse voice and sinus pressure. Pertinent negatives include no chills, coughing or shortness of breath. Treatments tried: director mobile media solutions. The treatment provided no relief. The following portions of the patient's history were reviewed and updated as appropriate: allergies, current medications, past family history, past medical history, past social history, past surgicalhistory and problem list. 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 Motrin or Tylenol as needed per limnologist guidelines for fever or pain. Start Augmentin as directed. ALL QUESTIONS ANSWERED Total time spent was 25 minutes: Preparing to see the patient (e.g., review of tests) Obtaining and/or reviewing separately obtained history Performing a medically appropriate examination and/or evaluation Counseling and educating the patient/family/caregiver Ordering medications, tests, or procedures Follow-up: Next scheduled Sooner if no improvement COCO Braun 08/02/23 1708 [facility]* Encounter Date Diagnosis Assessment Notes [...] of COVID. Jul, Cough (ICD-10 - R05.9) Food.ee Other 10-04-2023 Evaluation note* Encounter Date Diagnosis [...] - Z86.010) REPEAT COLONOSCOPY IN 5 YEARS Food.ee Other 06-23-2023 Hospital Discharge instructions Patient Education [...] urethra. Follow these instructions at home: Take cyuj-bgl-zatcxhj and prescription medicines only as told by [...] provider. Document Revised: 02/09/2022 Document Reviewed: 02/09/2022 [employer] Patient Education 2022 Synclogue. Follow Up Care 01/26/2023 15:51:37 With:MARGE VARNER, Amanda Alvares, URL Address: [facility] [address] [place] [address]- [phone] When: Unknown Comments:pt on schedule [facility] [place] 04-10-2023 Hospital Discharge instructions Patient Education 11/14/2022 [...] Follow these instructions at home: Medicines Take etgy-ijg-wxvqngv and prescription medicines only as told by [...] 07/21/2001 Document Revised: 07/06/2018 Document Reviewed: 08/09/2017 [employer] Patient Education 2020 Synclogue. Follow Up Care 05/16/2022 12:07:44 With:MARGE VARNER, Amanda Alvares, URL Address: [facility] [address] [place] [address]- When: Unknown [facility] 10-21-2022 Evaluation note* Encounter Date Diagnosis Assessment [...] unspecified ligament, initial encounter (ICD-10 - S83.91XA) Food.ee Other 10-10-2022 Hospital Discharge instructions Patient Education [...] have oneof these risk factors: ?Being of -Welsh descent. ?Having a family history of prostate [...] you: Are older than age 55. Are -Welsh. Have a father, brother, or uncle who [...] 05/04/2018 Document Revised: 07/06/2018 Document Reviewed: 05/04/2018 [employer] Patient Education 2020 Synclogue. Follow Up Care 11/08/2021 12:06:59 With:Amanda BIRD MD, URL Address: [facility] [address], [place] [address]- [phone] When:11/14/2022 [facility]* Encounter Date Diagnosis Assessment Notes Treatment Notes Treatment Clinical Notes Feb, Right sided abdominal pain (ICD-10 - R10.9) Feb, Loose stools (ICD-10 - R19.5) PT GIVEN LOW FODMAP DIET HANDOUT PT TO START [employer] [facility] DAILY Feb, History of colon polyps (ICD-10 - Z86.010) Food.ee Other Evaluation + Plan note Future Appointments Appointment Date:11/14/2022 10:45:00 AM Scheduled Provider:Amanda BIRD MD Location:[facility] Appointment Type:URO Office Visit Diagnostic Tests Pending * PSA Total 05/16/22 [facility] evaluation + Plan note Future Appointments Appointment Date:11/14/2022 10:45:00 AM Scheduled Provider:Amanda BIRD MD Location:[facility] App[facility]ments Appointment Date:12/26/2022 03:00:00 PM Scheduled Provider:Amnada [facility]IRD [facility] evaluation + Plan note Future Appointments Appointment Date:01/06/2025 09:45:00 AM Scheduled Provider:Amanda BIRD MD Location:[facility] Appointment Type:URO Office Visit Diagnostic Tests Pending * PSA Total 12/04/23 [facility] evaluation + Plan note Future Appointments Appointment Date:01/06/2025 09:45:00 AM Scheduled Provider:Amanda BIRD MD Location:[facility] Appointment Type:URO Office Visit Diagnostic Tests Pending * PSA Total 07/29/24 [facility] evaluation + Plan note Future Appointments Appointment Date:01/31/2025 10:30:00 AM Scheduled Provider:Amanda BIRD MD Location:[facility] Appointment Type:URO Office Visit Appointment Date:01/05/2026 09:45:00 AM Scheduled Provider:Amanda BIRD MD Location:[facility] Appointment Type:URO Office Visit Diagnostic Tests Pending * PSA Total 01/06/25 [facility] evaluation + Plan note Future Appointments Appointment Date:12/30/2025 09:00:00 AM Scheduled Provider: Location:[facility] Appointment Type:URO Nurse Visit Appointment Date:01/05/2026 09:45:00 AM Scheduled Provider:Amanda BIRD MD Location:[facility] Appointment Type:URO Office Visit [facility] evaluation noteNo [facility] Other Evaluation note* Diagnosis Onset Date Resolution Status Encounter for colonoscopy du e to history of adenomatous colonic polyps acute [facility] Work Phone: Evaluation note* Diagnosis Pain [...] seasonality, unspecified trigger [facility] Diagnosis Situational depression [facility] Diagnosis Situational depression documented in [facility]* Diagnosis Acute right otitis media- Primary Acute non-recurrent pansinusitis documented [facility]* Diagnosis Situational depression documented [facility]* Diagnosis Herpes zoster without complication- Primary documented [facility]* Diagnosis 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 ([facility]) Benign hypertensive heart disease with heart failure documented [facility] encounter [facility]* Diagnosis 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 ([facility]) Benign hypertensive heart disease with heart failure [facility]* Diagnosis Upper respiratory disease- Primary Other and unspecified diseases of upper respiratory tract Pharyngitis, unspecified etiology Painless rectal bleeding documented [facility] this encounter [facility]* Diagnosis Localized edema- Primary Edema Ischemic myocardial dysfunction documented [facility] encounter [facility]* Diagnosis Situational depression- Primary 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 ([facility]) Benign hypertensive heart disease with heart failure 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 ([facility]) documented in [facility] encounter [facility]* Diagnosis Allergic rhinitis due to pollen, unspecified seasonality- Primary Sore throat Acute pharyngitis documented in [facility]* Diagnosis Obstructive sleep apnea- Primary Obstructive sleep apnea (adult) (pediatric) Bronchiectasis without complication ([facility]) documented [facility] encounter [facility]* Diagnosis Acute non-recurrent pansinusitis- Primary documented in [facility] encounter [facility]* Diagnosis Atherosclerosis of platinum coronary artery of platinum heart without angina pectoris documented [facility]* Diagnosis Gastroenteritis- Primary Other and unspecified noninfectious gastroenteritis and colitis Flu-like symptoms Nausea and vomiting, unspecified vomiting type Loose stools Abnormal feces documented [facility]* Diagnosis Ischemic myocardial dysfunction- Primary Presence of bare metal stent in anterior descending branch of left coronary artery documented in this encounter [facility]* Diagnosis Hyperlipidemia, unspecified hyperlipidemia type documented in [facility]* Diagnosis Atherosclerosis of platinum coronary artery of platinum heart without angina pectoris documented in this [facility]* Diagnosis Medicare annual wellness visit, subsequent- Primary documented in this encounter [facility]* Diagnosis Medication management- Primary Hyperlipidemia, unspecified hyperlipidemia type documented in this encounter [facility]* Diagnosis Sensorineural hearing loss (SNHL) of both ears- Primary [facility] encounter [facility]* Diagnosis Hyperlipidemia, unspecified hyperlipidemia type documented in this encounter [facility]* Diagnosis Obstructive sleep apnea- Primary Obstructive sleep apnea (adult) (pediatric) Chronic seasonal allergic rhinitis due to pollen Dyspnea on exertion Other dyspnea and respiratory abnormality documented in this encounter [facility]* Diagnosis Internal hemorrhoids- Primary Internal hemorrhoids without mention of complication Unspecified hemorrhoids documented in this encounter [facility]* Diagnosis Ischemic myocardial dysfunction- Primary 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 ([facility]) Benign hypertensive heart disease with heart failure Presence of bare metal stent in anterior descending branch of left coronary artery Obstructive sleep apnea Obstructive sleep apnea (adult) (pediatric) documented in this encounter [facility]* Diagnosis Onset Date Resolution Status Admit Date GERD (gastroesophageal reflu x disease) acute November 25, 2024 10:41am [facility] Work Phone: Evaluation note* Diagnosis Atherosclerosis of platinum coronary artery of platinum heart without angina pectoris documented in this encounter [facility]* Diagnosis 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 ([facility]) Benign hypertensive heart disease with heart failure documented in [facility] encounter [facility]* Diagnosis Pain due to onychomycosis of toenails of both feet- Primary Venous insufficiency Unspecified venous (peripheral) insufficiency documented in this encounter [facility]* Diagnosis Sensorineural hearing loss (SNHL) of both ears- Primary documented in this encounter [facility]* Diagnosis Hyperlipidemia, unspecified hyperlipidemia type documented in [facility] encounter [facility]* Diagnosis Sensorineural hearing loss (SNHL) of both ears- Primary documented in this encounter [facility]* Diagnosis Leg pain, right- Primary Pain in soft tissues of limb documented in [facility] encounter [facility]* Diagnosis Flu-like symptoms- Primary Nausea Nausea alone Diarrhea of presumed infectious origin documented in this encounter [facility] noteNo assessment information available [facility] Work Phone: Hisscew general Narrative - Reported* Type Description Date Medical History sleep apnea Medical History chronic sinusitis Medical History Esophageal reflux Medical History BPH Medical History hypertension Surgical History colonoscopy Surgical History tonsillectomy Surgical History heart stent Hospitalization History vein stripping Hospitalization History heart attack Food.ee Other Hislfug general Narrative - Reported* Type Description Date Medical History sleep apnea Medical History chronic sinusitis Medical History Esophageal reflux Medical History BPH Medical History hypertension Surgical History colonoscopy Surgical History tonsillectomy Surgical History heart stent Surgical History gall bladder 2019 Hospitalization History vein stripping Hospitalization History heart attack Food.ee Other History of Present illness Narrative* Hamzah Lazo, CONNER - 07/18/2024 4:30 PM EST Patient: Eliazar Nunez : 1950 PCP: [facility] Provider MD Oscar SUBJECTIVE This is a [...] with urinary obstruction CAD (coronary artery disease) ([facility]) CHF (congestive heart failure) ([facility]) COVID-19 07/2021 History of heart attack (CMS/HCC) 09/10/2014 HLD (hyperlipidemia) (CMS/HCC) HTN (hypertension) ([facility]) Hx of 01/2018 Kidney stones [place] (myocardial infarction) ([facility]) SURINDER (obstructive sleep apnea) Shingles Sleep [...] Resource Strain: High Risk (06/06/2024) Received from [facility] Overall Financial Resource Strain (CARDIA) Difficulty of Paying Living Expenses: Hard Food Insecurity: No Food Insecurity (06/06/2024) Received from [facility] Hunger Screening Within the past 12 months we worried whether our food would run out before we got money to buy more.: Never True Within the past 12 months the food we bought just didn't last and we didn't have money to get more.: Never True Transportation Needs: No Transportation Needs (07/18/2023) [facility] - Transportation Lack of Transportation (Medical): No Lack of Transportation (Non-Medical): No Physical Activity: Sufficiently Active (08/02/2021) [facility] from [facility], [facility] Exercise Vital Sign Days of Exercise per Week: 5 days Minutes of Exercise per Session: 40 min Stress: No Stress Concern Present (06/06/2024) Received from [facility] [employer] - Occupational Stress Questionnaire Feeling of Stress : Not at all Social Connections: Socially Integrated (08/02/2021) [facility], [facility] Social Connection and Isolation Panel [NHANES] Frequency of Communication with Friends and Family: More than three times a week Frequency of Social Gatherings with Friends and Family: More than three times a week Attends Christianity Services: More than 4 times per year Active Member of Clubs or Organizations: Yes Attends Club or Organization Meetings: More than 4 times per year Marital Status: Intimate Partner Violence: Not on file Housing Stability: Low Risk (07/18/2023) [facility], [facility] Housing Instability Are you worried or concerned [...] 10 Hamzah Lazo DPM documented in this encounterN[facility] HealthcareHospital course Narrative No data available for this section [facility] Hospital Discharge instructions No data available for this section [facility] Discharge instructionsAmbulatory Orders* Referral to General Surgery Time Frame: 08/27/24, Location: None [facility] Work Phone: InstructionsNot on filedocumented in this encounter [facility]ructionsNot on filedocumented in this encounter [facility]* Attachments The following attachments cannot be sent through Care Everywhere. * Sinusitis in adults ([place]) * Ear Infection ED ([place]) documented in this encounterProMedica Health SystemInstructionsNot on [...] on file documented in this encounterProMedica Health SystemInstructions* Attachments The following attachments cannot be sent through Care Everywhere. * High Blood Pressure ED ([place]) documented in this encounterProMedica Health SystemInstructions* Attachments The following attachments cannot be sent through Care Everywhere. * Sore throat in adults ([place]) documented in this encounterProMedica Health SystemInstructions* Attachments The following attachments cannot be sent through Care Everywhere. * Sinusitis Discharge Instructions, Adult ([place]) documented in this encounterProMediTapInko Health SystemInstructionsNot on file documented in this encounterProMediTapInko Health SystemInstructions* Attachments The following attachments cannot be sent through Care Everywhere. * Viral Gastroenteritis Discharge Instructions, Adult ([place]) documented in this encounterOhio [facility] SystemProgress note No data available for this section [facility] reason for referral (narrative)* Consultation (Routine) - Pending Review Specialty Diagnoses / Procedures Referred By Contac t Referred To Contact Cardiology Diagnoses Ischemic myocardial dysfunction Mojgan Devries, FILM AND VIDEO EDITOR-GRAPHIC PRE PRESS TRADES WORKER [address] [place] [address] [facility] Cardiology [address] [facility] [address] [place] [address] Referral ID Status Reason Start Date Expiration Date Visits Requested Visits Authorized [id number] Pending Review Specialty Services Required 09/19/2023 09/18/2024 1 1 Electronically signed by Mojgan Devries FILM AND VIDEO EDITOR-GRAPHIC PRE PRESS TRADES WORKER at 09/19/2023 11:54 AM EST * Cardiology (Routine) - Pending Review Specialty Diagnoses / Procedures Referred By Contac t Referred To Contact Diagnoses Ischemic myocardial dysfunction Procedures Echo complete W/O contrast Chelsea Evelyne, FILM AND VIDEO EDITOR-GRAPHIC PRE PRESS TRADES WORKER [address] [place] [address] Referral ID Status Reason Start Date Expiration Date V isits Requested Visits Authorized [id number] Pending Review 09/19/2023 09/18/2024 1 1 Electronically signed by Mojgan Devries FILM AND VIDEO EDITOR-GRAPHIC PRE PRESS TRADES WORKER at 09/19/2023 11:54 AM EST [facility] SystemReason for referral (narrative)No reason for referral information [facility]University [facility] Work Phone: Reason for visit Narrative* Durable Medical Equipment (Routine) - Pending Review Specialty Diagnoses / Procedures Referred By Contac t Referred To Contact Audiology Diagnoses Sensorineural hearing loss, bilateral Procedures AL HEARING SERVICE AL HEARING AID, DIGIT, BIN, BTE [facility] [address] [facility] [address] [place] [address] Phone: tel: fax: [facility] [address] [facility] [place] [address] Phone: tel: fax: Referral ID Status Reason Start Date Expiration Date V isits Requested Visits Authorized [id number] Pending Review 12/06/2024 02/03/2025 1 1 [facility] Summary Purpose Family History Relationship Condition Age at Onset Recorded Date/T stepan Not Specified Dementia Unknown Malignant neoplasm Unknown Cerebrovascular accident (CVA) Unknown Relationship Condition Age at Onset Recorded Date/T stepan mother Dementia Unknown Malignant neoplasm Unknown Cerebrovascular accident (CVA) Unknown father Cerebrovascular accident Unknown Unknown mother Unknown Advance Directives Advance Directive Response Recorded Date/ Time Advance [...] Date GERD (gastroesophageal reflux disease) A pril 2024 10:41am Chief Complaint Admit Date cough, congestion April 08, 2025 12:41pm Additional Source Comments (unrecognized sect ion and content) No Status Records FoundNo Status Records FoundNo Status Records FoundNo Status Records FoundNo Status Records FoundNo Status Records FoundNo Status Records FoundNo Status Records Found INFORMATION SOURCE (unrecogn ized section and content) DATE CREATED AUTHOR 09/16/2021 [facility] DATE CREATED AUTHOR AUTHOR'S ORGANIZ ATION 09/13/2022 [facility] DATE CREATED AUTHOR AUTHOR'S ORGANIZ ATION 03/23/2023 [facility] DATE CREATED AUTHOR AUTHOR'S ORGANIZ ATION 10/18/2023 [facility] DATE CREATED AUTHOR AUTHOR'S ORGANIZ ATION 01/22/2025 [facility] EPIC DATE CREATED AUTHOR AUTHOR'S ORGANIZ ATION 03/06/2025 [facility] DATE CREATED AUTHOR AUTHOR'S ORGANIZ ATION 03/13/2025 [facility] DATE CREATED AUTHOR AUTHOR'S ORGANIZ ATION 03/14/2025 [facility] REASON FOR VISIT (unrecogniz ed section and content) Reason Comments Toenail Care Non dm nail care Reason Onset Date Comments Med Refill 08/19/2024 Reason Onset Date Comments Med Refill 08/20/2024 Reason Onset Date Comments Med Refill 08/26/2024 Reason Comments sinus Covid pos 12 Reason Comments Med Refill Reason Comments rash [...] MBE Specialty Diagnoses / Procedures Referred By Contac t Referred To Contact Cardiology Diagnoses Ischemic myocardial dysfunction Mojgan Devries, FILM AND VIDEO EDITOR-GRAPHIC PRE PRESS TRADES WORKER [address] [place] [address] [facility] Cardiology [address] [facility] [address] [place] [address] Referral ID Status Reason Start Date Expiration Date Visits Requested Visits Authorized [id number] Pending Review Specialty Services Required 09/19/2023 09/18/2024 1 1 Reason Onset Date Comments Med Refill 04/05/2024 Reason Onset Date Comments Med Refill 04/22/2024 Reason Onset Date Comments Med Refill 05/01/2024 Reason Comments maw Reason Onset Date Comments Med Refill 10/11/2024 Reason Comments Follow-up CT: 4PFT: 0 02/27/2023Echo: 10/19/2023ME: [facility] Reason Comments Consult Hemorrhoids- Had one episode of bleeding. Last colonoscopy was 2 yrs ago. Specialty Diagnoses / Procedures Referred By Contac t Referred To Contact General Surgery Diagnoses Unspecified hemorrhoids Procedures AL OFFICE/OUTPATIENT [facility] 60 MINUTES Sarmad Marcus MD [address] [facility] [address] [place] [address] Phone: tel: fax: [facility] [address] [facility] [address] [place] [address] Phone: tel: fax: Referral ID Status Reason Start Date Expiration Date V isits Requested Visits Authorized [id number] Closed Specialty Services Required 08/30/2024 02/26/2025 1 1 Reason Comments Follow-up EST PT F/U 1 YR L/S TMP Reason Onset Date Comments Color of Hearing Aids 12/06/2024 Reason Onset Date Comments Med Refill 12/13/2024 Reason Onset Date Comments Med Refill 12/16/2024 Reason Onset Date Comments Med Refill 01/08/2025 Reason Comments night time leg pain Reason Comments Flu-like symptoms Care Teams (unrecognized sec tion and content) Team Status: Inactive Member Role Status Dates Simba Grey MD Attending Provider Active Nathan Talbot NP-Ronald Primary Care Provider Active Team Status: Active Member Role Status Dates EDITH Braun Primary Care Provider Active Team Status: Inactive Member Role Status Dates EDITH Braun Primary Care Provider Active Juana Handley NP-Ronald Attending Provider Active Java User Interface Developer Relationship Specialty Start Date End Date Unallocated, Roseann Kmi MD [address] [place], [place] [id number] PCP - General Family Medicine 05/09/24 Nathan Talbot CRNP [address] [place] [address] Referring Physician Nurse Practitioner 09/28/23 Java User Interface Developer Relationship Specialty Start Date End Date Unallocated, Roseann Kim MD [address] [place] [address] PCP - General Family Medicine 05/09/24 Nathan Talbot CRNP [address] [place] [address] Referring Physician Nurse Practitioner 09/28/23 Java User Interface Developer Relationship Specialty Start Date End Date Unallocated, Roseann Kim MD [address] [place] [address] PCP - General Family Medicine 05/09/24 Nathan Talbot CRNP [address] [place] [address] Referring Physician Nurse Practitioner 09/28/23 Java User Interface Developer Relationship Specialty Start Date End Date Unallocated, Roseann Kim MD [address] [place] [address] PCP - General Family Medicine 05/09/24 Nathan Talbot CRNP [address] [place] [address] Referring Physician Nurse Practitioner 09/28/23 Java User Interface Developer Relationship Specialty Start Date End Date Unallocated, Roseann Kim MD [address] [place] [address] PCP - General Family Medicine 05/09/24 Nathan Talbot CRNP [address] [place] [address] Referring Physician Nurse Practitioner 09/28/23 Java User Interface Developer Relationship Specialty Start Date End Date Nathan Talbot APRN-WARRANT SERVER [address] [place] [address] PCP - General Family Medicine 06/24/19 Java User Interface Developer Relationship Specialty Start Date End Date Nathna Talbot APRN-WARRANT SERVER [address] [place] [address] PCP - General Family Medicine 06/24/19 Team Status: Inactive Member Role Status Dates Nathan Talbot CONSULTING INTERN-C Primary Care Provider Active Start: July 20, 2024 End: July 20, 2024 Lynette Varela APRN CONSULTING INTERN-C Attending Provider Active Start: July End: July 20, 2024 Team Status: Inactive Member Role Status Dates Nathan Talbot CONSULTING INTERN-C Primary Care Provider Active Start: August 27, 2024 End: August 27, 2024 Sarmad Marcus MD Attending Provider Active S tart: August 27, 2024 End: August 27, 2024 Java User Interface Developer Relationship Specialty Start Date End Date Nathan Talbot APRN-WARRANT SERVER [address] [place] [address] PCP - General Family Medicine 06/24/19 Java User Interface Developer Relationship Specialty Start Date End Date Nathan Talbot APRN-WARRANT SERVER [address] [place] [address] PCP - General Family Medicine 06/24/19 Java User Interface Developer Relationship Specialty Start Date End Date Nathan Talbot [facility] [address] [place] [address] PCP - General Family Medicine 06/24/19 Java User Interface Developer Relationship Specialty Start Date End Date Nathan Talbot [facility] [address] [place] [address] PCP - General Family Medicine 06/24/19 Java User Interface Developer Relationship Specialty Start Date End Date Nathan Talbot [facility] [address] [place] [address] PCP - General Family Medicine 06/24/19 Java User Interface Developer Relationship Specialty Start Date End Date Nathan Talbot [facility] [address] [place] [address] PCP - General Family Medicine 06/24/19 Java User Interface Developer Relationship Specialty Start Date End Date Nathan Talbot [facility] [address] [place] [address] PCP - General Family Medicine 06/24/19 Java User Interface Developer Relationship Specialty Start Date End Date Nathan Talbot [facility] [address] [place] [address] PCP - General Family Medicine 06/24/19 Java User Interface Developer Relationship Specialty Start Date End Date Nathan Talbot, [employer]M AND VIDEO EDITOR-[facility] [address] [place] [address] PCP - General Family Medicine 06/24/19 Java User Interface Developer Relationship Specialty Start Date End Date [facility] [address] [place] [address] PCP - General Family Medicine 06/24/19 Java User Interface Developer Relationship Specialty Start Date End Date Nathan Talbot [facility] [address] [place] [address] PCP - General Family Medicine 06/24/19 Java User Interface Developer Relationship Specialty Start Date End Date [facility] [address] [place] [address] PCP - General Family Medicine 06/24/19 Java User Interface Developer Relationship Specialty Start Date End Date Unallocated, Noms MD Julio [address] [facility] [place] [address] PCP - General Family Medicine 05/09/24 Nathan Talbot CRNP [address] [place] [address] Referring Physician Nurse Practitioner 09/28/23 Java User Interface Developer Relationship Specialty Start Date End Date Unallocated, Noms MD Zeynep Kim [facility] [address] PCP - General Family Medicine 05/09/24 Nathan Talbot CRNP Referring Physician Nurse Practitioner 09/28/23 Team Status: Inactive Member Role Status Dates Nathan Talbot NP-C Primary Care Provider Active Start: November 25, 2024 End: November 25, 2024 Yogesh Vital APRN Attending Provider Active Start: November 25, 2024 End: November 25, 2024 Java User Interface Developer Relationship Specialty Start Date End Date Unallocated, Roseann Kim MD [address] [place] [address] PCP - General Family Medicine 05/09/24 Nathan Talbot CRNP Referring Physician Nurse Practitioner 09/28/23 Java User Interface Developer Relationship Specialty Start Date End Date Unallocated, Roseann Kim MD [facility] [place] [address] PCP - General Family Medicine 05/09/24 Nathan Talbot CRNP Referring Physician Nurse Practitioner 09/28/23 Java User Interface Developer Relationship Specialty Start Date End Date Unallocated, Roseann Kim MD [address] [place] [address] PCP - General Family Medicine 05/09/24 Nathan Talbot CRNP Referring Physician Nurse Practitioner 09/28/23 Java User Interface Developer Relationship Specialty Start Date End Date Unallocated, Roseann Kim MD [facility] [place] [address] PCP - General Family Medicine 05/09/24 Nathan Talbot CRNP Referring Physician Nurse Practitioner 09/28/23 Java User Interface Developer Relationship Specialty Start Date End Date Nathan Talbot APRN-CNP PCP - General Family Medicine 06/24/19 Java User Interface Developer Relationship Specialty Start Date End Date Aaron Dhillon APRN-CNP [address] [place] [address] PCP - General Internal Medicine 02/27/25 Java User Interface Developer Relationship Specialty Start Date End Date Aaron Dhillon APRN-CNP [address] [place] [address] PCP - General Internal Medicine 02/27/25 Team Status: Inactive Member Role Status Dates Nathan Talbot NP-Ronald Primary Care Provider Active Start: April 08, 2025 End: April 08, 2025 Dodie Pike APRN Attending Provider Active Start: April 08, 2025 End: April 08, 2025 Goals (unrecognized section and content) Goals may [...] BE BASED ON THE PRIMARY CLINICAL RECORDS. [employer] provides no warranty or guarantee of the accuracy or completeness of information in this document.
[2025-04-11 16:29] VITALS: BP 121/62; PULSE 53; TEMP 36.6; O2SAT 96; BMI 28.7
--- NOTE | 2025-04-12 08:57 | ED.GENADUL1 ---
HPI HPI - General Adult General Chief complaint: Extremity Problem, Nontraumatic Stated complaint: LOWER EXTREMITY ISSUE Time Seen by Provider: 04/11/25 16:33 Source: patient Mode of arrival: walk-in History of Present Illness HPI narrative: Patient is a 74 male presenting to the emergency department for evaluation of right leg pain. Patient states that he started experience pain in the right lower extremity 1 month ago. He states the pain radiates from the knee to the ankle. He cannot identify an exact inciting event that triggered the pain. He denies any injuries to the area. He states he has been evaluated by his PCP for the symptoms. He states he had an arterial ultrasound of the leg about a week ago, which was normal. He denies any swelling in the leg. He denies any numbness or tingling in the leg. He denies any rashes in the lower extremity. States he still able to walk normally. He states that the pain comes on intermittently/randomly, sometimes affecting with the middle of the night or while he is walking. He denies any other symptoms such as fevers, chills, chest pain, shortness of breath, unintentional weight loss, abdominal pain, nausea, or vomiting. Related Data Home Medications ?Medication ?Instructions ?Recorded ?Confirmed albuterol sulfate 90 mcg/actuation inhalation 04/11/25 aerosol inhaler amlodipine 5 mg tablet 5 mg PO DAILY 04/11/25 04/11/25 ascorbic acid (vitamin C) 1,000 mg 1,000 mg PO DAILY 04/11/25 04/11/25 tablet,extended release aspirin 81 mg tablet,delayed 81 mg PO DAILY 04/11/25 04/11/25 release (Adult Aspirin Regimen) atorvastatin 80 mg tablet 80 mg PO DAILY 04/11/25 04/11/25 azelastine 137 mcg (0.1 %) nasal 1 spray intranasal DAILY 04/11/25 04/11/25 spray carvedilol 12.5 mg tablet 12.5 mg PO BID 04/11/25 04/11/25 cetirizine 10 mg tablet (24Hour 10 mg PO DAILY allergies 04/11/25 04/11/25 Allergy) famotidine 20 mg tablet (Acid 20 mg PO DAILY 04/11/25 04/11/25 Controller) fluoxetine 10 mg capsule 10 mg PO DAILY 04/11/25 04/11/25 fluticasone propionate 50 2 spray intranasal DAILY 04/11/25 04/11/25 mcg/actuation nasal spray,suspension lisinopril 10 mg tablet 10 mg PO DAILY 04/11/25 04/11/25 nitroglycerin 0.4 mg sublingual 0.4 mg sublingual Q5M 04/11/25 04/11/25 tablet omeprazole 40 mg capsule,delayed 40 mg PO DAILY 04/11/25 04/11/25 release oxybutynin chloride 5 mg tablet 5 mg PO DAILY 04/11/25 04/11/25 Allergies Allergy/AdvReac Type Severity Reaction Status Date / Time moxifloxacin (From Avelox) Allergy Nausea Verified 04/11/25 16:21 Review of Systems ROS Status of ROS 10 or more systems reviewed and unremarkable except as noted in history and below PFSH [facility] Social History Little interest or pleasure in doing things: not at all Feeling down, depressed, or hopeless: not at all Exam Narrative Exam Narrative: CONSTITUTIONAL: Well-appearing, answering questions and following commands appropriately SKIN: Was warm and dry, no rashes on the lower extremity. EYES: Sclerae white. EARS, NOSE, THROAT: Moist oral mucosa. RESPIRATORY: Clear to auscultation bilaterally, no wheezes, crackles, or stridor, no use of accessory muscles CARDIOVASCULAR: Normal rate and regular rhythm. 2+ DP pulses bilaterally, RLE feels warm and well-perfused GASTROINTESTINAL: Abdomen is nondistended. MUSCULOSKELETAL: The right lower extremity grossly appears normal. There is no peripheral edema. There is no overlying erythema, cellulitis, or infectious changes. He has full range of motion throughout the right lower extremity. There is no bony tenderness. Ambulates with a normal gait. NEUROLOGIC: Patient is awake and alert. 5/5 strength in the right lower extremity with knee flexion, knee extension, dorsiflexion of the ankle, plantarflexion, and able to wiggle all of his toes. Sensation intact to light touch throughout the lower extremity. There is good muscle tone and bulk. There is no clonus or fasciculations. Constitutional Vital Signs, click to edit/add: Last Vital Signs Temp 97.8 F 04/11/25 16:29 Pulse 53 L 04/11/25 16:29 Resp 16 04/11/25 16:29 BP 121/62 04/11/25 16:29 Pulse Ox 96 09/05/25 16:29 O2 Del Method Room Air 04/11/25 16:29 Course Vital Signs Vital signs: Vital Signs Temperature 97.8 F 04/11/25 16: Pulse Rate 53 L 04/11/25 16:29 Respiratory Rate 16 04/11/25 16:29 Blood Pressure 121/62 04/11/25 16:29 Pulse Oximetry 96 04/11/25 16:29 Oxygen Delivery Method Room Air 04/11/25 16:29 Temperature 97.8 F 04/11/25 16:29 Pulse Rate 53 L 04/11/25 16:29 Respiratory Rate 16 04/11/25 16:29 Blood Pressure 121/62 04/11/25 16:29 Pulse Oximetry 96 04/11/25 16:29 Oxygen Delivery Method Room Air 04/11/25 16:29 Medical Decision Making MDM Narrative Medical decision making narrative: Patient is a 74-year-old male presenting to the emergency department with a 1 month history of atraumatic, intermittent right lower extremity pain, from the knee to the ankle. Currently, he states the pain is minimal, but was really bothering him last night and throughout the workday today. Patient's vital signs are within normal limits. He is afebrile and hemodynamically stable. Overall, examination of the right lower extremity failed to reveal any acute abnormalities. There is good neurologic function without weakness, gait disturbances, or foot drop. Sensation is intact throughout. He has full range of motion. There are no bony deformities or tenderness about the extremity. There is no cellulitic changes or evidence of infection. The extremity is warm and well-perfused with good distal pulses. There is no peripheral edema or evidence of DVT. He just had an arterial duplex of the extremity 1 week ago ordered by his PCP which was normal - making arterial claudication of lower likelihood. Unclear as to the exact etiology behind the patient's pain, however, I do not believe there is an acute, emergent process that needs to be further evaluated here in the ED. The extremity is neurovascularly intact. He was instructed follow-up with his PCP for further evaluation. Return precautions were given including any new or concerning symptoms. Patient understands and agrees to the plan. FINAL IMPRESSION: #Acute right lower extremity pain DISPOSITION: Discharged home CONDITION: Good Discharge Plan Discharge Chief Complaint: Extremity Problem, Nontraumatic Clinical Impression: Leg pain, right Patient Disposition: Home, Self-Care Time of Disposition Decision: 17:04 Condition: Good Mode of Transportation: Private Vehicle Prescriptions / Home Meds: No Action amlodipine 5 mg tablet 5 mg PO DAILY albuterol sulfate 90 mcg/actuation HFA aerosol inhaler INHALATION ascorbic acid (vitamin C) 1,000 mg tablet extended release 1,000 mg PO DAILY aspirin [Adult Aspirin Regimen] 81 mg tablet,delayed release (DR/EC) 81 mg PO DAILY atorvastatin 80 mg tablet 80 mg PO DAILY azelastine 137 mcg (0.1 %) spray,non-aerosol 1 spray INTRANASAL DAILY carvedilol 12.5 mg tablet 12.5 mg PO BID Rx Instructions: must administer with a meal/food cetirizine [24Hour Allergy] 10 mg tablet 10 mg PO DAILY famotidine [Acid Controller] 20 mg tablet 20 mg PO DAILY fluoxetine 10 mg capsule 10 mg PO DAILY fluticasone propionate 50 mcg/actuation spray,suspension 2 spray INTRANASAL DAILY lisinopril 10 mg tablet 10 mg PO DAILY nitroglycerin 0.4 mg tablet, sublingual 0.4 mg sublingual Q5M omeprazole 40 mg capsule,delayed release(DR/EC) 40 mg PO DAILY oxybutynin chloride 5 mg tablet 5 mg PO DAILY Print Language: [place] Instructions: Leg Pain (ED) Referrals: NATHAN KHAN [Primary Care Provider, Unknown] - 1 week Discharge Date/Time: 04/11/25 17:17
== END 2025-04-11 17:17 | disposition home or self-care (01) ==
PROVIDERS: Emergency Provider Student in an Organized Health Care Education/Training Program; PCP Nurse Practitioner
DX: M79.604 Pain in right leg (principal)
CPT/HCPCS: 99281